=== PATIENT | female | born 1995 | race Caucasian/White ===

== ENCOUNTER 2023-03-28 13:15 | Day surgery (SDC) | payer OTHER, SELFPAY ==
[2023-03-28] VITALS (10 sets, daily range): BP systolic 104–120; BP diastolic 65–76; PULSE 66–132; RESP 16–18; TEMP 36.2–38; O2SAT 97–100; BMI 26.2
--- NOTE | 2023-03-28 13:20 | US_ITS ---
INDICATION: concern for ruptured ectopic EXAMINATION: Ultrasound US OB Transvaginal TECHNIQUE: Transabdominal pelvic ultrasound was performed. Grayscale, spectral waveform, and color flow Doppler evaluation of the adnexa. COMPARISON: None. LMP: [Unknown Beta-hCG: Unknown FINDINGS: UTERUS: 7 x 3.8 x 2.8 cm. The endometrium is normal thickness measuring about 4 mm. RIGHT OVARY: 3.4 x 2.5 x 1.5 cm. Normal. LEFT OVARY: 6 x 4 x 3 cm. There is a complex mass in the left ovary measuring about 3.4 x 2.5 x 1.5 cm. It could represent hemorrhagic cyst. Ectopic cannot be excluded. FREE FLUID: Moderate amount of free fluid in the left adnexal region. INTRAUTERINE GESTATIONAL SAC(s) (size/shape): No evidence of intracranial . US/Transvaginal w/Preg US IMPRESSION: 1. No evidence of intrauterine . 2. Complex mass in the left adnexal region with echogenic fluid which may reflect blood. Ruptured ectopic cannot be excluded. Correlation with quantitative beta-hCG levels is recommended. Electronically Signed: Adilson Fajardo MD at 15:02 EDT ,
--- NOTE | 2023-03-28 13:29 | ED.VIS.FEGU ---
HPI <SRAVANTHI Good - Last Filed: 03/28/23 15:30> HPI - Female History of Present Illness Chief Complaint: Female C/O Narrative Narrative: Patient presenting today after her OB, Dr. Carrera requested that she come in to be evaluated due to concerns for a ruptured ectopic on the left side. Patient has a known ectopic and finished her last round of methotrexate this . She had 2 rounds total with the first round being the Tuesday before. She has never had an ectopic before and is G1, P0. She reports that today her pain began worsening to the point where she could not handle it and she feels nauseous. She denies any fever, chills, chest pain, and shortness of breath. PFSH <SRAVANTHI Good - Last Filed: 03/28/23 15:30> PFSH Medical History no medical history Home Medications oxycodone 5 mg capsule 5 mg PO BID PRN pain 5 days #10 caps 03/28/23 [Rx Last Taken Unknown] oxycodone-acetaminophen 5 mg-325 mg tablet 1 - 2 tab PO Q6H PRN PRN Moderate-Severe Pain (4-10) 2 days #5 tabs 03/28/23 [Rx Last Taken Unknown] Allergy/AdvReac Type Severity Reaction Status Date / Time No Known Allergies Allergy Verified 03/28/23 13:18 Surgical History no surgical history Social History Smoking Status: Never smoker ROS <SRAVANTHI Good - Last Filed: 03/28/23 15:30> ROS ED Constitutional Constitutional ED: Denies chills or fever(s) Cardiovascular Cardiovascular: Denies chest pain Respiratory/Chest Respiratory/Chest: Denies cough or dyspnea Gastrointestinal Gastrointestinal: Reports abdominal pain and nausea; Denies vomiting Musculoskeletal Musculoskeletal: Denies arthralgias or myalgias Neurologic Neurologic: Denies weakness EXAM <SRAVANTHI Good - Last Filed: 03/28/23 15:30> Physical Exam Const Vital Signs: 03/28/23 13:18 03/28/23 15:26 03/28/23 16:23 Temperature 97.6 F L 97.2 F L 100.4 F H Temperature Source Temporal Temporal Temporal Pulse Rate 132 H 132 H 80 Respiratory Rate 18 18 16 Respiratory Pattern Normal Blood Pressure 120/76 120/76 111/68 Blood Pressure Mean 90 90 82 Blood Pressure Source Monitor Blood Pressure Position Semi-Fowlers Blood Pressure Location Right Arm Baseline BP 120/76 Pulse Ox 100 100 100 Oxygen Delivery Method Room Air Room Air Room Air 03/28/23 16:30 03/28/23 16:45 03/28/23 17:00 Temperature Temperature Source Pulse Rate 74 66 68 Respiratory Rate 16 16 16 Respiratory Pattern Blood Pressure 111/66 110/73 104/65 Blood Pressure Mean 81 85 78 Blood Pressure Source Monitor Monitor Monitor Blood Pressure Position Semi-Fowlers Semi-Fowlers Semi-Fowlers Blood Pressure Location Right Arm Right Arm Right Arm Baseline BP 120/76 120/76 120/76 Pulse Ox 100 100 100 Oxygen Delivery Method Room Air Room Air Room Air 03/28/23 17:15 03/28/23 17:30 03/28/23 17:45 Temperature 99.6 F H Temperature Source Temporal Pulse Rate 72 73 78 Respiratory Rate 16 16 16 Respiratory Pattern Blood Pressure 114/71 110/71 104/68 Blood Pressure Mean 85 84 80 Blood Pressure Source Monitor Monitor Monitor Blood Pressure Position Semi-Fowlers Semi-Fowlers Semi-Fowlers Blood Pressure Location Right Arm Right Arm Right Arm Baseline BP 120/76 120/76 120/76 Pulse Ox 100 98 97 Oxygen Delivery Method Room Air Room Air Room Air 03/28/23 17:50 03/28/23 18:01 Temperature Temperature Source Pulse Rate Respiratory Rate Respiratory Pattern Normal Blood Pressure Blood Pressure Mean Blood Pressure Source Blood Pressure Position Blood Pressure Location Baseline BP 120/76 Pulse Ox Oxygen Delivery Method Positive well nourished, well developed and no apparent distress General Appearance ED: well developed HEENT Reports normocephalic and head/scalp atraumatic Mouth ED: Yes moist mucous membranes normal Eyes PERRL and EOMs intact bilaterally Neck full ROM and supple Chest Wall inspection of chest normal Resp normal respiratory effort and clear to auscultation bilaterally Cardio regular rate and regular rhythm GI non-distended and no masses GI Narrative: Left lower quadrant tenderness to palpation. Back/Spine normal ROM and normal to inspection Extremity normal to inspection and full ROM Neuro oriented x3, CN's II-XII intact bilaterally, moves all extremities, no focal motor deficits and no sensory deficits noted Sensorium / Orientation: awake and alert Psych mental status grossly normal and thought process normal Skin no rashes or lesions noted and no wounds <Dr. Med Quijano MD - Last Filed: 03/29/23 08:20> Physical Exam Const Vital Signs: 03/28/23 13:18 03/28/23 15:26 03/28/23 16:23 Temperature 97.6 F L 97.2 F L 100.4 F H Temperature Source Temporal Temporal Temporal Pulse Rate 132 H 132 H 80 Respiratory Rate 18 18 16 Respiratory Pattern Normal Blood Pressure 120/76 120/76 111/68 Blood Pressure Mean 90 90 82 Blood Pressure Source Monitor Blood Pressure Position Semi-Fowlers Blood Pressure Location Right Arm Baseline BP 120/76 Pulse Ox 100 100 100 Oxygen Delivery Method Room Air Room Air Room Air 03/28/23 16:30 03/28/23 16:45 03/28/23 17:00 Temperature Temperature Source Pulse Rate 74 66 68 Respiratory Rate 16 16 16 Respiratory Pattern Blood Pressure 111/66 110/73 104/65 Blood Pressure Mean 81 85 78 Blood Pressure Source Monitor Monitor Monitor Blood Pressure Position Semi-Fowlers Semi-Fowlers Semi-Fowlers Blood Pressure Location Right Arm Right Arm Right Arm Baseline BP 120/76 120/76 120/76 Pulse Ox 100 100 100 Oxygen Delivery Method Room Air Room Air Room Air 03/28/23 17:15 03/28/23 17:30 03/28/23 17:45 Temperature 99.6 F H Temperature Source Temporal Pulse Rate 72 73 78 Respiratory Rate 16 16 16 Respiratory Pattern Blood Pressure 114/71 110/71 104/68 Blood Pressure Mean 85 84 80 Blood Pressure Source Monitor Monitor Monitor Blood Pressure Position Semi-Fowlers Semi-Fowlers Semi-Fowlers Blood Pressure Location Right Arm Right Arm Right Arm Baseline BP 120/76 120/76 120/76 Pulse Ox 100 98 97 Oxygen Delivery Method Room Air Room Air Room Air 03/28/23 17:50 03/28/23 18:01 Temperature Temperature Source Pulse Rate Respiratory Rate Respiratory Pattern Normal Blood Pressure Blood Pressure Mean Blood Pressure Source Blood Pressure Position Blood Pressure Location Baseline BP 120/76 Pulse Ox Oxygen Delivery Method MDM <SRAVANTHI Good - Last Filed: 03/28/23 15:30> MDM MDM Narrative Medical decision making narrative: Patient presenting today after being sent in by her OB, Dr. Carrera with concerns for ruptured ectopic , she has a known ectopic and has had 2 rounds of methotrexate. She began having worsening left lower quadrant pain today. She does appear to be uncomfortable, she is tachycardic here. She will be given IV fluids, morphine, Zofran. Preop labs will be obtained. Transvaginal ultrasound will be obtained. Patient is made NPO. Ultrasound shows evidence of ruptured left ectopic . Dr. Carrera came down to evaluate patient and she will be taken to the OR in stable condition. Patient is comfortable with plan. I have personally performed a face to face assessment of the patient and have reviewed the BINDU Note. I performed a substantive portion of the visit including all aspects of the following. My [place] findings include: History is remarkable patient having sandwich at 1230. She has not eaten since. Patient was treated with methotrexate for left ectopic . She has received 2 doses. She presents because of increased pain. Patient plus minus orthostatic symptoms. She denies pain referred to her left shoulder. She appears uncomfortable. Exam is patient appears uncomfortable. She is tachycardic. Patient has significant tenderness to left lower quadrant with peritoneal findings. Medical Decision Making patient was made n.p.o. appropriate labs were ordered. Ultrasound was ordered as requested by Dr. Carrera. Ultrasound reveals hemoperitoneum due to ruptured left ectopic other additions or changes: Patient was made n.p.o. IV was established. Patient was made ready for OR. Dr. Carrera was made aware of patient's laboratory studies. Plan is OR Lab Data Attestation: I reviewed the patient's lab results. Labs: Laboratory Results - last 24 hr 03/28/23 13:45 WBC 7.3 RBC 4.43 Hgb 13.6 Hct 41.5 MCV 93.7 MCH 30.7 MCHC 32.8 RDW Std Deviation 44.4 H RDW Coeff of Ruben 13.0 Plt Count 345 MPV 9.1 Immature Gran % (Auto) 0.400 Neut % (Auto) 64.4 Lymph % (Auto) 24.1 [place] % (Auto) 8.9 Eos % (Auto) 2.1 Baso % (Auto) 0.1 Absolute Neuts (auto) 4.7 Absolute Lymphs (auto) 1.76 Nucleated RBC % 0 Sodium 138 Potassium 3.4 L Chloride 107 Carbon Dioxide 28.0 Anion Gap 3 L BUN 8 Creatinine 0.78 Estim Creat Clear Calc 102.32 Est GFR (MDRD) Af Amer 114 Est GFR (MDRD) Non-Af 94 BUN/Creatinine Ratio 10.2 Glucose 100 Calcium 9.2 HCG, Quant 341 H Blood Type A POSITIVE Antibody Screen NEGATIVE Radiography Diagnostic Testing: Clinical Impression(s) from Imaging Studies Obstetrics Ultrasound 03/28/23 13:20 IMPRESSION: 1. No evidence of intrauterine . 2. Complex mass in the left adnexal region with echogenic fluid which may reflect blood. Ruptured ectopic cannot be excluded. Correlation with quantitative beta-hCG levels is recommended. Electronically Signed: Adilson Fajardo MD at 15:02 EDT , <Dr. Med Quijano MD - Last Filed: 03/29/23 08:20> [facility] MDM Narrative Medical decision making narrative: Patient presenting today after being sent in by her OB, Dr. Carrera with concerns for ruptured ectopic , she has a known ectopic and has had 2 rounds of methotrexate. She began having worsening left lower quadrant pain today. She does appear to be uncomfortable, she is tachycardic here. She will be given IV fluids, morphine, Zofran. Preop labs will be obtained. Transvaginal ultrasound will be obtained. Patient is made NPO. I have personally performed a face to face assessment of the patient and have reviewed the BINDU Note. I performed a substantive portion of the visit including all aspects of the following. My [place] findings include: History is remarkable patient having sandwich at 1230. She has not eaten since. Patient was treated with methotrexate for left ectopic . She has received 2 doses. She presents because of increased pain. Patient plus minus orthostatic symptoms. She denies pain referred to her left shoulder. She appears uncomfortable. Exam is patient appears uncomfortable. She is tachycardic. Patient has significant tenderness to left lower quadrant with peritoneal findings. Medical Decision Making patient was made n.p.o. appropriate labs were ordered. Ultrasound was ordered as requested by Dr. Carrera. Ultrasound reveals hemoperitoneum due to ruptured left ectopic other additions or changes: Patient was made n.p.o. IV was established. Patient was made ready for OR. Dr. Carrera was made aware of patient's laboratory studies. Plan is OR Lab Data Labs: Laboratory Results - last 24 hr 03/28/23 13:45 WBC 7.3 RBC 4.43 Hgb 13.6 Hct 41.5 MCV 93.7 MCH 30.7 MCHC 32.8 RDW Std Deviation 44.4 H RDW Coeff of Ruben 13.0 Plt Count 345 MPV 9.1 Immature Gran % (Auto) 0.400 Neut % (Auto) 64.4 Lymph % (Auto) 24.1 [place] % (Auto) 8.9 Eos % (Auto) 2.1 Baso % (Auto) 0.1 Absolute Neuts (auto) 4.7 Absolute Lymphs (auto) 1.76 Nucleated RBC % 0 Sodium 138 Potassium 3.4 L Chloride 107 Carbon Dioxide 28.0 Anion Gap 3 L BUN 8 Creatinine 0.78 Estim Creat Clear Calc 102.32 Est GFR (MDRD) Af Amer 114 Est GFR (MDRD) Non-Af 94 BUN/Creatinine Ratio 10.2 Glucose 100 Calcium 9.2 HCG, Quant 341 H Blood Type A POSITIVE Antibody Screen NEGATIVE Radiography Diagnostic Testing: Clinical Impression(s) from Imaging Studies Obstetrics Ultrasound 03/28/23 13:20 IMPRESSION: 1. No evidence of intrauterine . 2. Complex mass in the left adnexal region with echogenic fluid which may reflect blood. Ruptured ectopic cannot be excluded. Correlation with quantitative beta-hCG levels is recommended. Electronically Signed: Adilson Fajardo MD at 15:02 EDT , <Dr. Med Quijano MD - Last Filed: 03/29/23 08:20> Critical Care Time Critical Care Time: Yes Critical care time (excluding procedures): 30-74 minutes (31), Including time spent: (History, physical, documentation, interpretation laboratory results), Discussing w/Patient &/or Family/Agency Appointments Supervisor, Discussing w/Consultants (Dr. Carrera, RETAIL CLIENT MANAGER) and Arranging Admission or Transfer (To OR) Discharge Plan Dx/Rx/DC Orders Clinical Impression: Hemoperitoneum due to rupture of left tubal ectopic , Sinus tachycardia Disposition Disposition: Acute Care [facility] Discharge Date/Time: 03/28/23 15:00
[2023-03-28] MEDS: Morphine 4 MG/ML Syringe IV (13:51)
[2023-03-28] MEDS: Ondansetron 4 MG/2 ML Vial IV (13:51)
[2023-03-28] MEDS: 0.9% Normal Saline 1,000 ML 999 ML IV (13:52)
[2023-03-28 13:57] LABS: Absolute Lymphocyte Count 1.76 X10^3/uL (0.83-4.51); Absolute Neutrophil Count 4.7 X10^3/uL (2.0-7.7); Basophil# 0.01 X10^3/uL; Basophil% 0.1 % (0-1); Eosinophil# 0.15 X10^3/uL; Eosinophils% 2.1 % (0-5); Hematocrit 41.5 % (37-47); Hemoglobin 13.6 g/dL (12.0-15.0); Lymphocyte # 1.76 X10^3/ul (0.83-4.51); Lymphocyte % 24.1 % (19-41); Mean Corp Hgb Conc 32.8 g/dL (32-36); Mean Corpuscular Hgb 30.7 pg (27.0-32.0); Mean Corpuscular Volume 93.7 fL (81-99); Mean Platelet Vol. 9.1 fl (6.2-12.0); Monocyte# 0.65 X10^3/uL; Monocyte% 8.9 % (0-10); NRBC Flagged by Analyzer 0 % (0-5); Neutrophil # 4.71 X10^3/uL (2.7-7.7); Neutrophil % 64.4 % (47-70); Platelet Count 345 K/mm3 (150-450); RBC Distribution Width SD 44.4 fl (35.1-43.9); Red Blood Count 4.43 M/mm3 (4.2-5.4); White Blood Count 7.3 K/mm3 (4.4-11.0)
[2023-03-28 14:20] LABS: Anion Gap 3 (5-15); BUN 8 mg/dL (7-18); BUN/Creat Ratio 10.2 RATIO (10-20); Calcium,Total 9.2 mg/dL (8.5-10.1); Chloride 107 mmol/L (98-107); Creatinine, Serum 0.78 mg/dL (0.55-1.02); EST Glomerular Filtration Rate 94 mL/min (>60); Est Glom Filt Rate - Afr Amer 114 mL/min (>60); Estimated Creatinine Clearance 102.32 ml/min; Glucose 100 mg/dL (74-106); Potassium 3.4 mmol/L (3.5-5.1); Sodium Level 138 mmol/L (136-145)
[2023-03-28 14:24] LABS: hCG Titer Quant., Serum 341 mIU/mL (1-3)
--- NOTE | 2023-03-28 14:37 | HP.PCM.OB_ITS ---
History and Physical Date of Admission: 03/28/23 with known ectopic presents c/o increased pain and vaginal bleeding- reports pain got more severe yesterday and today. pt receive 2 previous doses of MTX with [facility] with appropriate decline in HCG levels. pt reports pain more on left side lower quadrant. has some N/V. no Dizziness no syncopal episodes. pt offers no other concerns today. Psx: neck mass removed as child Medhx: neg All; NKDA exam: GEN: Female in mild distress laying in bed ABD: tender to palpation in LLQ and LUQ. + GUARDING. Ultrasound: Results pending- Large amt of free fluid. a/p: 27yo with ruptured ectopic s/p MTX administration x 2 1) OR team notified 2) consented for diagnostic lap, removal of ectopic, possible salpingectomy, possible oophorectomy- pt counseled on risks of surgery including but not limited to bleeding, infection, injury to pelvic structures including bowel, bladder, vessels, ureters. pt agrees to proceed. 3) Ultrasound read pending- free fluid present 4) CBC stable
--- NOTE | 2023-03-28 16:02 | OP.PCM_ITS ---
Report of Operation Date of Procedure: 03/28/23 Pre-Operative Diagnosis: Ruptured ectopic Post-Operative Diagnosis: same Surgery/Procedure Performed:: Left salpingectomy- removal of ectopic , evacuation of hemoperitoneum Description of Surgical Findings:: 50cc hemoperitoneum, Left Tubal ectopic Surgeon: Amanda Wall outside sales advertising executive: Pawan Orellana Type of Anesthesia: General and Local Specimen's removed: left fallopian tube and ectopic Drains: none Estimated Blood Loss (mL): 10 cc Fluids Replaced: 600 Description of Procedure: After informed consent was obtained patient was taken to the operating room she was placed in supine position she was given anesthesia. She was then placed in the [facility] stirrups and she was prepped and draped in normal sterile fashion. Bladder was drained prior to the start of procedure. At this time attention was turned to the vaginal portion where weighted speculum placed at posterior fornix vagina single-tooth tenaculum was used to gently grasp the internal the cervix. uterus was gently sounded to approximately8 cm. Uterine manipulator was placed without difficulty. Legs then placed in parallel with the abdomen the tenaculum and the weighted speculum were removed. 2 towel clamps were placed at level of umbilicus. Marcaine was injected infraumbilical and a small incision was made. The 5 mm trocar was placed under direct visual ization. CO2 gas was used to insufflate the intra-abdominal cavity. Upon inspection moderate amount of hemoperitoneum appreciated, left tubal ectopic noted- the uterus right tube and both ovaries appeared to be normal. At this time then the LLQ and RLQ ports were placed First Marcaine was injected and small incision was made a knife and the 5 mm trocars were placed. Due to how large ectopic was and active bleeding decision made to remove left tube- Ligasure was used to coagulate and ligate along mesosalpynx on the left until tube/ectopic removed completely. Good hemostasis was appreciated. At this time procedure was deemed complete successful. Hemoperitoneum was evacuated. The specimen was placed in 5mm endocatch bag and umbilical port extended to removed specimen. Kyle lyn used to closed fascia with 0- vicryl suture. The gas was desufflated on from the intra-abdominal cavity. The trochars were removed. Skin was closed using 4-0 Monocryl in a subcutaneous fashion. Dermabond glue was placed. Instrument lap and needle counts were correct ?2. The uterine manipulator was removed. Vaginal sweep was performed it was negative. There were no complications anticipated normal postoperative course for this patient. Grafts/Implants Used: none Procedure Start Time: 15:37 Procedure Stop Time: 16:08 Complications none Admit VTE Documentation VTE Present on Admission: Yes VTE Mechan Device Prophylaxis: SCD's VTE Pharm Prophylaxis ordered?: No Reason prophylaxis not ordered:: Procedure Not Indicated
[2023-03-28] MEDS: Bupivacaine 0.25% 30 ML Vial (16:09)
--- NOTE | 2023-03-28 16:09 | DCINST_ITS ---
Discharge Instructions Diet Discharge Diet: No restrictions Activity May resume sexual activity in: 2 weeks Lifting Restrictions: 20-25 lbs Dressing / Incision Call your doctor if your incision/area has: Continuous Slow Oozing, Sudden Increased Bleeding, Increased Pain/ Swelling, Increased Redness, Foul Smelling Discharge and Swelling at the incision site Call your doctor if you observe: Fever of 101 or Higher, Inability to urinate, Inability to have a bowel movement, Using more than 1 pad per hour and Uncontrolled pain Additional Dressing/Incision Instructions:: You have skin glue over your incision sites, do not pick off. You may shower and let the soap and water run over the incision sites and dab dry. Follow Up Care Please Follow Up With: Amanda Wall MD When: 1-2 weeks post OP if you need an appointment please call [phone] Test Results: Test results from this visit will be discussed in further detail at your follow- up appointment, if applicable. Discharge Plan Admission Attending Provider: Dallas Carrera Primary Care Provider: Care Physician,Chyna Primary Discharge Orders/Prescriptions Prescriptions: New oxycodone-acetaminophen 5-325 mg Tablet 1 - 2 tab PO Q6H PRN PRN (Reason: Moderate-Severe Pain (4-10)) 2 Days Qty: 5 0RF oxycodone 5 mg capsule 5 mg PO BID PRN (Reason: pain) 5 Days Qty: 10 0RF Referrals / Follow Up: Care Physician,No Primary [Primary Care Provider] - Disposition Disposition (needs filled in before D/C Order can be placed): Home, Self Care
[2023-03-28] MEDS: Lactated Ringers 1,000 ML 15 ML IV (16:30)
--- NOTE | 2023-03-29 | FAL_PTH ---
PATIENT: CHARLINE KIRKPATRICK LOC: [facility] – [place] U#:[id number] AGE/SX: 27/F ROOM: RE03/28/[address]: Dallas Carrera : 1995 BED: DIS: 03/28/2023 SPEC #: [id number] RECD: 03/29/23 11:50 STATUS: DARIEN REKale #: [id number] BEE: 03/29/23 00:[address]: Amanda Wall DEPT: SURGICAL PATHOLOGY RECD BY: Bjorn Bell ENTERED: 03/29/23 11:51 SP TYPE: ECTOPIC OTHR DR: Chyna Primary Care Phys Dallas Carrera Tissues: ECTOPIC PREG Procedures: Surgery Specimen Level IV Comments: @ Ordering doctor for JOHAN edited from KRISH to @ by DWAYNE at 03/29/23 1536 @ Submitting doctor edited from KRISH to DR.DMCINT Nava by DAWYNE at 03/29/23 1536 HEADER OPERATION: Left salpingectomy, removal of ectopic , evacuation PRE-OP DIAGNOSIS: Ectopic TISSUE SUBMITTED: Left fallopian tube and ectopic MICROSCOPIC DIAGNOSIS Left fallopian tube, salpingectomy: Intraluminal chorionic villi, decidualized stroma and trophoblastic cells consistent with tubal . AM:rich 03/30/2023 MICROSCOPIC DESCRIPTION Slides are reviewed. GROSS DESCRIPTION Received in fixative is one container labeled with the patient's name and designated left fallopian tube and ectopic . The specimen consists of a fallopian tube including fimbrial end measuring 9.0 cm in length and up to 2.5 cm in diameter. No obvious rupture is noted. Multiple fragments of blood clots are also noted measuring in aggregate 5.0 x 3.0 x 1.5 cm. Sections of fallopian tube reveal it is filled with blood clots. No obvious placental tissue is identified. Stand Up Comedian sections are submitted in four cassettes. Cassette 4 contains the detached blood clots. / SJ:rich 03/29/2023 TC:5 CPT: 83787
== END 2023-03-28 18:12 | disposition home or self-care (01) ==
LOC: ED 14:32 → SDC 14:39
PROVIDERS: Obstetrics & Gynecology; Physician Assistant; Emergency Provider Emergency Medicine
PROC: 10T24ZZ Resection of Products of Conception, Ectopic, Percutaneous Endoscopic Approach (ICD-10-PCS; CPT 59150; principal; 2023-03-28 15:30)
DX: O00.102 Left tubal pregnancy without intrauterine pregnancy (principal)
CPT/HCPCS: 59151; 76817; 80048; 84702; 85025; 86850; 86900; 86901; 88305; 99282; J7120; A4216; J2405

== ENCOUNTER 2025-01-27 11:50 | Outpatient (CLI) | payer OTHER, SELFPAY ==
[2025-01-27 11:58] VITALS: BMI 30.9
--- OUTSIDE RECORDS SUMMARY | 2025-01-27 12:00 | XMS RPT_ITS | CCD ---
Author Organization [facility] Care Team Providers Care Treatment Plant Mechanic Name Role Phone Unavailable Primary Care Provider Unavailabl e ALCON MARTINEZ Attending Unavailable ALCON MARTINEZ Admitting Unavailable DEMI FOWLER Attending Unavailable DEMI FOWLER Admitting Unavailable MAST MARKET DEVELOPER-MANAGER SOUNDOMAR Attending Unavailabl e MAST MARKET DEVELOPER-MANAGER SOUND, OMAR Primary Care Unavailabl e Unavailable Primary Care Provider Unavailabl e NEYHART JENKINS, AMANDA Referring Unavail able NEYHART JENKINS, AMANDA Referring Unavail able SELINATS, KELLY Attending Unavailable PLOTTS, KELLY Referring Unavailable NEYHART JENKINS, AMANDA Referring Unavail able SHELLI ALLISON Attending Unavailable ALCON MARTINEZ Attending Unavailable NEYHART JENKINS, AMANDA Referring Unavail able PLOTTS, KELLY Attending Unavailable PLOTTS, KELLY Attending Unavailable NEYHART JENKINS, AMANDA Attending Unavail able NEYHART JENKINS, AMANDA Referring Unavail able SHELLI ALLISON Attending Unavailable SELINATSKELLY Attending Unavailable OVIDIO JOSEPH Attending Unavailable NEYHART JENKINS, AMANDA Referring Unavail able PLOTTS, KELLY Referring Unavailable PLOTTS, KELLY Attending Unavailable PLOTTS, KELLY Referring Unavailable PLOTTS, KELLY Referring Unavailable NEYHART JENKINS, AMANDA Attending Unavail able SANGEETA EDWARDS Attending Unavailable NEYHART JENKINS, AMANDA Attending Unavail able PLOTTS, KELLY Referring Unavailable NEYHART JENKINS, AMANDA Attending Unavail able NEYHART JENKINS, AMANDA Referring Unavail able Medications Current Medications Medication Drug Class(es) Dates Sig (Normalized) Sig (Original) acetaminophen 325 mg / oxyCODONE hydrochloride 5 mg oral tablet (1 source) Opioid Agonist Start: 03-28-2023 take 1 tablet by mouth every six hours as needed Oxycodone-Acetamino phen Active 1 - 2 TABLET PO EVERY 6 HOURS NEEDED 5 2 March 28, 2023 aspirin 81 mg delayed release oral tablet (20 sources) Platelet Aggregation Inhibitor, Nonsteroidal Anti-inflammatory Drug Start: 06-08-2024 take 1 tablet by mouth once daily aspirin, enteric coated (ECOTRIN LOW STRENGTH) 81 mg EC tablet Indications: with uncertain dates in first trimester (HCC) Take 1 tablet by mouth once daily. 90 tablet 3 06/08/2024 Active metoclopramide 5 mg oral tablet (5 sources) Dopamine-2 Receptor Antagonist Start: 07-16-2024 End: 09-06-2024 take 1 tablet by mouth every eight hours as needed metoclopramide HCl (REGLAN) 5 mg tablet Take 1 tablet by mouth three times a day as needed. 45 tablet 08/07/2024 08/10/2024 Discontinued ondansetron 4 mg oral tablet (20 sources) Serotonin-3 Receptor Antagonist Start: 08-10-2024 End: 01-23-2025 take 1 tablet by mouth every eight hours as needed for nausea ondansetron (ZOFRAN) 4 mg tablet Indications: 16 weeks gestation of ([facility]) , Nausea and vomiting in ([facility]) Take 1 tablet by mouth every 8 hours as needed for nausea/vomiting. 60 tablet 12/24/2024 01/23/2025 Active oxyCODONE hydrochloride 5 mg oral capsule (1 source) Opioid Agonist Start: 03-28-2023 take 5 mg by mouth twice daily Oxycodone Active 5 MG PO TWICE A DAY 10 5 March 28, 2023 pantoprazole 40 mg delayed release oral tablet (3 sources) Proton Pump Inhibitor Start: 01-18-2025 take 1 tablet by mouth once daily pantoprazole DR (PROTONIX) 40 mg tablet Take 1 tablet by mouth once daily. 30 tablet 2 01/18/2025 Active predniSONE 10 mg oral tablet (1 source) Start: 03-21-2022 End: 03-30-2022 predniSONE (DELTASONE) 10 mg tablet Indications: Rhus dermatitis Take 4 tabs daily for 3 days, then 2 tabs daily for 3 days, then 1 tab daily for 3 days with food. 21 tablet 0 03/21/2022 03/30/2022 Active Comment on above: Take 4 tabs daily fo r 3 days, then 2 tabs daily for 3 days, then 1 tab daily for 3 days with food. 25-IRON [id number] ORAL (20 sources) 25-IRON [id number] ORAL Take by mouth. Active triamcinolone acetonide 1 mg/ml topical cream (1 source) Corticosteroid Start: 03-21-2022 End: 03-31-2022 triamcinolone acetonide (KENALOG) 0.1 % cream Indications: Rhus dermatitis Apply 1 application to affected area three times daily for 10 days. Apply sparingly to area for rash/itching. 80 g 0 03/21/2022 03/31/2022 Active Comment on above: Apply 1 application to affected area three times daily for 10 days. Apply sparingly to area for rash/itching. Completed/Discontinued Medications Medication Drug Class(es) Dates Sig (Normalized) Sig (Original) Desogestrel / Ethinyl Estradiol (5 sources) Progestin, Estrogen Start: 09-30-2022 End: 03-11-2023 take 1 tablet by mouth once daily APRI 0.15-0.03 mg per tablet TAKE 1 TABLET BY MOUTH ONCE DAILY 84 tablet 2 09/30/2022 03/11/2023 Discontinued Start: 09-30-2022 take 1 tablet by domenica th once daily APRI 0.15-0.03 mg per tablet TAKE 1 TABLET BY MOUTH ONCE DAILY 84 tablet 2 09/30/2022 Suspended Start: 09-30-2022 take 1 tablet by domenica th once daily APRI 0.15-0.03 mg per tablet TAKE 1 TABLET BY MOUTH ONCE DAILY 84 tablet 2 09/30/2022 Active Start: 05-21-2022 End: 06-18-2022 take 1 tablet by mouth once daily, then take 0.15 tablet by mouth once Desogestrel-Ethinyl Estradiol (APRI) 0.15-0.03 mg per tablet Take 1 tablet by mouth once daily for 28 days. 28 tablet 3 05/21/2022 06/18/2022 Active Comment on above: Take 1 tablet by domenica th once daily for 28 days. TAKE 1 TABLET BY DOMENICA TH ONCE DAILY Ethinyl Estradiol / Levonorgestrel (4 sources) Progestin, Estrogen, Progestin-containing Intrauterine Device Start: 05-03-20 End: 05-21-20 take 1 tablet by mouth once daily SRONYX 0.1-20 mg-mcg per tablet TAKE 1 TABLET BY MOUTH EVERY DAY 84 tablet 0 05/03/2022 05/21/2022 Discontinued Start: 10-26-2021 take 1 tablet by domenica th once daily SRONYX 0.1-20 mg-mcg per tablet TAKE 1 TABLET BY MOUTH EVERY DAY 84 tablet 1 10/26/2021 Active Start: 04-13-2021 End: 10-26-2021 take 1 tablet by mouth once daily SRONYX 0.1-20 mg-mcg per tablet TAKE 1 TABLET BY MOUTH EVERY DAY 28 tablet 7 04/13/2021 10/26/2021 Discontinued Comment on above: TAKE 1 TABLET BY DOMENICA TH EVERY DAY famotidine 20 mg oral tablet (20 sources) Histamine-2 Receptor Antagonist Start: End: take 1 tablet by mouth twice daily famotidine (PEPCID) 20 mg tablet TAKE 1 TABLET BY MOUTH TWICE A DAY 180 tablet 1 08/03/2024 09/10/2024 Discontinued (Discontinued by Patient) End: 01-18-2025 famotidine (PEPCID ORAL) Manny e by mouth. 01/18/2025 Discontinued famotidine (PEPC ID ORAL) Take by mouth. Active Problems Active Problems Problem Classification Problem Date Documented Date Episodic/Chronic Abdominal pain (1 source) Pain in pelvis; Translations: [Pelvic and perineal pain] 03-11-2023 Episodic Allergic reactions (1 source) Contact dermatitis due to Genus Toxicodendron; Translations: [Unspecified contact dermatitis due to plants, except food] Episodic Anxiety disorders (2 sources) Anxiety disorder, unspecified; Translations: [Anxiety disorder, unspecified] Onset: 06-10-2023 Chronic Bacterial infection; unspecified site (8 sources) Bacteria present; Translations: [Streptococcus, group B, as the cause of diseases classified elsewhere] Onset: 01-11-2025 01-11-2025 Episodic Cardiac dysrhythmias (4 sources) Sinus tachycardia; Translations: [Tachycardia, unspecified] 03-28-2023 Episodic Contraceptive and procreative management (1 source) Oral contraception; Translations: [Encounter for surveillance of contraceptive pills] Episodic Ectopic (8 sources) Ectopic ; Translations: [Unspecified ectopic without intrauterine ] Onset: 03-11-2023 03-11-2023 Episodic Hemorrhage during ; abruptio placenta; placenta previa (20 sources) Antepartum hemorrhage; Translations: [Hemorrhage in early , unspecified] Onset: 09-07-2024 Resolved: 12-05-2024 03-08-2023 Episodic Immunizations and screening for infectious disease (1 source) Vaccination needed; Translations: [Encounter for immunization] 10-31-2024 Episodic Malaise and fatigue (2 sources) Other fatigue; Translations: [Other fatigue] Onset: 06-10-2023 Episodic Other aftercare (10 sources) Patient encounter status; Translations: [Encounter for therapeutic drug level monitoring] Onset: 03-17-2023 03-17-2023 Episodic Other complications of (2 sources) Uncertain viability of ; Translations: [ with inconclusive viability, not applicable or unspecified] 03-11-2023 Episodic Other complications of (20 sources) Vomiting of , unspecified; Translations: [Unspecified vomiting of , unspecified as to episode of care or not applicable] Onset: 06-08-2024 06-08-2024 Episodic Other complications of (6 sources) High risk ; Translations: [Supervision of high risk , unspecified, third trimester] 11-29-2024 Episodic Other complications of (14 sources) Excessive growth affecting management of mother; Translations: [Maternal care for excessive growth, unspecified trimester, not applicable or unspecified] Onset: 12-05-2024 12-05-2024 Episodic Other complications of (1 source) Supervision of high risk , unspecified, third trimester; Translations: [Supervision of high risk in third trimester (HCC)] Onset: 12-14-2024 Episodic Other nervous system disorders (1 source) Postoperative pain ; Translations: [Other acute postprocedural pain] 03-28-2023 Episodic Other and delivery including normal (20 sources) Early stage of ; Translations: [Encounter for supervision of normal , unspecified, unspecified trimester] Onset: 05-23-2024 03-11-2023 Episodic Other screening for suspected conditions (not mental disorders or infectious disease) (5 sources) Finding related to ; Translations: [Encounter for suspected placental problem ruled out] Onset: 07-12-2024 12-05-2024 Episodic Other skin disorders (2 sources) Nonscarring hair loss, unspecified; Translations: [Nonscarring hair loss, unspecified] Onset: 06-10-2023 Episodic Residual codes; unclassified (1 source) Postoperative state; Translations: [Other specified postprocedural states] 04-06-2023 Episodic Residual codes; unclassified (1 source) Gestation period, 7 weeks; Translations: [Less than 8 weeks gestation of ] 06-08-2024 Episodic Residual codes; unclassified (2 sources) Gestation period, 12 weeks; Translations: [12 weeks gestation of ] 07-12-2024 Episodic Residual codes; unclassified (6 sources) Gestation period, 16 weeks; Translations: [16 weeks gestation of ] 08-10-2024 Episodic Residual codes; unclassified (2 sources) Gestation period, 20 weeks; Translations: [20 weeks gestation of ] 09-07-2024 Episodic Residual codes; unclassified (1 source) Gestation period, 24 weeks; Translations: [24 weeks gestation of ] 10-05-2024 Episodic Residual codes; unclassified (2 sources) Gestation period, 28 weeks; Translations: [28 weeks gestation of ] 10-31-2024 Episodic Residual codes; unclassified (1 source) Gestation period, 32 weeks; Translations: [32 weeks gestation of ] 11-29-2024 Episodic Residual codes; unclassified (1 source) Gestation period, 33 weeks; Translations: [33 weeks gestation of ] 12-05-2024 Episodic Residual codes; unclassified (1 source) Gestation period, 36 weeks; Translations: [36 weeks gestation of ] 12-24-2024 Episodic Residual codes; unclassified (1 source) Gestation period, 37 weeks; Translations: [37 weeks gestation of ] 01-02-2025 Episodic Residual codes; unclassified (1 source) Gestation period, 38 weeks; Translations: [38 weeks gestation of ] 01-11-2025 Episodic Residual codes; unclassified (1 source) Gestation period, 39 weeks; Translations: [39 weeks gestation of ] 01-18-2025 Episodic Residual codes; unclassified (1 source) Gestation period, 40 weeks; Translations: [40 weeks gestation of ] 01-24-2025 Episodic Residual codes; unclassified (1 source) 40 weeks gestation of ; Translations: [40 weeks gestation of (HCC)] Onset: 01-24-2025 Episodic Residual codes; unclassified (1 source) 39 weeks gestation of ; Translations: [39 weeks gestation of (HCC)] Onset: 01-18-2025 Episodic Residual codes; unclassified (1 source) 38 weeks gestation of ; Translations: [38 weeks gestation of (HCC)] Onset: 01-11-2025 Episodic Residual codes; unclassified (1 source) 37 weeks gestation of ; Translations: [37 weeks gestation of (HCC)] Onset: 01-02-2025 Episodic Residual codes; unclassified (1 source) 36 weeks gestation of ; Translations: [36 weeks gestation of (HCC)] Onset: 12-24-2024 Episodic Residual codes; unclassified (1 source) 16 weeks gestation of ; Translations: [16 weeks gestation of (HCC)] Onset: 12-24-2024 Episodic Residual codes; unclassified (1 source) 34 weeks gestation of ; Translations: [34 weeks gestation of (HCC)] Onset: 12-14-2024 Episodic Residual codes; unclassified (1 source) 33 weeks gestation of ; Translations: [33 weeks gestation of (HCC)] Onset: 12-04-2024 Episodic Residual codes; unclassified (1 source) 32 weeks gestation of ; Translations: [32 weeks gestation of (HCC)] Onset: 11-29-2024 Episodic Residual codes; unclassified (1 source) 30 weeks gestation of ; Translations: [30 weeks gestation of (HCC)] Onset: 11-16-2024 Episodic Unclassified (20 sources) [facility] - [facility]ON Onset: 06-08-2024 06-08-2024 Unclassified (20 sources) Education - [place] Onset: 06-08-2024 06-08-2024 Past or Other Problems Problem Classification Problem Date Documented Da te Episodic/Chronic Other aftercare (20 sources) shelter methotrexate user; Translations: [Encounter for therapeutic drug level monitoring] Onset: 03-17-2023 Resolved: 07-12-2024 03-17-2023 Episodic Other complications of (20 sources) with inconclusive viability, not applicable or unspecified; Translations: [ with inconclusive viability] Onset: 03-11-2023 Resolved: 06-08-2024 03-11-2023 Episodic Other complications of (2 sources) Supervision of with history of ectopic , unspecified trimester; Translations: [ with history of ectopic ] Onset: 05-23-2024 05-14-2024 Episodic Other complications of (20 sources) Heartburn; Translations: [Other specified related conditions, second trimester] Onset: 07-12-2024 07-12-2024 Episodic Other complications of (1 source) Other specified related conditions, second trimester; Translations: [Heartburn during in second trimester (HCC)] Onset: 07-12-2024 Episodic Other gastrointestinal disorders (1 source) Heartburn; Translations: [Heartburn during in second trimester (HCC)] Onset: 07-12-2024 Episodic Residual codes; unclassified (20 sources) H/O: ectopic ; Translations: [Personal history of other complications of , childbirth and the puerperium] Onset: 06-08-2024 Resolved: 07-12-2024 06-08-2024 Episodic Residual codes; unclassified (1 source) 12 weeks gestation of ; Translations: [12 weeks gestation of ] Onset: 07-12-2024 Episodic Results Test Name Value Interpretation Reference Range Facil monserraty Selvin 01-24-2025 JOSE Telephone (GRACEGY) ---- CHARLINE KIRKPATRICK ([id number]) 1995 F T Date Time Provider Department 01/24/25 KELLY GREGG During your visit today, we recorded the following information about you: Sumit Hamlin LPN 01/24/2025 3:18 PM Signed Phone call placed patient identified by name and date of , reviewed non stress test at [facility] 1:00 on Tuesday01/27/2025, induction scheduled on 01/28/2025 at 7:00 PM. Patient offered to move induction to 7:00 PM on Tuesday, patient declined. Sumit Hamlin LPN Allergies As of Date: 01/24/2025 (No Known Allergies) Date Reviewed: 01/24/2025 Reviewed by: Sumit Hamlin LPN - Fully Assessed Reason for Visit: Patient Question [1477] Prescriptions as of 01/24/2025 - pantoprazole DR (PROTONIX) 40 mg tablet Take 1 tablet by mouth once daily. - aspirin, enteric coated (ECOTRIN LOW STRENGTH) 81 mg EC tablet Take 1 tablet by mouth once daily. - 25-IRON [id number] ORAL Take by mouth. 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] 09/07/2024 12/05/2024 Low lying placenta nos or without hemorrhage, t*11/01/2024 12/05/2024 LGA (large for gestational age) fetus affecting* Positive GBS test [B95.1] 01/11/2025 Encounter Status:Closed by SUMIT HAMLIN on 01/24/25 Normal [facility] URINE OB DIP B/Oon 5 Glucose Ql (U) Negative Neg mg/dL [facility] Interpretation and review of laboratory results Normal [facility] Protein.monoclonal (U) [Mass/Vol] Negative Neg mg/dL [facility] URINE OB DIP B/Oon 5 Glucose Ql (U) Negative Neg mg/dL [facility] Interpretation and review of laboratory results Normal [facility] Protein.monoclonal (U) [Mass/Vol] Negative Neg mg/dL [facility] URINE OB DIP B/Oon Glucose Ql (U) Negative Neg mg/dL [facility] Interpretation and review of laboratory results Normal [facility] Protein.monoclonal (U) [Mass/Vol] Negative Neg mg/dL [facility] CNPNon 12-28-2024 CNPN Telephone (OBGYWM) ---- CHARLINE KIRKPATRICK ([id number]) 1995 F T Date Time Provider Department 12/28/24 SANGEETA EDWARDS During your visit today, we recorded the following information about you: Charles Nava MA 12/28/2024 11:33 AM Signed Received [facility] paperwork. Awaiting patients response regarding length of leave. SHANTAL Ogden Morgan, MA 01/03/2025 9:06 AM Signed [facility] paperwork completed and faxed back to number provided on forms. Patient notified. Charles Nava MA Allergies As of Date: 12/28/2024 (No Known Allergies) Date Reviewed: 12/24/2024 Reviewed by: Sangeeta Edwards MD - Fully Assessed Reason for Visit: [facility] Paperwork [4185] Prescriptions as of 01/03/2025 - ondansetron (ZOFRAN) 4 mg tablet Take 1 tablet by mouth every 8 hours as needed for nausea/vomiting. - famotidine (PEPCID ORAL) Take by mouth. - aspirin, enteric coated (ECOTRIN LOW STRENGTH) 81 mg EC tablet Take 1 tablet by mouth once daily. - 25-IRON [id number] ORAL Take by mouth. 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] 09/07/2024 12/05/2024 Low lying placenta nos or without hemorrhage, t*11/01/2024 12/05/2024 LGA (large for gestational age) fetus affecting* Encounter Status:Closed by CHARLES NAVA on 01/03/25 Normal [facility] ROUTINE, GROUP B ST REPTOCOCCUS BY PCRon 12-24-2024 ROUTINE, GROUP B STREPTOCOCCUS BY PCR Detected Abnormal [facility] Comment on above: Performed By: #### L [id number] #### [facility] CLIA [id number] [address] [place] [address] [place] URINE OB DIP B/Oon Glucose Ql (U) Negative Neg mg/dL [facility] Protein.monoclonal (U) [Mass/Vol] Negative Neg mg/dL [facility] Examination level ultrasound on 12-05-2024 [facility] Examination level ultrasound on 12-04-2024 Radiology Study observation (narrative) [facility] CBC W Auto Differential pane l (Bld)on 10-31-2024 Basophils (Bld) [#/Vol] 10*3/uL Normal <0.11 [facility] Comment on above: Order Comment: Speci men Type: BLOOD SPECIMEN Ordering Facility: [facility] Address: [address] [place] [address] Performed By: #### T SPN #### [facility] CLIA [id number] [address] [place] [address] [place] Basophils/100 WBC (Bld) 0.1 % Normal [facility] Comment on above: Order Comment: Speci men Type: BLOOD SPECIMEN Ordering Facility: [facility] Address: [address] [place] [address] Performed By: #### T SPN #### [facility] CLIA [id number] [address] [place] [address] [place] Differential cell count method Nom (Bld) Auto Normal [facility] Comment on above: Order Comment: Speci men Type: BLOOD SPECIMEN Ordering Facility: [facility] Address: [address] [place] [address] Performed By: #### T SPN #### [facility] CLIA [id number] [address] [place] [address] [place] Eosinophils (Bld) [#/Vol] 0.09 10*3/uL Normal <0.46 [facility] Comment on above: Order Comment: Speci men Type: BLOOD SPECIMEN Ordering Facility: [facility] Address: [address] [place] [address] Performed By: #### T SPN #### [facility] CLIA [id number] [address] [place] [address] [place] Eosinophils/100 WBC (Bld) 0.8 % Normal [facility] Comment on above: Order Comment: Speci men Type: BLOOD SPECIMEN Ordering Facility: [facility] Address: [address] [place] [address] Performed By: #### T SPN #### [facility] CLIA [id number] [address] [place] [address] [place] Erythrocyte distribution width (RBC) [Ratio] 12.9 % Normal 11.5-15.0 [facility] Comment on above: Order Comment: Speci men Type: BLOOD SPECIMEN Ordering Facility: [facility] Address: [address] [place] [address] Performed By: #### T SPN #### [facility] CLIA [id number] [address] [place] [address] [place] Hematocrit (Bld) [Volume fraction] 33.3 % Low 36.0-46.0 [facility] Comment on above: Order Comment: Speci men Type: BLOOD SPECIMEN Ordering Facility: [facility] Address: [address] [place] [address] Performed By: #### T SPN #### [facility] CLIA [id number] [address] [place] [address] [place] Hemoglobin (Bld) [Mass/Vol] 11.6 g/dL Normal 11.5-15.5 [facility] Comment on above: Order Comment: Speci men Type: BLOOD SPECIMEN Ordering Facility: [facility] Address: [address] [place] [address] Performed By: #### T SPN #### [facility] CLIA [id number] [address] [place] [address] [place] Immature granulocytes (Bld) [#/Vol] 0.05 10*3/uL Normal <0.10 [facility] Comment on above: Order Comment: Speci men Type: BLOOD SPECIMEN Ordering Facility: [facility] Address: [address] [place] [address] Performed By: #### T SPN #### [facility] CLIA [id number] [address] [place] [address] [place] Immature granulocytes/100 WBC (Bld) 0.4 % Normal [facility] Comment on above: Order Comment: Speci men Type: BLOOD SPECIMEN Ordering Facility: [facility] Address: [address] [place] [address] Performed By: #### T SPN #### [facility] CLIA [id number] [address] [place] [address] [place] Lymphocytes (Bld) [#/Vol] 2.15 10*3/uL Normal 1.00-4.00 [facility] Comment on above: Order Comment: Speci men Type: BLOOD SPECIMEN Ordering Facility: [facility] Address: [address] [place], [place] [id number] Performed By: #### T SPN #### [facility] CLIA [id number] [address] [place] [address] [place] Lymphocytes/100 WBC (Bld) 18.5 % Normal [facility] Comment on above: Order Comment: Speci men Type: BLOOD SPECIMEN [facility] [facility] Address: [address] [place] [address] Performed By: #### T SPN #### [facility] CLIA [id number] [address] [place] [address] [place] MCH (RBC) [Entitic mass] 31.3 pg Normal 26.0-34.0 [facility] Comment on above: Order Comment: Speci men Type: BLOOD SPECIMEN Ordering Facility: [facility] Address: [address] [place] [address] Performed By: #### T SPN #### [facility] CLIA [id number] [address] [place] [address] [place] MCHC (RBC) [Mass/Vol] 34.8 g/dL Normal 30.5-36.0 [facility] Comment on above: Order Comment: Speci men Type: BLOOD SPECIMEN Ordering Facility: [facility] Address: [address] [place] [address] Performed By: #### T SPN #### [facility] CLIA [id number] [address] [place] [address] [place] MCV (RBC) [Entitic vol] 89.8 fL Normal 80.0-100.0 [facility] Comment on above: Order Comment: Speci men Type: BLOOD SPECIMEN Ordering Facility: [facility] Address: [address] [place] [address] Performed By: #### T SPN #### [facility] CLIA [id number] [address] [place] [address] [place] Monocytes (Bld) [#/Vol] 0.92 10*3/uL High <0.87 [facility] Comment on above: Order Comment: Speci men Type: BLOOD SPECIMEN Ordering Facility: [facility] Address: [address] [place] [address] Performed By: #### T SPN #### [facility] CLIA [id number] [address] [place] [address] [place] Monocytes/100 WBC (Bld) 7.9 % Normal [facility] Comment on above: Order Comment: Speci men Type: BLOOD SPECIMEN Ordering Facility: [facility] Address: [address] [place] [address] Performed By: #### T SPN #### [facility] CLIA [id number] [address] [place] [address] [place] Neutrophils (Bld) [#/Vol] 8.38 10*3/uL High 1.45-7.50 [facility] Comment on above: Order Comment: Speci men Type: BLOOD SPECIMEN Ordering Facility: [facility] Address: [address] [place] [address] Performed By: #### T SPN #### [facility] CLIA [id number] [address] [place] [address] [place] Neutrophils/100 WBC (Bld) 72.3 % Normal [facility] Comment on above: Order Comment: Speci men Type: BLOOD SPECIMEN Ordering Facility: [facility] Address: [address] [place] [address] Performed By: #### T SPN #### [facility] CLIA [id number] [address] [place] [address] [place] Nucleated RBC (Bld) [#/Vol] 10*3/uL Normal <0.01 [facility] Comment on above: Order Comment: Speci men Type: BLOOD SPECIMEN Ordering Facility: [facility] Address: [address] [place] [address] Performed By: #### T SPN #### [facility] CLIA [id number] [address] [place] [address] [place] Nucleated RBC/100 WBC (Bld) [Ratio] 0.0 /100 WBC Normal [facility] Comment on above: Order Comment: Speci men Type: BLOOD SPECIMEN Ordering Facility: [facility] Address: [address] [place] [address] Performed By: #### T SPN #### [facility] CLIA [id number] [address] [place] [address] [place] Platelet mean volume (Bld) [Entitic vol] 9.3 fL Normal 9.0-12.7 [facility] Comment on above: Order Comment: Speci men Type: BLOOD SPECIMEN Ordering Facility: [facility] Address: [address] [place] [address] Performed By: #### T SPN #### [facility] CLIA [id number] [address] [place] [address] [place] Platelets (Bld) [#/Vol] 260 10*3/uL Normal 150-400 [facility] Comment on above: Order Comment: Speci men Type: BLOOD SPECIMEN Ordering Facility: [facility] Address: [address] [place] [address] Performed By: #### T SPN #### [facility] CLIA [id number] [address] [place] [address] [place] RBC (Bld) [#/Vol] 3.71 10*6/uL Low 3.90-5.20 [facility] Comment on above: Order Comment: Speci men Type: BLOOD SPECIMEN Ordering Facility: [facility] Address: [address] [place] [address] Performed By: #### T SPN #### [facility] CLIA [id number] [address] [place] [address] [place] WBC (Bld) [#/Vol] 11.60 10*3/uL High 3.70-11.00 [facility] Comment on above: Order Comment: Manfred jefferson Type: BLOOD SPECIMEN Ordering Facility: [facility] Address: [address] [place] [address] Performed By: #### T SPN #### [facility] CLIA [id number] [address] [place] [address] [place] Examination level ultrasound on 10-31-2024 [facility] Radiology Study observation (narrative) [facility] GESTATIONAL GLUCOSE SCREEN, 1-HOUR, 50 GRAM, NON-FASTINGon 10-31-2024 Glucose [Mass/Vol] 93 mg/dL Normal 74-134 [facility] Comment on above: Order Comment: Manfred jefferson Type: BLOOD SPECIMEN Ordering Facility: [facility] Address: [address] [place] [address] Result Comment: [facility] Congress of Obstetricians and Gynecologists (Christel/Amber) guidelines state a gestational diabetes mellitus positive screen is made, in women not previously diagnosed with overt diabetes, when the 1 hr plasma glucose level is equal to or above 140 mg/dL. The [facility] Assistant Professor Of Marine Biology and Women's Health [place] recommends a 135 mg/dL cutoff. Performed By: #### T SPN #### [facility] CLIA [id number] [address] [place] [address] [place] Reagin and Treponema pallidu m IgG and IgM [Interp]on 10-31-2024 T. pallidum IgG+IgM IA Ql (S) Non-Reactive Normal Nonreactive [facility] Comment on above: Order Comment: Manfred jefferson Type: FLUID SPECIMEN Ordering Facility: [facility] Address: [address] [place] [address] Performed By: #### L [id number] #### [facility] CLIA [id number] [address] [place] [address] [place] Reagin+T pallidum IgG+IgM Se rPl-Impon 10-31-2024 Reagin and Treponema pallidum IgG and IgM [Interp] Cannot exclude recent Treponemal infection if specimen collected within 7-10 days after appearance of suspect lesions or 2-3 weeks after an exposure. Clinical correlation is required. Normal [facility] Comment on above: Order Comment: Speci men Type: FLUID SPECIMEN Ordering Facility: [facility] Address: [address] [place] [address] Performed By: #### L [id number] #### [facility] CLIA [id number] [address] [place] [address] [id number] [place] [address] [place] Examination level ultrasound on 09-07-2024 Indication Standard anatomic survey Impression REMOTE READ The patient is referred for a standard anatomic survey. - Single, live, intrauterine . - biometry is consistent with the established gestational age. - No malformations were visualized on a complete standard anatomic survey. - The amniotic fluid volume is normal amount. - The placenta is posterior, previa. - The Transvaginal cervical length measures 32 mm with no evidence of funneling or other dynamic changes. - Not all structural malformations can be detected by ultrasound examination. Recommendations - A follow-up TVS exam at 28 weeks is recommended to rule out persistent placenta previa or vasa previa. Maternal Assessment Height 168 cm Height (ft) 5 ft Height (in) 6 in Physical Exam Initial weight (lb) 167 lb Initial BMI 26.95 kg/m Maternal assessment other: 2 Para 0 Method Transabdominal and transvaginal ultrasound examination. View: Adequate visualization Borges . Number of fetuses: 1 Dating LMP on: 04/15/2024 GA by LMP 20 w + 5 d BENSON by LMP: 01/20/2025 GA by prior assessment 20 w + 5 d BENSON by prior assessment: 01/20/2025 Ultrasound examination on: 09/07/2024 GA by U/S based upon: AC, BPD, Femur, HC GA by U/S 20 w + 6 d BENSON by U/S: 01/19/2025 Assigned: based on stated BENSON, selected on 09/07/2024 Assigned GA 20 w + 5 d Assigned BENSON: 01/20/2025 General Evaluation Cardiac activity present. FHR 139 bpm. movements: present. Presentation: breech Placenta: Placental site: posterior, previa Umbilical cord: Cord vessels: 3 vessel cord Amniotic fluid: Amount of AF: normal amount. MVP 3.3 cm Growth Overview Exam date GA BPD (mm) HC (mm) AC (mm) FL (mm) HL (mm) EFW (g) 09/07/2024 20w 5d 46.8 26% 184.7 53% 164.3 69% 33.8 60% 33.2 67% 395 62% Biometry Standard BPD 46.8 mm 20w 1d 26% Hadlock OFD 68.1 mm 21w 2d 93% Nicolaides HC 184.7 mm 20w 6d 53% Jarvis Cerebellum tr 21.8 mm 20w 4d 60% Hill Nuchal fold 5.8 mm AC 164.3 mm 21w 3d 69% Hadlock Femur 33.8 mm 20w 6d 60% Jarvis Humerus 33.2 mm 21w 2d 67% Jarvis EFW 395 g 21w 0d 62% Hadlock EFW (lb) 0 lb EFW (oz) 14 oz EFW by: Hadlock (HC-AC-FL) Extended Credentialing Coordinator 6.4 mm CM 3.9 mm 13% Nicolaides Extremities / Bony Struc FL / HC 0.18 15% Hadlock Other Structures FHR 139 bpm Anatomy Cranium: normal Lateral ventricles: normal Choroid plexus: normal Midline falx: normal Cavum septi pellucidi: normal Cerebellum: normal Cisterna magna: normal Head / Neck Vermis: Normal but not required for a standard anatomy exam Neck: Normal but not required for a standard anatomy exam Nuchal fold: Normal but not required for a standard anatomy exam Lips: normal Profile: Normal but not required for a standard anatomy exam Nose: Normal but not required for a standard anatomy exam Face Maxilla: Normal but not required for a standard anatomy exam Mandible: Normal but not required for a standard anatomy exam Orbits: Normal but not required for a standard anatomy exam Lens: Normal but not required for a standard anatomy exam 4-chamber view: normal RVOT view: normal LVOT view: normal 3-vessel view: normal [id number] view: normal Heart / Thorax Situs: situs solitus (normal) Aortic arch view: Normal but not required for a standard anatomy exam SVC: Normal but not required for a standard anatomy exam IVC: Normal but not required for a standard anatomy exam Cardiac axis: normal Rt lung: Normal but not required for a standard anatomy exam Lt lung: Normal but not required for a standard anatomy exam Diaphragm: Normal but not required for a standard anatomy exam Cord insertion: normal Stomach: normal Kidneys: normal Bladder: normal Genitals: normal Abdomen Abdom. wall: normal Cervical spine: normal Thoracic spine: normal Lumbar spine: normal Sacral spine: normal Arms: normal Legs: normal Rt upper arm: normal Rt forearm: normal Rt hand: normal Rt fingers: normal Lt upper arm: normal Lt forearm: normal Lt hand: normal Lt fingers: normal Rt upper leg: normal Rt lower leg: normal Rt foot: normal Lt upper leg: normal Lt lower leg: normal Lt foot: normal Gender: Unspecified Wants to know sex: no Maternal Structures Uterus / Cervix Uterus: Visualized Cervix: Visualized Approach: Transvaginal Cervical length 32.0 mm Ovaries / Tubes / Adnexa Rt ovary: Not visualized Lt ovary: Visualized Performed By: Eliza Prakash RDMS, RVT Read By: Shakila Cr M.D. MATERNAL MEDICINE [facility] Radiology Study observation (narrative) [facility] CBC W Auto Differential pane l (Bld)on 07-12-2024 Basophils (Bld) [#/Vol] 10*3/uL Normal <0.11 [facility] Comment on above: Order Comment: Speci men Type: FLUID SPECIMEN Ordering Facility: [facility] Address: [address] [place] [address] Performed By: #### L [id number] #### [facility] CLIA [id number] [address] [place] [address] [place] Basophils/100 WBC (Bld) 0.1 % Normal [facility] Comment on above: Order Comment: Speci men Type: FLUID SPECIMEN Ordering Facility: [facility] Address: [address] [place] [address] Performed By: #### L [id number] #### [facility] CLIA [id number] [address] [place] [address] [place] Differential cell count method Nom (Bld) Auto Normal [facility] Comment on above: Order Comment: Speci men Type: FLUID SPECIMEN Ordering Facility: [facility] Address: [address] [place] [address] Performed By: #### L [id number] #### [facility] CLIA [id number] [address] [place] [address] [place] Eosinophils (Bld) [#/Vol] 0.08 10*3/uL Normal <0.46 [facility] Comment on above: Order Comment: Speci men Type: FLUID SPECIMEN Ordering Facility: [facility] Address: [address] [place] [address] Performed By: #### L [id number] #### [facility] CLIA [id number] [address] [place] [address] [place] Eosinophils/100 WBC (Bld) 0.5 % Normal [facility] Comment on above: Order Comment: Speci men Type: FLUID SPECIMEN Ordering Facility: [facility] Address: [address] [place] [address] Performed By: #### L [id number] #### [facility] CLIA [id number] [address] [place] [address] [place] Erythrocyte distribution width (RBC) [Ratio] 12.5 % Normal 11.5-15.0 [facility] Comment on above: Order Comment: Speci men Type: FLUID SPECIMEN Ordering Facility: [facility] Address: [address] [place] [address] Performed By: #### L [id number] #### [facility] CLIA [id number] [address] [place] [address] [place] Hematocrit (Bld) [Volume fraction] 38.2 % Normal 36.0-46.0 [facility] Comment on above: Order Comment: Speci men Type: FLUID SPECIMEN Ordering Facility: [facility] Address: [address] [place] [address] Performed By: #### L [id number] #### [facility] CLIA [id number] [address] [place] [address] [place] Hemoglobin (Bld) [Mass/Vol] 13.1 g/dL Normal 11.5-15.5 [facility] Comment on above: Order Comment: Speci men Type: FLUID SPECIMEN Ordering Facility: [facility] Address: [address] [place] [address] Performed By: #### L [id number] #### [facility] CLIA [id number] [address] [place] [address] [place] Immature granulocytes (Bld) [#/Vol] 0.08 10*3/uL Normal <0.10 [facility] Comment on above: Order Comment: Speci men Type: FLUID SPECIMEN Ordering Facility: [facility] Address: [address] [place] [address] Performed By: #### L [id number] #### [facility] CLIA [id number] [address] [place] [address] [place] Immature granulocytes/100 WBC (Bld) 0.5 % Normal [facility] Comment on above: Order Comment: Speci men Type: FLUID SPECIMEN Ordering Facility: [facility] Address: [address] [place] [address] Performed By: #### L [id number] #### [facility] CLIA [id number] [address] [place] [address] [place] Lymphocytes (Bld) [#/Vol] 3.13 10*3/uL Normal 1.00-4.00 [facility] Comment on above: Order Comment: Speci men Type: FLUID SPECIMEN Ordering Facility: [facility] Address: [address] [place] [address] Performed By: #### L [id number] #### [facility] CLIA [id number] [address] [place] [address] [place] Lymphocytes/100 WBC (Bld) 21.3 % Normal [facility] Comment on above: Order Comment: Speci men Type: FLUID SPECIMEN Ordering Facility: [facility] Address: [address] [place] [address] Performed By: #### L [id number] #### [facility] CLIA [id number] [address] [place] [address] [place] MCH (RBC) [Entitic mass] 30.7 pg Normal 26.0-34.0 [facility] Comment on above: Order Comment: Speci men Type: FLUID SPECIMEN Ordering Facility: [facility] Address: [address] [place] [address] Performed By: #### L [id number] #### [facility] CLIA [id number] [address] [place] [address] [place] MCHC (RBC) [Mass/Vol] 34.3 g/dL Normal 30.5-36.0 [facility] Comment on above: Order Comment: Speci men Type: FLUID SPECIMEN Ordering Facility: [facility] Address: [address] [place] [address] Performed By: #### L [id number] #### [facility] CLIA [id number] [address] [place] [address] [place] MCV (RBC) [Entitic vol] 89.5 fL Normal 80.0-100.0 [facility] Comment on above: Order Comment: Speci men Type: FLUID SPECIMEN Ordering Facility: [facility] Address: [address] [place] [address] Performed By: #### L [id number] #### [facility] CLIA [id number] [address] [place] [address] [place] Monocytes (Bld) [#/Vol] 0.84 10*3/uL Normal <0.87 [facility] Comment on above: Order Comment: Speci men Type: FLUID SPECIMEN Ordering Facility: [facility] Address: [address] [place] [address] Performed By: #### L [id number] #### [facility] CLIA [id number] [address] [place] [address] [place] Monocytes/100 WBC (Bld) 5.7 % Normal [facility] Comment on above: Order Comment: Speci men Type: FLUID SPECIMEN Ordering Facility: [facility] Address: [address] [place] [address] Performed By: #### L [id number] #### [facility] CLIA [id number] [address] [place] [address] [place] Neutrophils (Bld) [#/Vol] 10.56 10*3/uL High 1.45-7.50 [facility] Comment on above: Order Comment: Speci men Type: FLUID SPECIMEN Ordering Facility: [facility] Address: [address] [place] [address] Performed By: #### L [id number] #### [facility] CLIA [id number] [address] [place] [address] [place] Neutrophils/100 WBC (Bld) 71.9 % Normal [facility] Comment on above: Order Comment: Speci men Type: FLUID SPECIMEN Ordering Facility: [facility] Address: [address] [place] [address] Performed By: #### L [id number] #### [facility] CLIA [id number] [address] [place] [address] [place] Nucleated RBC (Bld) [#/Vol] 10*3/uL Normal <0.01 [facility] Comment on above: Order Comment: Speci men Type: FLUID SPECIMEN Ordering Facility: [facility] Address: [address] [place] [address] Performed By: #### L [id number] #### [facility] CLIA [id number] [address] [place] [address] [place] Nucleated RBC/100 WBC (Bld) [Ratio] 0.0 /100 WBC Normal [facility] Comment on above: Order Comment: Speci men Type: FLUID SPECIMEN Ordering Facility: [facility] Address: [address] [place] [address] Performed By: #### L [id number] #### [facility] CLIA [id number] [address] [place] [address] [place] Platelet mean volume (Bld) [Entitic vol] 9.2 fL Normal 9.0-12.7 [facility] Comment on above: Order Comment: Speci men Type: FLUID SPECIMEN Ordering Facility: [facility] Address: [address] [place] [address] Performed By: #### L [id number] #### [facility] CLIA [id number] [address] [place] [address] [place] Platelets (Bld) [#/Vol] 374 10*3/uL Normal 150-400 [facility] Comment on above: Order Comment: Speci men Type: FLUID SPECIMEN Ordering Facility: [facility] Address: [address] [place] [address] Performed By: #### L [id number] #### [facility] CLIA [id number] [address] [place] [address] [place] RBC (Bld) [#/Vol] 4.27 10*6/uL Normal 3.90-5.20 [facility] Comment on above: Order Comment: Speci men Type: FLUID SPECIMEN Ordering Facility: [facility] Address: [address] [place] [address] Performed By: #### L [id number] #### [facility] CLIA [id number] [address] [place] [address] [place] WBC (Bld) [#/Vol] 14.71 10*3/uL High 3.70-11.00 [facility] Comment on above: Order Comment: Speci men Type: FLUID SPECIMEN Ordering Facility: [facility] Address: [address] [place] [address] Performed By: #### L [id number] #### [facility] CLIA [id number] [address] [place] [address] [place] HBV surface Ag Ser Qlon 06-24 HBV surface Ag Ql (S) Negative Normal Negative [facility] Comment on above: Order Comment: Speci men Type: BLOOD SPECIMEN Ordering Facility: [facility] Address: [address] [place] [address] Performed By: #### T SPN #### [facility] CLIA [id number] [address] [place] [address] [place] HCV Ab Ser Qlon 07-12-2024 HCV Ab Ql (S) Negative Normal Negative [facility] Comment on above: Order Comment: Speci men Type: FLUID SPECIMEN Ordering Facility: [facility] Address: [address] [place] [address] Result Comment: The result suggests no evidence of active infection with Hepatitis C virus. Should recent infection be suspected, repeat testing may be considered 4-6 weeks after this draw. Performed By: #### L [id number] #### [facility] CLIA [id number] [address] [place] [address] [place] HIV 1+2 Ab IA Qlon HIV 1 and 2 Ab IA.rapid Nom (S/P/Bld) Normal [facility] Comment on above: Order Comment: Speci men Type: BLOOD SPECIMEN Ordering Facility: [facility] Address: [address] [place] [address] Result Comment: Test not indicated. Performed By: #### T SPN #### [facility] CLIA [id number] [address] [place] [address] [place] HIV 1+2 Ab+HIV1 p24 Ag IA Ql Non-Reactive Normal Nonreactive [facility] Comment on above: Order Comment: Speci men Type: BLOOD SPECIMEN Ordering Facility: [facility] Address: [address] [place] [address] Performed By: #### T SPN #### [facility] CLIA [id number] [address] [place] [address] [place] HIV immunoassay testing algorithm interpretation (S/P/Bld) [Interp] Normal [facility] Comment on above: Order Comment: Manfred jefferson Type: BLOOD SPECIMEN Ordering Facility: [facility] Address: [address] [place] [id number] Result Comment: No e vidence of HIV-1 or HIV-2 infection. Should recent infection be suspected, repeat testing may be considered 2-3 weeks after this draw. [place] Rev. Code 3701.243(E): This information has been disclosed to you from confidential records protected from disclosure by state law. ???You shall make no further disclosure of this information without the specific, written, and informed release of the individual to whom it pertains or as otherwise permitted by state law. A general authorization for the release of medical or other information is not sufficient for the purpose of the release of HIV test results or diagnoses. Performed By: #### T SPN #### [facility] [id number] [address] [place] [address] OF [facility] HbA1c (Bld)on 07-12-2024 Average glucose Estimated from glycated hemoglobin (Bld) [Mass/Vol] 94 mg/dL Normal [facility] Comment on above: Order Comment: Manfred jefferson Type: BLOOD SPECIMEN Ordering Facility: [facility] Address: [address] [place] [address] Result Comment: eAG: (Estimated average glucose) is a calculated value from HgbA1c and is order entry representative of the average blood glucose level in the last 2-3 month period. Performed By: #### T SPN #### [facility] [place] [id number] [address] [place] [address] [place] HbA1c (Bld) [Mass fraction] 4.9 % Normal 4.3-5.6 [facility] Comment on above: Order Comment: Manfred jefferson Type: BLOOD SPECIMEN Ordering Facility: [facility] Address: [address] [place] [address] Result Comment: Amer ican Diabetes Association guidelines indicate that patients with HgbA1c in the range 5.7-6.4% are at increased risk for development of diabetes, and intervention by lifestyle modification may be beneficial. HgbA1c greater or equal to 6.5% is considered diagnostic of diabetes. Performed By: #### T SPN #### [facility] CLIA [id number] [address] [place] [address] [place] [id number] PLUSon 07-12-2024 Cell-free DNA./Cell-free DNA.total Dosage of chromosome-specific cfDNA (cfDNA) [Molar fraction] 17% Normal [facility] Comment on above: Order Comment: Speci men Type: FLUID SPECIMEN Ordering Facility: [facility] Address: [address] [place] [address] Performed By: #### L [id number] #### [facility] CLIA [id number] [address] [place] [address] [place] Chr 13+18+21+X+Y aneuploidy Dosage of chromosome-specific cfDNA Ql (cfDNA) Negative Normal [facility] Comment on above: Order Comment: Speci men Type: FLUID SPECIMEN Ordering Facility: [facility] Address: [address] [place] [address] Performed By: #### L [id number] #### [facility] CLIA [id number] [address] [place] [address] [place] Chr 21 trisomy Dosage of chromosome-specific cfDNA Ql (cfDNA) Negative Normal [facility] Comment on above: Order Comment: Speci men Type: FLUID SPECIMEN Ordering Facility: [facility] Address: [address] [place] [address] Performed By: #### L [id number] #### [facility] CLIA [id number] [address] [place] [address] [place] Chr X and Y aneuploidy risk Sequencing Ql (cfDNA) [Interp] Not detected Normal [facility] Comment on above: Order Comment: Speci [facility] Type: FLUID SPECIMEN Ordering Facility: [facility] Address: [address] [place] [address] Result Comment: Not Detected Not Detected Performed By: #### L [id number] #### [facility] CLIA [id number] [address] [place] [address] [place] Citation Conrado (Reference lab test) Comment Normal [facility] Comment on above: Order Comment: Speci men Type: FLUID SPECIMEN Ordering Facility: [facility] Address: [address] [place] [address] Result Comment: 1. P chet BOWLES, et al. Gloria Med. 2012;14(3):296-305. 2. Raquel BRIZUELA et al. Prenat Diag. 2013;33(6):591-597. 3. Shahab C, et al. Clin Chem. 2015 Apr;61(4):608-616. 4. Yasmin BOWLES, et al. Gloria Med. 2011;13(11):913-920. 5. ACOG/SMFM Practice Bulletin No. 226, Apr 2020. Performed By: #### L [id number] #### [facility] CLIA [id number] [address] [place] [address] [place] Gestational age Estimated from conception date Borges Normal [facility] Comment on above: Order Comment: Speci men Type: FLUID SPECIMEN Ordering Facility: [facility] Address: [address] [place] [address] Performed By: #### L [id number] #### [facility] CLIA [id number] [address] [place] [address] [place] GESTATIONALAGE AGE > OR = 9W Yes Normal [facility] Comment on above: Order Comment: Speci men Type: FLUID SPECIMEN Ordering Facility: [facility] Address: [address] [place] [address] Performed By: #### L [id number] #### [facility] CLIA [id number] [address] [place] [address] [place] Laboratory comment Conrado (Report) Comment Normal [facility] Comment on above: Order Comment: Speci men Type: FLUID SPECIMEN Ordering Facility: [facility] Address: [address] [place] [address] Result Comment: The MaterniT(R) 21 PLUS laboratory-developed test (LDT) analyzes circulating cell-free DNA from a maternal blood sample. This test is used for screening purposes and not diagnostic. Clinical correlation is recommended. Validation data on twin pregnancies is limited and the ability of this test to detect aneuploidy in higher multiple gestations has not yet been validated. Performed By: #### L [id number] #### [facility] CLIA [id number] [address] [place] [address] director of construction name Nom (Provider) Comment Normal [facility] Comment on above: Order Comment: Speci men Type: FLUID SPECIMEN Ordering Facility: [facility] Address: [address] [place] [address] Result Comment: This specimen showed an expected representation of chromosome 21, 18 and 13 material. Clinical correlation is suggested. Comment Antwan Hester MD, PhD, Director, Sape Performed By: #### L [id number] #### [facility] CLIA [id number] [address] [place] [address] LIMITATIONS OF THE TEST Comment Normal [facility] Comment on above: Order Comment: Speci ronny Type: FLUID SPECIMEN Ordering Facility: [facility] Address: [address] [place] [address] Result Comment: Pamela teague the results of these tests are highly reliable, discordant results, including inaccurate sex prediction, may occur due to placental, maternal, or mosaicism or neoplasm; vanishing twin; prior maternal organ transplant; or other causes. These tests are screening tests and not diagnostic; they do not replace the accuracy and precision of diagnosis with CVS or amniocentesis. A patient with a positive test result should be referred for genetic counseling and offered invasive diagnosis for confirmation of test results.[5] The results of this testing, including the benefits and limitations, should be discussed with a qualified healthcare provider. management decisions, including termination of the , should not be based on the results of these tests alone. The healthcare provider is responsible for the use of this information in the management of their patient. Sex chromosomal aneuploidies are not reportable for known multiple gestations. A negative result does not ensure an unaffected nor does it exclude the possibility of other chromosomal abnormalities or defects which are not a part of these tests. An uninformative result may be reported, the causes of which may include, but are not limited to, insufficient sequencing coverage, noise or artifacts in the region, amplification or sequencing bias, or insufficient fraction. These tests are not intended to identify pregnancies at risk for neural tube defects or ventral wall defects. Testing for whole chromosome abnormalities (including sex chromosomes) and for subchromosomal abnormalities could lead to the potential discovery of both and maternal genomic abnormalities that could have major, minor, or no, clinical significance. Evaluating the significance of a positive or a non-reportable result may involve both invasive testing and additional studies on the mother. Such investigations may lead to a diagnosis of maternal chromosomal or subchromosomal abnormalities, which on occasion may be associated with benign or malignant maternal neoplasms. These tests may not accurately identify triploidy, balanced rearrangements, or the precise location of subchromosomal duplications or deletions; these may be detected by diagnosis with CVS or amniocentesis. The ability to report results may be impacted by maternal BMI, maternal weight, maternal systemic lupus erythematosus (SLE) and/or by certain pharmaceutical agents such as low molecular weight heparin (for example: Lovenox(R), Xaparin(R), Clexane(R) and Fragmin(R)). Performed By: #### L [id number] #### [facility] CLIA [id number] [address] [place] [address] [place] Monosomy X risk Dosage of chromosome-specific cfDNA Ql (Plasma cell-free+WBC DNA) [Interp] Not detected Normal [facility] Comment on above: Order Comment: Speci men Type: FLUID SPECIMEN Ordering Facility: [facility] Address: [address] [place] [address] Performed By: #### L [id number] #### [facility] CLIA [id number] [address] [place] [address] [place] NEGATIVE PREDICTIVE VALUE Note Normal [facility] Comment on above: Order Comment: Speci men Type: FLUID SPECIMEN Ordering Facility: [facility] Address: [address] [place] [address] Result Comment: The Negative Predictive Value (NPV) for trisomy 21, 18, and 13 is greater than 99%. The NPV for SCA and ESS cannot be calculated as SCA and ESS are only reported when an abnormality is detected. Performed By: #### L [id number] #### [facility] CLIA [id number] [address] [place] [address] [place] NOTE Comment Normal [facility] Comment on above: Order Comment: Speccharles jefferson Type: FLUID SPECIMEN Ordering Facility: [facility] Address: [address] [place] [address] Result Comment: See Notes [employer] is a subsidiary of [employer], using the brand [employer]. This test was developed and its performance characteristics determined by [employer]. It has not been cleared or approved by the Food and Drug Administration. This laboratory is certified under the Clinical Laboratory Improvement Amendments (CLIA) as qualified to perform high complexity clinical laboratory testing and accredited by the [employer] (CAP). If there is future clinical need for adding MaterniT GENOME testing, this specimen will be available until term. [facility] samples will not be retained beyond 60 days. [facility] patients will have to send a new sample for re-sequencing ([facility] Test Code: [id number]). Performed By: #### L [id number] #### [facility] CLIA [id number] [address] [place] [address] [place] PERFORMANCE CHARACTERISTICS Note Normal [facility] Comment on above: Order Comment: Speccharles jefferson Type: FLUID SPECIMEN Ordering Facility: [facility] Address: [address] [place] [address] Result Comment: ! Sex ! Accuracy: 99.4% ! ! ! ! Region (associated syndrome) ! Est. Sens# ! Est. Spec ! ! ! ! Trisomy 21 (Down Syndrome) ! 99.1% ! 99.9% ! ! ! ! Trisomy 18 (Chairez Syndrome) ! >99.9% ! 99.6% ! ! ! ! Trisomy 13 (Patau Syndrome) ! 91.7% ! 99.7% ! ! ! ! Sex Chromosome Aneuploidies## ! 96.2% ! 99.7% ! ! ! * As reported in [facility] database nstd37 [https://www.ncbi.nlm.nih.gov/dbvar/studies/nstd37/ ] # Estimated Sensitivity. Sensitivity estimated across the observed size distribution of each syndrome [per ISCA database nstd37] and across the range of fractions observed in routine clinical NIPT. Actual sensitivity can also be influenced by other factors such as the size of the event, total sequence counts, amplification bias, or sequence bias. ## Borges gestation only. Performed By: #### L [id number] #### [facility] CLIA [id number] [address] [place] [address] [place] POSITIVE PREDICTIVE VALUE N/A Normal [facility] Comment on above: Order Comment: Speci men Type: FLUID SPECIMEN Ordering Facility: [facility] Address: [address] [place] [address] Performed By: #### L [id number] #### [facility] CLIA [id number] [address] [place] [address] [place] Reference Lab Test Method Comment Normal [facility] Comment on above: Order Comment: Speci men Type: FLUID SPECIMEN Ordering Facility: [facility] Address: [address] [place] [address] Result Comment: See Notes Circulating cell-free DNA was purified from the plasma component of maternal blood. The extracted DNA was then converted into a genomic DNA library for aneuploidy analysis of chromosomes 21, 18, and 13 via next generation sequencing.[1] Optional findings based on the test order include sex chromosome aneuploidy (SCA)[2], and enhanced sequencing series (ESS)[3], which will only be reported on as an additional finding when an abnormality is detected. SCA testing includes information on X and Y representation, while ESS testing includes deletions in selected regions (22q, 15q, 11q, 8q, 5p, 4p, 1p) and trisomy of chromosomes 16 and 22. Performed By: #### L [id number] #### [facility] CLIA [id number] [address] [place] [address] [place] Sex Dosage of chromosome-specific cfDNA Nom (cfDNA) Comment Normal [facility] Comment on above: Order Comment: Speci men Type: FLUID SPECIMEN Ordering Facility: [facility] Address: [address] [place] [address] Result Comment: Cons istent with Male Performed By: #### L [id number] #### [facility] CLIA [id number] [address] [place] [address] [place] Test performance information Conrado (Unsp spec) Comment Normal [facility] Comment on above: Order Comment: Manfred jefferson Type: FLUID SPECIMEN Ordering Facility: [facility] Address: [address] [place] [address] Result Comment: The performance characteristics of the MaterniT(R) 21 PLUS laboratory-developed test (LDT) have been determined in a clinical validation study with women at increased risk for chromosomal aneuploidy.[1-4] Performed By: #### L [id number] #### [facility] CLIA [id number] [address] [place] [address] [place] Trisomy 13 risk Dosage of chromosome-specific cfDNA Ql (cfDNA) [Interp] Negative Normal [facility] Comment on above: Order Comment: Manfred jefferson Type: FLUID SPECIMEN Ordering Facility: [facility] Address: [address] [place] [address] Performed By: #### L [id number] #### [facility] CLIA [id number] [address] [place] [address] [place] Trisomy 18 risk Dosage of chromosome-specific cfDNA Ql (Plasma cell-free+WBC DNA) [Interp] Negative Normal [facility] Comment on above: Order Comment: Manfred jefferson Type: FLUID SPECIMEN Ordering Facility: [facility] Address: [address] [place] [address] Performed By: #### L [id number] #### [facility] CLIA [id number] [address] [place] [address] [place] RUBELLA IGG ANTIBODYon 07-12 RUBELLA IGG AB, QUAL Positive Normal Positive [facility] Comment on above: Order Comment: Manfred jefferson Type: BLOOD SPECIMEN Ordering Facility: [facility] Address: [address] [place] [address] Result Comment: The result suggests recent or past exposure to Rubella virus or history of Rubella vaccination. Positive result may also be seen due to presence of passively-transferred antibodies. Please correlate with patient's history. Performed By: #### T SPN #### [facility] CLIA [id number] [address] [place] [address] [place] Reagin and Treponema pallidu m IgG and IgM [Interp]on 07-12-2024 T. pallidum IgG+IgM IA Ql (S) Non-Reactive Normal Nonreactive [facility] Comment on above: Order Comment: Speci men Type: BLOOD SPECIMEN Ordering Facility: [facility] Address: [address] [place] [address] Performed By: #### T SPN #### [facility] CLIA [id number] [address] [place] [address] [place] Reagin+T pallidum IgG+IgM Se rPl-Impon 07-12-2024 Reagin and Treponema pallidum IgG and IgM [Interp] Cannot exclude recent Treponemal infection if specimen collected within 7-10 days after appearance of suspect lesions or 2-3 weeks after an exposure. Clinical correlation is required. Normal [facility] Comment on above: Order Comment: Speci men Type: BLOOD SPECIMEN Ordering Facility: [facility] Address: [address] [place] [address] Performed By: #### T SPN #### [facility] CLIA [id number] [address] [place] [address] [place] TYPE + SCREEN PRENATALon ABO A Normal [facility] Comment on above: Order Comment: Speci men Type: BLOOD SPECIMEN Ordering Facility: [facility] Address: [address] [place] [address] Performed By: #### T SPN #### [facility] CLIA [id number] [address] [place] [address] [place] Rh Nom (Bld) Positive Normal [facility] Comment on above: Order Comment: Speci men Type: BLOOD SPECIMEN Ordering Facility: [facility] Address: [address] [place] [address] Performed By: #### T SPN #### [facility] CLIA [id number] [address] [place] [address] [place] TYPE AND SCREEN EXPIRATION 07/15/2024 23:59 Normal [facility] Comment on above: Order Comment: Speci men Type: BLOOD SPECIMEN Ordering Facility: [facility] Address: [address] [place] [address] Performed By: #### T SPN #### [facility] CLIA [id number] [address] [place] [address] [place] Bacteria Ur Culton 4 Bacteria identified Cx Nom (U) ORGANISM ID: 1 <10,000 CFU/ml Normal urogenital jessenia Normal [facility] Comment on above: Performed By: #### L [id number] #### [facility] CLIA [id number] [address] [place] [address] [place] C. trachomatis+N. gonorrhoea e DNA MATTHEW+probe Ql (Unsp spec)on 06-08-2024 C. trachomatis rRNA MATTHEW+probe Ql (Unsp spec) Negative Normal Negative for Chlamydia trachomatis by amplificaton [facility] Comment on above: Order Comment: Speci men Type: SWAB Ordering Facility: [facility] Address: [address] [place] [address] Performed By: #### 3 [id number] #### [facility] CLIA [id number] [address] [place] [address] [place] N. gonorrhoeae rRNA MATTHEW+probe Ql (Unsp spec) Negative Normal Negative for Neisseria gonorrhoeae by amplification [facility] Comment on above: Order Comment: Speci men Type: SWAB Ordering Facility: [facility] Address: [address] [place] [address] Performed By: #### 3 [id number] #### [facility] CLIA [id number] [address] [place], [place] [address] [place] PAP TESTon 06-08-2024 ADEQUACY Satisfactory for interpretation. Normal [facility] Comment on above: Order Comment: Speci men Type: FLUID SPECIMEN Ordering Facility: [facility] Address: [address] [place] [address] Performed By: #### L [id number] #### [facility] CLIA [id number] [address] [place] [address] [place] CASE REPORT Normal [facility] Comment on above: Order Comment: Speci men Type: FLUID SPECIMEN Ordering Facility: [facility] Address: [address] [place] [address] Result Comment: Gyne cologic Cytology Report Case: [id number] Authorizing Provider: Kelly Gregg APRN.CNM Collected: 06/08/2024 10:03 AM Ordering Location: OB/Gynecology Received: 06/08/2024 11:29 AM First Screen: Mariajose Harry, OPAL, ASCP Specimen: Pap Test, ThinPrep, Cervix Performed By: #### L [id number] #### [facility] CLIA [id number] [address] [place] [address] [place] CLINICAL HISTORY, CYTOLOGY, MERCURY PURIFIER Routine Exam Normal [facility] Comment on above: Order Comment: Speci men Type: FLUID SPECIMEN Ordering Facility: [facility] Address: [address] [place] [address] Performed By: #### L [id number] #### [facility] CLIA [id number] [address] [place] [address] [place] FINAL PERFORMING LAB Normal [facility] Comment on above: Order Comment: Speci men Type: FLUID SPECIMEN Ordering Facility: [facility] Address: [address] [place] [address] Result Comment: Tech nical component, lieutenant governor screening performed at [facility], [address] [place], [place] [id number] CLIA# [id number] Diagnostic interpretation performed at [facility], [address] [place] [address] CLIA# [id number] Paint Process Engineer: Willie Garcia M.D. Performed By: #### L [id number] #### [facility] CLIA [id number] [address] [place] [address] [place] INTERPRETATION, CYTOLOGY, MERCURY PURIFIER Normal [facility] Comment on above: Order Comment: Speci men Type: FLUID SPECIMEN Ordering Facility: [facility] Address: [address] [place] [address] Result Comment: Nega tive for intraepithelial lesion or malignancy. Performed By: #### L [id number] #### [facility] CLIA [id number] [address] [place] [address] [place] LMP 04/15/2024 Normal [facility] Comment on above: Order Comment: Speci men Type: FLUID SPECIMEN Ordering Facility: [facility] Address: [address] [place] [address] Performed By: #### L [id number] #### [facility] CLIA [id number] [address] [place] [address] [place] PAP DISCLAIMER COMMENT The Pap Smear is a screening test for cervical cancer. False negative results occur with all screening tests, emphasizing the need for rescreening at recommended intervals, and clinical correlation. Normal [facility] Comment on above: Order Comment: Speci men Type: FLUID SPECIMEN Ordering Facility: [facility] Address: [address] [place] [address] Performed By: #### L [id number] #### [facility] CLIA [id number] [address] [place] [address] [place] PAP HOSPITAL MANAGER COMMENT This specimen has been analyzed by the ThinPrep Imaging System, an automated imaging and review system, which assists the laboratory in evaluating cells on ThinPrep Pap tests. Following automated imaging, selected barajas from every slide are reviewed by a lieutenant governor. Normal [facility] Comment on above: Order Comment: Speci men Type: FLUID SPECIMEN Ordering Facility: [facility] Address: [address] [place] [address] Performed By: #### L [id number] #### [facility] CLIA [id number] [address] [place] [address] [place] B-HCG SerPl-[place]Cn[place] 4 [place] [address].0 m[IU]/mL High <5.0 [facility] Comment on above: Order Comment: Speci men Type: FLUID SPECIMEN Ordering Facility: [facility] Address: [address] [place] [address] Result Comment: HAYDEE TITATIVE HCG NORMAL RANGES Weeks of Gestation (Weeks Since LMP) 3 Weeks (5.8-71.2 mIU/mL) 4 Weeks (9.5-750 mIU/mL) 5 Weeks (217-7138 mIU/mL) 6 Weeks (158-75136 mIU/mL) 7 Weeks (3697-057464 mIU/mL) 8 Weeks (49307-193616 mIU/mL) 9 Weeks (38864-169975 mIU/mL) 10 Weeks (97199-052016 mIU/mL) 12 Weeks (64269-445328 mIU/mL) Referenced to 4th IS of [facility] Performed By: #### L [id number] #### [facility] CLIA [id number] [address] [place] [address] [place] B-HCG SerPl-aCncon 4 HCG.beta subunit Qn 7328.0 m[IU]/mL High <5.0 [facility] Comment on above: Order Comment: Speci men Type: FLUID SPECIMEN Ordering Facility: [facility] Address: [address] [place] [address] Result Comment: HAYDEE TITATIVE HCG NORMAL RANGES Weeks of Gestation (Weeks Since LMP) 3 Weeks (5.8-71.2 mIU/mL) 4 Weeks (9.5-750 mIU/mL) 5 Weeks (217-7138 mIU/mL) 6 Weeks (158-34666 mIU/mL) 7 Weeks (3697-571609 mIU/mL) 8 Weeks (62284-735291 mIU/mL) 9 Weeks (10826-945629 mIU/mL) 10 Weeks (58679-235291 mIU/mL) 12 Weeks (11101-282821 mIU/mL) Referenced to 4th IS of [facility] Performed By: #### L [id number] #### [facility] CLIA [id number] [address] [place] [address] STATES OF [facility] CNPNon 05-14-2024 CNPN Telephone (OBGYWM) ---- CHARLINE KIRKPATRICK ([id number]) 1995 F CHT Date Time Provider Department 05/14/24 AMANDA TAVERA OBGYWYovanny During your visit today, we recorded the following information about you: Janeen Contreras RN 05/14/2024 12:54 PM Signed Patient calling because she had positive UPT at home. LMP 04/15/24 - 4w1d. She had ruptured ectopic and left salpingectomy last year. States DM told her to see her for beginning of to monitor d/t risk of ectopic. Her NOB is already scheduled on 05/25/24 with . She will only be 5w4d though, should that be moved further back? Asking if she needs seen sooner or needs anything else done now instead? She is not having an pain or bleeding at this time. Wants DM's advice. ABDI Lanier Deidre, MD 05/14/2024 1:03 PM Signed She can be seen to assess for pain and establish but she will not be able to have an ultrasound at that visit- she will need to wait for ultrasound until 7 weeks unless she is having pain/bleeding as we may not be able to see anything. So it is up to her if she wants to push her appt back. It is very appropriate to just do HCG quant levels to make sure trending up and if she has no other concerns being seen at 7 weeks is reasonable. If pain/bleeding before that time or if quants not trending up then she can notify office. I would not get quants done until earliest next week (at least 5+ weeks) Sowmya Gonzales RN 05/14/2024 1:48 PM Addendum Pt notified and will get HCG levels drawn middle of next week and 1st OB appt has been rescheduled with CP 06/08/24 at 0845. Sowmya Gonzales RN Allergies As of Date: 05/14/2024 (No Known Allergies) Date Reviewed: 04/06/2023 Reviewed by: Celena Bach MA - Fully Assessed Reason for Visit: Early OB Question [Other] Primary Visit Diagnosis: affected by previous ectopic [O09.10] Other Visit Diagnosis:Positive urine test [Z32.01] Order(s):HCG QUANTITATIVE [SQHCGQT] Order #: [id number] STANDING Problem List As Of Date 05/14/2024 Noted Resolved of unknown anatomic location [O36.80X*03/11/2023 Encounter for monitoring of methotrexate therap*03/17/2023 Encounter Status:Closed by SOWMYA GONZALES on 05/14/24 Normal [facility] .Auto Diffon 06-10-2023 Basophil, Absolute 0.0 10 3/mcL Normal 0.0-0.2 [facility] ([place]) Comment on above: Performed By: #### T SH, VIDH, ADIFF, CBC, ANEU #### [address] [address] Basophils/100 WBC (Bld) 0.4 % Normal 0.0-2.5 [facility] ([place]) Comment on above: Performed By: #### T SH, VIDH, ADIFF, CBC, ANEU #### [id number] [place], [place] [address] Eosinophil, Absolute 0.1 10 3/mcL Normal 0.0-0.4 [facility] ([place]) Comment on above: Performed By: #### T SH, VIDH, ADIFF, CBC, ANEU #### [address] [address] Eosinophils/100 WBC (Bld) 2.0 % Normal 0.0-7.0 [facility] ([place] Comment on above: Performed By: #### T SH, VIDH, ADIFF, CBC, ANEU #### [address] [address] Lymphocyte, Absolute 2.5 10 3/mcL Normal 0.8-3.9 [facility] ([place] Comment on above: Performed By: #### T SH, VIDH, ADIFF, CBC, ANEU #### [address] [address] Lymphocytes/100 WBC (Bld) 41.8 % Normal 10.0-50.0 [facility] ([place] Comment on above: Performed By: #### T SH, VIDH, ADIFF, CBC, ANEU #### [address] [address] Monocyte, Absolute 0.5 10 3/mcL Normal 0.2-1.0 [facility] ([place] Comment on above: Performed By: #### T SH, VIDH, ADIFF, CBC, ANEU #### [address] [address] Monocytes/100 WBC (Bld) 8.6 % Normal 1.7-13.0 [facility] ([place] Comment on above: Performed By: #### T SH, VIDH, ADIFF, CBC, ANEU #### [address] [address] Neutrophils/100 WBC (Bld) 47.2 % Normal 37.0-80.0 [facility] ([place] Comment on above: Performed By: #### T SH, VIDH, ADIFF, CBC, ANEU #### [address] [address] .NEUABSon 06-10-2023 Neutrophil, Absolute 2.9 10 3/mcL Normal 2.9-6.2 [facility] ([place] Comment on above: Performed By: #### T SH, VIDH, ADIFF, CBC, ANEU #### [place] [id number] CBCon 06-10-2023 Erythrocyte distribution width (RBC) [Ratio] 13.4 % Normal 11.5-14.5 [facility] ([place] Comment on above: Performed By: #### T SH, VIDH, ADIFF, CBC, ANEU #### [place] [address] Hematocrit (Bld) [Volume fraction] 40.4 % Normal 37.0-47.0 [facility] ([place] Comment on above: Performed By: #### T SH, VIDH, ADIFF, CBC, ANEU #### [place] [address] Hgb 13.6 G/dL Normal 12.0-16.0 [facility] ([place] Comment on above: Performed By: #### T SH, VIDH, ADIFF, CBC, ANEU #### [place] [address] MCH (RBC) [Entitic mass] 30.3 pg Normal 27.0-31.2 [facility] ([place] Comment on above: Performed By: #### T SH, VIDH, ADIFF, CBC, ANEU #### [place] [address] MCHC 33.5 G/dL Normal 33.0-37.0 [facility] ([place] Comment on above: Performed By: #### T SH, VIDH, ADIFF, CBC, ANEU #### [place] [address] MCV (RBC) [Entitic vol] 90.3 fL Normal 80.0-94.0 [facility] ([place]) Comment on above: Performed By: #### T SH, VIDH, ADIFF, CBC, ANEU #### [address] [address] Platelet 347 10 3/mcL Normal 130-400 [facility] ([place]) Comment on above: Performed By: #### T SARAY, VIDH, ADIFF, CBC, ANEU #### [address] [address] Platelet mean volume (Bld) [Entitic vol] 7.6 fL Normal 7.4-10.4 [facility] ([place]) Comment on above: Performed By: #### T SH, VIDH, ADIFF, CBC, ANEU #### [place] [address] RBC 4.48 10 6/mcL Normal 4.20-5.40 [facility] ([place]) Comment on above: Performed By: #### T SH, VIDH, ADIFF, CBC, ANEU #### [place] [address] WBC 6.1 10 3/mcL Normal 4.6-10.8 [facility] ([place] Comment on above: Performed By: #### T SH, VIDH, ADIFF, CBC, ANEU #### [address] [address] TSHon 06-10-2023 TSH Qn 1.28 m[IU]/L Normal 0.36-3.74 [facility] ([place]) Comment on above: Performed By: #### T SH, VIDH, ADIFF, CBC, ANEU #### [place] [address] VIDHon 06-10-2023 Vit. D 25-Hydroxy 34.6 ng/mL Normal [facility] ([place]) Comment on above: Result Comment: Inte rpretive Values Based on Total 25(OH) Vitamin D: Deficient <20 ng/mL Insufficient 20 - <30 ng/mL Sufficient 30-100 ng/mL Performed By: #### T SH, VIDH, ADIFF, CBC, ANEU #### [address] [address] Absolute lymphocyte countOrd ered By: Amanda Bean on 03-28-2023 Lymphocytes Auto (Unsp spec) [#/Vol] 1.76 10*3/uL 0.83-4.51 [facility] Basophil percentageOrdered B y: Amanda Bean on 03-28-2023 Basophils/100 WBC (Bld) 0.1 % 0-1 [facility] Chloride [Moles/Vol] 107 mmol/L 98-107 [facility] Eosinophils/100 WBC (Bld) 2.1 % 0-5 [facility] Glucose [Mass/Vol] 100 mg/dL 74-106 [facility] Comment on above: Fasting Glucose resu lt from 100 to 125 mg/dL suggests IMPAIRED HOMEOSTASIS per A.D.A. criteria. Neutrophils (Bld) [#/Vol] 4.7 10*3/uL 2.0-7.7 [facility] Neutrophils/100 WBC (Bld) 64.4 % 47-70 [facility] Potassium [Moles/Vol] 3.4 mmol/L 3.5-5.1 [facility] Sodium [Moles/Vol] 138 mmol/L 136-145 [facility] WBC (Bld) [#/Vol] 7.3 10*3/uL 4.4-11.0 [facility] Blood erythrocytes count (nu mber/volume)Ordered By: Amanda Bean on 03-28-2023 RBC (Bld) [#/Vol] 4.43 10*6/uL 4.2-5.4 [facility] Blood hemoglobin measurement (mass/volume)Ordered By: Amanda Bean on 03-28-2023 Hemoglobin (Bld) [Mass/Vol] 13.6 g/dL 12.0-15.0 [facility] Blood lymphocytes/100 leukoc ytesOrdered By: Amanda Bean on 03-28-2023 Lymphocytes/100 WBC (Bld) 24.1 % 19-41 [facility] Blood monocytes/100 leukocyt esOrdered By: Amanda Bean on 03-28-2023 Monocytes/100 WBC (Bld) 8.9 % 0-10 [facility] Blood platelet mean volumeOr dered By: Amanda Bean on 03-28-2023 Platelet mean volume (Bld) [Entitic vol] 9.1 fL 6.2-12.0 [facility] Determination of erythrocyte mean corpuscular volume (MCV)Ordered By: Amanda Bean on 03-28-2023 MCV (RBC) [Entitic vol] 93.7 fL 81-99 [facility] Hematocrit Auto (Bld) [Volum e fraction]Ordered By: Amanda Bean on 03-28-2023 Hematocrit (Bld) [Volume fraction] 41.5 % 37-47 [facility] Laboratory - Chemistry and C hemistry - challengeOrdered By: Amanda Bean on 03-28-2023 CO2 [Moles/Vol] 28.0 mmol/L 21.0-32.0 [facility] Urea nitrogen/Creatinine [Mass ratio] 10.2 mg/mg 10-20 [facility] - Hematology and Cell countsOrdered By: Amanda Bean on 03-28-2023 Erythrocyte distribution width (RBC) [Entitic vol] 44.4 fL 35.1-43.9 [facility] Erythrocyte distribution width (RBC) [Ratio] 13.0 % 11.6-14.6 [facility] Immature granulocytes/100 WBC (Bld) 0.400 % 0.0-0.9 [facility] Comment on above: IG% - Immature Granu locytes (promyelocytes, myelocytes and metamyelocytes) > 1% indicates that a LEFT SHIFT is Present. MCH (RBC) [Entitic mass] 30.7 pg 27.0-32.0 [facility] Nucleated RBC/100 WBC (Bld) [Ratio] 0 % 0-5 [facility] MCHC Auto (RBC) [Mass/Vol]Or dered By: Amanda Bean on 03-28-2023 MCHC (RBC) [Mass/Vol] 32.8 g/dL 32-36 [facility] No Panel InformationOrdered By: Amanda Bean on 03-28-2023 Estimated Creatinine Clearance Calc 102.32 ml/min [facility] Estimated GFR (MDRD) Amer 114 mL/min >60 [facility] Comment on above: GFR Calc Estimated GFR (MDRD) Non-Af Amer 94 mL/min >60 [facility] Comment on above: Non- GFR Calc Platelets bldOrdered By: Oral Bean on 03-28-2023 Platelets (Bld) [#/Vol] 345 10*3/uL 150-450 [facility] Serum or plasma calcium patrick urement (mass/volume)Ordered By: Amanda Bean on 03-28-2023 Calcium [Mass/Vol] 9.2 mg/dL 8.5-10.1 [facility] Serum or plasma choriogonado tropin detectionOrdered By: Amanda Bean on 03-28-2023 HCG ( test) Ql 341 mIU/mL <4 [facility] Comment on above: hCG levels with Gest ational AgeGestational Age hCG mIU/mL (IU/L)0.2 - 1 week 5 - 501-2 weeks 50 - 5002-3 weeks 100 - 48014-2 weeks 500 - 127297-0 weeks 1000 - 906795-3 weeks 55997 - 100,0006-8 weeks 9[address] - 200,0002-3 months 89[address] - 100,000 Serum or plasma creatinine m easurement (mass/volume)Ordered By: Amanda Bean on 03-28-2023 Creatinine [Mass/Vol] 0.78 mg/dL 0.55-1.02 [facility] Comment on above: The validity of the calculated GFR & GFRAA in patients over 70 years has not been determined. Clinical correlation is essential. Serum or plasma urea nitroge n measurement (mass/volume)Ordered By: Amanda Bean on 03-28-2023 Urea nitrogen [Mass/Vol] 8 mg/dL 7-18 [facility] Thin prep Papanicolaou smear with manual screeningOrdered By: Amanda Bean on 03-28-2023 Thin prep Papanicolaou smear with manual screening 3 5-15 [facility] CBC panel Auto (Bld)on 03-17 Erythrocyte distribution width (RBC) [Ratio] 12.4 % Normal 11.5-15.0 [facility] Comment on above: Order Comment: Speci men Type: BLOOD SPECIMEN Ordering Facility: [facility] Address: [address] [place] [phone] Performed By: #### 5 8410-2 #### [facility] CLIA [id number] [address] Hematocrit (Bld) [Volume fraction] 37.8 % Normal 36.0-46.0 [facility] Comment on above: Order Comment: Speci men Type: BLOOD SPECIMEN Ordering Facility: [facility] Address: [address] [place] [address] Performed By: #### 5 8410-2 #### [facility] CLIA [id number] [address] Hemoglobin (Bld) [Mass/Vol] 12.8 g/dL Normal 11.5-15.5 [facility] Comment on above: Order Comment: Speci men Type: BLOOD SPECIMEN Ordering Facility: [facility] Address: [address] [place] [address] Performed By: #### 5 8410-2 #### [facility] CLIA [id number] [address] MCH (RBC) [Entitic mass] 30.5 pg Normal 26.0-34.0 [facility] Comment on above: Order Comment: Speci men Type: BLOOD SPECIMEN Ordering Facility: [facility] Address: [address] [place] [address] Performed By: #### 5 8410-2 #### [facility] CLIA [id number] [address] OF [facility] MCHC (RBC) [Mass/Vol] 33.9 g/dL Normal 30.5-36.0 [facility] Comment on above: Order Comment: Speci men Type: BLOOD SPECIMEN Ordering Facility: [facility] Address: [address] [place] [address] Performed By: #### 5 8410-2 #### [facility] CLIA [id number] [address] MCV (RBC) [Entitic vol] 90.0 fL Normal 80.0-100.0 [facility] Comment on above: Order Comment: Speci men Type: BLOOD SPECIMEN Ordering Facility: [facility] Address: [address] [place] [address] Performed By: #### 5 8410-2 #### [facility] CLIA [id number] [address] OF [place] Nucleated RBC (Bld) [#/Vol] 10*3/uL Normal <0.01 [facility] Comment on above: Order Comment: Speci men Type: BLOOD SPECIMEN Ordering Facility: [facility] Address: [address] [place] [address] Performed By: #### 5 8410-2 #### [facility] CLIA [id number] [address] [place] Platelet mean volume (Bld) [Entitic vol] 8.7 fL Low 9.0-12.7 [facility] Comment on above: Order Comment: Speci men Type: BLOOD SPECIMEN Ordering Facility: [facility] Address: [address] [place] [address] Performed By: #### 5 8410-2 #### [facility] CLIA [id number] [address] OF [place] Platelets (Bld) [#/Vol] 297 10*3/uL Normal 150-400 [facility] Comment on above: Order Comment: Speci men Type: BLOOD SPECIMEN Ordering Facility: [facility] Address: [address] [place] [address] Performed By: #### 5 8410-2 #### [facility] CLIA [id number] [address] OF [place] RBC (Bld) [#/Vol] 4.20 10*6/uL Normal 3.90-5.20 [facility] Comment on above: Order Comment: Speci men Type: BLOOD SPECIMEN Ordering Facility: [facility] Address: [address] [place] [address] Performed By: #### 5 8410-2 #### [facility] CLIA [id number] [address] [place] WBC (Bld) [#/Vol] 6.93 10*3/uL Normal 3.70-11.00 [facility] Comment on above: Order Comment: Speci men Type: BLOOD SPECIMEN Ordering Facility: [facility] Address: [address] [address] Performed By: #### 5 8410-2 #### [facility] CLIA [id number] [address] Comprehensive metabolic 2000 panelon 03-17-2023 Albumin [Mass/Vol] 4.7 g/dL Normal 3.9-4.9 [facility] Comment on above: Order Comment: Speci men Type: BLOOD SPECIMEN Ordering Facility: [facility] Address: [address] [address] Performed By: #### 2 4323-8 #### [facility] CLIA [id number] [address] STATES OF [facility] ALP [Catalytic activity/Vol] 22 U/L Low 34-123 [facility] Comment on above: Order Comment: Speci men Type: BLOOD SPECIMEN Ordering Facility: [facility] Address: [address] [address] Performed By: #### 2 4323-8 #### [facility] CLIA [id number] [address] ALT With P-5'-P [Catalytic activity/Vol] 24 U/L Normal 7-38 [facility] Comment on above: Order Comment: Speci men Type: BLOOD SPECIMEN Ordering Facility: [facility] Address: [address] [address] Performed By: #### 2 4323-8 #### [facility] CLIA [id number] [address] OF [place] Anion gap [Moles/Vol] 13 mmol/L Normal 9-18 [facility] Comment on above: Order Comment: Speci men Type: BLOOD SPECIMEN Ordering Facility: [facility] Address: [address] [address] Performed By: #### 2 4323-8 #### [facility] CLIA [id number] [address] OF [facility] AST With P-5'-P [Catalytic activity/Vol] 21 U/L Normal 13-35 [facility] Comment on above: Order Comment: Speci men Type: BLOOD SPECIMEN Ordering Facility: [facility] Address: [address] [address] Performed By: #### 2 4323-8 #### [facility] CLIA [id number] [address] [place] Bilirubin [Mass/Vol] 0.3 mg/dL Normal 0.2-1.3 [facility] Comment on above: Order Comment: Speci men Type: BLOOD SPECIMEN Ordering Facility: [facility] Address: [address] [place] [address] Performed By: #### 2 4323-8 #### [facility] CLIA [id number] [address] [place] Calcium [Mass/Vol] 9.7 mg/dL Normal 8.5-10.2 [facility] Comment on above: Order Comment: Speci men Type: BLOOD SPECIMEN Ordering Facility: [facility] Address: [address] [place] [address] Performed By: #### 2 4323-8 #### [facility] CLIA [id number] [address] [place] Chloride [Moles/Vol] 102 mmol/L Normal 97-105 [facility] Comment on above: Order Comment: Speci men Type: BLOOD SPECIMEN Ordering Facility: [facility] Address: [address] [place] [address] Performed By: #### 2 4323-8 #### [facility] CLIA [id number] [address] [place] CO2 [Moles/Vol] 25 mmol/L Normal 22-30 [facility] Comment on above: Order Comment: Speci men Type: BLOOD SPECIMEN Ordering Facility: [facility] Address: [address] [place] [address] Performed By: #### 2 4323-8 #### [facility] CLIA [id number] [address] [place] [address] [place] Creatinine [Mass/Vol] 0.74 mg/dL Normal 0.58-0.96 [facility] Comment on above: Order Comment: Manfred jefferson Type: BLOOD SPECIMEN Ordering Facility: [facility] Address: [address] [place] [address] Performed By: #### 2 4323-8 #### [facility] CLIA [id number] [address] [place] [address] OF [facility] Creatinine and Glomerular filtration rate.predicted panel (S/P/Bld) 115 mL/min/1.73m??? Normal >=60 [facility] Comment on above: Order Comment: Manfred jefferson Type: BLOOD SPECIMEN Ordering Facility: [facility] Address: [address] [place] [address] Result Comment: Vidya mated Glomerular Filtration Rate (eGFR) is calculated using the 2020 CKD-EPI creatinine equation. This equation utilizes serum creatinine, sex, and age as parameters. The creatinine assay has traceable calibration to isotope dilution-mass spectrometry. Refer to KDIGO guidelines for clinical interpretation. In patients with unstable renal function, e.g. those with acute kidney injury, the eGFR may not accurately reflect actual GFR. Performed By: #### 2 4323-8 #### [facility] CLIA [id number] [address] [place] [address] [place] Glucose [Mass/Vol] 105 mg/dL High 74-99 [facility] Comment on above: Order Comment: Manfred ronny Type: BLOOD SPECIMEN Ordering Facility: [facility] Address: [address] [place] [address] Result Comment: The [place] [employer] (ADA) provides guidance for cutoff values for fasting glucose and random glucose. The ADA defines fasting as no caloric intake for at least 8 hours. Fasting plasma glucose results between 100 to 125 mg/dL indicate increased risk for diabetes (prediabetes). Fasting plasma glucose results greater than or equal to 126 mg/dL meet the criteria for diagnosis of diabetes. In the absence of unequivocal hyperglycemia, results should be confirmed by repeat testing. In a patient with classic symptoms of hyperglycemia or hyperglycemic crisis, random plasma glucose results greater than or equal to 200 mg/dL meet the criteria for diagnosis of diabetes. Reference: Standards of Medical Care in Diabetes 2016, [place] [employer]. Diabetes Care. 2016.39(Suppl 1). Performed By: #### 2 4323-8 #### [facility] CLIA [id number] [address] STATES OF [facility] Potassium [Moles/Vol] 3.6 mmol/L Low 3.7-5.1 [facility] Comment on above: Order Comment: Speci men Type: BLOOD SPECIMEN Ordering Facility: [facility] Address: [address] [place] [address] Performed By: #### 2 4323-8 #### [facility] CLIA [id number] [address] STATES [facility] Protein [Mass/Vol] 7.5 g/dL Normal 6.3-8.0 [facility] Comment on above: Order Comment: Speci men Type: BLOOD SPECIMEN Ordering Facility: [facility] Address: [address] [address] Performed By: #### 2 4323-8 #### [facility] CLIA [id number] [address] Sodium [Moles/Vol] 140 mmol/L Normal 136-144 [facility] Comment on above: Order Comment: Speci men Type: BLOOD SPECIMEN Ordering Facility: [facility] Address: [address] [address] Performed By: #### 2 4323-8 #### [facility] CLIA [id number] [address] [place] Urea nitrogen [Mass/Vol] 12 mg/dL Normal 7-21 [facility] Comment on above: Order Comment: Speci men Type: BLOOD SPECIMEN Ordering Facility: [facility] Address: [address] [address] Performed By: #### 2 4323-8 #### [facility] CLIA [id number] [address] STATES OF [facility] HCG QUANTITATIVEon 3 HCG.beta subunit Qn 1849.0 m[IU]/mL High <5.0 mIU/mL [facility] B-HCG SerPl-aCncon 3 HCG.beta subunit Qn 2005.0 m[IU]/mL High <5.0 [facility] Comment on above: Order Comment: Speci men Type: BLOOD SPECIMEN Ordering Facility: [facility] Address: [place] [place] [address] Result Comment: HAYDEE TITATIVE HCG NORMAL RANGES Weeks of Gestation (Weeks Since LMP) 3 Weeks (5.8-71.2 mIU/mL) 4 Weeks (9.5-750 mIU/mL) 5 Weeks (217-7138 mIU/mL) 6 Weeks (158-34841 mIU/mL) 7 Weeks (3697-091871 mIU/mL) 8 Weeks (83865-812629 mIU/mL) 9 Weeks (55501-811660 mIU/mL) 10 Weeks (28297-408829 mIU/mL) 12 Weeks (18650-692162 mIU/mL) Referenced to 4th IS of [facility] Performed By: #### 2 1198-7 #### [facility] CLIA [id number] [address] CBC panel Auto (Bld)on 03-11 Erythrocyte distribution width (RBC) [Ratio] 12.4 % 11.5 - 15.0 % [facility] Hematocrit (Bld) [Volume fraction] 40.8 % 36.0 - 46.0 % [facility] Hemoglobin (Bld) [Mass/Vol] 13.8 g/dL 11.5 - 15.5 g/dL [facility] MCH (RBC) [Entitic mass] 30.4 pg 26.0 - 34.0 pg [facility] MCHC (RBC) [Mass/Vol] 33.8 g/dL 30.5 - 36.0 g/ dL [facility] MCV (RBC) [Entitic vol] 89.9 fL 80.0 - 100.0 fL [facility] Nucleated RBC (Bld) [#/Vol] <0.01 k/uL [facility] Platelet mean volume (Bld) [Entitic vol] 8.9 fL Low 9.0 - 12.7 fL [facility] Platelets (Bld) [#/Vol] 326 10*3/uL 150 - 400 k/uL [facility] RBC (Bld) [#/Vol] 4.54 10*6/uL 3.90 - 5.20 m/uL [facility] WBC (Bld) [#/Vol] 9.52 10*3/uL 3.70 - 11. 00 k/uL [facility] Comprehensive metabolic 2000 panelon 03-11-2023 Albumin [Mass/Vol] 4.6 g/dL 3.9 - 4.9 g/dL [facility] ALP [Catalytic activity/Vol] 24 U/L Low 34 - 123 U/L [facility] ALT [Catalytic activity/Vol] 12 U/L 7 - 38 U/L [facility] Anion gap [Moles/Vol] 10 mmol/L 9 - 18 mmol/L [facility] AST [Catalytic activity/Vol] 14 U/L 13 - 35 U/L [facility] Bilirubin [Mass/Vol] 0.5 mg/dL 0.2 - 1.3 mg/dL [facility] Calcium [Mass/Vol] 10.2 mg/dL 8.5 - 10.2 mg/dL [facility] Chloride [Moles/Vol] 102 mmol/L 97 - 105 mmol/L [facility] CO2 [Moles/Vol] 24 mmol/L 22 - 30 mmol/L [facility] Creatinine [Mass/Vol] 0.80 mg/dL 0.58 - 0.96 mg/dL [facility] Estimated Glomerular Filtration Rate 104 mL/min/1.73m >=60 mL/min/1.73m [facility] Glucose [Mass/Vol] 94 mg/dL 74 - 99 mg/dL [facility] Potassium [Moles/Vol] 4.0 mmol/L 3.7 - 5.1 mmol /L [facility] Protein [Mass/Vol] 7.7 g/dL 6.3 - 8.0 g/dL [facility] Sodium [Moles/Vol] 136 mmol/L 136 - 144 mmol/L [facility] Urea nitrogen [Mass/Vol] 9 mg/dL 7 - 21 mg/dL [facility] ED Triage Noteon 03-11-2023 ED Triage Note HNO ID: [id number] Author: Jewell Machuca APRN.MANAGER SOUND Service: Emergency Medicine Author Type: Nurse Practitioner Type: ED Triage Notes Filed: 03/11/2023 4:36 PM Note Text: ED INTAKE NOTE Patient Name: Charline Kirkpatrick Service Date: 03/11/23 BRIEF HPI: This is a 27-year-old female who presents from a transferring facility for evaluation and OB triage. Patient was diagnosed with an ectopic today and opted for methotrexate treatment. BRIEF EXAM: Tearful, no acute distress. Heart regular rate and rhythm, lungs clear to auscultation bilaterally. INTAKE WORKUP: I spoke with Dr. Fowler in OB triage, who accepted this patient for transfer to OB triage. She remained stable throughout her course in the emergency department. She was transferred to OB triage via wheelchair by ED staff in stable condition. SIGNATURE: Jewell Machuca APRN.MANAGER SOUND Normal [facility] HCG QUANTITATIVEon 3 HCG.beta subunit Qn 1768.0 m[IU]/mL High <5.0 mIU/mL [facility] OBSTETRIC ULTRASOUND WHIon 0 03-11-2023 [facility] TYPE + SCREEN PRENATALon ABO A Normal [facility] Comment on above: Order Comment: Speci men Type: BLOOD SPECIMEN Ordering Facility: [facility] Address: [address] [place] [address] Performed By: #### T SPN #### [facility] CLIA [id number] [address] OF [facility] HISTORICAL AB SCR STATUS Negative Normal [facility] Comment on above: Order Comment: Speci men Type: BLOOD SPECIMEN Ordering Facility: [facility] Address: [address] [place] [address] Performed By: #### T SPN #### [facility] CLIA [id number] [address] Rh Nom (Bld) Positive Normal [facility] Comment on above: Order Comment: Speci men Type: BLOOD SPECIMEN Ordering Facility: [facility] Address: [address] [place] [address] Performed By: #### T SPN #### [facility] CLIA [id number] [address] [phone] [facility] TYPE AND SCREEN EXPIRATION 03/14/2023 23:59 Normal [facility] Comment on above: Order Comment: Speci men Type: BLOOD SPECIMEN Ordering Facility: [facility] Address: [address] [place] [id number] Performed By: #### T SPN #### [facility] CLIA [id number] [address] [id number] [facility] HCG QUANTITATIVEon 3 HCG.beta subunit Qn 1623.0 m[IU]/mL High <5.0 mIU/mL [facility] Vital Signs Date Time Vital Sign Value Performing Clinician Brysoni ambikay 01-24-2025 08:02-0400 Body mass index (BMI) [Ratio] 30.38 kg/m2 Kelly Gregg MARKET DEVELOPER.CNM Work Phone: [facility] 01-24-2025 08:02-0400 Body weight 85.37 kg Kelly Plotts MARKET DEVELOPER.CNM Work Phone: [facility] 01-24-2025 08:02-0400 Diastolic blood pressure 64 mm[Hg] Kelly Plotts MARKET DEVELOPER.CNM Work Phone: [facility] 01-24-2025 08:02-0400 Systolic blood pressure 118 mm[Hg] Kelly Plotts MARKET DEVELOPER.CNM Work Phone: [facility] 01-18-2025 08:08-0400 Body mass index (BMI) [Ratio] 30.18 kg/m2 Kelly Plotts MARKET DEVELOPER.CNM Work Phone: [facility] 01-18-2025 08:08-0400 Body weight 84.82 kg Kelly Plotts MARKET DEVELOPER.CNM Work Phone: [facility] 01-18-2025 08:08-0400 Diastolic blood pressure 68 mm[Hg] Kelly Plotts MARKET DEVELOPER.CNM Work Phone: [facility] 01-18-2025 08:08-0400 Systolic blood pressure 110 mm[Hg] Kelly Plotts MARKET DEVELOPER.CNM Work Phone: [facility] 01-11-2025 08:05-0400 Body mass index (BMI) [Ratio] 30.18 kg/m2 Kelly Plotts MARKET DEVELOPER.CNM Work Phone: [facility] 01-11-2025 08:05-0400 Body weight 84.82 kg Kelly Plotts MARKET DEVELOPER.CNM Work Phone: [facility] 01-11-2025 08:05-0400 Diastolic blood pressure 68 mm[Hg] Kelly Plotts MARKET DEVELOPER.CNM Work Phone: [facility] 01-11-2025 08:05-0400 Systolic blood pressure 102 mm[Hg] Kelly Plotts MARKET DEVELOPER.CNM Work Phone: [facility] 01-02-2025 08:01-0400 Body mass index (BMI) [Ratio] 30.15 kg/m2 Ovidio Joseph MD Work Phone: [facility] 01-02-2025 08:01-0400 Body weight 84.73 kg Ovidio Joseph MD Work Phone: [facility] 01-02-2025 08:01-0400 Diastolic blood pressure 66 mm[Hg] Ovidio Joseph MD Work Phone: [facility] 01-02-2025 08:01-0400 Systolic blood pressure 118 mm[Hg] Ovidio Joseph MD Work Phone: [facility] 12-24-2024 14:43-0400 Body mass index (BMI) [Ratio] 29.86 kg/m2 Sangeeta Edwards MD Work Phone: [facility] 12-24-2024 14:43-0400 Body weight 83.92 kg Sangeeta Edwards MD Work Phone: [facility] 12-24-2024 14:43-0400 Diastolic blood pressure 70 mm[Hg] Sangeeta Edwards MD Work Phone: [facility] 12-24-2024 14:43-0400 Systolic blood pressure 120 mm[Hg] Sangeeta Edwards MD Work Phone: [facility] 12-04-2024 16:19-0400 Diastolic blood pressure 64 mm[Hg] i [facility] 12-04-2024 16:19-0400 Systolic blood pressure 114 mm[Hg] i [facility] 11-29-2024 14:43-0400 Body mass index (BMI) [Ratio] 29.05 kg/m2 Alcon Martinez MD Work Phone: [facility] 11-29-2024 14:43-0400 Body weight 81.65 kg Alcon Martinez MD Work Phone: [facility] 11-29-2024 14:43-0400 Diastolic blood pressure 74 mm[Hg] Alcon Martinez MD Work Phone: [facility] 11-29-2024 14:43-0400 Systolic blood pressure 120 mm[Hg] Alcon Martinez MD Work Phone: [facility] 10-31-2024 09:06-0400 Body mass index (BMI) [Ratio] 28.25 kg/m2 Amanda Jenkins MD Work Phone: [facility] 10-31-2024 09:06-0400 Body weight 79.38 kg Amanda Jenkins MD Work Phone: [facility] 10-31-2024 09:06-0400 Diastolic blood pressure 62 mm[Hg] Amanda Jenkins MD Work Phone: [facility] 10-31-2024 09:06-0400 Systolic blood pressure 102 mm[Hg] Amanda Jenkins MD Work Phone: [facility] 10-05-2024 11:33-0400 Body mass index (BMI) [Ratio] 27.76 kg/m2 Amanda Jenkins MD Work Phone: [facility] 10-05-2024 11:33-0400 Body weight 78.02 kg Amanda Jenkins MD Work Phone: [facility] 10-05-2024 11:33-0400 Diastolic blood pressure 64 mm[Hg] Amanda Jenkins MD Work Phone: [facility] 10-05-2024 11:33-0400 Systolic blood pressure 110 mm[Hg] Amanda Jenkins MD Work Phone: [facility] 09-07-2024 09:01-0500 Body mass index (BMI) [Ratio] 27.44 kg/m2 Amanda Jenkins MD Work Phone: [facility] 09-07-2024 09:01-0500 Body weight 77.11 kg Amanda Jenkins MD Work Phone: [facility] 09-07-2024 09:01-0500 Diastolic blood pressure 66 mm[Hg] Amanda Jenkins MD Work Phone: [facility] 09-07-2024 09:01-0500 Systolic blood pressure 116 mm[Hg] Amanda Jenkins MD Work Phone: [facility] 08-10-2024 08:32-0500 Body mass index (BMI) [Ratio] 26.63 kg/m2 Amanda Jenkins MD Work Phone: [facility] 08-10-2024 08:32-0500 Body weight 74.84 kg Amanda Jenkins MD Work Phone: [facility] 08-10-2024 08:32-0500 Diastolic blood pressure 64 mm[Hg] Amanda Jenkins MD Work Phone: [facility] 08-10-2024 08:32-0500 Systolic blood pressure 104 mm[Hg] Amanda Jenkins MD Work Phone: [facility] 07-12-2024 16:16-0500 Body mass index (BMI) [Ratio] 26.63 kg/m2 Kelly Plotts MARKET DEVELOPER.CNM Work Phone: [facility] 07-12-2024 16:16-0500 Body weight 74.84 kg Kelly Plotts MARKET DEVELOPER.CNM Work Phone: [facility] 07-12-2024 16:16-0500 Diastolic blood pressure 68 mm[Hg] Kelly Plotts MARKET DEVELOPER.CNM Work Phone: [facility] 07-12-2024 16:16-0500 Systolic blood pressure 112 mm[Hg] Kelly Plotts MARKET DEVELOPER.CNM Work Phone: [facility] 06-08-2024 08:44-0500 Body mass index (BMI) [Ratio] 26.95 kg/m2 Kelly Plotts MARKET DEVELOPER.CNM Work Phone: [facility] 06-08-2024 08:44-0500 Body weight 75.75 kg Kelly Plotts MARKET DEVELOPER.CNM Work Phone: [facility] 06-08-2024 08:44-0500 Diastolic blood pressure 64 mm[Hg] Kelly Plotts MARKET DEVELOPER.CNM Work Phone: [facility] 06-08-2024 08:44-0500 Systolic blood pressure 106 mm[Hg] Kelly Plotts MARKET DEVELOPER.CNM Work Phone: [facility] 04-06-2023 11:55-0400 Body weight 73.03 kg Amanda Jenkins MD Work Phone: [facility] 04-06-2023 11:55-0400 Diastolic blood pressure 66 mm[Hg] Amanda Jenkins MD Work Phone: [facility] 04-06-2023 11:55-0400 Systolic blood pressure 116 mm[Hg] Amanda Jenkins MD Work Phone: [facility] 03-28-2023 17:45-0400 Body temperature 99.6 [degF] [facility] 03-28-2023 17:45-0400 Diastolic blood pressure 68 mm[Hg] [facility] 03-28-2023 17:45-0400 Heart rate 78 /min [facility] 03-28-2023 17:45-0400 Respiratory rate 16 /min [facility] 03-28-2023 17:45-0400 SaO2% (BldA) [Mass fraction] 97 % [facility] 03-28-2023 17:45-0400 Systolic blood pressure 104 mm[Hg] [facility] 03-28-2023 15:26-0400 Body temperature 97.2 [degF] [facility] 03-28-2023 15:26-0400 Diastolic blood pressure 76 mm[Hg] [facility] 03-28-2023 15:26-0400 Heart rate 132 /min [facility] 03-28-2023 15:26-0400 Respiratory rate 18 /min [facility] 03-28-2023 15:26-0400 SaO2% (BldA) [Mass fraction] 100 % [facility] 03-28-2023 15:26-0400 Systolic blood pressure 120 mm[Hg] [facility] 03-28-2023 14:57-0400 Body height 167.64 cm [facility] 03-28-2023 14:57-0400 Body mass index (BMI) [Ratio] 26.2 kg/m2 [facility] 03-28-2023 14:57-0400 Body weight 73.89 kg [facility] 03-11-2023 13:39-0400 Diastolic blood pressure 60 mm[Hg] Alcon Martinez MD Work Phone: [facility] 03-11-2023 13:39-0400 Systolic blood pressure 100 mm[Hg] Alcon Martinez MD Work Phone: [facility] 05-21-2022 12:57-0400 Body height 170.2 cm Edelmira Ward APRN.CNP Work Phone: [facility] 05-21-2022 12:57-0400 Body weight 71.22 kg Edelmira [place]oke MARKET DEVELOPER.MANAGER SOUND Work Phone: [facility] 05-21-2022 12:57-0400 Diastolic blood pressure 60 mm[Hg] Edelmira Ed MARKET DEVELOPER.MANAGER SOUND Work Phone: [facility] 05-21-2022 12:57-0400 Systolic blood pressure 100 mm[Hg] Edelmira [place] MARKET DEVELOPER.MANAGER SOUND Work Phone: [facility] 03-21-2022 08:48-0400 Body temperature 98.1 [degF] Manny Ren MARKET DEVELOPER.MANAGER SOUND Work Phone: [facility] 03-21-2022 08:48-0400 Body weight 68.95 kg Manny Ren MARKET DEVELOPER.MANAGER SOUND Work Phone: [facility] 03-21-2022 08:48-0400 Diastolic blood pressure 62 mm[Hg] Manny Ren MARKET DEVELOPER.MANAGER SOUND Work Phone: [facility] 03-21-2022 08:48-0400 Heart rate 78 /min Manny Ren MARKET DEVELOPER.MANAGER SOUND Work Phone: [facility] 03-21-2022 08:48-0400 Respiratory rate 16 /min Manny Ren MARKET DEVELOPER.MANAGER SOUND Work Phone: [facility] 03-21-2022 08:48-0400 SaO2% (BldA) [Mass fraction] 99 % Manny Ren MARKET DEVELOPER.MANAGER SOUND Work Phone: [facility] 03-21-2022 08:48-0400 Systolic blood pressure 108 mm[Hg] Manny Ren MARKET DEVELOPER.MANAGER SOUND Work Phone: [facility] Encounters Encounter Date Encounter Type Care Provider Facility Start: 01-24-2025 End: 01-24-2025 Telephone encounter Kelly Gregg APRN.CNM Work Phone: [facility]/Gy[facility]cology Comment on above: Patient Question Start: 01-24-2025 End: 01-24-2025 Patient encounter procedure Kelly Gregg APRN.CNYovanny Work Phone: OB/Gynecology Comment on above: 40 weeks gestation o f (HCC) (Primary Dx); Supervision of high risk in third trimester (HCC); Positive GBS test Start: 01-24-2025 End: 01-24-2025 ambulatory [facility] Facility:[facility] Start: 01-18-2025 End: 01-18-2025 [facility] Facility:[facility] Start: 01-18-2025 End: 01-18-2025 Patient encounter procedure Kelly Gregg MARKET DEVELOPER.CNM Work Phone: OB/Gynecology Comment on above: Supervision of high risk in third trimester (HCC) (Primary Dx); Positive GBS test; 39 weeks gestation of (HCC); Heartburn during in second trimester (HCC) Start: 01-11-2025 End: 01-11-2025 Patient encounter procedure Kelly Gregg MARKET DEVELOPER.CNM Work Phone: OB/Gynecology Comment on above: Positive GBS test (P rimary Dx); Supervision of high risk in third trimester (HCC); 38 weeks gestation of (HCC) Start: 01-11-2025 End: 01-11-2025 [facility] Facility:[facility] Start: 01-07-2025 End: 01-07-2025 [facility] Start: 01-07-2025 End: 01-07-2025 Patient encounter procedure [facility] Comment on above: Population Health Na vigation Outreach ( to PCP/OB/) Start: 01-02-2025 End: 01-02-2025 Patient encounter procedure Ovidio Joseph MD Work Phone: OB/Gynecology Comment on above: 37 weeks gestation o f (HCC) (Primary Dx); Supervision of high risk in third trimester (HCC); Low lying placenta nos or without hemorrhage, third trimester (HCC) Start: 01-02-2025 End: 01-02-2025 ambulatory OVIDIO JOSEPH Facility:[facility] Start: 12-28-2024 End: 01-03-2025 Telephone encounter Sangeeta Edwards MD Work Phone: OB/Gynecology Comment on above: FMLA Paperwork Start: 12-24-2024 End: 12-24-2024 Patient encounter procedure Sangeeta Edwards MD Work Phone: OB/Gynecology Comment on above: Supervision of high risk in third trimester (HCC) (Primary Dx); Low lying placenta nos or without hemorrhage, third trimester (HCC); 36 weeks gestation of (HCC); 16 weeks gestation of (HCC); Nausea and vomiting in (HCC) Start: 12-24-2024 End: 12-24-2024 ambulatory SANGEETA EDWARDS Facility:[facility] Start: 12-18-2024 End: 12-18-2024 Refill Roz Reilly APRN.CNM Work Phone: OB/Gynecology Comment on above: Refill Request Start: 12-15-2024 End: 12-18-2024 Refill Kelly Gregg APRN.CNM Work Phone: OB/Gynecology Comment on above: Refill Request Start: 12-14-2024 End: 12-14-2024 ambulatory SHELLI ALLISON Facility:[facility] Start: 12-04-2024 End: 12-04-2024 ambulatory AMANDA JENKINS Facility:[facility] Start: 12-04-2024 End: 12-04-2024 Patient encounter procedure [employer] [facility] [facility] Comment on above: Suspected placental problem not found (Primary Dx); Encounter for ultrasound to check growth (HCC); 33 weeks gestation of (HCC) Start: 11-29-2024 End: 11-29-2024 Patient encounter procedure Alcon Martinez MD Work Phone: OB/Gynecology Comment on above: 32 weeks gestation o f (HCC) (Primary Dx); Supervision of high risk in third trimester (HCC) Start: 11-29-2024 End: 11-29-2024 ambulatory ALCON MARTINEZ Facility:[facility] Start: 11-16-2024 End: 11-16-2024 ambulatory SHELLI ALLISON Facility:[facility] Start: 11-04-2024 End: 01-04-2025 Follow-up encounter Amanda Jenkins MD Work Phone: OB/Gynecology Start: 11-01-2024 End: 11-01-2024 ambulatory Amanda Jenkins MD Work Phone: OB/Gynecology Comment on above: placenta Start: 11-01-2024 End: 11-01-2024 E-mail encounter from caregiver Amanda Jenkins MD Work Phone: OB/Gynecology Start: 11-01-2024 End: 01-01-2025 Follow-up encounter Sehlli Allison MD Work Phone: OB/Gynecology Start: 10-31-2024 End: 10-31-2024 Patient encounter procedure Amanda Jenkins MD Work Phone: OB/Gynecology Comment on above: Marginal placenta pr evia (HCC) (Primary Dx); Low lying placenta nos or without hemorrhage, third trimester (HCC); 28 weeks gestation of (HCC); Need for vaccination Encounter for ultras ound to check growth (HCC) (Primary Dx); Low lying placenta nos or without hemorrhage, third trimester (HCC); 28 weeks gestation of (HCC) Start: 10-31-2024 End: 10-31-2024 ambulatory AMANDA JENKINS Facility:[facility] Start: 10-05-2024 End: 10-05-2024 ambulatory AMANDA JENKINS Facility:[facility] Start: 10-05-2024 End: 10-05-2024 Patient encounter procedure Amanda Jenkins MD Work Phone: OB/Gynecology Comment on above: Encounter for superv ision of other normal in second trimester (Primary Dx); Screening for diabetes mellitus; Encounter for supervision of other normal in third trimester; 24 weeks gestation of Start: 09-14-2024 End: 09-14-2024 Orders Only Roz Reilly APRN.CNM Work Phone: OB/Gynecology Comment on above: 16 weeks gestation o f ; Nausea and vomiting in Start: 09-10-2024 End: 09-10-2024 Follow-up encounter Kelly Gregg APRN.CNM Work Phone: OB/Gynecology Start: 09-07-2024 End: 09-07-2024 ambulatory KELLY GREGG Facility:[facility] Start: 09-07-2024 End: 09-07-2024 Patient encounter procedure Amanda Jenkins MD Work Phone: OB/Gynecology Comment on above: Encounter for superv ision of other normal in second trimester (Primary Dx); Heartburn during in second trimester; 20 weeks gestation of ; Marginal placenta previa Encounter for anatomic survey (Primary Dx); 20 weeks gestation of ; Encounter for supervision of other normal in second trimester; Encounter for screening for cervical length Start: 08-24-2024 End: 08-24-2024 Refill Amanda Jenkins MD Work Phone: OB/Gynecology Comment on above: Refill Request Start: 08-10-2024 End: 08-10-2024 ambulatory AMANDA JENKINS Facility:[facility] Start: 08-10-2024 End: 08-10-2024 Patient encounter procedure Amanda Jenkins MD Work Phone: OB/Gynecology Comment on above: Encounter for superv ision of other normal in second trimester (Primary Dx); Nausea and vomiting in ; 16 weeks gestation of Start: 08-06-2024 End: 08-07-2024 Refill Roz Reilly APRN.CNM Work Phone: OB/Gynecology Comment on above: Refill Request Start: 08-03-2024 End: 08-03-2024 Refill Kelly Gregg APRN.CNM Work Phone: OB/Gynecology Comment on above: Med Change Request Start: 07-19-2024 End: 07-19-2024 ambulatory Kelly Gregg APRN.CNM Work Phone: OB/Gynecology Comment on above: Maternal 21 Results Start: 07-12-2024 End: 07-12-2024 ambulatory [facility] Start: 07-12-2024 End: 07-12-2024 Patient encounter procedure [employer] [facility] Comment on above: Encounter for antena petr screening for malformation using ultrasound (Primary Dx); 12 weeks gestation of ; Encounter for (NT) nuchal translucency scan 12 weeks gestation o f (Primary Dx); Encounter for supervision of other normal in first trimester; Nausea/vomiting in ; Heartburn during in second trimester Start: 07-12-2024 End: 07-12-2024 ambulatory KELLY MARKS Facility:[facility] Start: 06-08-2024 End: 06-08-2024 ambulatory [facility] Facility:[facility] Start: 06-08-2024 End: 06-08-2024 Patient encounter procedure Kelly Gregg TARIQ.CNM Work Phone: OB/Gynecology Comment on above: with uncer tain dates in first trimester (Primary Dx); 7 weeks gestation of ; Encounter for supervision of low-risk first in first trimester; Nausea/vomiting in ; History of ectopic Start: 05-28-2024 End: 05-28-2024 ambulatory Amanda Jenkins MD Work Phone: OB/Gynecology Comment on above: Nausea Start: 05-25-2024 End: 05-25-2024 ambulatory AMANDA JENKINS Facility:[facility] Start: 05-23-2024 End: 05-23-2024 ambulatory AMANDA JENKINS Facility:[facility] Start: 05-14-2024 End: 05-14-2024 Telephone encounter Amanda Jenkins MD Work Phone: OB/Gynecology Comment on above: Early OB Question Start: 06-10-2023 End: 06-15-2023 ambulatory OMAR MAST MARKET DEVELOPER-MANAGER SOUND Facility:B Start: 04-06-2023 End: 04-06-2023 Patient encounter procedure Amanda Jenkins MD Work Phone: OB/Gynecology Comment on above: Post-operative state (Primary Dx) Start: 03-28-2023 End: 03-28-2023 Admission to same day surgery center [facility] Start: 03-28-2023 End: 03-28-2023 ambulatory [facility] Work Phone: Start: 03-18-2023 Telephone encounter Alcon king MD Work Phone: OB/Gynecology Comment on above: Orders Start: 03-17-2023 End: 03-17-2023 ambulatory ALCON MARTINEZ Facility:[facility] Start: 03-12-2023 Telephone encounter Amanda Jenkins MD Work Phone: OB/Gynecology Start: 03-11-2023 End: 03-11-2023 Emergency department patient visit DEMI FOWLER Facility:[facility] Start: 03-11-2023 Telephone encounter Edelmira don MARKET DEVELOPER.MANAGER SOUND Work Phone: OB/Gynecology Comment on above: Results Start: 03-11-2023 End: 03-11-2023 Patient encounter procedure Alcon Martinez MD Work Phone: OB/Gynecology Comment on above: Ectopic wi thout intrauterine , unspecified location (Primary Dx); Early stage of ; Vaginal bleeding in ; Pelvic cramping with uncer tain viability, single or unspecified fetus Start: 03-08-2023 Telephone encounter Edelmira don MARKET DEVELOPER.MANAGER SOUND Work Phone: OB/Gynecology Comment on above: Patient Question Start: 05-21-2022 End: 05-21-2022 Patient encounter procedure Edelmira Ward MARKET DEVELOPER.MANAGER SOUND Work Phone: OB/Gynecology Comment on above: Encounter for gyneco logical examination (general) (routine) without abnormal findings (Primary Dx); Encounter for surveillance of contraceptive pills Start: 05-21-2022 End: 05-21-2022 Patient encounter status Edelmira Ward MARKET DEVELOPER.MANAGER SOUND Work Phone: OB/Gynecology Start: 03-21-2022 End: 03-21-2022 Patient encounter procedure Manny Ren MARKET DEVELOPER.MANAGER SOUND Work Phone: [facility] Comment on above: Rhus dermatitis (Alycia shawna Dx) Start: 10-24-2021 Refill Edelmira Deancalf MARKET DEVELOPER.MANAGER SOUND Work Phone: OB/Gynecology Comment on above: Refill Request Procedures Date Procedure Procedure Detail Performing Clinician Start: 01-24-2025 Urnls dip stick/tabl et rgnt non-auto w/o micrscp Kelly Gregg MARKET DEVELOPER.CNM Work Phone: Start: 01-11-2025 Urnls dip stick/tabl et rgnt non-auto w/o micrscp Kelly Gregg MARKET DEVELOPER.CNM Work Phone: Start: 01-02-2025 Urnls dip stick/tabl et rgnt non-auto w/o micrscp Ovidio Joseph MD Work Phone: Start: 12-24-2024 Urnls dip stick/tabl et rgnt non-auto w/o micrscp Sangeeta Edwards MD Work Phone: Start: 12-04-2024 Us preg uterus after 1st trimest 1/1st gestation Amanda Jenkins MD Work Phone: Start: 10-31-2024 Us preg uterus after 1st trimest 1/1st gestation Amanda Jenkins MD Work Phone: Start: 09-07-2024 Us preg uterus after 1st trimest 1/1st gestation Kelly Gregg MARKET DEVELOPER.CNM Work Phone: Start: 07-12-2024 Antibody screen AMANDA JENKINS Comment on above: Order Comment: Speci men Type: BLOOD SPECIMEN Ordering Facility: [facility] Address: [address] [place] [address] Performed By: #### T SPN #### [facility] CLIA [id number] [address] [place] [address] [place] Start: 03-28-2023 Removal of ectopic fetus Start: 03-28-2023 Transvaginal obstetr ic ultrasonography Start: 03-11-2023 Antibody screen ALCON MATOS Comment on above: Order Comment: Speci men Type: BLOOD SPECIMEN Ordering Facility: [facility] Address: [address] [place] [address] Performed By: #### T SPN #### [facility] BLOOD [facility] CLIA [id number] [address] [place] [address] [place] Start: 03-11-2023 Us preg uterus after 1st trimest 07/25 gestation Alcon Martinez MD Work Phone: Plan of Treatment Date Care Activity Detail Author Start: 10-31-2034 Urine microalbumin profile DTaP,Tdap,Td Vaccine (8 - Td or Tdap) [facility] Start: 06-08-2027 Screening for malign ant neoplasm of cervix Cervical Cancer Screening [facility] Start: 03-25-2025 Influenza vaccination [facility] Start: 02-11-2025 End: 02-11-2025 Patient encounter procedure 02/11/2025 1:30 PM EDT Office Visit OB/Gynecology [address] [place] [address] Kelly Gregg APRN.CNM [address] [place] [place] [address] 2 week post patrum OB/Gynecology Comment on above: 2 week post patrum Start: 02-01-2025 End: 02-01-2025 Patient encounter procedure 02/01/2025 9:00 AM EDT Routine Office Visit OB/Gynecology [address] [place] [address] Roz Reilly APRN.CNYovanny [address] [place] [address] OB Routine OB/Gynecology Comment on above: OB Routine Start: 01-24-2025 End: 01-24-2025 Patient encounter procedure 01/24/2025 8:00 AM EDT Routine Office Visit OB/Gynecology [address] [place] [address] Kelly Gregg APRN.CNM [address] [place] [address] OB Routine OB/Gynecology Comment on above: OB Routine Start: 01-18-2025 End: 01-18-2025 Patient encounter procedure 01/18/2025 8:00 AM EDT Routine Office Visit OB/Gynecology [address] [place] [address] Kelly Gregg APRN.CNM [address] [place] [address] OB Routine OB/Gynecology Comment on above: OB Routine Start: 01-11-2025 End: 01-11-2025 Patient encounter procedure 01/11/2025 8:00 AM EDT Routine Office Visit OB/Gynecology [address] [place] [address] Kelly Gregg APRN.CN [address] [place] [address] OB Routine OB/Gynecology Comment on above: OB Routine Start: 01-03-2025 End: 01-03-2025 Patient encounter procedure 01/03/2025 8:40 AM EDT Routine Office Visit OB/Gynecology [address] [place] [address] Amanda Tavera MD [address] [place] [address] OB Routine OB/Gynecology Comment on above: OB Routine Start: 01-02-2025 End: 01-02-2025 Patient encounter procedure 01/02/2025 8:00 AM EDT Routine Office Visit OB/Gynecology [address] [place] [address] Ovidio Joseph MD [address] [place] [address] OB OB/Gynecology Comment on above: OB Start: 12-24-2024 End: 12-24-2024 Patient encounter procedure 12/24/2024 2:50 PM EDT Routine Office Visit OB/Gynecology [address] [place] [address] Sangeeta Edwards MD [address] [place] [address] Nausea/OB OB/Gynecology Comment on above: Nausea/OB Start: 12-14-2024 End: 12-14-2024 Patient encounter procedure 12/14/2024 8:30 AM EDT Routine Office Visit OB/Gynecology [address] [place] [address] Shelli Allison MD [address] [place] [address] OB Routine OB/Gynecology Comment on above: OB Routine Start: 12-04-2024 End: 12-04-2024 Patient encounter procedure 12/04/2024 3:30 PM EDT Routine Office Visit [facility] [address] [place] [address] Growth [facility] Comment on above: Growth Start: 11-29-2024 End: 11-29-2024 Patient encounter procedure [facility] Comment on above: growth OB Start: 11-16-2024 End: 11-16-2024 Patient encounter procedure 11/16/2024 8:30 AM EDT Routine Office Visit OB/Gynecology [address] [place] [address] Shelli Allison MD [address] [place] [address] OB OB/Gynecology Comment on above: OB Start: 11-05-2024 End: 02-04-2025 ANEMIA REFLEX PANEL ANEMIA REFLEX PANEL Lab Routine Encounter for supervision of other normal in third trimester Expected: 11/05/2024, Expires: 02/04/2025 [facility] Comment on above: Expected: 11/05/2024 , Expires: 02/04/2025 Start: 11-05-2024 End: 10-05-2025 GESTATIONAL GLUCOSE SCREEN, 1-HOUR, 50 GRAM, NON-FASTING GESTATIONAL GLUCOSE SCREEN, 1-HOUR, 50 GRAM, NON-FASTING Lab Routine Screening for diabetes mellitus Expected: 11/05/2024, Expires: 10/05/2025 [facility] Work Phone: Comment on above: Expected: 11/05/2024 , Expires: 10/05/2025 Start: 11-05-2024 End: 10-05-2025 SYPHILIS TREPONEMAL W/REFLEX SYPHILIS TREPONEMAL W/REFLEX Lab Routine Encounter for supervision of other normal in third trimester Expected: 11/05/2024, Expires: 10/05/2025 [facility] Comment on above: Expected: 11/05/2024 , Expires: 10/05/2025 Start: 10-31-2024 End: 10-31-2025 OBSTETRIC ULTRASOUND WHI OBSTETRIC ULTRASOUND WHI Anc Imaging Routine Low lying placenta nos or without hemorrhage, third trimester (HCC) Expected: 10/31/2024, Expires: 10/31/2025 [facility] Work Phone: Comment on above: Expected: 10/31/2024 , Expires: 10/31/2025 Start: 10-31-2024 End: 10-31-2024 Patient encounter procedure [facility] Comment on above: Growth Growth/OB Start: 10-31-2024 End: 10-31-2024 ambulatory 10/31/2024 7:45 AM EDT Results [facility] [address] [place] [address] Glucose Test and Labs [facility] Comment on above: Glucose Test and Lab s Start: 10-05-2024 End: 10-05-2024 Patient encounter procedure 10/05/2024 11:40 AM EDT Routine Office Visit OB/Gynecology [address] [place] [address] Amanda Tavera MD [address] [place] [address] OB OB/Gynecology Comment on above: OB Start: 09-07-2024 End: 09-07-2025 OBSTETRIC ULTRASOUND WHI OBSTETRIC ULTRASOUND WHI Anc Imaging Routine Marginal placenta previa Expected: 09/07/2024, Expires: 09/07/2025 [facility] Work Phone: Comment on above: Expected: 09/07/2024 , Expires: 09/07/2025 Start: 09-07-2024 End: 09-07-2024 Patient encounter procedure [facility] Comment on above: Anatomy /OB OB Start: 08-10-2024 End: 08-10-2024 Patient encounter procedure 08/10/2024 8:40 AM EST Routine Office Visit OB/Gynecology [address] [place] [address] Amanda Tavera MD [address] [place] [address] OB Routine OB/Gynecology Comment on above: OB Routine Start: 07-12-2024 End: 07-12-2024 Patient encounter procedure [facility]aternal Medicine Comment on above: Nuchal OB Routine Start: 07-12-2024 End: 10-11-2024 Chromosome 21 trisomy [Presence] in Blood or Tissue by Cytogenetics [facility] Comment on above: Expected: 07/12/2024 , Expires: 10/11/2024 Start: 07-12-2024 End: 10-11-2024 Hemoglobin A1c in Blood [facility] Comment on above: Expected: 07/12/2024 , Expires: 10/11/2024 Start: 07-12-2024 End: 07-12-2025 OBSTETRIC ULTRASOUND WHI OBSTETRIC ULTRASOUND WHI Anc Imaging Routine 12 weeks gestation of Encounter for supervision of other normal in first trimester Expected: 07/12/2024, Expires: 07/12/2025 [facility] Work Phone: Comment on above: Expected: 07/12/2024 , Expires: 07/12/2025 Start: 06-08-2024 End: 09-07-2024 ANEMIA REFLEX PANEL ANEMIA REFLEX PANEL Lab Routine with uncertain dates in first trimester Expected: 06/08/2024, Expires: 09/07/2024 [facility] Comment on above: Expected: 06/08/2024 , Expires: 09/07/2024 Start: 06-08-2024 End: 09-07-2024 Hepatitis B virus surface Ag [Presence] in Serum HEPATITIS B SURFACE ANTIGEN Lab Routine with uncertain dates in first trimester Expected: 06/08/2024, Expires: 09/07/2024 [facility] Comment on above: Expected: 06/08/2024 , Expires: 09/07/2024 Start: 06-08-2024 End: 09-07-2024 Hepatitis C virus Ab [Presence] in Serum HEPATITIS C ANTIBODY IA WITH CONFIRMATION Lab Routine with uncertain dates in first trimester Expected: 06/08/2024, Expires: 09/07/2024 [facility] Comment on above: Expected: 06/08/2024 , Expires: 09/07/2024 Start: 06-08-2024 End: 09-07-2024 HIV 1+2 Ab [Presence] in Serum or Plasma by Immunoassay HIV 1/2 COMBO WITH REFLEX TO DIFFERENTIATION Lab Routine with uncertain dates in first trimester Expected: 06/08/2024, Expires: 09/07/2024 [facility] Comment on above: Expected: 06/08/2024 , Expires: 09/07/2024 Start: 06-08-2024 End: 06-08-2025 NUCHAL TRANSLUCENCY WHI NUCHAL TRANSLUCENCY WHI Anc Imaging Routine with uncertain dates in first trimester Expected: 06/08/2024, Expires: 06/08/2025 [facility] Comment on above: Expected: 06/08/2024 , Expires: 06/08/2025 Start: 06-08-2024 End: 09-07-2024 RUBELLA IGG ANTIBODY RUBELLA IGG ANTIBODY Lab Routine with uncertain dates in first trimester Expected: 06/08/2024, Expires: 09/07/2024 [facility] Comment on above: Expected: 06/08/2024 , Expires: 09/07/2024 Start: 06-08-2024 End: 09-07-2024 SYPHILIS TREPONEMAL W/REFLEX SYPHILIS TREPONEMAL W/REFLEX Lab Routine with uncertain dates in first trimester Expected: 06/08/2024, Expires: 09/07/2024 [facility] Comment on above: Expected: 06/08/2024 , Expires: 09/07/2024 Start: 06-08-2024 End: 09-07-2024 TYPE + SCREEN TYPE + SCREEN Blood Bank Routine with uncertain dates in first trimester Expected: 06/08/2024, Expires: 09/07/2024 [facility] Comment on above: Expected: 06/08/2024 , Expires: 09/07/2024 Start: 06-08-2024 End: 06-08-2024 Patient encounter procedure 06/08/2024 8:45 AM EST Initial Office Visit OB/Gynecology [address] [place] [address] Kelly Grgeg APRN.CN [address] [place] [address] NEW OB OB/Gynecology Comment on above: NEW OB Start: 05-25-2024 End: 05-25-2024 ambulatory 05/25/2024 7:00 AM EDT Results Only [place] [facility] [address] [place] [address] [facility] Start: 05-23-2024 End: 05-23-2024 ambulatory 05/23/2024 7:00 AM EDT Results Only [place] [facility] [address] [place] [address] [facility] Start: 03-25-2024 Covid-19 Vaccine ( season) Covid-19 Vaccine ( season) [facility] Start: 03-25-2024 Influenza vaccination Influenza Vacc ine (#1) [facility] Start: 03-28-2023 Ambulation without limitation [facility] Start: 03-28-2023 Medical regimen orde rs management [facility] Start: 03-28-2023 Medication education [facility] Start: 03-28-2023 Patient discharge [facility] Start: 03-28-2023 Procedure discontinued [facility] Start: 03-28-2023 Taking patient vital signs [facility] Start: 03-28-2023 Vital signs measurements [facility] Start: 03-28-2023 [facility] Start: 03-28-2023 Removal of ectopic fetus Laparoscopic, Removal Ectopic (Not Applicable) [facility] Start: 03-25-2023 Influenza vaccination [facility] Start: 03-17-2023 End: 05-17-2023 Choriogonadotropin.beta subunit [Units/volume] in Serum or Plasma HCG QUANTITATIVE Lab Routine Left tubal without intrauterine Expected: 03/17/2023, Expires: 05/17/2023 [facility] Work Phone: Comment on above: Expected: 03/17/2023 , Expires: 05/17/2023 Start: 03-11-2023 End: 03-11-2024 OBSTETRIC ULTRASOUND WHI OBSTETRIC ULTRASOUND I Anc Imaging Routine with uncertain viability, single or unspecified fetus Expected: 03/11/2023, Expires: 03/11/2024 [facility] Work Phone: Comment on above: Expected: 03/11/2023 , Expires: 03/11/2024 Start: 10-02-2022 PAP TESTING PAP TESTING [facility] Start: 10-02-2022 Screening for malign ant neoplasm of cervix Cervical Cancer Screening [facility] Start: 07-25-2022 [facility]PRESSION [facility]MENT [facility] Start: 03-25-2022 Influenza vaccination C [facility] Start: 07-25-2021 DEPRESSION ASSESSMENT DEPRESSION ASS [facility] Start: 01-09-2018 Urine microalbumin profile [facility] Start: 11-20-2015 SHINGRIX VACCINE (1 of 2) SHINGRIX VACCINE (1 of 2) [facility] Start: 2014 Anxiety Screening Anxiety Screening [facility] Start: 2014 Depression Screening Depression Scre ening [facility] Start: 2014 HEPATITIS C SCREENING HEPATITIS C SC REENING [facility] Start: 2014 Hepatitis C screening Hepatitis C [facility] Start: 2014 HIV SCREENING HIV SCREENING [facility] Start: 2014 HIV screening HIV Screening [facility] Start: 2010 PEDS TO ADULT TRANSITION ANNUAL ASSESSMENT PEDS TO ADULT TRANSITION ANNUAL ASSESSMENT [facility] Start: 2008 Adult depression screening assessment DEPRESSION SCREENING [facility] Start: 2008 PEDS TO ADULT TRANSITION INITIAL DISCUSSION PEDS TO ADULT TRANSITION INITIAL DISCUSSION [facility] Start: 2006 MENINGOCOCCAL B: Consider based on risk (1 of 2 - Risk Bexsero 2-dose series) MENINGOCOCCAL B: Consider based on risk (1 of 2 - Risk Bexsero 2-dose series) [facility] Start: 2002 PNEUMOCOCCAL (1 - PCV) PNEUMOCOCCAL (1 - PCV) [facility] Start: 2002 Pneumococcal vaccination Pneumococcal Vaccine (1 - PCV) [facility] Start: 2001 COVID-19 VACCINE (#1) COVID-19 VACCI NE (#1) [facility] Start: 2001 COVID-19 VACCINE (1) COVID-19 VACCIN E (1) [facility] Start: 05-21-1997 COVID-19 VACCINE (#1) COVID-19 VACCI NE (#1) [facility] Bacteria identified in Urine by Culture URINE CULTURE Microbiology Routine with uncertain dates in first trimester 06/08/2024 10:03 AM [facility] Chlamydia trachomatis+Neisseria gonorrhoeae DNA [Presence] in Unspecified specimen by MATTHEW with probe detection GONORRHEA/CHLAMYDIA NAAT Lab Routine with uncertain dates in first trimester 06/08/2024 10:03 AM EST [facility] End: 03-17-2024 Choriogonadotropin.beta subunit [Units/volume] in Serum or Plasma HCG QUANTITATIVE Lab Routine Ectopic without intrauterine , unspecified location 2x per week for 2 Occurrences starting 03/18/2023 until 03/17/2024 [facility] Work Phone: Comment on above: 2x per week for 2 Oc currences starting 03/18/2023 until 03/17/2024 End: 06-14-2024 Choriogonadotropin.beta subunit [Units/volume] in Serum or Plasma HCG QUANTITATIVE Lab Routine affected by previous ectopic Positive urine test 2x per week for 2 Occurrences starting 05/14/2024 until 06/14/2024 [facility] Work Phone: Comment on above: 2x per week for 2 Oc currences starting 05/14/2024 until 06/14/2024 PAP TEST PAP TEST Lab Rou kimberly with uncertain dates in first trimester 06/08/2024 10:03 AM EST [facility] Patient referral [facility] Work Phone: POC COW TESTER ULTRASOUND POC COW TESTER ULTRASO UND Anc Imaging Routine with uncertain dates in first trimester Ordered: 06/08/2024 [facility] Work Phone: Comment on above: Ordered: 06/08/2024 ROUTINE, GR OUP B STREPTOCOCCUS BY PCR ROUTINE, GROUP B STREPTOCOCCUS BY PCR Microbiology Routine Supervision of high risk in third trimester (HCC) Low lying placenta nos or without hemorrhage, third trimester (HCC) 36 weeks gestation of (HCC) 12/24/2024 3:11 PM EDT [facility] Work Phone: URINE OB DIP B/O URINE OB DIP B/ O Lab Routine Supervision of high risk in third trimester (HCC) Positive GBS test 39 weeks gestation of (HCC) Ordered: 01/18/2025 [facility] Work Phone: Comment on above: Ordered: 01/18/2025 [facility] Immunizations Immunization Date Immunization Notes Care Provider Sade bright 10-31-2024 tetanus toxoid, reduced diphtheria toxoid, and acellular pertussis vaccine, adsorbed Amanda Jenkins MD Work Phone: [facility] 05-21-2020 Influenza, injectabl e, Madin Nida Canine Kidney, preservative free, quadrivalent Amanda Jenkins MD Work Phone: [facility] 05-21-2020 influenza virus vaccine, unspecified formulation Ob Ultrasound Work Phone: [facility] 05-27-2016 influenza, injectabl e, quadrivalent, preservative free Amanda Jenkins MD Work Phone: [facility] 04-19-2009 influenza virus vaccine, unspecified formulation Edelmira Ed MARKET DEVELOPER.MANAGER SOUND Work Phone: [facility] 07-17-2008 human papilloma viru s vaccine, quadrivalent Edelmira Ed MARKET DEVELOPER.MANAGER SOUND Work Phone: [facility] Work Phone: 06-07-2008 influenza virus vaccine, unspecified formulation Edelmira Ed MARKET DEVELOPER.MANAGER SOUND Work Phone: [facility] Work Phone: 03-11-2008 human papilloma viru s vaccine, quadrivalent Edelmira Ro[place]oke MARKET DEVELOPER.[facility] Work Phone: [facility] Work Phone: 01-10-2008 human papilloma viru s vaccine, quadrivalent Edelmira [place] MARKET DEVELOPER.[facility] Work Phone: [facility] 01-10-2008 Meningococcal, MCV4, unspecified conjugate formulation(groups A, C, Y and W-135) Edelmira [place]oke MARKET DEVELOPER.[facility] Work Phone: [facility] 01-10-2008 tetanus toxoid, reduced diphtheria toxoid, and acellular pertussis vaccine, adsorbed Edelmira [place]oke MARKET DEVELOPER.MANAGER SOUND Work Phone: [facility] 05-30-2007 influenza virus vaccine, unspecified formulation Edelmira Ed MARKET DEVELOPER.MANAGER SOUND Work Phone: [facility] Work Phone: 05-30-2006 influenza virus vaccine, unspecified formulation Edelmira Ed MARKET DEVELOPER.[facility] Work Phone: [facility] Work Phone: 05-03-2006 diphtheria, tetanus toxoids and acellular pertussis vaccine, unspecified formulation Amanda Jenkins MD Work Phone: [facility] 05-03-2006 pneumococcal conjuga te vaccine, 7 valent Amanda Jenkins MD Work Phone: [facility] 05-03-2006 poliovirus vaccine, inactivated Amanda Jenkins MD Work Phone: [facility] 05-03-2006 rotavirus vaccine, unspecified formulation Amanda Jenkins MD Work Phone: [facility] 02-15-2006 diphtheria, tetanus toxoids and acellular pertussis vaccine, unspecified formulation Amanda Jenkins MD Work Phone: [facility] 02-15-2006 haemophilus influenz ae type b conjugate and Hepatitis B vaccine Amanda Jenkins MD Work Phone: [facility] 02-15-2006 pneumococcal conjuga te vaccine, 7 valent Amanda Jenkins MD Work Phone: [facility] 02-15-2006 poliovirus vaccine, inactivated Amanda Jenkins MD Work Phone: [facility] 02-15-2006 rotavirus vaccine, unspecified formulation Amanda Jenkins MD Work Phone: [facility] 06-03-2005 influenza virus vaccine, unspecified formulation Edelmira Ed MARKET DEVELOPER.MANAGER SOUND Work Phone: [facility] Work Phone: 06-19-2004 influenza virus vaccine, unspecified formulation Edelmira [place] MARKET DEVELOPER.MANAGER SOUND Work Phone: [facility] Work Phone: 06-24-2003 influenza virus vaccine, unspecified formulation Edelmira Ed MARKET DEVELOPER.MANAGER SOUND Work Phone: [facility] Work Phone: 02-27-2001 diphtheria, tetanus toxoids and acellular pertussis vaccine Edelmira [place] MARKET DEVELOPER.MANAGER SOUND Work Phone: [facility] Work Phone: 02-27-2001 measles, mumps and rubella virus vaccine Edelmira Ed MARKET DEVELOPER.MANAGER SOUND Work Phone: [facility] Work Phone: 02-27-2001 poliovirus vaccine, inactivated Edelmira Ed MARKET DEVELOPER.[facility] Work Phone: [facility] Work Phone: 02-27-2001 varicella virus vaccine Edelmira [place] MARKET DEVELOPER.[facility] Work Phone: [facility] Work Phone: 03-17-1998 diphtheria, tetanus toxoids and acellular pertussis vaccine Edelmira Ed MARKET DEVELOPER.[facility] Work Phone: [facility] Work Phone: 03-17-1998 haemophilus influenz ae type b vaccine, HbOC conjugate Edelmira [place] MARKET DEVELOPER.[facility] Work Phone: [facility] Work Phone: 03-17-1998 poliovirus vaccine, inactivated Edelmira Ed MARKET DEVELOPER.[facility] Work Phone: [facility] Work Phone: 11-21-1997 measles, mumps and rubella virus vaccine Edelmira Ed MARKET [facility] Work Phone: [facility] Work Phone: 07-10-1997 diphtheria, tetanus toxoids and acellular pertussis vaccine Edelmira Roanoke MARKET [employer]EL[employer] Work Phone: [facility] Work Phone: 07-10-1997 haemophilus influenz ae type b vaccine, HbOC conjugate Edelmira Roanoke MARKET DEVELOPER[employer] Work Phone: [facility] Work Phone: 07-10-1997 hepatitis B vaccine, pediatric or pediatric/adolescent dosage Edelmira Roanoke MARKET DEVELOPER[employer] Work Phone: [facility] Work Phone: 04-29-1997 diphtheria, tetanus toxoids and acellular pertussis vaccine Edelmira Ed MARKET DEVELOPER[employer] Work Phone: [facility] Work Phone: 04-29-1997 haemophilus influenz ae type b vaccine, HbOC conjugate Edelmira Roanoke MARKET DEVELOPER[employer] Work Phone: [facility] Work Phone: 04-29-1997 poliovirus vaccine, inactivated Edelmira Roanoke MARKET DEVELOPER.[employer] Work Phone: [facility] Work Phone: 01-29-1997 diphtheria, tetanus toxoids and acellular pertussis vaccine Edelmira Roanoke MARKET DEVELOPER.[employer] Work Phone: [facility] Work Phone: 01-29-1997 haemophilus influenz ae type b vaccine, HbOC conjugate Edelmira Roanoke MARKET DEVELOPER[employer] Work Phone: [facility] Work Phone: 01-29-1997 hepatitis B vaccine, pediatric or pediatric/adolescent dosage Edelmira Ed MARKET DEVELOPER[facility] Work Phone: [facility] Work Phone: 01-29-1997 poliovirus vaccine, inactivated Edelmira Ed MARKET DEVELOPER[employer] Work Phone: [facility] Work Phone: 1996 hepatitis B vaccine, pediatric or pediatric/adolescent dosage Edelmira Ed MARKET DEVELOPER[employer] Work Phone: [facility] Work Phone: Payers Date Payer Category Payer Private Health Insurance [id number] 2021 Private Health Insurance [id number] 2020 Unknown [employer] PPO [id number] 2020-Present [phone] [address] [place] [address] PPO [id number] 1996 Unknown [id number] Social History Date Type Detail Facility Start: 08-01-2014 End: 05-21-2022 Tobacco smoking status NHIS Never smoked tobacco [facility] Start: 03-26-2021 End: 04-06-2023 Alcohol intake Current drinker of alcohol (finding) [facility] Start: 10-03-2019 History SDOH Alcohol Frequency 4 [facility] Start: 10-03-2019 History SDOH Alcohol Comment Weekends/social [facility] Start: 10-03-2019 History SDOH Social Connections Phone 5 [facility] Start: 10-03-2019 History SDOH Social Connections Jain 3 [facility] Start: 10-03-2019 History SDOH Social Connections Membership 2 [facility] Start: 10-03-2019 History SDOH Social Connections Meetings 1 [facility] Start: 10-03-2019 History SDOH Social Connections Living 7 [facility] Start: 10-03-2019 History SDOH Physica l Activity DPW 0 [facility] Start: 1995 Sex Assigned At Not on file C [facility] Start: 08-01-2014 End: 05-21-2022 Tobacco use and exposure Smokeless tobacco non-user [facility] Start: 03-11-2022 End: 05-21-2022 Exposure to SARS-CoV-2 (event) Not sure [facility] Start: 10-03-2019 End: 03-12-2023 History of Social function [facility] Start: 10-03-2019 End: 03-12-2023 Social connection and isolation panel [facility] Do you belong to any clubs or organizations such as adventist groups, unions, fraternal or athletic groups, or school groups? No [facility] Are you now , , , , never or living with a partner? Never [facility] How often to you hav e a drink containing alcohol? 2-3 time sa week [facility] Average Number of Drinks Not on file [facility] Do you feel stress - tense, restless, nervous, or anxious, or unable to sleep at night because your mind is troubled all the time - these days [OSQ] To some extent [facility] (I/We) worried wheth er (my/our) food would run out before (I/we) got money to buy more. Never true [facility] Start: 02-10-2023 [facility] Start: 03-28-2023 Tobacco smoking stat us NHIS Unknown if ever smoked [facility] Start: 1995 Sex Assigned At Female W [facility] Start: 06-08-2024 End: 01-18-2025 Alcoholic beverage intake Ex-drinker (finding) [facility] The thought of radu capone myself has occurred to me Never [facility] Start: 06-06-2024 Education 21 [facility] Goals Date Patient Goal Desired Activity /State Personal health goal Functional Status Date Assessment Result Facility 03-17-2023 Are you deaf, or do you have serious difficulty hearing No 03/17/2023 9:09 PM EDT Dory Chen RN [facility] 03-17-2023 Are you blind, or do you have serious difficulty seeing, even when wearing glasses No 03/17/2023 9:09 PM EDT Dory Chen RN No [facility] 03-17-2023 Do you have serious difficulty walking or climbing stairs No 03/17/2023 9:09 PM EDT Dory Chen RN [facility] 03-17-2023 Do you have difficul ty dressing or bathing No 03/17/2023 9:09 PM EDT Dory Chen, ABDI [facility] 03-17-2023 Because of a physica l, mental, or emotional condition, do you have difficulty doing errands alone such as visiting a physician's office or shopping No 03/17/2023 9:09 PM EDT Dory Chen RN No [facility] Mental Status Date Assessment Result Facility 03-28-2023 Cognitive function Voice/Name [facility] Work Phone: 03-17-2023 Because of a physica l, mental, or emotional condition, do you have serious difficulty concentrating, remembering, or making decisions No 03/17/2023 9:09 PM EDT Dory Chen RN No [facility] Clinical Notes 10-26-2021 to 01-24-2025 Telephone Encounter - Sumit Hamlin LPN - 01/24/2025 3:11 PM EDTTelephone Encounter - Sumit Hamlin LPN - 01/24/2025 3:11 PM EDTPatient InstructionsPatient InstructionsPatient Instructions Note Date & Type Note Facility 01-24-2025 Telephone encount er Note Phone call placed patient identified by name and date of , reviewed non stress test at [facility] 1:00 on Tuesday01/27/2025, induction scheduled on 01/28/2025 at 7:00 PM. Patient offered to move induction to 7:00 PM on Tuesday, patient declined. Sumit Hamlin LPN [facility] 01-24-2025 Miscellaneous Notes Formattin g of this note might be different from the original. Phone call placed patient identified by name and date of , reviewed non stress test at [facility] 1:00 on Tuesday01/27/2025, induction scheduled on 01/28/2025 at 7:00 PM. Patient offered to move induction to 7:00 PM on Tuesday, patient declined. Sumit Hamlin LPN documented in this encounter [facility] 01-24-2025 Progress note Formatting of t his note might be different from the original. S: Charline Kirkpatrick is a 29 year old female who presents at 40.4 weeks gestation for a routine visit. Positive movements. Denies any cramps or contractions. Denies headache, visual changes, chest pain, shortness of breath, vaginal bleeding, leakage of fluid, or dysuria. Feeling well, no complaints. Requesting CE today. O: See flow sheet Gen: No apparent distress Abd: Gravid, non tender CE 1.5/60/-2- membranes swept without difficulty ASSESSMENT/PLAN: 1. 40 weeks gestation of 2. Supervision of high risk in third trimester 3. Positive GBS test - Reviewed postdates IOL vs expectant management. Wanting unmedicated and to await spontaneous labor. Discussed recomendation for IOL at 41 weeks.Risks of stillbirth, aging placenta, macrosomia, meconium and distress discussed. Recommend twice weekly testing with BPP and NST if continues past 41 weeks. - NST scheduled in L&D for 01/27/25 - Desires induction after 41 weeks. - R/B/A to induction reviewed and consents signed. - Induction scheduled for 01/28/25 7pm with Cytotec/ [place] - GBS positive- PCN IV during labor and delivery - Support provided - Labor precautions reviewed - RTO 2 weeks PP Kelly Gregg APRN.CNM [facility] 01-24-2025 Miscellaneous Notes Formattin g of this note might be different from the original. S: Charline Kirkpatrick is a 29 year old female who presents at 40.4 weeks gestation for a routine visit. Positive movements. Denies any cramps or contractions. Denies headache, visual changes, chest pain, shortness of breath, vaginal bleeding, leakage of fluid, or dysuria. Feeling well, no complaints. Requesting CE today. O: See flow sheet Gen: No apparent distress Abd: Gravid, non tender CE 1.5/60/-2- membranes swept without difficulty ASSESSMENT/PLAN: 1. 40 weeks gestation of 2. Supervision of high risk in third trimester 3. Positive GBS test - Reviewed postdates IOL vs expectant management. Wanting unmedicated and to await spontaneous labor. Discussed recomendation for IOL at 41 weeks.Risks of stillbirth, aging placenta, macrosomia, meconium and distress discussed. Recommend twice weekly testing with BPP and NST if continues past 41 weeks. - NST scheduled in L&D for 01/27/25 - Desires induction after 41 weeks. - R/B/A to induction reviewed and consents signed. - Induction scheduled for 01/28/25 7pm with Cytotec/ [place] - GBS positive- PCN IV during labor and delivery - Support provided - Labor precautions reviewed - RTO 2 weeks PP Kelly Gregg APRN.CNM documented in this encounter [facility] 01-24-2025 Instructions Sumti Hamlin LPN - 01/24/2025 7:56 AM EDT SEQUENTIAL SCREENINGS The [facility] offers sequential screenings for women who are interested in screenings for chromosomal abnormalities and certain defects during a . The sequential screen combines ultrasound and blood tests to determine the risk of chromosomal abnormalities, including Down's Syndrome (Trisomy 21) and Trisomy 18, as well as open neural tube defects including spina bifida. Ultrasound examination is performed between 11 weeks and 13 weeks gestational age. Blood tests are drawn after the ultrasound and again later in the between 15 and 21 weeks gestational age. Please let your physician know if you are interested in this testing. It will require an appointment with our cook chill technician. This is not an ultrasound performed by a physician in our office during a routine visit. SIGNS AND SYMPTOMS OF LABOR 1. Contractions every 10 minutes or more often 2. Clear, pink, or brownish fluid (water) leaking from vagina 3. Feeling that baby is pushing down, pressure 4. Low, dull backache 5. Cramps that feel like a period 6. Cramps with or without diarrhea If you notice any of the above symptoms, contact our office at [phone] and ask to speak with a nurse. After hours, you can call doctors registry at [phone] OR call [facility] at [phone] and ask to have the doctor county commissioner paged. If you consider this an emergency, dial 9-1-2 or go to your nearest emergency department. NEED HELP? Are you dealing with a violent or abusive relationship? Are you a victim of rape or sexual assult? Call [facility] ([place]) 24 hour Crisis Hotline: 154.390.3764 or 612-979-0952. MANUAL Your Guide to a Healthy manual is now on-line. Visit [email or web address] [email or web address] to download your free copy documented in this encounter [facility] 01-18-2025 Progress note Formatting of t his note might be different from the original. S: Charline Kirkpatrick is a 29 year old female who presents at 39.5 weeks gestation for a routine visit. Positive movements. Denies any cramps or contractions. Denies headache, visual changes, chest pain, shortness of breath, vaginal bleeding, leakage of fluid, or dysuria. Feeling well, no complaints. Requesting CE today. O: See flow sheet Gen: No apparent distress Abd: Gravid, non tender CE- closed ASSESSMENT/PLAN: 1. Supervision of high risk in third trimester 2. Positive GBS test 3. 39 weeks gestation of 4. Heartburn in - D/C Pepcid - Rx for Protonix 40 mg XR PO daily - Reviewed postdates IOL vs expectant management. Wanting unmedicated and to await spontaneous labor. Discussed recomendation for IOL at 41 weeks.Risks of stillbirth, aging placenta, macrosomia, meconium and distress discussed. Recommend twice weekly testing with BPP and NST if continues past 41 weeks. - Patient would like to wait until next week's visit to schedule induction - Discussed R/B/A to Induction with patient and and questions answered - Labor precautions and kick counts reviewed - RTO 1 week or sooner if needed Kelly Gregg APRN.CNM [facility] 01-18-2025 Miscellaneous Notes Formattin g of this note might be different from the original. S: Charline Kirkpatrick is a 29 year old female who presents at 39.5 weeks gestation for a routine visit. Positive movements. Denies any cramps or contractions. Denies headache, visual changes, chest pain, shortness of breath, vaginal bleeding, leakage of fluid, or dysuria. Feeling well, no complaints. Requesting CE today. O: See flow sheet Gen: No apparent distress Abd: Gravid, non tender CE- closed ASSESSMENT/PLAN: 1. Supervision of high risk in third trimester 2. Positive GBS test 3. 39 weeks gestation of 4. Heartburn in - D/C Pepcid - Rx for Protonix 40 mg XR PO daily - Reviewed postdates IOL vs expectant management. Wanting unmedicated and to await spontaneous labor. Discussed recomendation for IOL at 41 weeks.Risks of stillbirth, aging placenta, macrosomia, meconium and distress discussed. Recommend twice weekly testing with BPP and NST if continues past 41 weeks. - Patient would like to wait until next week's visit to schedule induction - Discussed R/B/A to Induction with patient and and questions answered - Labor precautions and kick counts reviewed - RTO 1 week or sooner if needed Kelly Gregg APRN.CNM documented in this encounter [facility] 01-18-2025 Instructions Charles Nava MA - 01/18/2025 8:05 AM EDT SEQUENTIAL SCREENINGS The [facility] offers sequential screenings for women who are interested in screenings for chromosomal abnormalities and certain defects during a . The sequential screen combines ultrasound and blood tests to determine the risk of chromosomal abnormalities, including Down's Syndrome (Trisomy 21) and Trisomy 18, as well as open neural tube defects including spina bifida. Ultrasound examination is performed between 11 weeks and 13 weeks gestational age. Blood tests are drawn after the ultrasound and again later in the between 15 and 21 weeks gestational age. Please let your physician know if you are interested in this testing. It will require an appointment with our cook chill technician. This is not an ultrasound performed by a physician in our office during a routine visit. SIGNS AND SYMPTOMS OF LABOR 1. Contractions every 10 minutes or more often 2. Clear, pink, or brownish fluid (water) leaking from vagina 3. Feeling that baby is pushing down, pressure 4. Low, dull backache 5. Cramps that feel like a period 6. Cramps with or without diarrhea If you notice any of the above symptoms, contact our office at [phone] and ask to speak with a nurse. After hours, you can call doctors registry at [phone] OR call [facility] at [phone] and ask to have the doctor county commissioner paged. If you consider this an emergency, dial 03-25- or go to your nearest emergency department. NEED HELP? Are you dealing with a violent or abusive relationship? Are you a victim of rape or sexual assult? Call [facility] ([place]) 24 hour Crisis Hotline: 767.940.3785 or 709-387-8443. MANUAL Your Guide to a Healthy manual is now on-line. Visit [email or web address]/HealthyPre gnancyGuide to download your free copy documented in this encounter [facility] 01-11-2025 Instructions Kelly Gregg APRN.CLAUDIA - 01/11/2025 8:00 AM EDT Images from the original note were not included. Preparing for labor: Eat dates to promote spontaneous labor! Has an oxytocin-like effect on the body, leading to increased sensitivity of the uterus. Stimulates uterine contractions. Reduces hemorrhage the way oxytocin does. Date fruit contains saturated and unsaturated fatty acids such as oleic, linoleic, and linolenic acids, which are involved in saving and supplying energy and construction of prostaglandins. In addition, serotonin, tannin, and calcium in date fruit contribute to the contraction of smooth muscles of the uterus. Date fruit also has a laxative effect, which stimulates uterine contractions. Six dates per day is the magic number--provided that you re eating smaller deglet noor dates. Deglet noor dates are about 1 inch long. Medjool dates can be up to 2 inches long. If you re eating medjool dates, you only need about 3 dates to reach the 75 grams recommended in the studies. Not sure which type of date you have in your refrigerator? It s probably a deglet noor. How to Eat Dates During Dates are a healthy and delicious snack, so how can you add them to your diet? Add dates during in this awesome oatmeal recipe. Add dates to replace sugar in your favorite recipe or to deshaun your homemade almond milk. Use dates and nuts to make an easy pie crust in the manager fast food. Add soaked dates to homemade nut butter for a sweet treat. Add dates to deshaun homemade salad dressing. Add dates during easily with these yummy (paleo friendly) bars made from dates. What Is Red Raspberry [place] Tea? Red raspberry leaf tea comes from the leaves of the red raspberry plant. This herbal tea has been used for centuries to support respiratory, digestive and uterine health, particularly during and childbearing years. While usually known as a female herb, red raspberry leaf tea can also help support the prostate and various stomach ailments in children. How It Can Help and Red raspberry leaf tea can help to make labor faster and reduce complications and interventions during . One study found that women who consumed RRL tea regularly are less likely to go overdue or give prematurely. These women may also be less likely to receive an artificial rupture of their membranes or require a section, forceps, or vacuum than the women in the control group. Red raspberry leaf has many other benefits to , , and too. How Much Red Raspberry [place] Tea to Drink? With your doctor or rig hand s approval, start with 1 cup of red raspberry leaf tea per day starting in the second trimester. Watch for any uterine cramping or other reactions. If you don t experience any, you can talk to your healthcare provider about increasing to 2 cups per day. Again, watch for any uterine cramping. If you notice any, cut back on your dosage for two weeks and try again. Keep in mind, some moms have irritable uteruses and can only drink red raspberry leaf tea once they reach their due date because of uterine cramping. Is Red Raspberry [place] Tea the Same as Raspberry [place] Tea? How About Plain Old Raspberry Tea? Sometimes. You really need to look at the ingredients to be sure. Note that there is no difference between red raspberry leaf and raspberry leaf. The [employer] or MaulSoup Raspberry [place] Tea are two good brands. The red raspberry leaf teas that we recommend are 100% red raspberry leaf. Other teas labeled as raspberry are often a blend of rosehips, hibiscus, raspberry leaves, and raspberry flavor. So they may not be as effective. The teas to avoid are raspberry-flavored herbal teas, which may have ingredients like hibiscus, marce hips, apples, elderberries, natural and artificial raspberry flavors. Teas like this don t contain raspberry leaf at all and thus won t offer any of the potential benefits of RRLT outlined in this article. The [employer] www.[employer].Ascletis I named this 'circuit' after my friend Charline Joel, who shared and discussed it with me when I was working with a client whose labor seemed to be stalled out and no longer progressing... This circuit is useful to help get the baby lined up, ideally, in the Left Occiput Anterior (OSMAN) Position, both before labor begins and when some corrections need to be done during labor. Prenatally, this position set can help to rotate a baby. As a natural method of induction, this can help get things going if baby just needed a gentle nudge of position to set things off. To the best of my knowledge, this group of positions will not hurt a baby that is already lined up correctly. - Hortensia Sams Before you Begin..... This circuit takes at least 90 minutes to complete so clear your schedule and make mental preparations so you can relax in your environment. The second step requires a lot of pillows so gather them up before beginning Before starting, you should empty your bladder! Have a nice drink nearby, and make sure it has a straw! If you are having contractions, this circuit should bedone through contractions, try not to change positions between steps Step One: Open-knee Chest Stay in this position for 30 minutes, start in cat/cow, then drop your chest as low as you can to the bed or the floor and your bottom as high as you can. Knees should be fairly wide apart, and the angle between the torso/thighs should be wider than 90 degrees. Wiggle around, prop with lots of pillows and use this time to get totally relaxed. This position allows the baby to scoot out of the pelvis a bit and gives them room to rotate, shift their head position, etc. If the person finds it helpful,careful positioning with a rebozo under the belly, with gentle tension from a support person behindcan help maintain this position for the full 30minutes. Step Two: Exaggerated Left Side Lying Roll to your left side, bringing your top leg as high as possible and keeping your bottom leg straight. Roll forward as much as possible,again using a lot of pillows. Sink into the bed and relax some more. If you fall asleep, that's totally okay and you can stay there! If not, stay here for at least another half an hour. Try and get your top right leg up towards your head and get as rolled over onto your belly as much as possible. If you repeat the circuit during labor, try alternating left and right sides. We know the photo the left is actually right side... just flip the image in your head. Step Three: Moving and Lunges Lunge, walk stairs facing sideways, 2 at a time, (have a shredding machine tender downstairs of you!), take a walk outside with one foot on the curb and the other on the street, sit on a ball and hula- anything that's upright and putting your pelvis in open, asymmetrical positions. Spend at least 30 minutes doing this one as well to give your baby a chance to move down. If you are lunging or stair or curb walking, you should lunge/walk/go up stairs in the direction that feels better to you. The azevedo with the lunge is that the toes of the higher leg and mom's belly button should be at right angles. Do not lunge over your knee, that closes the pelvis. Charline Ramirez Wisam: Circuit Creator - www.StackMobtidalhealth nanticokeFeed.fmcollective. [place] Hortensia Sams CD, BDT (ALINE), LCCE, FACCE: Supporting Content - www.hortensiaGigaSpacesagus.[email or web address] Kelli Hawkins: Photography - www.kelliDepartment of Health and Human Services.Ascletis Joycelyn Andrea CD/CDT (ROSA): Print and Reinforcing Bar Setter - www.MyLife.Intelligent Data [employer]ensor [employer] Circuit Master[employer]s [employer] www.[employer].Ascletis SEQUENTIAL SCREENINGS The [facility] offers sequential screenings for women who are interested in screenings for chromosomal abnormalities and certain defects during a . The sequential screen combines ultrasound and blood tests to determine the risk of chromosomal abnormalities, including Down's Syndrome (Trisomy 21) and Trisomy 18, as well as open neural tube defects including spina bifida. Ultrasound examination is performed between 11 weeks and 13 weeks gestational age. Blood tests are drawn after the ultrasound and again later in the between 15 and 21 weeks gestational age. Please let your physician know if you are interested in this testing. It will require an appointment with our cook chill technician. This is not an ultrasound performed by a physician in our office during a routine visit. SIGNS AND SYMPTOMS OF LABOR 1. Contractions every 10 minutes or more often 2. Clear, pink, or brownish fluid (water) leaking from vagina 3. Feeling that baby is pushing down, pressure 4. Low, dull backache 5. Cramps that feel like a period 6. Cramps with or without diarrhea If you notice any of the above symptoms, contact our office at [phone] and ask to speak with a nurse. After hours, you can call doctors registry at [phone] OR call [facility] at [phone] and ask to have the doctor county commissioner paged. If you consider this an emergency, dial or go to your nearest emergency department. NEED HELP? Are you dealing with a violent or abusive relationship? Are you a victim of rape or sexual assult? Call [facility] ([place]) 24 hour Crisis Hotline: 151.291.7054 or 361-997-1283. MANUAL Your Guide to a Healthy manual is now on-line. Visit [email or web address] to download your free copy documented in this encounter [facility] 01-11-2025 Progress note Formatting of t his note might be different from the original. S: Charline Kirkpatrick is a 29 year old female who presents at 38 weeks gestation for a routine visit. Positive movements. Occasional cramps. Requesting CE today. Denies headache, visual changes, chest pain, shortness of breath, vaginal bleeding, leakage of fluid, or dysuria. Feeling well, no complaints. O: See flow sheet Gen: No apparent distress Abd: Gravid, nontender CE - closed ASSESSMENT/PLAN: 1. Positive GBS test 2. Supervision of high risk in third trimester 3. 38 weeks gestation of - Educated on cervical exams, timing of contractions, labor precautions - Discussed elective inductions vs. Medically indicated - Desires physiological onset of labor - PCN IV throughout labor and delivery - RTO 1 week Kelly Gregg APRN.CNM [facility] 01-11-2025 Miscellaneous Notes Formattin g of this note might be different from the original. S: Charline Kirkpatrick is a 29 year old female who presents at 38 weeks gestation for a routine visit. Positive movements. Occasional cramps. Requesting CE today. Denies headache, visual changes, chest pain, shortness of breath, vaginal bleeding, leakage of fluid, or dysuria. Feeling well, no complaints. O: See flow sheet Gen: No apparent distress Abd: Gravid, nontender CE - closed ASSESSMENT/PLAN: 1. Positive GBS test 2. Supervision of high risk in third trimester 3. 38 weeks gestation of - Educated on cervical exams, timing of contractions, labor precautions - Discussed elective inductions vs. Medically indicated - Desires physiological onset of labor - PCN IV throughout labor and delivery - RTO 1 week Kelly Gregg APRN.CNM documented in this encounter [facility] 01-07-2025 Note HNO ID: [id number] Author: CHRIS HENDERSON, ? Service: ? Author Type: Patient Machine Icer Type: Progress Notes Filed: 01/07/2025 08:45 Note Text: POPULATION HEALTH NAVIGATION OUTREACH Action/FYI Spoke to patient added juvenile officer to OB provider field Reason for Outreach Medicaid OB/Peds Care Gaps due: N/A Patient Contacted: Spoke to patient/parent/or legal guardian Patient identified by name and : Yes Medicaid OB/Peds actions taken: /Continuous Vulcanizing Machine Operator added Navigation Signature: Chris Henderson Population Health Navigator January 07, 2025 8:44 AM [facility] 01-07-2025 History of Presen t illness Narrative POPULATION HEALTH NAVIGATION OUTREACH Action/FYI Spoke to patient added juvenile officer to OB provider field Reason for Outreach Medicaid OB/Peds Care Gaps due: N/A Patient Contacted: Spoke to patient/parent/or legal guardian Patient identified by name and : Yes Medicaid OB/Peds actions taken: /Continuous Vulcanizing Machine Operator added Navigation Signature: Chris Henderson Population Health Navigator January 07, 2025 8:44 AM documented in this encounter [facility] 01-07-2025 Note Patient Outreach (JOHN TNAV) CHARLINE KIRKPATRICK ([id number]) 1995 F CHT Date Time Provider Department 01/07/25 CHRIS HENDERSON During your visit today, we recorded the following information about you: Chris Henderson 01/07/2025 8:45 AM Signed POPULATION HEALTH NAVIGATION OUTREACH Action/FYI Spoke to patient added juvenile officer to OB provider field Reason for Outreach Medicaid OB/Peds Care Gaps due: N/A Patient Contacted: Spoke to patient/parent/or legal guardian Patient identified by name and : Yes Medicaid OB/Peds actions taken: [place]/Continuous Vulcanizing Machine Operator added Navigation Signature: Chris Henderson Population Health Navigator January 07, 2025 8:44 AM Allergies As of Date: 01/07/2025 (No Known Allergies) Date Reviewed: 01/02/2025 Reviewed by: Sumit Hamlin LPN - Fully Assessed Reason for Visit: Population Health Navigation Outreach [3910] Cmt: to PCP/OB Prescriptions as of 01/07/2025 - ondansetron (ZOFRAN) 4 mg tablet Take 1 tablet by mouth every 8 hours as needed for nausea/vomiting. - famotidine (PEPCID ORAL) Take by mouth. - aspirin, enteric coated (ECOTRIN LOW STRENGTH) 81 mg EC tablet Take 1 tablet by mouth once daily. - 25-IRON [id number] ORAL Take by mouth. Problem List As Of Date 01/07/2025 Noted Resolved of unknown anatomic location [O36.80X*03/11/2023 06/08/2024 Encounter for monitoring of methotrexate therap*03/17/2023 07/12/2024 Encounter for supervision of low-risk first pre*06/08/2024 Nausea/vomiting in [O21.9] 06/08/2024 History of ectopic [Z87.59] 06/08/2024 07/12/2024 Heartburn during in second trimester *07/12/2024 Marginal placenta previa (HCC) [O44.20] 09/07/2024 12/05/2024 Low lying placenta nos or without hemorrhage, t*11/01/2024 12/05/2024 LGA (large for gestational age) fetus affecting*12/05/2024 Encounter Status:Closed by CHRIS HENDERSON on 01/07/25 [facility] 01-03-2025 Telephone encount er Note [facility] paperwork completed and faxed back to number provided on forms. Patient notified. Charles Nava MA [facility] 01-03-2025 Miscellaneous Notes Formattin g of this note might be different from the original. [facility] paperwork completed and faxed back to number provided on forms. Patient notified. Charles Nava MA Received [facility] paperwork. Awaiting patients response regarding length of leave. Charles Nava MA documented in this encounter [facility] 01-02-2025 Progress note Formatting of t his note might be different from the original. Patient at 37w3d w/o complaint Denies TABOR, vision changes, swelling Consistent movement Discussed L&D, epidural +GBS discussed doing well, rto 1 week Ovidio Joseph MD [facility] Work Phone: 01-02-2025 Miscellaneous Notes Formattin g of this note might be different from the original. Patient at 37w3d w/o complaint Denies TABOR, vision changes, swelling Consistent movement Discussed L&D, epidural +GBS discussed doing well, rto 1 week Ovidio Joseph MD documented in this encounter [facility] 01-02-2025 Instructions Sumit Hamlin LPN - 01/02/2025 7:56 AM EDT SEQUENTIAL SCREENINGS The [facility] offers sequential screenings for women who are interested in screenings for chromosomal abnormalities and certain defects during a . The sequential screen combines ultrasound and blood tests to determine the risk of chromosomal abnormalities, including Down's Syndrome (Trisomy 21) and Trisomy 18, as well as open neural tube defects including spina bifida. Ultrasound examination is performed between 11 weeks and 13 weeks gestational age. Blood tests are drawn after the ultrasound and again later in the between 15 and 21 weeks gestational age. Please let your physician know if you are interested in this testing. It will require an appointment with our cook chill technician. This is not an ultrasound performed by a physician in our office during a routine visit. SIGNS AND SYMPTOMS OF LABOR 1. Contractions every 10 minutes or more often 2. Clear, pink, or brownish fluid (water) leaking from vagina 3. Feeling that baby is pushing down, pressure 4. Low, dull backache 5. Cramps that feel like a period 6. Cramps with or without diarrhea If you notice any of the above symptoms, contact our office at [phone] and ask to speak with a nurse. After hours, you can call doctors registry at [phone] OR call [facility] at [phone] and ask to have the doctor county commissioner paged. If you consider this an emergency, dial [phone] or go to your nearest emergency department. NEED HELP? Are you dealing with a violent or abusive relationship? Are you a victim of rape or sexual assult? Call [facility] ([place]) 24 hour Crisis Hotline: 804.818.1077 or 717-017-0357. MANUAL Your Guide to a Healthy manual is now on-line. Visit [email or web address] to download your free copy documented in this encounter [facility] 12-28-2024 Telephone encount er Note Received [place] paperwork. Awaiting patients response regarding length of leave. Charles Nava MA [facility] 12-24-2024 Progress note Formatting of t his note might be different from the original. S: Charline Kirkpatrick is a 29 year old female who presents at 01/20/2025, by Last Menstrual Period for a routine visit. Denies headache, visual changes, chest pain, shortness of breath, vaginal bleeding, leakage of fluid, or dysuria. Feeling well, no complaints. Good movement, No contractions O: See flow sheet Gen: No apparent distress Abd: Gravid, nontender GBS collected VTX on US New RX for zofran. Plans to take at bed time also ASSESSMENT/PLAN: 1. Supervision of high risk in third trimester ([facility]) - ICD9: V23.9, ICD10: O09.93 (primary diagnosis) - URINE OB DIP B/O - ROUTINE, GROUP B STREPTOCOCCUS BY PCR 2. Low lying placenta nos or without hemorrhage, third trimester ([facility]) - ICD9: 641.03, ICD10: O44.43 resolved - URINE OB DIP B/O - ROUTINE, GROUP B STREPTOCOCCUS BY PCR 3. 36 weeks gestation of ([facility]) - ICD9: V22.2, ICD10: Z3A.36 - URINE OB DIP B/O - ROUTINE, GROUP B STREPTOCOCCUS BY PCR 4. 16 weeks gestation of ([facility]) - ICD9: V22.2, ICD10: Z3A.16 - ONDANSETRON HCL 4 MG TABLET 5. Nausea and vomiting in ([facility]) - ICD9: 643.90, ICD10: O21.9 - ONDANSETRON HCL 4 MG TABLET Sangeeta Edwards MD [facility] 12-24-2024 Miscellaneous Notes Formattin g of this note might be different from the original. S: Charline Kirkpatrick is a 29 year old female who presents at 01/20/2025, by Last Menstrual Period for a routine visit. Denies headache, visual changes, chest pain, shortness of breath, vaginal bleeding, leakage of fluid, or dysuria. Feeling well, no complaints. Good movement, No contractions O: See flow sheet Gen: No apparent distress Abd: Gravid, nontender GBS collected VTX on US New RX for zofran. Plans to take at bed time also ASSESSMENT/PLAN: 1. Supervision of high risk in third trimester ([facility]) - ICD9: V23.9, ICD10: O09.93 (primary diagnosis) - URINE OB DIP B/O - ROUTINE, GROUP B STREPTOCOCCUS BY PCR 2. Low lying placenta nos or without hemorrhage, third trimester ([facility]) - ICD9: 641.03, ICD10: O44.43 resolved - URINE OB DIP B/O - ROUTINE, GROUP B STREPTOCOCCUS BY PCR 3. 36 weeks gestation of ([facility]) - ICD9: V22.2, ICD10: Z3A.36 - URINE OB DIP B/O - ROUTINE, GROUP B STREPTOCOCCUS BY PCR 4. 16 weeks gestation of ([facility]) - ICD9: V22.2, ICD10: Z3A.16 - ONDANSETRON HCL 4 MG TABLET 5. Nausea and vomiting in ([facility]) - ICD9: 643.90, ICD10: O21.9 - ONDANSETRON HCL 4 MG TABLET Sangeeta Edwards MD documented in this encounter [facility] 12-24-2024 Instructions Celena Bach MA - 12/24/2024 2:40 PM EDT SEQUENTIAL SCREENINGS The [facility] offers sequential screenings for women who are interested in screenings for chromosomal abnormalities and certain defects during a . The sequential screen combines ultrasound and blood tests to determine the risk of chromosomal abnormalities, including Down's Syndrome (Trisomy 21) and Trisomy 18, as well as open neural tube defects including spina bifida. Ultrasound examination is performed between 11 weeks and 13 weeks gestational age. Blood tests are drawn after the ultrasound and again later in the between 15 and 21 weeks gestational age. Please let your physician know if you are interested in this testing. It will require an appointment with our cook chill technician. This is not an ultrasound performed by a physician in our office during a routine visit. SIGNS AND SYMPTOMS OF LABOR 1. Contractions every 10 minutes or more often 2. Clear, pink, or brownish fluid (water) leaking from vagina 3. Feeling that baby is pushing down, pressure 4. Low, dull backache 5. Cramps that feel like a period 6. Cramps with or without diarrhea If you notice any of the above symptoms, contact our office at [phone] and ask to speak with a nurse. After hours, you can call doctors registry at [phone] OR call [facility] at [phone] and ask to have the doctor county commissioner paged. If you consider this an emergency, dial 9--1 or go to your nearest emergency department. NEED HELP? Are you dealing with a violent or abusive relationship? Are you a victim of rape or sexual assult? Call [facility] ([place]) 24 hour Crisis Hotline: 214.321.4437 or 951-981-7765. MANUAL Your Guide to a Healthy manual is now on-line. Visit [email or web address] to download your free copy documented in this encounter [facility] 12-18-2024 Telephone encount er Note 35w2d Last couple of weeks nausea has been getting worse-cannot seem to pinpoint what is making it worse. Worse in the AM. Pt came home from work today d/t N/V. Pt does feel she is getting some relief with the 4mg, but at times the nausea can feel similar to first trimester nausea. Pt states she only takes 4mg once daily in the morning. Appt scheduled with JClaude on 12/24/24. Pt states she currently has no Zofran and asking if Rx can be filled/rushed to get her through until she sees JG on 12/24/24. Advised Pt that Rx for Zofran states she can take Take 1, 4mg tablet by mouth every 8 hours as needed for nausea/vomiting and she should be receiving #30 tablets with 2 refills. Pt states she is also taking Pepcid twice a day. Called [facility] filled #30 Zofran on 09/14/24, 10/16/24, & 11/17/24. Sowmya Gonzales RN [facility] 12-18-2024 Miscellaneous Notes Formattin g of this note might be different from the original. 35w2d Last couple of weeks nausea has been getting worse-cannot seem to pinpoint what is making it worse. Worse in the AM. Pt came home from work today d/t N/V. Pt does feel she is getting some relief with the 4mg, but at times the nausea can feel similar to first trimester nausea. Pt states she only takes 4mg once daily in the morning. Appt scheduled with JG on 12/24/24. Pt states she currently has no Zofran and asking if Rx can be filled/rushed to get her through until she sees JG on 12/24/24. Advised Pt that Rx for Zofran states she can take Take 1, 4mg tablet by mouth every 8 hours as needed for nausea/vomiting and she should be receiving #30 tablets with 2 refills. Pt states she is also taking Pepcid twice a day. Called [facility]Pt filled #30 Zofran on 09/14/24, 10/16/24, & 11/17/24. Sowmya Gonzales RN Can you please schedule patient appointment to discuss. Wanting to make sure nothing else is going on. Roz Reilly APRN.CNM 35w2d Patient Comment: My puking has picked up recently, is there a larger dose of zofran that i can take? documented in this encounter [facility] 12-18-2024 Telephone encount er Note Can you please schedule patient appointment to discuss. Wanting to make sure nothing else is going on. Roz Reilly APRN.CNM [facility] 12-18-2024 Telephone encount er Note 35w2d Patient Comment: My puking has picked up recently, is there a larger dose of zofran that i can take? [facility] 12-05-2024 Note Indication Follow-up evaluation for placental location Impression - Single, live, intrauterine . - presentation is cephalic. - The biometry is accelerated for the assigned gestational dating. - The EFW is 2628 g, at the 91%. AC is at the 97%. - The amniotic fluid volume is normal amount with an MVP of 3.4 cm and an GRETTA of 10 cm. - The placenta is posterior, fundal. TV ultrasound shows resolution of low lying placenta. - No malformations visualized on a limited survey as detailed below. Recommendations Additional follow-up as clinically indicated. Maternal Assessment Height 168 cm Height (ft) 5 ft Height (in) 6 in Physical Exam Initial weight (lb) 167 lb Initial BMI 26.95 kg/m Maternal assessment other: 1 Para 0 Method Transabdominal and transvaginal ultrasound examination Borges . Number of fetuses: 1 Dating LMP on: 04/15/2024 GA by LMP 33 w + 2 d BENSON by LMP: 01/20/2025 GA by prior assessment 33 w + 2 d BENSON by prior assessment: 01/20/2025 Ultrasound examination on: 12/04/2024 GA by U/S based upon: AC, BPD, Femur, HC GA by U/S 35 w + 0 d BENSON by U/S: 01/08/2025 Assigned: based on stated BENSON, selected on 12/04/2024 Assigned GA 33 w + 2 d Assigned BENSON: 01/20/2025 General Evaluation Cardiac activity present. FHR 153 bpm. movements: present. Presentation: cephalic Placenta: Placental site: posterior, fundal Umbilical cord: Cord vessels: 3 vessel cord Amniotic fluid: Amount of AF: normal amount. MVP 3.4 cm. GRETTA 10.0 cm. Q1 3.2 cm, Q2 3.4 cm, Q3 0.0 cm, Q4 3.4 cm Growth Overview Exam date GA BPD (mm) HC (mm) AC (mm) FL (mm) HL (mm) EFW (g) 09/07/2024 20w 5d 46.8 26% 184.7 53% 164.3 69% 33.8 60% 33.2 67% 395 62% 10/31/2024 28w 3d 71.7 49% 275.4 74% 249.2 65% 53.2 55% 1320 59% 12/04/2024 33w 2d 86.4 86% 321.2 83% 317.3 97% 66 84% 2628 91% Biometry Standard BPD 86.4 mm 34w 6d 86% Hadlock OFD 114.4 mm 35w 5d 83% Nicolaides HC 321.2 mm 35w 3d 83% Jarvis AC 317.3 mm 35w 5d 97% Hadlock Femur 66.0 mm 33w 5d 84% Jarvis EFW 2,628 g 35w 1d 91% Hadlock EFW (lb) 5 lb EFW (oz) 13 oz EFW by: Hadlock (HC-AC-FL) Extended Credentialing Coordinator 4.4 mm Extremities / Bony Struc FL / HC 0.21 Other Structures FHR 153 bpm Anatomy Lateral ventricles: normal Cavum septi pellucidi: normal Cerebellum: normal Cisterna magna: normal 4-chamber view: normal RVOT view: normal LVOT view: normal 3-vessel view: normal Heart / Thorax Situs: situs solitus (normal) Diaphragm: normal Stomach: normal Kidneys: normal Bladder: normal Gender: Unspecified Wants to know sex: no Performed By: Eliza Prakash, ANDRES, RVT Read By: Era Gutierrez M.D. [facility] 11-29-2024 Progress note Formatting of t his note might be different from the original. SW- Pt doing well. No pain, vb, lof. Good FM PE: Gen- NAD, well appearing Abd- Soft, gravid, NT See flowsheet A/p 32 wk gestation - Low lying placenta: Repeat ultrasound scheduled - Discussed upcoming expectations - RTO 2 wks Alcon Martinez DO [facility] Work Phone: 11-29-2024 Miscellaneous Notes Formattin g of this note might be different from the original. SW- Pt doing well. No pain, vb, lof. Good FM PE: Gen- NAD, well appearing Abd- Soft, gravid, NT See flowsheet A/p 32 wk gestation - Low lying placenta: Repeat ultrasound scheduled - Discussed upcoming expectations - RTO 2 wks Alcon Martinez DO documented in this encounter [facility] 11-29-2024 Instructions Vesna Kim MA - 11/29/2024 2:43 PM EDT SEQUENTIAL SCREENINGS The [facility] offers sequential screenings for women who are interested in screenings for chromosomal abnormalities and certain defects during a . The sequential screen combines ultrasound and blood tests to determine the risk of chromosomal abnormalities, including Down's Syndrome (Trisomy 21) and Trisomy 18, as well as open neural tube defects including spina bifida. Ultrasound examination is performed between 11 weeks and 13 weeks gestational age. Blood tests are drawn after the ultrasound and again later in the between 15 and 21 weeks gestational age. Please let your physician know if you are interested in this testing. It will require an appointment with our cook chill technician. This is not an ultrasound performed by a physician in our office during a routine visit. SIGNS AND SYMPTOMS OF LABOR 1. Contractions every 10 minutes or more often 2. Clear, pink, or brownish fluid (water) leaking from vagina 3. Feeling that baby is pushing down, pressure 4. Low, dull backache 5. Cramps that feel like a period 6. Cramps with or without diarrhea If you notice any of the above symptoms, contact our office at [phone] and ask to speak with a nurse. After hours, you can call doctors registry at [phone] OR call [facility] at [phone] and ask to have the doctor county commissioner paged. If you consider this an emergency, dial 9--2 or go to your nearest emergency department. NEED HELP? Are you dealing with a violent or abusive relationship? Are you a victim of rape or sexual assult? Call [facility] ([place]) 24 hour Crisis Hotline: 375.254.4012 or 242-155-4771. MANUAL Your Guide to a Healthy manual is now on-line. Visit [email or web address] to download your free copy documented in this encounter [facility] 11-01-2024 Progress note Formatting of t his note might be different from the original. Anatomy ultrasound reviewed. No abnormalities identified. Follow up as clinically indicated. Please place copy in ob chart. Shelli Allison MD [facility] Work Phone: 11-01-2024 Miscellaneous Notes Formattin g of this note might be different from the original. Anatomy ultrasound reviewed. No abnormalities identified. Follow up as clinically indicated. Please place copy in ob chart. Shelli Allison MD documented in this encounter [facility] 10-31-2024 Note Indication Follow-up evaluation for placental location Impression REMOTE READ - Single, live, intrauterine . - The biometry is consistent with the assigned gestational dating. - The EFW is 1320 g, at the 59%. AC is at the 65%. - The amniotic fluid volume is normal amount with an MVP of 4.5 cm and an GRETTA of 13.9 cm. - The placenta is posterior, low lying. - No malformations visualized on a limited survey as detailed below. Recommendations Growth and placental location in four weeks Maternal Assessment Height 168 cm Height (ft) 5 ft Height (in) 6 in Physical Exam Initial weight (lb) 167 lb Initial BMI 26.95 kg/m Maternal assessment other: 2 Para 0 Method Transabdominal and transvaginal ultrasound examination Borges . Number of fetuses: 1 Dating LMP on: 04/15/2024 GA by LMP 28 w + 3 d BENSON by LMP: 01/20/2025 GA by prior assessment 28 w + 3 d BENSON by prior assessment: 01/20/2025 Ultrasound examination on: 10/31/2024 GA by U/S based upon: AC, BPD, Femur, HC GA by U/S 28 w + 6 d BENSON by U/S: 01/17/2025 Assigned: based on stated BENSON, selected on 10/31/2024 Assigned GA 28 w + 3 d Assigned BENSON: 01/20/2025 General Evaluation Cardiac activity present. FHR 133 bpm. movements: present. Presentation: cephalic Placenta: Placental site: posterior, low lying. Placental nesa-ds-rzantyat os distance 11 mm Umbilical cord: Cord vessels: 3 vessel cord Amniotic fluid: Amount of AF: normal amount. MVP 4.5 cm. GRETTA 13.9 cm. Q1 3.3 cm, Q2 4.5 cm, Q3 3.4 cm, Q4 2.7 cm Growth Overview Exam date GA BPD (mm) HC (mm) AC (mm) FL (mm) HL (mm) EFW (g) 09/07/2024 20w 5d 46.8 26% 184.7 53% 164.3 69% 33.8 60% 33.2 67% 395 62% 10/31/2024 28w 3d 71.7 49% 275.4 74% 249.2 65% 53.2 55% 1320 59% Biometry Standard BPD 71.7 mm 28w 5d 49% Hadlock OFD 99.2 mm 29w 2d 83% Nicolaides HC 275.4 mm 29w 3d 74% Jarvis AC 249.2 mm 29w 1d 65% Hadlock Femur 53.2 mm 28w 2d 55% Jarvis EFW 1,320 g 28w 5d 59% Hadlock EFW (lb) 2 lb EFW (oz) 15 oz EFW by: Hadlock (HC-AC-FL) Extended Credentialing Coordinator 6.1 mm Extremities / Bony Struc FL / HC 0.19 Other Structures FHR 133 bpm Anatomy Lateral ventricles: normal Cavum septi pellucidi: normal Cerebellum: normal Cisterna magna: normal 4-chamber view: normal RVOT view: normal LVOT view: normal 3-vessel view: normal Heart / Thorax Situs: situs solitus (normal) Diaphragm: normal Stomach: normal Kidneys: normal Bladder: normal Gender: Unspecified Wants to know sex: no Performed By: Eliza Prakash RDMS, RVT Read By: Era Gutierrez M.D. [facility] 10-31-2024 Note HNO ID: [id number] Author: CELENA BACH MA Service: ? Author Type: Imaging Analyst Type: Progress Notes Filed: 10/31/2024 10:21 Note Text: Patient identified by name and date of . Charline Kirkpatrick presents today for a vaccination of Tdap. Patient denies an allergy to latex: yes Patient denies a severe (life-threatening) allergy to a previous dose of Tdap, DTP, DTaP, DT or Td vaccine. Yes Patient denies history of epilepsy or neurological problems: Yes Patient is afebrile and denies being moderately or severely ill: Yes Patient denies history of Guillain-Lehr Syndrome (a severe paralytic illness): Yes Tdap Adacel injection was given without incident. See immunizations for details of immunizations administered today. VIS sheet provided: Yes Provider Deandre was present in office at time of injection. Celena Bach MA [facility] 10-31-2024 History of Presen t illness Narrative Patient identified by name and date of . Charline Kirkpatrick presents today for a vaccination of Tdap. Patient denies an allergy to latex: yes Patient denies a severe (life-threatening) allergy to a previous dose of Tdap, DTP, DTaP, DT or Td vaccine. Yes Patient denies history of epilepsy or neurological problems: Yes Patient is afebrile and denies being moderately or severely ill: Yes Patient denies history of Guillain-Lehr Syndrome (a severe paralytic illness): Yes Tdap Adacel injection was given without incident. See immunizations for details of immunizations administered today. VIS sheet provided: Yes Provider Deandre was present in office at time of injection. Celena Bach MA DM-Pt doing well. Denies vaginal Bleeding, Leaking fluid, or regular Contractions. Pt reports good movement Physical Exam: Gen: female in no apparent distress Abd: soft, Gravid. Non tender to palpation. See flow sheet @ 28.3 weeks Assessment & Plan Marginal placenta previa (HCC) Resolved- now low lying Low lying placenta nos or without hemorrhage, third trimester (HCC) Repeat ultrasound at 32 weeks Orders: OBSTETRIC ULTRASOUND WHI; Future 28 weeks gestation of (HCC) RTO 2 wks Orders: TDAP VACCINE, AGE 7+ YR (ADACEL, BOOSTRIX) Need for vaccination Orders: TDAP VACCINE, AGE 7+ YR (ADACEL, BOOSTRIX) Amanda Wall MD documented in this encounter [facility] 10-31-2024 Note HNO ID: [id number] Author: AMANDA TAVERA MD Service: ? Author Type: Physician Type: Progress Notes Filed: 10/31/2024 10:21 Note Text: DM-Pt doing well. Denies vaginal Bleeding, Leaking fluid, or regular Contractions. Pt reports good movement Physical Exam: Gen: female in no apparent distress Abd: soft, Gravid. Non tender to palpation. See flow sheet @ 28.3 weeks Assessment AND Plan Marginal placenta previa (HCC) Resolved- now low lying Low lying placenta nos or without hemorrhage, third trimester (HCC) Repeat ultrasound at 32 weeks Orders: OBSTETRIC ULTRASOUND WHI; Future 28 weeks gestation of (HCC) RTO 2 wks Orders: TDAP VACCINE, AGE 7+ YR (ADACEL, BOOSTRIX) Need for vaccination Orders: TDAP VACCINE, AGE 7+ YR (ADACEL, BOOSTRIX) Amanda Wall MD [facility] 10-05-2024 Progress note Formatting of t his note might be different from the original. DM-Pt doing well. Denies vaginal Bleeding, Leaking fluid, or regular Contractions. Pt reports good movement Physical Exam: Gen: female in no apparent distress Abd: soft, Gravid. Non tender to palpation. See flow sheet @ 24.5 weeks Assessment & Plan Encounter for supervision of other normal in second trimester Screening for diabetes mellitus Orders: GESTATIONAL GLUCOSE SCREEN, 1-HOUR, 50 GRAM, NON-FASTING; Future Encounter for supervision of other normal in third trimester Orders: SYPHILIS TREPONEMAL W/REFLEX; Future ANEMIA REFLEX PANEL; Future 24 weeks gestation of RTO 4weeks Amanda Wall MD [facility] 10-05-2024 Miscellaneous Notes Formattin g of this note might be different from the original. DM-Pt doing well. Denies vaginal Bleeding, Leaking fluid, or regular Contractions. Pt reports good movement Physical Exam: Gen: female in no apparent distress Abd: soft, Gravid. Non tender to palpation. See flow sheet @ 24.5 weeks Assessment & Plan Encounter for supervision of other normal in second trimester Screening for diabetes mellitus Orders: GESTATIONAL GLUCOSE SCREEN, 1-HOUR, 50 GRAM, NON-FASTING; Future Encounter for supervision of other normal in third trimester Orders: SYPHILIS TREPONEMAL W/REFLEX; Future ANEMIA REFLEX PANEL; Future 24 weeks gestation of RTO 4weeks Amanda Wall MD documented in this encounter [facility] 10-05-2024 Instructions Celena Bach MA - 10/05/2024 11:30 AM EDT SEQUENTIAL SCREENINGS The [facility] offers sequential screenings for women who are interested in screenings for chromosomal abnormalities and certain defects during a . The sequential screen combines ultrasound and blood tests to determine the risk of chromosomal abnormalities, including Down's Syndrome (Trisomy 21) and Trisomy 18, as well as open neural tube defects including spina bifida. Ultrasound examination is performed between 11 weeks and 13 weeks gestational age. Blood tests are drawn after the ultrasound and again later in the between 15 and 21 weeks gestational age. Please let your physician know if you are interested in this testing. It will require an appointment with our cook chill technician. This is not an ultrasound performed by a physician in our office during a routine visit. SIGNS AND SYMPTOMS OF LABOR 1. Contractions every 10 minutes or more often 2. Clear, pink, or brownish fluid (water) leaking from vagina 3. Feeling that baby is pushing down, pressure 4. Low, dull backache 5. Cramps that feel like a period 6. Cramps with or without diarrhea If you notice any of the above symptoms, contact our office at [phone] and ask to speak with a nurse. After hours, you can call doctors registry at [phone] OR call [facility] at [phone] and ask to have the doctor county commissioner paged. If you consider this an emergency, dial 9--1 or go to your nearest emergency department. NEED HELP? Are you dealing with a violent or abusive relationship? Are you a victim of rape or sexual assult? Call [facility] ([place]) 24 hour Crisis Hotline: 603.320.8400 or 104-655-2938. MANUAL Your Guide to a Healthy manual is now on-line. Visit [email or web address] to download your free copy documented in this encounter [facility] 09-14-2024 Note HNO ID: [id number] Author: ROZ REILLY APRN.CNM Service: ? Author Type: Crematorium Operator Type: Progress Notes Filed: 09/14/2024 17:21 Note Text: Prescription sent for zofran refill. Roz Reilly APRN.CNM [facility] 09-14-2024 History of Presen t illness Narrative Prescription sent for zofran refill. Roz Reilly APRN.CNM documented in this encounter [facility] 09-10-2024 Telephone encount er Note US scheduled as advised at 28 weeks-on 10/31/24. Sowmya Gonzales, RN [facility] 09-10-2024 Miscellaneous Notes Formattin g of this note might be different from the original. US scheduled as advised at 28 weeks-on 10/31/24. Sowmya Gonzales, RN documented in this encounter [facility] 09-07-2024 Progress note Formatting of t his note might be different from the original. DM-Pt doing well. Denies vaginal Bleeding, Leaking fluid, or regular Contractions. Pt reports good movement Physical Exam: Gen: female in no apparent distress Abd: soft, Gravid. Non tender to palpation. See flow sheet @ 11/12 Assessment & Plan Encounter for supervision of other normal in second trimester Anatomy us-marginal previa Heartburn during in second trimester 20 weeks gestation of Marginal placenta previa Repeat at 28 weeks - pelvic rest reviewed Orders: OBSTETRIC ULTRASOUND WHI; Future Amanda Wall MD [facility] 09-07-2024 Miscellaneous Notes Formattin g of this note might be different from the original. DM-Pt doing well. Denies vaginal Bleeding, Leaking fluid, or regular Contractions. Pt reports good movement Physical Exam: Gen: female in no apparent distress Abd: soft, Gravid. Non tender to palpation. See flow sheet @ 11/12 Assessment & Plan Encounter for supervision of other normal in second trimester Anatomy us-marginal previa Heartburn during in second trimester 20 weeks gestation of Marginal placenta previa Repeat at 28 weeks - pelvic rest reviewed Orders: OBSTETRIC ULTRASOUND WHI; Future Amanda Wall MD documented in this encounter [facility] 09-07-2024 Instructions Celena Bach MA - 09/07/2024 8:41 AM EST SEQUENTIAL SCREENINGS The [facility] offers sequential screenings for women who are interested in screenings for chromosomal abnormalities and certain defects during a . The sequential screen combines ultrasound and blood tests to determine the risk of chromosomal abnormalities, including Down's Syndrome (Trisomy 21) and Trisomy 18, as well as open neural tube defects including spina bifida. Ultrasound examination is performed between 11 weeks and 13 weeks gestational age. Blood tests are drawn after the ultrasound and again later in the between 15 and 21 weeks gestational age. Please let your physician know if you are interested in this testing. It will require an appointment with our cook chill technician. This is not an ultrasound performed by a physician in our office during a routine visit. SIGNS AND SYMPTOMS OF LABOR 1. Contractions every 10 minutes or more often 2. Clear, pink, or brownish fluid (water) leaking from vagina 3. Feeling that baby is pushing down, pressure 4. Low, dull backache 5. Cramps that feel like a period 6. Cramps with or without diarrhea If you notice any of the above symptoms, contact our office at [phone] and ask to speak with a nurse. After hours, you can call doctors registry at [phone] OR call [facility] at [phone] and ask to have the doctor county commissioner paged. If you consider this an emergency, dial 9-1-1 or go to your nearest emergency department. NEED HELP? Are you dealing with a violent or abusive relationship? Are you a victim of rape or sexual assult? Call [facility] ([place]) 24 hour Crisis Hotline: 268.587.4198 or 373-310-5828. MANUAL Your Guide to a Healthy manual is now on-line. Visit [email or web address] to download your free copy documented in this encounter [facility] 08-10-2024 Progress note Formatting of t his note might be different from the original. DM-Pt doing well. Denies vaginal Bleeding, Leaking fluid, or cramping. Still with N/V and migraines. Finds magnesium works best for TABOR. Stopped pepcid, not sure reglan working. Unsiom makes her too tired. Did not start ASA yet but plans to do so. Physical Exam: Gen: female in no apparent distress Abd: soft, Gravid. Non tender to palpation. See flow sheet @ 16.5 weeks Assessment & Plan Encounter for supervision of other normal in second trimester Nausea and vomiting in Orders: ondansetron (ZOFRAN) 4 mg tablet; Take 1 tablet by mouth every 8 hours as needed for nausea/vomiting. 16 weeks gestation of Orders: ondansetron (ZOFRAN) 4 mg tablet; Take 1 tablet by mouth every 8 hours as needed for nausea/vomiting. -schedule anatomy - zofran ordered, will start asa, B6 and unisom reviewed. Restart pepcid. Amanda Wall MD [facility] 08-10-2024 Miscellaneous Notes Formattin g of this note might be different from the original. DM-Pt doing well. Denies vaginal Bleeding, Leaking fluid, or cramping. Still with N/V and migraines. Finds magnesium works best for TABOR. Stopped pepcid, not sure reglan working. Unsiom makes her too tired. Did not start ASA yet but plans to do so. Physical Exam: Gen: female in no apparent distress Abd: soft, Gravid. Non tender to palpation. See flow sheet @ 16.5 weeks Assessment & Plan Encounter for supervision of other normal in second trimester Nausea and vomiting in Orders: ondansetron (ZOFRAN) 4 mg tablet; Take 1 tablet by mouth every 8 hours as needed for nausea/vomiting. 16 weeks gestation of Orders: ondansetron (ZOFRAN) 4 mg tablet; Take 1 tablet by mouth every 8 hours as needed for nausea/vomiting. -schedule anatomy - zofran ordered, will start asa, B6 and unisom reviewed. Restart pepcid. Amanda Wall MD documented in this encounter [facility] 08-10-2024 Instructions Celena Bach MA - 08/10/2024 8:30 AM EST SEQUENTIAL SCREENINGS The [facility] offers sequential screenings for women who are interested in screenings for chromosomal abnormalities and certain defects during a . The sequential screen combines ultrasound and blood tests to determine the risk of chromosomal abnormalities, including Down's Syndrome (Trisomy 21) and Trisomy 18, as well as open neural tube defects including spina bifida. Ultrasound examination is performed between 11 weeks and 13 weeks gestational age. Blood tests are drawn after the ultrasound and again later in the between 15 and 21 weeks gestational age. Please let your physician know if you are interested in this testing. It will require an appointment with our cook chill technician. This is not an ultrasound performed by a physician in our office during a routine visit. SIGNS AND SYMPTOMS OF LABOR 1. Contractions every 10 minutes or more often 2. Clear, pink, or brownish fluid (water) leaking from vagina 3. Feeling that baby is pushing down, pressure 4. Low, dull backache 5. Cramps that feel like a period 6. Cramps with or without diarrhea If you notice any of the above symptoms, contact our office at [phone] and ask to speak with a nurse. After hours, you can call doctors registry at [phone] OR call [facility] at [phone] and ask to have the doctor county commissioner paged. If you consider this an emergency, dial 9-1-7 or go to your nearest emergency department. NEED HELP? Are you dealing with a violent or abusive relationship? Are you a victim of rape or sexual assult? Call [facility] ([place]) 24 hour Crisis Hotline: 654.779.3240 or 614-869-6974. MANUAL Your Guide to a Healthy manual is now on-line. Visit [email or web address] to download your free copy documented in this encounter [facility] 08-06-2024 Telephone encount er Note Refill request received via MyChart. Patient 16w1d, last seen 07/12. Next appointment on 08/10. Eliza Billy RN [facility] 08-06-2024 Miscellaneous Notes Formattin g of this note might be different from the original. Refill request received via MyChart. Patient 16w1d, last seen 07/12. Next appointment on 08/10. Eliza Billy RN documented in this encounter [facility] 08-03-2024 Telephone encount er Note Last OV 06/08/2025. Pharmacy comment: REQUEST FOR 90 DAYS PRESCRIPTION. Requested Prescriptions Pending Prescriptions Disp Refills famotidine (PEPCID) 20 mg tablet [Pharmacy Med Name: FAMOTIDINE 20 MG TABLET] 180 tablet 1 Sig: TAKE 1 TABLET BY MOUTH TWICE A DAY Sowmya Gonzales RN [facility] 08-03-2024 Miscellaneous Notes Formattin g of this note is different from the original. Last OV 06/08/2025. Pharmacy comment: REQUEST FOR 90 DAYS PRESCRIPTION. Requested Prescriptions Pending Prescriptions Disp Refills famotidine (PEPCID) 20 mg tablet [Pharmacy Med Name: FAMOTIDINE 20 MG TABLET] 180 tablet 1 Sig: TAKE 1 TABLET BY MOUTH TWICE A DAY Sowmya Gonzales RN documented in this encounter [facility] 07-12-2024 Progress note Formatting of t his note might be different from the original. S: Charline Kirkpatrick is a 28 year old female who presents at 12 weeks gestation for a routine visit. Just completed NT US. Desires MaterniT 21 screening. Continues to have N/V during the week but with further review it is more than likely from acid reflux. Will try Pepcid PO daily. Denies headache, visual changes, chest pain, shortness of breath, vaginal bleeding, leakage of fluid, or dysuria. O: See flow sheet Gen: No apparent distress Abd: Gravid, nontender ASSESSMENT/PLAN: 1. 12 weeks gestation of - ICD9: V22.2, ICD10: Z3A.12 (primary diagnosis) 2. Encounter for supervision of other normal in first trimester - ICD9: V22.1, ICD10: Z34.81 3. Nausea/vomiting in - ICD9: 643.90, ICD10: O21.9 4. Heartburn during in second trimester - ICD9: 646.83, 787.1, ICD10: O26.892, R12 - labs and aneuploidy screening - Start ASA - Start Pepcid 20 mg PO BID - RTO 4 weeks or sooner if needed Kelly Gregg APRN.CNM [facility] 07-12-2024 Miscellaneous Notes Formattin g of this note might be different from the original. S: Charline Kirkpatrick is a 28 year old female who presents at 12 weeks gestation for a routine visit. Just completed NT US. Desires MaterniT 21 screening. Continues to have N/V during the week but with further review it is more than likely from acid reflux. Will try Pepcid PO daily. Denies headache, visual changes, chest pain, shortness of breath, vaginal bleeding, leakage of fluid, or dysuria. O: See flow sheet Gen: No apparent distress Abd: Gravid, nontender ASSESSMENT/PLAN: 1. 12 weeks gestation of - ICD9: V22.2, ICD10: Z3A.12 (primary diagnosis) 2. Encounter for supervision of other normal in first trimester - ICD9: V22.1, ICD10: Z34.81 3. Nausea/vomiting in - ICD9: 643.90, ICD10: O21.9 4. Heartburn during in second trimester - ICD9: 646.83, 787.1, ICD10: O26.892, R12 - labs and aneuploidy screening - Start ASA - Start Pepcid 20 mg PO BID - RTO 4 weeks or sooner if needed Kelly Gregg APRN.CNM documented in this encounter [facility] 07-12-2024 Instructions Sumit Hamlin LPN - 07/12/2024 3:36 PM EST SEQUENTIAL SCREENINGS The [facility] offers sequential screenings for women who are interested in screenings for chromosomal abnormalities and certain defects during a . The sequential screen combines ultrasound and blood tests to determine the risk of chromosomal abnormalities, including Down's Syndrome (Trisomy 21) and Trisomy 18, as well as open neural tube defects including spina bifida. Ultrasound examination is performed between 11 weeks and 13 weeks gestational age. Blood tests are drawn after the ultrasound and again later in the between 15 and 21 weeks gestational age. Please let your physician know if you are interested in this testing. It will require an appointment with our cook chill technician. This is not an ultrasound performed by a physician in our office during a routine visit. SIGNS AND SYMPTOMS OF LABOR 1. Contractions every 10 minutes or more often 2. Clear, pink, or brownish fluid (water) leaking from vagina 3. Feeling that baby is pushing down, pressure 4. Low, dull backache 5. Cramps that feel like a period 6. Cramps with or without diarrhea If you notice any of the above symptoms, contact our office at [phone] and ask to speak with a nurse. After hours, you can call doctors registry at [phone] OR call [facility] at [phone] and ask to have the doctor county commissioner paged. If you consider this an emergency, dial 9-1-0 or go to your nearest emergency department. NEED HELP? Are you dealing with a violent or abusive relationship? Are you a victim of rape or sexual assult? Call [facility] ([place]) 24 hour Crisis Hotline: 114.433.5188 or 565-091-3423. MANUAL Your Guide to a Healthy manual is now on-line. Visit [email or web address] to download your free copy documented in this encounter [facility] 06-08-2024 Progress note Formatting of t his note might be different from the original. Patient seen for NOB. See progress note Kelly Gregg APRN.CNM [facility] 06-08-2024 Miscellaneous Notes Formattin g of this note might be different from the original. Patient seen for NOB. See progress note Kelly Gregg APRN.CNM documented in this encounter [facility] 06-08-2024 Instructions Sumit Hamlin LPN - 06/08/2024 8:34 AM EST Please select the following link to access the [facility] Your Guide to a Healthy . [email or web address] documented in this encounter [facility] 06-06-2024 Note HNO ID: [id number] Author: KELLY GREGG APRN.CNM Service: ? 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 *History of ectopic -quants have been done *Patient is complaining of nausea and occasional vomiting in . Dietary considerations discussed . Vitamin B6 recommended. Advised patient to call/come in if she is unable to keep any food or fluids down in a 24-hour period. *Patient considering genetic carrier screening testing and aneuploidy screening. Contact information for [employer] [facility] [employer] [facility] given to patient for her to check on billing/coverage issues. INITIAL OB ASSESSMENT HPI: Charline is a 28 year old White here to establish Obstetrical Care. Patient's last menstrual period was 04/15/2024 (exact date). from OB Dating Form. was planned Complaints: Nausea, intermittent vomiting (nausea-little vomiting-B6 helpping) OB History T0 L0 SAB0 IAB0 Ectopic1 Multiple0 Live Births0 # 1 - Date: 03/11/23, Sex: None, Weight: None, GA: 6w1d, Type: ECTOPIC , Apgar1: None, Apgar5: None, Living: None, Comments: methotrexate x2,salpingectomy # 2 - Date: None, Sex: None, Weight: None, GA: None, Type: None, Apgar1: None, Apgar5: None, Living: None, Comments: None Previous history: Prior : No History of 4th degree laceration: Perineal Laceration, 3rd or 4th degree no History of shoulder dystocia: no History of Hypertensive disorders including pre-eclampsia or gestational hypertension: History of gestational diabetes: No Diabetes in no Patient's Risk Screening for delivery: Have you had a prior borges between 20w and 36w6d? No How many pregnancies have you had before? 1 Did you have a previous baby with a GBS Infection? No Please select all that apply for any prior : N/A MEDICAL/PSYCHOSOCIAL HISTORY: Severe bleeding with delivery Unanswered History question Answer Diagnosis Date Comment Thyroid Disease No Thyroid disease 06/06/2024 Diabetes, Hypertension in none No results found for: ABORHD BMI 26.95 kg/(m2) Last Pap: 10/08/2019 History of abnormal pap: Abnormal Pap No Prior treatment for cervical dysplasia: none. Last HPV: History of STDs: no Partner History of STDs: None Did you have a partner with Herpes? No Tobacco use: No E-Cigarette/Vaping Use: No Caffeine use: no Drug use: No Alcohol use: No Multivitamin with Folic acid: Yes Would refuse blood transfusion if medically necessary: No Social Needs: How often does this describe you? I don't have enough money to pay my bills: Never Within the past 12 months, have you worried that your food would run out before you had money to buy more? Never In the past 12 months, has lack of reliable transportation kept you from going to medical appointments or work, or from getting things needed for daily living? Never In the past 12 months, have you had any concerns about having a place to live, or about the condition or quality of your housing? Never Would you like more information on any of the following (please check all that apply)? Not interested Social History: Do you have any history of depression, anxiety, PTSD, or other mood problems? No Do you have a history of abuse or trauma that may impact your experience? No Are you currently employed? Yes Depression/Anxiety Screening: denies symptoms of depression. OB Depression and Anxiety Screening- This Encounter (since 06/07/2024) None Genetic Screening: Partner present: No Patient verbalized knowledge of partner family health history: Yes Do you or your partner have any personal or family history of defects not previously discussed: No Do you have history of a complicated by anomaly, genetic condition, or demise: No Preeclampsia Risk Screening: Screening for prevention of preeclampsia: High risk factors: None Moderate risk ractors: Nulliparity OB Risk Screening: Completed, no positive findings documented. 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 No current facility-administered medications for this visit. Allergies As of Date: 06/08/2024 (No Known Allergies) Fully Assessed 06/08/2024 Does patient have penicillin allergy: No REVIEW OF SYSTEMS: (more content not included)... 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 *History of ectopic -quants have been done *Patient is complaining of nausea and occasional vomiting in . Dietary considerations discussed . Vitamin B6 recommended. Advised patient to call/come in if she is unable to keep any food or fluids down in a 24-hour period. *Patient considering genetic carrier screening testing and aneuploidy screening. Contact information for [employer] given to patient for her to check on billing/coverage issues. INITIAL OB ASSESSMENT HPI: Charline is a 28 year old White here to establish Obstetrical Care. Patient's last menstrual period was 04/15/2024 (exact date). from OB Dating Form. was planned Complaints: Nausea, intermittent vomiting (nausea-little vomiting-B6 helpping) OB History T0 L0 SAB0 IAB0 Ectopic1 Multiple0 Live Births0 # 1 - Date: 03/11/23, Sex: None, Weight: None, GA: 6w1d, Type: ECTOPIC , Apgar1: None, Apgar5: None, Living: None, Comments: methotrexate x2,salpingectomy # 2 - Date: None, Sex: None, Weight: None, GA: None, Type: None, Apgar1: None, Apgar5: None, Living: None, Comments: None Previous history: Prior : No History of 4th degree laceration: Perineal Laceration, 3rd or 4th degree no History of shoulder dystocia: no History of Hypertensive disorders including pre-eclampsia or gestational hypertension: History of gestational diabetes: No Diabetes in no Patient's Risk Screening for delivery: Have you had a prior borges between 20w and 36w6d? No How many pregnancies have you had before? 1 Did you have a previous baby with a GBS Infection? No Please select all that apply for any prior : N/A MEDICAL/PSYCHOSOCIAL HISTORY: Severe bleeding with delivery Unanswered History question Answer Diagnosis Date Comment Thyroid Disease No Thyroid disease 06/06/2024 Diabetes, Hypertension in none No results found for: ABORHD BMI 26.95 kg/(m^2) Last Pap: 10/08/2019 History of abnormal pap: Abnormal Pap No Prior treatment for cervical dysplasia: none. Last HPV: History of STDs: no Partner History of STDs: None Did you have a partner with Herpes? No Tobacco use: No E-Cigarette/Vaping Use: No Caffeine use: no Drug use: No Alcohol use: No Multivitamin with Folic acid: Yes Would refuse blood transfusion if medically necessary: No Social Needs: How often does this describe you? I don't have enough money to pay my bills: Never Within the past 12 months, have you worried that your food would run out before you had money to buy more? Never In the past 12 months, has lack of reliable transportation kept you from going to medical appointments or work, or from getting things needed for daily living? Never In the past 12 months, have you had any concerns about having a place to live, or about the condition or quality of your housing? Never Would you like more information on any of the following (please check all that apply)? Not interested Social History: Do you have any history of depression, anxiety, PTSD, or other mood problems? No Do you have a history of abuse or trauma that may impact your experience? No Are you currently employed? Yes Depression/Anxiety Screening: denies symptoms of depression. OB Depression and Anxiety Screening- This Encounter (since 06/07/2024) None Genetic Screening: Partner present: No Patient verbalized knowledge of partner family health history: Yes Do you or your partner have any personal or family history of defects not previously discussed: No Do you have history of a complicated by anomaly, genetic condition, or demise: No Preeclampsia Risk Screening: Screening for prevention of preeclampsia: High risk factors: None Moderate risk ractors: Nulliparity OB Risk Screening: Completed, no positive findings documented. 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 No current facility-administered medications for this visit. Allergies As of Date: 06/08/2024 (No Known Allergies) Fully Assessed 06/08/2024 Does patient have penicillin allergy: No REVIEW OF SYSTEMS: GENERAL: Negative for: Fever or Chills and Positive for: Fatigue HEENT: Negative for: Headache, Impaired Vision, Ringing in Ears, Nosebleeds NECK: Negative for: Swelling, Pain, Stiffness RESPIRATORY: Negative for: Cough, Shortness of breath, Wheezing GASTROINTESTINAL: Negative for: Heartburn, Constipation, Diarrhea, Blood in stool, Vomiting, Positive for: Constipation, and Positive for: Nausea and Vomiting MUSCULOSKELETAL: Negative for: Muscle or joint pain, stiffness, Joint swelling NEUROLOGIC/PSYCHIATRIC: Negative for: Weakness, Paralysis, Numbness, Tingling, Tremor, Anxiety, Depression,- Zoloft- last year for 2-3 months after loss SKIN: Negative for: Rash, Itching GENITOURINARY: Negative for: vaginal itching, vaginal discharge, hematuria or dysuria SENSITIVE EXAM: The sensitive examination was discussed with the Patient or Patient's Authorized Mental Health Technician. As applicable, any other physician, advance practice provider, medical student, or other health professional student that will be observing or involved in the sensitive examination for educational or training purposes was discussed with the Patient or Authorized Mental Health Technician. The Patient or Authorized Mental Health Technician has agreed to proceed with the sensitive examination. (Sensitive examination includes inspection and/or palpation of the breasts, pelvis, prostate and anorectal regions). PHYSICAL EXAM: BP 106/64 Wt 167 lb (75.8kg) LMP 04/15/2024 GENERAL: pleasant in no apparent distress DERMATOLOGY: Normal, without lesions, non-icteric, and non-hirsute NECK: Supple, full range of motion, no adenopathy, and thyroid normal CHEST: Normal inspiratory effort BREAST: deferred ABDOMEN: soft, non-tender, and no masses NEURO: alert and oriented x3,exam grossly non-focal PELVIS: External genitalia normal without lesions. Perineal body intact. No vaginal or cervical lesions. Cervix closed. Clinical Pelvimetry: Pelvimetry clinically assessed as adequate Limited OB ultrasound exam: single intrauterine , positive cardiac activity, and crown-rump length 7.3 weeks gestation CYST visualized on right ovary= Aakash to room for verification ASSESSMENT: 28 year old at 7w5d wks gestational age PLAN: 1) Patient oriented to practice. Patient given new OB orientation folder. Discussed nutrition, folic acid supplementation, dietary guidelines, exercise, smoking, alcohol, caffeine, and drug use. Discussed routine OB labs including STD/HIV. Discussed how to access Your guide to a health and the Manager Credit Risk. Reviewed midwifery and bus driver services that are available. 2) Screening: Hemoglobin A1C: declined Baby Aspirin: The patient has been counseled about the potential benefits of low dose aspirin in and our recommendation that this be offered to all patients, regardless of whether they meet the high risk criteria specified above. She Accepts Aneuploidy Screening: Discussed aneuploidy screening, nuchal translucency/first trimester early anatomy ultrasound and NIPT. The risks/benefits and limitations of NIPT/aneuploidy screening were reviewed including the potential for false negative and false positive results. The availability of genetic counseling was reviewed. Information on aneuploidy screening was provided. The patient is uncertain. She will call back if she wants to proceed with screening. Pt aware of timing. Myriad Carrier Screening: Discussed myriad carrier screening. We discussed the availability of professional-society guided carrier screening and reviewed the conditions screened and limitations of screening. The availability of genetic counseling was reviewed. Information on carrier screening was provided. The patient Declines 3) Patient offered option of Virtual Visits. Patient prefers in person visits. Follow up in 4 weeks for NT and OSEAS Gregg APRN.CNM documented in this encounter [facility] 05-14-2024 Telephone encount er Note Pt notified and will get HCG levels drawn middle of next week and 1st OB appt has been rescheduled with CP 06/08/24 at 0845. Sowmya Gonzales RN [facility] 05-14-2024 Miscellaneous Notes Formattin g of this note might be different from the original. Pt notified and will get HCG levels drawn middle of next week and 1st OB appt has been rescheduled with CP 06/08/24 at 0845. Sowmya Gonzales, ABDI She can be seen to assess for pain and establish but she will not be able to have an ultrasound at that visit- she will need to wait for ultrasound until 7 weeks unless she is having pain/bleeding as we may not be able to see anything. So it is up to her if she wants to push her appt back. It is very appropriate to just do HCG quant levels to make sure trending up and if she has no other concerns being seen at 7 weeks is reasonable. If pain/bleeding before that time or if quants not trending up then she can notify office. I would not get quants done until earliest next week (at least 5+ weeks) Patient calling because she had positive UPT at home. LMP 04/15/24 - 4w1d. She had ruptured ectopic and left salpingectomy last year. States DM told her to see her for beginning of to monitor d/t risk of ectopic. Her NOB is already scheduled on 05/25/24 with RM. She will only be 5w4d though, should that be moved further back? Asking if she needs seen sooner or needs anything else done now instead? She is not having an pain or bleeding at this time. Wants DM's advice. Janeen Contreras RN documented in this encounter [facility] 05-14-2024 Telephone encount er Note She can be seen to assess for pain and establish but she will not be able to have an ultrasound at that visit- she will need to wait for ultrasound until 7 weeks unless she is having pain/bleeding as we may not be able to see anything. So it is up to her if she wants to push her appt back. It is very appropriate to just do HCG quant levels to make sure trending up and if she has no other concerns being seen at 7 weeks is reasonable. If pain/bleeding before that time or if quants not trending up then she can notify office. I would not get quants done until earliest next week (at least 5+ weeks) [facility] Work Phone: 05-14-2024 Telephone encount er Note Patient calling because she had positive UPT at home. LMP 04/15/24 - 4w1d. She had ruptured ectopic and left salpingectomy last year. States DM told her to see her for beginning of to monitor d/t risk of ectopic. Her NOB is already scheduled on 05/25/24 with RM. She will only be 5w4d though, should that be moved further back? Asking if she needs seen sooner or needs anything else done now instead? She is not having an pain or bleeding at this time. Wants DM's advice. Janeen Contreras RN [facility] 05-07-2023 Note HNO ID: [id number] Author: Note, Interface Service: ? Author Type: ? Type: Progress Notes Filed: 05/07/2023 5:13 AM Note Text: Epic Scheduled Downtime: 05/07/2023 1:00:00 AM to 05/07/2023 1:28:00 AM [facility] 04-06-2023 History of Presen t illness Narrative SUBJECTIVE: 27 year old female presents for 1 week post-op exam s/p left salpingectomy for ruptured ectopic . OBJECTIVE: Incision: Dry and intact, without redness Abdomen: Soft, Non-tender, and No palpable masses PLAN: RTO for annual exams and PRN Discussed surgical findings Declines OCPs at this time- not considering at this time. I have reviewed and updated past medical and surgical history, medications and allergies. Amanda Wall MD documented in this encounter [facility] 03-28-2023 Discharge summary Note Date/Time March 28, 2023 4:09pm [facility] Medical Records Department [address] [place] [id number] Instructions for Home/Discharge Instructions 03/28/23 1609 MR#: [id number] Acct: [id number] Name: CHARLINE KIRKPATRICK Rep #:[id number] : 1995 27 From: Amanda Jenkins MD PCP: Care Physician,No [place] [facility] Instructions Diet Discharge Diet: No restrictions Activity May resume sexual activity in: 2 weeks Lifting Restrictions: 20-25 lbs Dressing / Incision Call your doctor if your incision/area has: Continuous Slow Oozing, Sudden Increased Bleeding, Increased Pain/ Swelling, Increased Redness, Foul Smelling Discharge and Swelling at the incision site Call your doctor if you observe: Fever of 101 or Higher, Inability to urinate, Inability to have a bowel movement, Using more than 1 pad per hour and Uncontrolled pain Additional Dressing/Incision Instructions:: You have skin glue over your incision sites, do not pick off. You may shower and let the soap and water run over the incision sites and dab dry. Follow Up Care Please Follow Up With: Amanda Wall MD When: 1-2 weeks post OP if you need an appointment please call [phone] Test Results: Test results from this visit will be discussed in further detail at your follow-up appointment, if applicable. Discharge Plan Admission Attending Provider: Dallas Jenkins Primary Care Provider: Care Physician,Chyna Primary Discharge Orders/Prescriptions Prescriptions: New oxycodone-acetaminophen 5-325 mg Tablet 1 - 2 tab PO Q6H PRN PRN (Reason: Moderate-Severe Pain (4-10)) 2 Days Qty: 5 0RF oxycodone 5 mg capsule 5 mg PO BID PRN (Reason: pain) 5 Days Qty: 10 0RF Referrals / Follow Up: Care Physician,No Primary [Primary Care Provider] - Disposition Disposition (needs filled in before D/C Order can be placed): Home, Self Care 03/28/23 1623<Electronically signed by Amanda Wall MD>Amanda Wall MD CC: No Primary Care Physician ~ Signed [facility] Work Phone: 1(985) 530-224109-04-2023 History and physical note Author oYvanny kingsley [facility] March 28, 2023 2:44pm Note Date/Time March 28, 2023 2:44pm [facility] Medical Records Department [address] [place] [address] H&P 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 pt receive 2 previous doses ofMTX with [facility] with appropriate decline in HCG levels. pt reports pain more on left side lower quadrant. has some N/V. no Dizziness no syncopal episodes. pt offers no other concerns today. Psx: neck mass removed as child Medhx: neg All; NKDA exam: GEN: Female in mild distress laying in bed ABD: tender to palpation in LLQ and LUQ. + GUARDING. Ultrasound: Results pending- Large amt of free fluid. a/p: 27yo with ruptured ectopic s/p MTX administration x 2 1) OR team notified 2) consented for diagnostic lap, removal of ectopic, possible salpingectomy, possible oophorectomy- pt counseled on risks of surgery including but not limited to bleeding, infection, injury to pelvic structures including bowel, bladder, vessels, ureters. pt agrees to proceed. 3) Ultrasound read pending- free fluid present 4) CBC stable 03/28/23 1444 <Electronically signed by Amanda Wall MD> Cosigner Signature (if applicable): CC: M Dr. Amanda Wall; No Primary Care Physician~ Signed [facility] Work Phone: 1(112) 888-492509-04-[address] [facility] 03-18-2023 Miscellaneous Notes* Telephone Encounter - Esther Rivero LPN - 03/18/2023 10:38 AM EDT Linked order to visit. Esther Rivero LPN * Telephone Encounter - Janeen Contreras RN - 03/18/2023 9:23 AM EDT Patient received 2nd methotrexate injection last night at [facility]. All previous hcg quant orders were cancelled. Please file again. 1st lab appointment scheduled for 03/21 - will need to link order once filed. Janeen Contreras [facility] NoteHNO ID: [id number] Author: Shelli Peralta DO Service: Obstetrics Author Type: Resident Type: Procedures Filed: 03/17/2023 9:04 PM Note Text: Attestation signed by Ani Warren MD at 03/17/2023 11:28 PM Attending Note I evaluated the patient and personally participated in the azevedo components. I agree with the resident's findings and plan as documented and have discussed the case and management of the patient's care with the resident. Agree with the administration of a 2nd dose of methotrexate. Risks and benefits reviewed with the patient and her partner. All questions were answered. Signature: Ani Warren MD Date: 03/17/2023 Time: 11:27 PM OBSTETRICS METHOTREXATE INJECTION NOTE PROCEDURE DATE: March 17, 2023 PROCEDURE START TIME: 8:53 PM INDICATION: The patient has the diagnosis of an of unknown location, suspicious for ectopic based on inappropriately rising bHCGand transvaginal ultrasound negative for intrauterine . She received first dose of methotrexate on 03/11/23 with inappropriate decline in bHCG on day 4 and 7. Was counseled for repeat dose of methotrexate. CBC/CMP were drawn and all were normal. The risks/benefits/alternatives of medical management vs surgical management were discussed in detail with the patient and she desires medical management with Methotrexate. The patient?s case (including labs and imaging) was reviewed with Dr. Warren who agrees with the diagnosis, management plan and dosing of Methotrexate. Both providers confirm that there are no contraindications to the procedure. PRIMARY PROCEDURALIST: Shelli Peralta DO ORTHOTICS ASSISTANT(S): Padmini Shay DO Informed Consent: Informed Consent obtained and on the chart Happy Protocol/Safety Checklist: Sign in Communication: Completed Time Out: Team Confirms the Correct Patient, Correct Procedure, Correct Site and Site Marking, Correct Position (if applicable). Time: 2044 Affirmation of Time Out: YES Sign Out Discussion: Completed Procedure: Methotrexate Injection Pre-operative/Pre-procedure Diagnosis: Ectopic Post-operative/Post-procedure Diagnosis: Same Procedure Details: Charline Kirkpatrick presents for Methotrexate injection for ectopic . Methotrexate ordered by: Dr. Shelli Peralta Certified Pharmacist Dose calculation confirmed by: [facility] AND Dr. Shelli Peralta DO RH: Positive Lot #: [id number] Expiration Date: 07/17 Methotrexate dose: 50mg/m2 Administration Location: Right and left Buttock Patient tolerated well. Pt counseled regarding the need for follow up HCG in 4 days and 7 days. Post procedure precautions and follow up plan discussed with patient. Patient will be out of town and will plan for quantitative bHCG approximately day 4 and 7 (03/21 and 03/24.) Also placed on resident followup HCG list to call patient. Will reach out to her primary OB provider. SIGNATURE: Shelli Peralta DO PATIENT NAME: Charline Kirkpatrick DATE: March 17, 2023 TIME: 8:53 PM PAGER/CONTACT #:[facility]08-24-2023 NoteHNO ID: [id number] Author: Shelli Peralta DO Service: Obstetrics Author Type: Resident Type: Progress Notes Filed: 03/17/2023 9:40 PM Note Text: Attestation signed by Ani Warren MD at 03/17/2023 11:32 PM Attending Note I evaluated the patient and personally participated in the azevedo components. I agree with the resident's findings and plan as documented and have discussed the case and management of the patient's care with the resident. Discussed with patient and her partner quant hcg marce by 100. Given this, would recommend additional dose of methotrexate today. Risks and benefits reviewed. Pt reports traveling to [place] tomorrow morning and not returning until Tuesday afternoon so she will not be in town to have day 4 quant hcg drawn. Warning signs of ectopic reviewed along with side effects from methotrexate to watch for. She will return Tuesday for repeat quant hcg. Signature: Ani Warren MD Date: 03/17/2023 Time: 11:29 PM OBSTETRICS OB ED PROGRESS NOTE SERVICE DATE: March 17, 2023 SERVICE TIME: 8:45 PM Subjective Patient's stated reason for arrival: methotrexate shot CHIEF COMPLAINT: second methotrexate HISTORY OF THE PRESENT ILLNESS: The patient is a 27 year old female, , who is at 7w0d with an BENSON of 11/03/2023, by Last Menstrual Period dating method. Patient is here for a followup for diagnosis of diagnosis of an of unknown location, suspicious for ectopic based on inappropriately rising bHCGand transvaginal ultrasound negative for intrauterine . She received her first dose of methotrexate on 03/11/23 (quant 2004) with inappropriate decline in bHCG on day 4 (1848) and 7 (1981). Was counseled for repeat dose of methotrexate per her OB. She sees Dr. Martinez, her FUEL CELL SYSTEMS ENGINEER and follows at the lab at [facility]. She had an initial episode of vaginal bleeding after her first methotrexate, which decreased after the first 3 days. Denies any abdominal pain, nausea/vomiting, fever, chills, chest pain, SOB PAST MEDICAL HISTORY Diagnosis Date PMH - PAST MEDICAL HISTORY OF 09/13/01 normal color vision PAST SURGICAL HISTORY Procedure Laterality Date PAST SURGICAL HISTORY OF 6 years skin cyst removed from neck FAMILY HISTORY Problem Relation Age of Onset Diabetes Father Type II Diabetes Brother OB History T0 L0 SAB0 IAB0 Ectopic0 Multiple0 Live Births0 REVIEW OF SYSTEMS: The remainder of the review of systems is negative. Objective LAST VITALS: Pulse: 73 BP: 113/70 Temp: 36.5 ?C (97.7 ?F) SpO2: 99 % Height: 167.6 cm (5' 6) Weight: 71.7 kg (158 lb) BMI: 25.5 PHYSICAL EXAM: General: WD, WN, comfortable Heart: RR, S1, S2 Lungs: clear to auscultation Abdomen: soft, nontender, no rebound or guarding Extremities: no edema CERVICAL EXAM: Not applicable MONITORING/ASSESSMENT: Not applicable Ultrasound: 03/11/23 TVUS Impression No intrauterine seen. Endometrial thickness 10.6mm. There is a complex vascular left adnexal structure noted- ectopic can't be ruled out- this area measures 4cm in greatest dimension. There is no free fluid in the cul[place]ac. LABS Diagnostic tests reviewed for today's visit: Most recent labs and imaging results. CBC, Coags, BMP, Mg, Phos Recent Labs 03/17/231951 WBC 6.93 HB 12.8 HCT 37.8 PLT 297 NA 140 K 3.6* CHLOR 102 CO2 25 BUN 12 CREAT 0.74 GLUC 105* CA 9.7 Assessment/Plan 27 year old EGA:7w0d by LMP diagnosed with of unknown location suspicious for ectopic S/p methotrexate #1 on 03/11/23 with inappropriate decline in quantHCG on days 4 and 7 presents for second methotrexate injection. Active Hospital Problems Diagnosis Date Noted of unknown anatomic location 03/11/2023 - PUL suspicious for ectopic - 03/11/23 TVUS no IUP, endometrial thickness 10.6 mm, complex vascular left adnexal structure - quant HCG trend: 03/08 (1623) > 03/10 (1768) > 03/11 (2004) received MTX #1 > 03/14 (184) > 03/17 (1981) - <15% decline between day 4 and 7 after methotrexate #1, recommend repeat methotrexate dose or surgical management - patient prefers second methotrexate today - counseled r/b/a - repeat CBC, CMP, T+S - consent signed - see methotrexate procedure note - educated on side effects and precautions of methotrexate, ruptured ectopic and discharge instructions - follow up quanthCG on day 4 and 7 Plan of care discussed with: Provider, RN, Patient, Dr. Warren, Dr. Martinez SIGNATURE: Shelli Peralta DO PATIENT NAME: Charline Kirkpatrick DATE: March 17, 2023 TIME: 9:10 PM PAGER/CONTACT #:[facility]08-21-2023 Miscellaneous Notes* Telephone Encounter - Alcon Martinez MD - 03/14/2023 12:22 PM EDT Can be normal. 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 I also think reasonable to have additional days off if she feels she needs this, or can provide letter with lifting restrictions for this week to not lift anything greater than 15 lbs. Ok to write her off for 1-3 more daysif she wants that * Telephone Encounter - Sangeeta Levi RN - 03/14/2023 11:47 AM EDT Patient called to report that she thinks she passed some tissue this morning. About the size of twoquarters. Feeling better since passing. 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 Had her first HCG level drawn today. In process. Asking if this is what she should expect since [facility] did not review this with her she said. Off work today. Ok to return tomorrow? 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 Sangeeta Levi RN * Telephone Encounter - Amanda Tavera MD - 03/12/2023 8:42 AM EDT HCG levels were ordered for 03/14 and 03/17 . Please make sure they get followed. She may need seconddose of MTX . She got first dose of MTX at [facility] on 03/11/23 documented in this [facility]Mer[facility]23 NoteHNO ID: [id number] Author: Alcon Bowie MD Service: Gynecology Author Type: Resident Type: Progress Notes Filed: 03/11/2023 10:10 PM Note Text: Patient observed for 20 minutes after MTX injection without signs of acute reaction. Comfortable with discharge home at this time. Again reviewed side effects of MTX and to avoid alcohol, NSAIDs, heavy exercise, high folate foods, penicillin antibiotics. Discharge instructions provided. She was counseled on the importance of follow up on Day 4 (03/14/23) and Day 7 (03/17/23). Communicated with Dr. Jenkins, who is county commissioner for [facility]. Plan of care made for patient to follow up for repeat bHCG quants in [facility] and chart sent to herself and Dr. Martinez, her FUEL CELL SYSTEMS ENGINEER provider. Alcon Bowie, [facility] NoteHNO ID: [id number] Author: Alcon Bowie MD Service: Obstetrics Author Type: Resident Type: Procedures Filed: 03/11/2023 10:36 PM Note Text: Attestation signed by Marii Lebron DO at 03/18/2023 1:30 PM Attending Note Delayed entry - I personally saw/examined the patient on 03/11/2023. I evaluated the patient and personally participated in the azevedo components. I agree with the resident's findings and plan with the following revisions and/or additions: Reviewed r/b/a with patient, she voiced understanding and understood follow up Signature: Marii Lebron DO Date: 03/18/2023 Time: 1:29 PM OBSTETRICS METHOTREXATE INJECTION NOTE PROCEDURE DATE: March 11, 2023 PROCEDURE START TIME: 7:19 PM INDICATION: The patient has the diagnosis of an of Unknown Location (not a viable intrauterine ) based on abnormally rising bHCG quant levels and TVUS with evidence of left adnexal mass. The diagnosis was discussed with the patient. The patient is a candidate for medical management. The risks/benefits/alternatives of medical management vs surgical management were discussed in detail with the patient and she desires medical management with Methotrexate. The patient?s case (including labs and imaging) was reviewed with Dr. Fowler and Dr. Lebron who agrees with the diagnosis, management plan and dosing of Methotrexate. Both providers confirm that there are no contraindications to the procedure. PRIMARY PROCEDURALIST: Alcon Bowie MD ORTHOTICS ASSISTANT(S): Dr. Marii Lebron, attending. Informed Consent: Informed Consent obtained and on the chart Happy Protocol/Safety Checklist: Sign in Communication: Completed Time Out: Team Confirms the Correct Patient, Correct Procedure, Correct Site and Site Marking, Correct Position (if applicable). Time: 7:15 PM Affirmation of Time Out: YES Sign Out Discussion: Completed Procedure: Methotrexate Injection Pre-operative/Pre-procedure Diagnosis: of Unknown Location. Post-operative/Post-procedure Diagnosis: Same Procedure Details: Charline Kirkpatrick presents for Methotrexate injection for of Unknown Location. Methotrexate ordered by: Rosalba Mejia MD Certified Pharmacist Dose calculation confirmed by: Salome Hernández [facility] and Alcon Bowie MD RH: Positive Lot #: [id number] Expiration Date: 06/2024 Methotrexate dose: 50mg/m2 Administration Location: Right and Left Buttock Notably, there was difficulty fully deploying the syringe on left buttock. The syringe apparatus was evaluated, specifically by removal and re-connection of the pieces of the injection device. There was slight fluid collection of the drug in the device apparatus and also drops of fluid that touched patient skin on buttock. The area was wiped with an alcohol wipe thoroughly. The remainder of the dose was administered without difficulty. It was communicated with the patient that the full dose was not administered in the left buttock. Right buttock injection administered without difficulty, full dose given. Patient tolerated well. Pt counseled regarding the need for follow up HCG in 4 days and 7 days. Post procedure precautions and follow up plan discussed with patient. SIGNATURE: Alcon Bowie MD PATIENT NAME: Charline Kirkpatrick DATE: March 11, 2023 TIME: 5:55 PM PAGER/CONTACT #:[facility]08-18-2023 NoteHNO ID: [id number] Author: Alcon Bowie MD Service: Obstetrics Author Type: Resident Type: Progress Notes Filed: 03/11/2023 5:55 PM Note Text: Attestation signed by Demi Fowler MD at 03/13/2023 11:23 AM OB ED Attending Note Attending Note Delayed entry - I personally saw/examined the patient on 03/11/23 . I evaluated the patient and personally participated in the azevedo components. I agree with the resident's findings and plan with the following revisions and/or additions: Reviewed all labs and images from [facility] and discussed plan. Patient in agreement to proceed. Will likely follow upshe has already has her set up for HCG draws. Signature: Demi Fowler MD Date: 03/13/2023 Time: 11:18 AM OBSTETRICS OB ED PROGRESS NOTE SERVICE DATE: March 11, 2023 SERVICE TIME: 5:22 PM Subjective Patient's stated reason for arrival: CHIEF COMPLAINT: Methotrexate for PUL Management; sent from [facility] HISTORY OF THE PRESENT ILLNESS: The patient is a 27 year old female, , who is at Unknown early GA. Patient is sent here from [facility] for administration of Methotrexate. She learned she was on Tuesday. She has had vaginal bleeding and abdominal pain that started on February 24, and has been intermittent and mildly bothersome, which prompted initial evaluation. She states she has used a pad for her vaginal bleeding, no clots. She also has abdominal pain in her lower abdomen, worst is at 6/10. bHCG 1623 (03/08) > 1768 (03/10). She had a TVUS today that demonstrated no intrauterine , endometrial stripe 10.6mm, complex left adnexal structure, 4cm. No evidence of pole. She denies worsening abdominal pain, heavy vaginal bleeding/clots, fevers/chills, abnormal vaginal discharge, lightheadedness/dizziness. She is emotional regarding this process, has been a rollercoaster of a week. PAST MEDICAL HISTORY Diagnosis Date PMH - PAST MEDICAL HISTORY OF 09/13/01 normal color vision PAST SURGICAL HISTORY Procedure Laterality Date PAST SURGICAL HISTORY OF 5 years skin cyst removed from neck FAMILY HISTORY Problem Relation Age of Onset Diabetes Father Type II Diabetes Brother OB History T0 L0 SAB0 IAB0 Ectopic0 Multiple0 Live Births0 REVIEW OF SYSTEMS: The remainder of the review of systems is negative. Objective LAST VITALS: Pulse: 81 BP: 111/73 Resp: 17 Temp: 37.3 ?C (99.1 ?F) SpO2: 98 % Height: 167.6 cm (5' 6) Weight: 72.6 kg (160 lb) (per patient weight estimate) BMI: 25.82 PHYSICAL EXAM: General: WD, WN, comfortable Heart: RR, warm and well perfused Lungs: normal pulmonary exam Abdomen: soft, nontender, no masses Extremities: no edema LABS Diagnostic tests reviewed for today's visit: Most recent labs and imaging results. Assessment/Plan 27 year old EGA:Unknown. Here for MTX administration in the setting of of Unknown Location Active Hospital Problems Diagnosis Date Noted of unknown anatomic location 03/11/2023 Overview Note: - evaluated by FUEL CELL SYSTEMS ENGINEER at [facility] - bHCG 1623 (03/08) > 1768 (03/10) - She had a TVUS today that demonstrated no intrauterine , endometrial stripe 10.6mm, complex left adnexal structure, 4cm. No evidence of pole. - abdominal exam benign - pelvic exam performed by her FUEL CELL SYSTEMS ENGINEER today, normal per report. - CBC, CMP collected at [facility], within normal limits - bHCG quant, TANDS ordered in OB ED, stat - obtain actual weight on patient - counseled on recommendation for Methotrexate for management of of Unknown Location. - Patient verbalized ability to follow up on day 4 AND day 7 - Counseled on r/b/a, and informed consent obtained for MTX administration Plan of care discussed with: Provider, RN, Patient. Dr. Fowler SIGNATURE: Alcon Bowie MD PATIENT NAME: Charline Kirkpatrick DATE: March 11, 2023 TIME: 5:22 PM [id number] History of Present illness Narrative* Alcon Martinez MD - 03/11/2023 1:13 PM EDT Charline Kirkpatrick is a 27 year old female who presents for early . HPI: The patient was seen by MANAGER SOUND in the office for early . LMP 01/27/23. Regular, monhtly menstrual cycles. Has had daily bleeding since 02/24/23 and cramping across her pelvis. No symptoms of anemia. No heavy bleeding. No severe pain. HCG quants as noted below: Component Latest Ref Rng & Units 03/08/2023 03/10/2023 hCG Quantitative, Blood <5.0 mIU/mL 1,623.0 (H) 1,768.0 (H) OB History T0 L0 SAB0 IAB0 Ectopic0 Multiple0 Live Births0 Lasting Room Supervisor History LMP: 02/24/2023, Having periods Age at Menarche: Age at First : Age at Menopause: Lasting Room Supervisor History Comments: Sexual Activity: Yes; Male Contraception: Pill PAST MEDICAL HISTORY Diagnosis Date PMH - PAST MEDICAL HISTORY OF 09/13/01 normal color vision PAST SURGICAL HISTORY Procedure Laterality Date PAST SURGICAL HISTORY OF 5 years skin cyst removed from neck FAMILY HISTORY Problem Relation Age of Onset Diabetes Father Type II Diabetes Brother Social History Tobacco Use Smoking status: Never Smokeless tobacco: Never Vaping Use Vaping Use: Never used Substance Use Topics Alcohol use: Yes Comment: Weekends/social Drug use: No Current Outpatient Medications Medication Sig APRI 0.15-0.03 mg per tablet TAKE 1 TABLET BY MOUTH ONCE DAILY (Patient not taking: Reported on 03/11/2023) No current facility-administered medications for this visit. Allergies As of Date: 03/11/2023 (No Known Allergies) Fully Assessed 03/11/2023 REVIEW OF SYSTEMS Expanded ROS: N/A- having cramping and bleeding Allergies and current medication updated:Yes EXAM: BP 100/60 LMP 02/24/2023 GENERAL: pleasant, female in no apparent distress, comfortable appearing, tearful today HEENT: Normocephalic and atraumatic NECK: full range of motion DERMATOLOGY: Normal and without lesions CHEST: Normal inspiratory effort ABD: Non distended NEURO: exam grossly non-focal EXTREMITIES: normal ASSESSMENT AND PLAN: Encounter Diagnosis ICD-10-CM 1. Ectopic without intrauterine , unspecified location O00.90 CBC COMP METABOLIC PANEL TYPE + SCREEN 2. Early stage of Z34.90 CBC COMP METABOLIC PANEL TYPE + SCREEN 3. Vaginal bleeding in O46.90 4. Pelvic cramping R10.2 Discussed with patient concern for ectopic given slowly rising HCG levels. Dr. Jenkins read pelvic US images and reports a left sided complex adnexal mass, no intrauterine , no free fluid in the pelvis. Cannot rule out ectopic based on pelvic US. Discussed r/b/a to methotrexate therapy. Discussed option for repeat HCG level tomorrow, surgical intervention, methotrexate injection. The patient, labs, and images were reviewed by Dr. Jenkins provider county commissioner who agrees with likely ectopic based on findings. The patient elects for Methotrexate injection. Discussed she will have to go to [facility] for this given inability for her to have it with hematol ogy based on timing, and inability to receive it in our local ER. Called and spoke with [facility] resident regarding case given attending operating at the time. Alcon Martinez DO Medical Decision Making: Problems: Low: Acute, uncomplicated illness or injury Data: Unique test(s) ordered: 3+ Medical Decision Making Level: 3 - Low documented in this encounterMer[facility]08-18-2023 Miscellaneous Notes* Addendum Note - Alcon Matrinez MD - 03/11/2023 10:38 AM EDTAddended by: ALCON MARTINEZ on: 03/11/2023 10:38 AM Modules accepted: Orders * Telephone Encounter - Alcon Martinez MD - 03/11/2023 10:38 AM EDT filed * Addendum Note - Sangeeta Levi RN - 03/11/2023 9:23 AM EDTAddended by: SANGEETA LEVI RN on: 03/11/2023 09:23 AM Modules accepted: Orders * Telephone Encounter - Sangeeta Levi RN - 03/11/2023 9:22 AM EDT Patient is scheduled today at 1:15 for viability US. Please file pending US order. Thank you. Sangeeta Levi RN * Telephone Encounter - Sera Garcia LPN - 03/11/2023 9:07 AM EDT Patient scheduled * Telephone Encounter - Edelmira Ward APRN.CNP - 03/11/2023 7:17 AM EDT Please let the patient know that her quants are not rising appropriately this is possibly an early miscarriage she does need to be seen by one of the doctors or rig hand JEFF. Edelmira Ward APRN.CNP documented in this encounterMercy [facility]08-18-2023 Miscellaneous Notes* Telephone Encounter - Edelmira Ward APRN.CNP - 03/11/2023 8:36 AM EDT I sent other phone notes this morning. Edelmira Ward APRN.SREEKANTH * Telephone Encounter - Esther Rivero LPN - 03/11/2023 8:23 AM EDT hCG Quantitative, Blood (mIU/mL) Date Value 03/10/2023 1,768.0 03/08/2023 1,623.0 Please review and advise. Esther Rivero LPN * Telephone Encounter - Sangeeta Levi RN - 03/09/2023 8:31 AM EDT hCG Quantitative, Blood (mIU/mL) Date Value 03/08/2023 1,623.0 Please leave note open for 03/10 HCG result. * Telephone Encounter - Sangeeta Levi RN - 03/08/2023 12:39 PM EDT Patient notified. Reviewed bleeding precautions. Please leave phone note open for 03/08 and 03/10 HCGQuants. Sangeeta Levi RN * Telephone Encounter - Edelmira Ward APRN.CNP - 03/08/2023 12:33 PM EDT Quant filed. Review bleeding precautions. Edelmira Ward APRN.SREEKANTH * Telephone Encounter - Janeen Contreras RN - 03/08/2023 12:26 PM EDT Patient calling back with POSITIVE UPT result. She has been having pelvic menstrual cramping since last week. Last week was more severe at times and today is a little better. Rating 5/10 on pain scale today. Pain is not worse on one side, more generalized mid pelvic area. Discussed hcg quants. Her LMP prior to starting to bleeding this month was 01/26/23. Asking what the next step is. Janeen Contreras RN * Telephone Encounter - Esther Rivero LPN - 03/08/2023 12:08 PM EDT Pt calling and stated that she stopped her OCP in November. She reports that her menses have been normaluntil this month. LMP 02/24/23 and is continuing to bleed to date. Pt is not using any control but is not trying for . She is tracking her cycles only. She took a test 2 weeks prior to her menses beginning d/t being very tired. test was negative. Pt reporting that her flow is more like a normal flow. Pt will check another test. Please advise how to proceed from here? Esther Rivero LPN documented in this encounterMercy [facility]10-28-2022 History of Present illness Narrative* Edelmira Ward APRN.SREEKANTH - 05/21/2022 12:56 PM EDT Charline is a 26 year old who presents for an annual gynecologic exam without complaints. Patient states that she is still noticing some mood irritability and a little short tempered even with the change in the OCP to a lower dose. She is wondering if we can maybe adjust the dose again and see if that helps. Menses: every 21-24 lasting 2 days Contraception: oral contraceptives HPV vaccine: Yes Last Pap: 10/08/2019 normal HPV: N/A History of abnormal pap: Yes LSIL 2019 Last mammogram: Left breast US 2019 - simple cyst Sexually active: Yes Pain with intercourse: No Postcoital bleeding: No OB History T0 L0 SAB0 IAB0 Ectopic0 Multiple0 Live Births0 Lasting Room Supervisor History LMP: 05/11/2022, Having periods Age at Menarche: Age at First : Age at Menopause: Lasting Room Supervisor History Comments: Sexual Activity: Yes; Male Contraception: Pill PAST MEDICAL HISTORY Diagnosis Date PMH - PAST MEDICAL HISTORY OF 09/13/01 normal color vision PAST SURGICAL HISTORY Procedure Laterality Date PAST SURGICAL HISTORY OF 5 years skin cyst removed from neck FAMILY HISTORY Problem Relation Age of Onset Diabetes Father Type II Diabetes Brother SOCIAL HISTORY Social History Tobacco Use Smoking status: Never Smokeless tobacco: Never Vaping Use Vaping Use: Never used Substance Use Topics Alcohol use: Yes Comment: Weekends/social Drug use: No REVIEW OF SYSTEMS Abdomen: No abdominal pain, nausea, vomiting, diarrhea, or constipation. No bloating, early satiety, indigestion, or increased flatulence. Bladder: No dysuria, gross hematuria, urinary frequency, urinary urgency, or incontinence. Breast: No breast lumps, nipple d/c, overlying skin changes, redness or skin retraction. Allergies and current medication updated:Yes EXAM: BP 100/60 Ht 5' 7 (1.70m) Wt 157 lb (71.2kg) LMP 05/11/2022 BMI 24.58 kg/(m^2). GENERAL: pleasant, female in no apparent distress HEENT: Normocephalic, atraumatic, mucus membranes moist, and no lesions NECK: Supple, full range of motion, no adenopathy, and thyroid normal DERMATOLOGY: Normal, without lesions, non-icteric, and non-hirsute BREAST: soft, non-tender, symmetric, no dominant mass, normal nipple-areolar complex, no lymphadenopathy, and no nipple discharge CHEST: Normal inspiratory effort ABDOMEN: soft, non-tender, and no masses PELVIC: external genitalia normal, normal Bartholin's glands, urethra, Joanna's glands, no vulvar lesions, no cervical lesions, good vaginal support, physiologic discharge present, normal appearing perineal body and perianal region BIMANUAL: uterus normal size, shape and consistency, no adnexal masses, and non-tender RECTOVAGINAL: deferred. NEURO: alert and oriented x3,exam grossly non-focal EXTREMITIES: normal ASSESSMENT/PLAN: 1) Health maintenance: Pap/HPV up to date. Mammogram starting age 40. Nutrition, exercise and routine health maintenance exams reviewed. Calcium/Vitamin D supplementation information provided. 2) Contraception: combined hormonal contraceptives. Contraceptive options reviewed and information provided. 3) STD screening: Declined STD check. 4) Follow up one year or sooner as needed 5) change control from Sronyx to Apri patient is to follow-up in 2 months on new OCP. If she is still experiencing mood irritability and short tempered we will look at starting low-dose Zoloft. Edelmira Ward APRN.CNP documented in this encounterMercy [facility]08-28-2022 History of Present illness Narrative* Manny Ren APRN.CNP - 03/21/2022 12:00 PM EDT Subjective HPI HPI Charline Kirkpatrick is a 26 year old female who presents today for CC of itchy rash. This started2 days ago. Has tried otc medication without relief. Symptoms are worsened by nothing. Risk factorshusband currently with PI. .Patient presents with: Rash: x 2 days, all over, itching PAST MEDICAL HISTORY Diagnosis Date PMH - PAST MEDICAL HISTORY OF 09/13/01 normal color vision PAST SURGICAL HISTORY Procedure Laterality Date PAST SURGICAL HISTORY OF 5 years skin cyst removed from neck ALLERGIES Patient has no known allergies. MEDICATIONS SRONYX 0.1-20 mg-mcg per tablet TAKE 1 TABLET BY MOUTH EVERY DAY predniSONE (DELTASONE) 10 mg tablet Take 4 tabs daily for 3 days, then 2 tabs daily for 3 days, then 1 tab daily for 3 days with food. triamcinolone acetonide (KENALOG) 0.1 % cream Apply 1 application to affected area three times daily for 10 days. Apply sparingly to area for rash/itching. FAMILY HISTORY Problem Relation Age of Onset Diabetes Father Type II Diabetes Brother Social History Tobacco Use Smoking status: Never Smokeless tobacco: Never Vaping Use Vaping Use: Never used Substance Use Topics Alcohol use: Yes Comment: Weekends/social Drug use: No Review of Systems Constitutional: Negative for chills and fever. Skin: Positive for itching and rash (Positive for clear, watery drainage. Denies warmth and purulent drainage. ). Objective Blood pressure 108/62, pulse 78, temperature 36.7 C (98.1 F), resp. rate 16, weight 68.9 kg (152 lb), last menstrual period 12/29/2020, SpO2 99 %. Physical Exam Constitutional: General: She is not in acute distress. Appearance: She is not toxic-appearing or diaphoretic. HENT: Head: Normocephalic and atraumatic. Skin: General: Skin is warm and dry. Findings: Rash present. Rash is vesicular (distribution linear ). Neurological: Mental Status: She is alert and oriented to person, place, and time. ASSESSMENT/PLAN: 1. Rhus dermatitis - ICD9: 692.6, ICD10: L25.5 - Oral Steriod tx -Prednisone taper - Topical steriod tx with Rx for steriod cream/ointment- see orders - discussed skin care of rash - follow up if symptoms persist or worsen. - PREDNISONE 10 MG TABLET - TRIAMCINOLONE ACETONIDE 0.1 % TOPICAL CREAM Agrees to plan Manny Ren APRN.MANAGER SOUND documented in this encounterMercy [facility]04-04-2022 Miscellaneous Notes* Telephone Encounter - Janeen Contreras RN - 10/26/2021 10:35 AM EDT Requesting 90 day supply. Last annual with 01/13/21. Pending Prescriptions Disp Refills SRONYX 0.1 MG-20 MCG TABLET 84 tablet 1 Sig: TAKE 1 TABLET BY MOUTH EVERY DAY RAHEEL: Yes RX INSTRUCTIONS: Pharmacy initiated this request. No need to notify patient. Janeen Contreras RN documented in this encounterWVUMed[facility]* Diagnosis Rhus dermatitis- Primary Contact dermatitis and other eczema due to plants (except food) documented in this encounter [facility]* Diagnosis Encounter for gynecological examination (general) (routine) without abnormal findings- Primary Encounter for surveillance of contraceptive pills Surveillance of previously prescribed contraceptive pill [facility] Diagnosis with uncertain viability, single or unspecified fetus- Primary documented in this encounter [facility] note* Diagnosis Bleeding in early - Primary Unspecified hemorrhage in early , unspecified as to episode of care documented in this encounter [facility] note* Diagnosis Ectopic without intrauterine , unspecified location- Primary Early stage of state, incidental Vaginal bleeding in Unspecified antepartum hemorrhage, unspecified as to episode of care Pelvic cramping Unspecified symptom associated with female genital organs documented in this encounter [facility] note* Diagnosis Left tubal without intrauterine - Primary documented in this encounter [facility] note* Diagnosis Ectopic without intrauterine , unspecified location- Primary documented in this encounter [facility] note* Diagnosis Onset Date Resolution Status Hemoperitoneum due to ruptur e of left tubal ectopic acute Sinus tachycardia [facility] Work Phone: Evaluation note* Diagnosis with uncertain viability, single or unspecified fetus documented in this encounter [facility] note* Diagnosis Post-operative state- Primary Other postprocedural status documented in this encounter [facility] note* Diagnosis affected by previous ectopic - Primary Positive urine test examination or test, positive result documented in this encounter [facility] note* Diagnosis with uncertain dates in first trimester- Primary 7 weeks gestation of state, incidental Encounter for supervision of low-risk first in first trimester Nausea/vomiting in Unspecified vomiting of , unspecified as to episode of care History of ectopic Personal history of other genital system and obstetric disorders documented in this encounter [facility] note* Diagnosis Encounter for screening for malformation using ultrasound- Primary 12 weeks gestation of state, incidental Encounter for (NT) nuchal translucency scan Other specified screening [facility]* Diagnosis 12 weeks gestation of - Primary state, incidental Encounter for supervision of other normal in first trimester Nausea/vomiting in Unspecified vomiting of , unspecified as to episode of care Heartburn during in second trimester [facility]* Diagnosis Encounter for supervision of other normal in second trimester- Primary Nausea and vomiting in Unspecified vomiting of , unspecified as to episode of care 16 weeks gestation of state, incidental documented in this encounter [facility] note* Diagnosis 16 weeks gestation of state, incidental Nausea and vomiting in Unspecified vomiting of , unspecified as to episode of care documented in this encounter [facility] note* Diagnosis Encounter for supervision of other normal in second trimester- Primary Heartburn during in second trimester 20 weeks gestation of state, incidental Marginal placenta previa Hemorrhage from placenta previa, unspecified as to episode of care * Assessment & Plan Note - Amanda Tavera MD - 09/07/2024 12:24 PM ESTAssociated Problem(s): Heartburn during in second trimester * Assessment & Plan Note - Amanda Tavera MD - 09/07/2024 12:24 PM ESTAssociated Problem(s): Marginal placenta previa Repeat at 28 weeks - pelvic rest reviewed Orders: OBSTETRIC ULTRASOUND WHI; Future documented in this encounter [facility] note* Diagnosis Encounter for anatomic survey- Primary 20 weeks gestation of state, incidental Encounter for supervision of other normal in second trimester Encounter for screening for cervical length Encounter for supervision of other normal in second trimester- Primary Heartburn during in second trimester 20 weeks gestation of state, incidental Marginal placenta previa Hemorrhage from placenta previa, unspecified as to episode of care documented in this encounter [facility] note* Diagnosis Encounter for supervision of other normal in second trimester- Primary Heartburn during in second trimester 20 weeks gestation of state, incidental Marginal placenta previa Hemorrhage from placenta previa, unspecified as to episode of care 16 weeks gestation of state, incidental Nausea and vomiting in Unspecified vomiting of , unspecified as to episode of care documented in this encounter [facility] note* Diagnosis Encounter for supervision of other normal in second trimester- Primary Heartburn during in second trimester 20 weeks gestation of state, incidental Marginal placenta previa Hemorrhage from placenta previa, unspecified as to episode of care Encounter for supervision of other normal in second trimester- Primary Screening for diabetes mellitus Encounter for supervision of other normal in third trimester 24 weeks gestation of state, incidental documented in this encounter [facility] note* Diagnosis Encounter for supervision of other normal in second trimester ([facility])- Primary Heartburn during in second trimester ([facility]) 20 weeks gestation of ([facility]) state, incidental Marginal placenta previa (HCC) Hemorrhage from placenta previa, unspecified as to episode of care Marginal placenta previa (HCC)- Primary Hemorrhage from placenta previa, unspecified as to episode of care Low lying placenta nos or without hemorrhage, third trimester ([facility]) 28 weeks gestation of ([facility]) state, incidental Need for vaccination Need for prophylactic vaccination and inoculation against unspecified single disease * Assessment & Plan Note - Amanda Tavera MD - 10/31/2024 9:30 AM EDT Associated Problem(s): Marginal placenta previa (HCC) Resolved- now low lying documented in this encounter [facility] note* Diagnosis Encounter for supervision of other normal in second trimester ([facility])- Primary Heartburn during in second trimester ([facility]) 20 weeks gestation of ([facility]) state, incidental Marginal placenta previa (HCC) Hemorrhage from placenta previa, unspecified as to episode of care Encounter for ultrasound to check growth ([facility])- Primary Encounter for routine screening for malformation using ultrasonics Low lying placenta nos or without hemorrhage, third trimester ([facility]) 28 weeks gestation of ([facility]) state, incidental Marginal placenta previa (HCC)- Primary Hemorrhage from placenta previa, unspecified as to episode of care Low lying placenta nos or without hemorrhage, third trimester ([facility]) 28 weeks gestation of ([facility]) state, incidental Need for vaccination Need for prophylactic vaccination and inoculation against unspecified single disease [facility]* Diagnosis Encounter for supervision of other normal in second trimester ([facility])- Primary Heartburn during in second trimester ([facility]) 20 weeks gestation of ([facility]) state, incidental Marginal placenta previa ([facility]) Hemorrhage from placenta previa, unspecified as to episode of care Marginal placenta previa ([facility])- Primary Hemorrhage from placenta previa, unspecified as to episode of care Low lying placenta nos or without hemorrhage, third trimester ([facility]) 28 weeks gestation of ([facility]) state, incidental Need for vaccination Need for prophylactic vaccination and inoculation against unspecified single disease Supervision of high risk in third trimester ([facility])- Primary Unspecified high-risk Low lying placenta nos or without hemorrhage, third trimester ([facility]) 30 weeks gestation of ([facility]) state, incidental 32 weeks gestation of ([facility])- Primary state, incidental Supervision of high risk in third trimester ([facility]) Unspecified high-risk documented in this encounter [facility] note* Diagnosis Encounter for supervision of other normal in second trimester ([facility])- Primary Heartburn during in second trimester ([facility]) 20 weeks gestation of ([facility]) state, incidental Marginal placenta previa ([facility]) Hemorrhage from placenta previa, unspecified as to episode of care Suspected placental problem not found- Primary Encounter for ultrasound to check growth ([facility]) Encounter for routine screening for malformation using ultrasonics 33 weeks gestation of ([facility]) state, incidental [facility] Diagnosis Encounter for supervision of other normal in second trimester ([facility])- Primary Heartburn during in second trimester ([facility]) 20 weeks gestation of ([facility]) state, incidental Marginal placenta previa ([facility]) Hemorrhage from placenta previa, unspecified as to episode of care 16 weeks gestation of ([facility]) state, incidental Nausea and vomiting in ([facility]) Unspecified vomiting of , unspecified as to episode of care documented in this encounter [facility] note* Diagnosis Encounter for supervision of other normal in second trimester ([facility])- Primary Heartburn during in second trimester ([facility]) 20 weeks gestation of ([facility]) state, incidental Marginal placenta previa ([facility]) Hemorrhage from placenta previa, unspecified as to episode of care 16 weeks gestation of ([facility]) state, incidental Nausea and vomiting in ([facility]) Unspecified vomiting of , unspecified as to episode of care [facility]* Diagnosis Encounter for supervision of other normal in second trimester ([facility])- Primary Heartburn during in second trimester ([facility]) 20 weeks gestation of ([facility]) state, incidental Marginal placenta previa ([facility]) Hemorrhage from placenta previa, unspecified as to episode of care Supervision of high risk in third trimester ([facility])- Primary Unspecified high-risk Low lying placenta nos or without hemorrhage, third trimester ([facility]) 36 weeks gestation of ([facility]) state, incidental 16 weeks gestation of ([facility]) state, incidental Nausea and vomiting in ([facility]) Unspecified vomiting of , unspecified as to episode of care [facility]* Diagnosis Encounter for supervision of other normal in second trimester ([facility])- Primary Heartburn during in second trimester ([facility]) 20 weeks gestation of ([facility]) state, incidental Marginal placenta previa ([facility]) Hemorrhage from placenta previa, unspecified as to episode of care 37 weeks gestation of ([facility])- Primary state, incidental Supervision of high risk in third trimester ([facility]) Unspecified high-risk Low lying placenta nos or without hemorrhage, third trimester ([facility]) [facility]* Diagnosis Encounter for supervision of other normal in second trimester ([facility])- Primary Heartburn during in second trimester ([facility]) 20 weeks gestation of ([facility]) state, incidental Marginal placenta previa ([facility]) Hemorrhage from placenta previa, unspecified as to episode of care Positive GBS test- Primary Supervision of high risk in third trimester ([facility]) Unspecified high-risk 38 weeks gestation of ([facility]) state, incidental [facility]* Diagnosis Encounter for supervision of other normal in second trimester ([facility])- Primary Heartburn during in second trimester ([facility]) 20 weeks gestation of ([facility]) state, incidental Marginal placenta previa ([facility]) Hemorrhage from placenta previa, unspecified as to episode of care Supervision of high risk in third trimester ([facility])- Primary Unspecified high-risk Positive GBS test 39 weeks gestation of ([facility]) state, incidental Heartburn during in second trimester (HCC) [facility] Diagnosis Encounter for supervision of other normal in second trimester (HCC)- Primary Heartburn during in second trimester ([facility]) 20 weeks gestation of ([facility]) state, incidental Marginal placenta previa ([facility]) Hemorrhage from placenta previa, unspecified as to episode of care 40 weeks gestation of ([facility])- Primary state, incidental Supervision of high risk in third trimester ([facility]) Unspecified high-risk Positive GBS test documented [facility] Author Amanda Armijo [facility] March 28, 2023 2:44pm Note Date/Time March 28, 2023 2:44pm [facility] Medical Records Department [address] [place] [address] H&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 pt receive 2 previous doses ofMTX with [facility] with appropriate decline in HCG levels. pt reports pain more on left side lower quadrant. has some N/V. no Dizziness no syncopal episodes. pt offers no other concerns today. Psx: neck mass removed as child Medhx: neg All; NKDA exam: GEN: Female in mild distress laying in bed ABD: tender to palpation in LLQ and LUQ. + GUARDING. Ultrasound: Results pending- Large amt of free fluid. a/p: 27yo with ruptured ectopic s/p MTX administration x 2 1) OR team notified 2) consented for diagnostic lap, removal of ectopic, possible salpingectomy, possible oophorectomy- pt counseled on risks of surgery including but not limited to bleeding, infection, injury to pelvic structures including bowel, bladder, vessels, ureters. pt agrees to proceed. 3) Ultrasound read pending- free fluid present 4) CBC stable 03/28/23 1444 <Electronically signed by Amanda Wall MD> Cosigner Signature (if applicable): CC: Yovanny Wall; No Primary Care Physician~ Signed [facility] Work Phone: Hospital Discharge instructions Additional Instructions Implant Used?: [facility] Work Phone: Reason for referral (narrative)* Diagnostic Procedure Only (Routine) - Pending Review Specialty Diagnoses / Procedures Referred By Contac t Referred To Contact [facility] Diagnoses with uncertain viability, single or unspecified fetus Procedures OBSTETRIC ULTRASOUND WHI US PREG UTERUS AFTER 1ST TRIMEST GESTATION Alcon Martinez MD [address] [place] [address] [facility] [address] [place] [address] Referral ID Status Reason Start Date Expiration Date Visits Requested Visits Authorized [id number] Pending Review Auto-Generat ed Referral 03/11/2023 03/10/2024 1 1 [facility] for referral (narrative)* Diagnostic Procedure Only (Routine) - Authorized Specialty Diagnoses / Procedures Referred By Contac t Referred To Contact [facility] Diagnoses with uncertain dates in first trimester Procedures NUCHAL TRANSLUCENCY WHI US NUCHAL TRANSLUCENCY 1ST GESTATION Kelly Gregg APRN.CNM [address] [place] [address] [facility] [address] [place] [address] Referral ID Status Reason Start Date Expiration Date Visits Requested Visits Authorized [id number] Authorized Auto-Generat ed Referral 06/08/2025 1 1 [facility] for referral (narrative)* Diagnostic Procedure Only (Routine) - New Request Specialty Diagnoses / Procedures Referred By Contac t Referred To Contact [facility] Diagnoses 12 weeks gestation of Encounter for supervision of other normal in first trimester Procedures OBSTETRIC ULTRASOUND WHI US PREG UTERUS AFTER 1ST TRIMEST GESTATION Kelly Gregg APRN.CNM [address] [place] [address] [address] Referral ID Status Reason Start Date Expiration Date Visits Requested Visits Authorized [id number] New Request Auto-Generat ed Referral 07/12/2025 1 1 [facility] for visit Narrative* Diagnostic Procedure Only (Routine) - Authorized Specialty Diagnoses / Procedures Referred By Contac t Referred To Contact [facility] Diagnoses with uncertain viability, single or unspecified fetus Procedures OBSTETRIC ULTRASOUND WHI US PREG UTERUS AFTER 1ST TRIMEST GESTATION Alcon Martinez MD [address] [place] [address] [facility] [address] [place] [id number] Referral ID Status Reason Start Date Expiration Date Visits Requested Visits Authorized [id number] Authorized Auto-Generat ed Referral 03/11/2023 07/24/2023 20 20 [facility] for visit Narrative* Diagnostic Procedure Only (Routine) - Closed Specialty Diagnoses / Procedures Referred By Contac t Referred To Contact [facility] Diagnoses Low lying placenta nos or without hemorrhage, third trimester (HCC) Procedures OBSTETRIC ULTRASOUND WHI US PREG UTERUS AFTER 1ST TRIMEST GESTATION Amanda Tavera MD [address] [place] [address] Phone: tel: fax: [facility] [address] [place] [address] Referral ID Status Reason Start Date Expiration Date V isits Requested Visits Authorized [id number] Closed Auto-Generate d Referral 10/31/2024 10/31/2025 1 1 [facility] Chief Complaint and Reason for Visit Chief Complaint ECTOPIC Reason for Visit Hemoperitoneum due t o rupture of left tubal ectopic Sinus tachycardia Advance Directives No Advanced Directives Records Found Advance Directive Response Recorded Date/ Time Living Will No March 28 023 2:14pm Power of Sport Shoe Spike Assembler No March 28, 2023 2:14pm Summary Purpose Family History No Family History Records FoundNo Family History Records FoundNo Family History Records Found Additional Source Comments Source Comments (unrecognize d section and content) In the event this informatio n is protected by the Federal Confidentiality of Alcohol and Drug Abuse Patient Records regulations: The Federal rules restrict any use of the information to criminally investigate or prosecute any alcohol or drug abuse patient.[facility] the event this information is protected by the Federal Confidentiality of Alcohol and Drug Abuse Patient Records regulations: The Federal rules restrict any use of the information to criminally investigate or prosecute any alcohol or drug abuse patient.[facility] the event this information is protected by the Federal Confidentiality of Alcohol and Drug Abuse Patient Records regulations: The Federal rules restrict any use of the information to criminally investigate or prosecute any alcohol or drug abuse patient.[facility] the event this information is protected by the Federal Confidentiality of Alcohol and Drug Abuse Patient Records regulations: The Federal rules restrict any use of the information to criminally investigate or prosecute any alcohol or drug abuse patient.[facility] Hospital[facility] the event this information is protected by the Federal Confidentiality of Alcohol and Drug Abuse Patient Records regulations: The Federal rules restrict any use of the information to criminally investigate or prosecute any alcohol or drug abuse patient.[facility] the event this information is protected by the Federal Confidentiality of Alcohol and Drug Abuse Patient Records regulations: The Federal rules restrict any use of the information to criminally investigate or prosecute any alcohol or drug abuse patient.[facility] Hospital[facility] the event this information is protected by the Federal Confidentiality of Alcohol and Drug Abuse Patient Records regulations: The Federal rules restrict any use of the information to criminally investigate or prosecute any alcohol or drug abuse patient.[facility] Hospital[facility] the event this information is protected by the Federal Confidentiality of Alcohol and Drug Abuse Patient Records regulations: The Federal rules restrict any use of the information to criminally investigate or prosecute any alcohol or drug abuse patient.[facility] Hospital[facility] the event this information is protected by the Federal Confidentiality of Alcohol and Drug Abuse Patient Records regulations: The Federal rules restrict any use of the information to criminally investigate or prosecute any alcohol or drug abuse patient.[facility] Hospital[facility] the event this information is protected by the Federal Confidentiality of Alcohol and Drug Abuse Patient Records regulations: The Federal rules restrict any use of the information to criminally investigate or prosecute any alcohol or drug abuse patient.[facility] Hospital[facility] the event this information is protected by the Federal Confidentiality of Alcohol and Drug Abuse Patient Records regulations: The Federal rules restrict any use of the information to criminally investigate or prosecute any alcohol or drug abuse patient.[facility] Hospital[facility] the event this information is protected by the Federal Confidentiality of Alcohol and Drug Abuse Patient Records regulations: The Federal rules restrict any use of the information to criminally investigate or prosecute any alcohol or drug abuse patient.[facility] Hospital[facility] the event this information is protected by the Federal Confidentiality of Alcohol and Drug Abuse Patient Records regulations: The Federal rules restrict any use of the information to criminally investigate or prosecute any alcohol or drug abuse patient.[facility] Hospital[facility] the event this information is protected by the Federal Confidentiality of Alcohol and Drug Abuse Patient Records regulations: The Federal rules restrict any use of the information to criminally investigate or prosecute any alcohol or drug abuse patient.[facility] Hospital[facility] the event this information is protected by the Federal Confidentiality of Alcohol and Drug Abuse Patient Records regulations: The Federal rules restrict any use of the information to criminally investigate or prosecute any alcohol or drug abuse patient.[facility] Hospital[facility] the event this information is protected by the Federal Confidentiality of Alcohol and Drug Abuse Patient Records regulations: The Federal rules restrict any use of the information to criminally investigate or prosecute any alcohol or drug abuse patient.[facility] HospitalIn the event this information is protected by the Federal Confidentiality of Alcohol and Drug Abuse Patient Records regulations: The Federal rules restrict any use of the information to criminally investigate or prosecute any alcohol or drug abuse patient.[facility] HospitalIn the event this information is protected by the Federal Confidentiality of Alcohol and Drug Abuse Patient Records regulations: The Federal rules restrict any use of the information to criminally investigate or prosecute any alcohol or drug abuse patient.[facility] HospitalIn the event this information is protected by the Federal Confidentiality of Alcohol and Drug Abuse Patient Records regulations: The Federal rules restrict any use of the information to criminally investigate or prosecute any alcohol or drug abuse patient.[facility] HospitalIn the event this information is protected by the Federal Confidentiality of Alcohol and Drug Abuse Patient Records regulations: The Federal rules restrict any use of the information to criminally investigate or prosecute any alcohol or drug abuse patient.[facility] HospitalIn the event this information is protected by the Federal Confidentiality of Alcohol and Drug Abuse Patient Records regulations: The Federal rules restrict any use of the information to criminally investigate or prosecute any alcohol or drug abuse patient.[facility] HospitalIn the event this information is protected by the Federal Confidentiality of Alcohol and Drug Abuse Patient Records regulations: The Federal rules restrict any use of the information to criminally investigate or prosecute any alcohol or drug abuse patient.[facility] HospitalIn the event this information is protected by the Federal Confidentiality of Alcohol and Drug Abuse Patient Records regulations: The Federal rules restrict any use of the information to criminally investigate or prosecute any alcohol or drug abuse patient.[facility] HospitalIn the event this information is protected by the Federal Confidentiality of Alcohol and Drug Abuse Patient Records regulations: The Federal rules restrict any use of the information to criminally investigate or prosecute any alcohol or drug abuse patient.[facility] HospitalIn the event this information is protected by the Federal Confidentiality of Alcohol and Drug Abuse Patient Records regulations: The Federal rules restrict any use of the information to criminally investigate or prosecute any alcohol or drug abuse patient.[facility] HospitalIn the event this information is protected by the Federal Confidentiality of Alcohol and Drug Abuse Patient Records regulations: The Federal rules restrict any use of the information to criminally investigate or prosecute any alcohol or drug abuse patient.[facility] HospitalIn the event this information is protected by the Federal Confidentiality of Alcohol and Drug Abuse Patient Records regulations: The Federal rules restrict any use of the information to criminally investigate or prosecute any alcohol or drug abuse patient.[facility] HospitalIn the event this information is protected by the Federal Confidentiality of Alcohol and Drug Abuse Patient Records regulations: The Federal rules restrict any use of the information to criminally investigate or prosecute any alcohol or drug abuse patient.[facility] HospitalIn the event this information is protected by the Federal Confidentiality of Alcohol and Drug Abuse Patient Records regulations: The Federal rules restrict any use of the information to criminally investigate or prosecute any alcohol or drug abuse patient.[facility] HospitalIn the event this information is protected by the Federal Confidentiality of Alcohol and Drug Abuse Patient Records regulations: The Federal rules restrict any use of the information to criminally investigate or prosecute any alcohol or drug abuse patient.[facility] HospitalIn the event this information is protected by the Federal Confidentiality of Alcohol and Drug Abuse Patient Records regulations: The Federal rules restrict any use of the information to criminally investigate or prosecute any alcohol or drug abuse patient.[facility] HospitalIn the event this information is protected by the Federal Confidentiality of Alcohol and Drug Abuse Patient Records regulations: The Federal rules restrict any use of the information to criminally investigate or prosecute any alcohol or drug abuse patient.[facility] HospitalIn the event this information is protected by the Federal Confidentiality of Alcohol and Drug Abuse Patient Records regulations: The Federal rules restrict any use of the information to criminally investigate or prosecute any alcohol or drug abuse patient.[facility] HospitalIn the event this information is protected by the Federal Confidentiality of Alcohol and Drug Abuse Patient Records regulations: The Federal rules restrict any use of the information to criminally investigate or prosecute any alcohol or drug abuse patient.[facility] HospitalIn the event this information is protected by the Federal Confidentiality of Alcohol and Drug Abuse Patient Records regulations: The Federal rules restrict any use of the information to criminally investigate or prosecute any alcohol or drug abuse patient.[facility] HospitalIn the event this information is protected by the Federal Confidentiality of Alcohol and Drug Abuse Patient Records regulations: The Federal rules restrict any use of the information to criminally investigate or prosecute any alcohol or drug abuse patient.[facility] HospitalIn the event this information is protected by the Federal Confidentiality of Alcohol and Drug Abuse Patient Records regulations: The Federal rules restrict any use of the information to criminally investigate or prosecute any alcohol or drug abuse patient.[facility] HospitalIn the event this information is protected by the Federal Confidentiality of Alcohol and Drug Abuse Patient Records regulations: The Federal rules restrict any use of the information to criminally investigate or prosecute any alcohol or drug abuse patient.[facility] HospitalIn the event this information is protected by the Federal Confidentiality of Alcohol and Drug Abuse Patient Records regulations: The Federal rules restrict any use of the information to criminally investigate or prosecute any alcohol or drug abuse patient.[facility] HospitalIn the event this information is protected by the Federal Confidentiality of Alcohol and Drug Abuse Patient Records regulations: The Federal rules restrict any use of the information to criminally investigate or prosecute any alcohol or drug abuse patient.[facility] HospitalIn the event this information is protected by the Federal Confidentiality of Alcohol and Drug Abuse Patient Records regulations: The Federal rules restrict any use of the information to criminally investigate or prosecute any alcohol or drug abuse patient.[facility] HospitalIn the event this information is protected by the Federal Confidentiality of Alcohol and Drug Abuse Patient Records regulations: The Federal rules restrict any use of the information to criminally investigate or prosecute any alcohol or drug abuse patient.[facility] HospitalIn the event this information is protected by the Federal Confidentiality of Alcohol and Drug Abuse Patient Records regulations: The Federal rules restrict any use of the information to criminally investigate or prosecute any alcohol or drug abuse patient.[facility] Reason for Visit (unrecogniz ed section and content) Reason Comments Refill Request Reason Comments Rash x 2 days, all over, itching Reason Comments Yearly Exam Reason Comments Results Reason Comments Patient Question Reason Comments Follow Up Reason Comments Orders Reason Onset Date Comments Post Op Post-Op Visit 04/06/2023 Reason Comments Early OB Question Reason Comments First OB Reason Comments US Specialty Diagnoses / Procedures Referred By Sanchez broderick Referred To Contact [facility] Diagnoses with uncertain dates in first trimester Procedures NUCHAL TRANSLUCENCY WHI US NUCHAL TRANSLUCENCY 1ST GESTATION Kelly Gregg APRN.[facility] [address] [place] [address] [facility] [address] [place] [address] Referral ID Status Reason Start Date Expiration Date V isits Requested Visits Authorized [id number] Closed Auto-Generate d Referral 06/08/2024 06/08/2025 1 1 Reason Onset Date Comments Care 07/12/2024 Reason Comments Med Change Request Reason Onset Date Comments Refill Request 08/06/2024 Reason Onset Date Comments Care 08/10/2024 Reason Onset Date Comments Refill Request 08/24/2024 Reason Onset Date Comments Care 09/07/2024 Specialty Diagnoses / Procedures Referred By Contac t Referred To Contact [facility] Diagnoses 12 weeks gestation of Encounter for supervision of other normal in first trimester Procedures OBSTETRIC ULTRASOUND WHI US PREG UTERUS AFTER 1ST TRIMEST GESTATION Kelly Gregg APRN.[facility] [address] [place] [address] Phone: tel: fax:[phone] [address] Referral ID Status Reason Start Date Expiration Date V isits Requested Visits Authorized [id number] Closed Auto-Generate d Referral 07/12/2024 07/12/2025 1 1 Reason Onset Date Comments Care 10/05/2024 Specialty Diagnoses / Procedures Referred By Contac t Referred To Contact [facility] Diagnoses Marginal placenta previa (HCC) Procedures OBSTETRIC ULTRASOUND WHI US PREG UTERUS AFTER 1ST TRIMEST GESTATION Amanda Tavera MD [address] [place] [address] Phone: tel: fax:[phone] [address] Referral ID Status Reason Start Date Expiration Date V isits Requested Visits Authorized [id number] Closed Auto-Generate d Referral 09/07/2024 09/07/2025 1 1 Reason Onset Date Comments Care 11/29/2024 Reason Onset Date Comments Refill Request 12/18/2024 Reason Onset Date Comments Care 12/24/2024 Reason Onset Date Comments Care 01/02/2025 Reason Comments FMLA Paperwork Reason Onset Date Comments Population Health Navigation Outreach 01/07/2025 to PCP/OB Reason Onset Date Comments Care 01/11/2025 Reason Onset Date Comments Care 01/18/2025 Reason Onset Date Comments Care 01/24/2025 Care Teams (unrecognized sec tion and content) Team Status: Active Member Role Status Dates No Primary Care Physician Primary Care Provider Active Team Status: Inactive Member Role Status Dates Dr. Med Quijano MD Emergency Provider Active No Primary Care Physician Primary Care Provider Active Dallas Jenkins Attending Provider Active Team Status: Active Member Role Status Dates Dr. Med Quijano MD Emergency Provider Active No Primary Care Physician Primary Care Provider Active Dallas Jenkins Attending Provider Active Goals (unrecognized section and content) Goals may be documented in a n alternate sectionGoals may be documented in an alternate section INFORMATION SOURCE (unrecogn ized section and content) DATE CREATED AUTHOR 05/08/2023 [facility] DATE CREATED AUTHOR AUTHOR'S ORGANIZ ATION 06/18/2023 [facility] ([place]) DATE CREATED AUTHOR AUTHOR'S ORGANIZ ATION 01/26/2025 [facility] FOR RECORDS PERTAINING TO PATIENTS WHO ARE OR HAVE BEEN ENROLLED IN A CHEMICAL DEPENDENCY/SUBSTANCEABUSE PROGRAM, SOME INFORMATION MAY BE OMITTED. This clinical summary was aggregated from multiple sources. Caution should be exercised in using it in the provision of clinical care. This summary normalizes information from multiple sources, and as a consequence, information in this document may materially change the coding, format and clinical context of patient data. In addition, data may be omitted in some cases. CLINICAL DECISIONS SHOULD BE BASED ON THE PRIMARY CLINICAL RECORDS. [facility] [employer] provides no warranty or guarantee of the accuracy or completeness of information in this document.
--- OUTSIDE RECORDS SUMMARY | 2025-01-27 12:00 | XMS RPT_ITS | CCD ---
Author Organization [facility] Care Team Providers Care Communications Manager Name Role Phone Unavailable Primary Care Provider Unavailabl e ALCON MARTINEZ Attending Unavailable ACLON MARTINEZ Admitting Unavailable DEMI FOWLER Attending Unavailable DEMI FOWLER Admitting Unavailable MAST MIMEOGRAPHER-ADMINISTRATIVE ASSISTANT DATA ENTRYOMAR Attending Unavailabl e MAST MIMEOGRAPHER-ADMINISTRATIVE ASSISTANT DATA ENTRY, OMAR Primary Care Unavailabl e Unavailable Primary [...] mg tablet Indications: 16 weeks gestation of ([facility]) , Nausea and vomiting in ([facility]) Take 1 tablet by mouth every 8 [...] daily for 3 days with food. 25-IRON EED-KUINK-RNO ORAL (20 sources) 25-IRON [id number] ORAL Take by mouth. 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 - 25-IRON DET-SDKSL-OGM ORAL Take by mouth. Problem List As [...] Status:Closed by SUMIT HAMLIN on 01/24/25 Normal [facility] URINE OB DIP B/Oon 5 Glucose Ql (U) Negative Neg mg/dL [facility] Interpretation and review of laboratory results Normal [facility] Protein.monoclonal (U) [Mass/Vol] Negative Neg mg/dL [facility] URINE OB DIP B/Oon 5 Glucose Ql (U) Negative Neg mg/dL [facility] Interpretation and review of laboratory results Normal [facility] Protein.monoclonal (U) [Mass/Vol] Negative Neg mg/dL [facility] URINE OB DIP B/Oon Glucose Ql (U) Negative Neg mg/dL [facility] Interpretation and review of laboratory results Normal [facility] Protein.monoclonal (U) [Mass/Vol] Negative Neg mg/dL [facility] CNPNon 12-28-2024 CNPN Telephone (OBGYWM) ---- CHARLINE KIRKPATRICK ([id number]) 1995 F T Date Time Provider Department 12/28/24 SANGEETA EDWARDS During your visit today, we recorded the following information about you: Charles Nava MA 12/28/2024 11:33 AM Signed Received [facility] paperwork. Awaiting patients response regarding length of leave. SHANTAL Ogden Morgan, MA 01/03/2025 9:06 AM Signed [facility] paperwork completed and faxed back to number provided on forms. Patient notified. Charles Nava MA Allergies As of Date: 12/28/2024 (No Known Allergies) Date Reviewed: 12/24/2024 Reviewed by: Sangeeta Edwards MD - Fully Assessed Reason for Visit: [facility] Paperwork [[id number]] Prescriptions as of 01/03/2025 - ondansetron (ZOFRAN) 4 mg tablet Take 1 tablet by mouth every 8 hours as needed for nausea/vomiting. - famotidine (PEPCID ORAL) Take by mouth. - aspirin, enteric coated (ECOTRIN LOW STRENGTH) 81 mg EC tablet Take 1 tablet by mouth once daily. - 25-IRON KPB-JMZUV-IUV ORAL Take by mouth. Problem List As [...] Status:Closed by CHARLES NAVA on 01/03/25 Normal [facility] ROUTINE, GROUP B ST REPTOCOCCUS BY PCRon 12-24-2024 ROUTINE, GROUP B STREPTOCOCCUS BY PCR Detected Abnormal [facility] Comment on above: Performed By: #### L [id number] #### [facility] CLIA [id number] [address] [place] [address] [place] URINE OB DIP B/Oon Glucose Ql (U) Negative Neg mg/dL [facility] Protein.monoclonal (U) [Mass/Vol] Negative Neg mg/dL [facility] Examination level ultrasound on 12-05-2024 [facility] Examination level ultrasound on 12-04-2024 Radiology Study observation (narrative) [facility] CBC W Auto Differential pane l (Bld)on 10-31-2024 Basophils (Bld) [#/Vol] 10*3/uL Normal <0.11 [facility] Comment on above: Order Comment: Speci men Type: BLOOD SPECIMEN Ordering Facility: [facility] Address: [address] [place] [address] Performed By: #### T SPN #### [facility] CLIA [id number] [address] [place] [address] [place] Basophils/100 WBC (Bld) 0.1 % Normal [facility] Comment on above: Order Comment: Speci men Type: BLOOD SPECIMEN Ordering Facility: [facility] Address: [address] [place] [address] Performed By: #### T SPN #### [facility] CLIA [id number] [address] [place] [address] [place] Differential cell count method Nom (Bld) Auto Normal [facility] Comment on above: Order Comment: Speci men Type: BLOOD SPECIMEN Ordering Facility: [facility] Address: [address] [place] [address] Performed By: #### T SPN #### [facility] CLIA [id number] [address] [place] [address] [place] Eosinophils (Bld) [#/Vol] 0.09 10*3/uL Normal <0.46 [facility] Comment on above: Order Comment: Speci men Type: BLOOD SPECIMEN Ordering Facility: [facility] Address: [address] [place] [address] Performed By: #### T SPN #### [facility] CLIA [id number] [address] [place] [address] [place] Eosinophils/100 WBC (Bld) 0.8 % Normal [facility] Comment on above: Order Comment: Speci men Type: BLOOD SPECIMEN Ordering Facility: [facility] Address: [address] [place] [address] Performed By: #### T SPN #### [facility] CLIA [id number] [address] [place] [address] [place] Erythrocyte distribution width (RBC) [Ratio] 12.9 % Normal 11.5-15.0 [facility] Comment on above: Order Comment: Speci men Type: BLOOD SPECIMEN Ordering Facility: [facility] Address: [address] [place] [address] Performed By: #### T SPN #### [facility] CLIA [id number] [address] [place] [address] [place] Hematocrit (Bld) [Volume fraction] 33.3 % Low 36.0-46.0 [facility] Comment on above: Order Comment: Speci men Type: BLOOD SPECIMEN Ordering Facility: [facility] Address: [address] [place] [address] Performed By: #### T SPN #### [facility] CLIA [id number] [address] [place] [address] [place] Hemoglobin (Bld) [Mass/Vol] 11.6 g/dL Normal 11.5-15.5 [facility] Comment on above: Order Comment: Speci men Type: BLOOD SPECIMEN Ordering Facility: [facility] Address: [address] [place] [address] Performed By: #### T SPN #### [facility] CLIA [id number] [address] [place] [address] [place] Immature granulocytes (Bld) [#/Vol] 0.05 10*3/uL Normal <0.10 [facility] Comment on above: Order Comment: Speci men Type: BLOOD SPECIMEN Ordering Facility: [facility] Address: [address] [place] [address] Performed By: #### T SPN #### [facility] CLIA [id number] [address] [place] [address] [place] Immature granulocytes/100 WBC (Bld) 0.4 % Normal [facility] Comment on above: Order Comment: Speci men Type: BLOOD SPECIMEN Ordering Facility: [facility] Address: [address] [place] [address] Performed By: #### T SPN #### [facility] CLIA [id number] [address] [place] [address] [place] Lymphocytes (Bld) [#/Vol] 2.15 10*3/uL Normal 1.00-4.00 [facility] Comment on above: Order Comment: Speci men Type: BLOOD SPECIMEN Ordering Facility: [facility] Address: [address] [place], [place] [address] Performed By: #### T SPN #### [facility] CLIA [id number] [address] [place] [address] [place] Lymphocytes/100 WBC (Bld) 18.5 % Normal [facility] Comment on above: Order Comment: Speci men Type: BLOOD SPECIMEN Ordering Facility: [facility] Address: [address] [place] [address] Performed By: #### T SPN #### [facility] CLIA [id number] [address] [place] [address] [place] MCH (RBC) [Entitic mass] 31.3 pg Normal 26.0-34.0 [facility] Comment on above: Order Comment: Speci men Type: BLOOD SPECIMEN Ordering Facility: [facility] Address: [address] [place] [address] Performed By: #### T SPN #### [facility] CLIA [id number] [address] [place] [address] [place] MCHC (RBC) [Mass/Vol] 34.8 g/dL Normal 30.5-36.0 [facility] Comment on above: Order Comment: Speci men Type: BLOOD SPECIMEN Ordering Facility: [facility] Address: [address] [place] [address] Performed By: #### T SPN #### [facility] CLIA [id number] [address] [place] [address] [place] MCV (RBC) [Entitic vol] 89.8 fL Normal 80.0-100.0 [facility] Comment on above: Order Comment: Speci men Type: BLOOD SPECIMEN Ordering Facility: [facility] Address: [address] [place] [address] Performed By: #### T SPN #### [facility] CLIA [id number] [address] [place] [address] [place] Monocytes (Bld) [#/Vol] 0.92 10*3/uL High <0.87 [facility] Comment on above: Order Comment: Speci men Type: BLOOD SPECIMEN Ordering Facility: [facility] Address: [address] [place] [address] Performed By: #### T SPN #### [facility] CLIA [id number] [address] [place] [address] [place] Monocytes/100 WBC (Bld) 7.9 % Normal [facility] Comment on above: Order Comment: Speci men Type: BLOOD SPECIMEN Ordering Facility: [facility] Address: [address] [place] [address] Performed By: #### T SPN #### [facility] CLIA [id number] [address] [place] [address] [place] Neutrophils (Bld) [#/Vol] 8.38 10*3/uL High 1.45-7.50 [facility] Comment on above: Order Comment: Speci men Type: BLOOD SPECIMEN Ordering Facility: [facility] Address: [address] [place] [address] Performed By: #### T SPN #### [facility] CLIA [id number] [address] [place] [address] [place] Neutrophils/100 WBC (Bld) 72.3 % Normal [facility] Comment on above: Order Comment: Speci men Type: BLOOD SPECIMEN Ordering Facility: [facility] Address: [address] [place] [address] Performed By: #### T SPN #### [facility] CLIA [id number] [address] [place] [address] [place] Nucleated RBC (Bld) [#/Vol] 10*3/uL Normal <0.01 [facility] Comment on above: Order Comment: Speci men Type: BLOOD SPECIMEN Ordering Facility: [facility] Address: [address] [place] [address] Performed By: #### T SPN #### [facility] CLIA [id number] [address] [place] [address] [place] Nucleated RBC/100 WBC (Bld) [Ratio] 0.0 /100 WBC Normal [facility] Comment on above: Order Comment: Speci men Type: BLOOD SPECIMEN Ordering Facility: [facility] Address: [address] [place] [address] Performed By: #### T SPN #### [facility] CLIA [id number] [address] [place] [address] [place] Platelet mean volume (Bld) [Entitic vol] 9.3 fL Normal 9.0-12.7 [facility] Comment on above: Order Comment: Speci men Type: BLOOD SPECIMEN Ordering Facility: [facility] Address: [address] [place] [address] Performed By: #### T SPN #### [facility] CLIA [id number] [address] [place] [address] [place] Platelets (Bld) [#/Vol] 260 10*3/uL Normal 150-400 [facility] Comment on above: Order Comment: Speci men Type: BLOOD SPECIMEN Ordering Facility: [facility] Address: [address] [place] [address] Performed By: #### T SPN #### [facility] CLIA [id number] [address] [place] [address] [place] RBC (Bld) [#/Vol] 3.71 10*6/uL Low 3.90-5.20 [facility] Comment on above: Order Comment: Speci men Type: BLOOD SPECIMEN Ordering Facility: [facility] Address: [address] [place] [address] Performed By: #### T SPN #### [facility] CLIA [id number] [address] [place] [address] [place] WBC (Bld) [#/Vol] 11.60 10*3/uL High 3.70-11.00 [facility] Comment on above: Order Comment: Manfred jefferson Type: BLOOD SPECIMEN Ordering Facility: [facility] Address: [address] [place] [address] Performed By: #### T SPN #### [facility] CLIA [id number] [address] [place] [address] [place] Examination level ultrasound on 10-31-2024 [facility] Radiology Study observation (narrative) [facility] GESTATIONAL GLUCOSE SCREEN, 1-HOUR, 50 GRAM, NON-FASTINGon 10-31-2024 Glucose [Mass/Vol] 93 mg/dL Normal 74-134 [facility] Comment on above: Order Comment: Manfred jefferson Type: BLOOD SPECIMEN Ordering Facility: [facility] Address: [address] [place] [address] Result Comment: [facility] Congress of Obstetricians and Gynecologists (Christel/Amber) guidelines state a gestational diabetes mellitus positive screen is made, in women not previously diagnosed with overt diabetes, when the 1 hr plasma glucose level is equal to or above 140 mg/dL. [facility] Cooler Conveyor Loader and [facility] recommends a 135 mg/dL cutoff. Performed By: #### T SPN #### [facility] CLIA [id number] [address] [place] [address] [place] Reagin and Treponema pallidu m IgG and IgM [Interp]on 10-31-2024 T. pallidum IgG+IgM IA Ql (S) Non-Reactive Normal Nonreactive [facility] Comment on above: Order Comment: Manfred jefferson Type: FLUID SPECIMEN Ordering Facility: [facility] Address: [address] [place] [address] Performed By: #### L [id number] #### [facility] CLIA [id number] [address] [place] [address] [place] Reagin+T pallidum IgG+IgM Se rPl-Impon 10-31-2024 Reagin and Treponema pallidum IgG and IgM [Interp] Cannot exclude recent Treponemal infection if specimen collected within 7-10 days after appearance of suspect lesions or 2-3 weeks after an exposure. Clinical correlation is required. Normal [facility] Comment on above: Order Comment: Speci men Type: FLUID SPECIMEN Ordering Facility: [facility] Address: [address] [place] [address] Performed By: #### L [id number] #### [facility] CLIA [id number] [place] [address] [id number] [place] [address] [place] Examination level ultrasound [...] 14 oz EFW by: [employer]lock (HC-AC-FL) Extended Liner Roll Changer 6.4 mm CM 3.9 mm 13% Nicolaides [...] normal LVOT view: normal 3-vessel view: normal 5-yltufl-uaszktq view: normal Heart / Thorax Situs: situs [...] Read By: Shakila Cr M.D. MATERNAL MEDICINE [facility] Radiology Study observation (narrative) [facility] CBC W Auto Differential pane l (Bld)on 07-12-2024 Basophils (Bld) [#/Vol] 10*3/uL Normal <0.11 [facility] Comment on above: Order Comment: Speci men Type: FLUID SPECIMEN Ordering Facility: [facility] Address: [address] [place] [address] Performed By: #### L [id number] #### [facility] CLIA [id number] [address] [place] [address] [place] Basophils/100 WBC (Bld) 0.1 % Normal [facility] Comment on above: Order Comment: Speci men Type: FLUID SPECIMEN Ordering Facility: [facility] Address: [address] [place] [address] Performed By: #### L [id number] #### [facility] CLIA [id number] [address] [place] [address] [place] Differential cell count method Nom (Bld) Auto Normal [facility] Comment on above: Order Comment: Speci men Type: FLUID SPECIMEN Ordering Facility: [facility] Address: [address] [place] [address] Performed By: #### L [id number] #### [facility] CLIA [id number] [address] [place] [address] [place] Eosinophils (Bld) [#/Vol] 0.08 10*3/uL Normal <0.46 [facility] Comment on above: Order Comment: Speci men Type: FLUID SPECIMEN Ordering Facility: [facility] Address: [address] [place] [address] Performed By: #### L [id number] #### [facility] CLIA [id number] [address] [place] [address] [place] Eosinophils/100 WBC (Bld) 0.5 % Normal [facility] Comment on above: Order Comment: Speci men Type: FLUID SPECIMEN Ordering Facility: [facility] Address: [address] [place] [address] Performed By: #### L [id number] #### [facility] CLIA [id number] [address] [place] [address] [place] Erythrocyte distribution width (RBC) [Ratio] 12.5 % Normal 11.5-15.0 [facility] Comment on above: Order Comment: Speci men Type: FLUID SPECIMEN Ordering Facility: [facility] Address: [address] [place] [address] Performed By: #### L [id number] #### [facility] CLIA [id number] [address] [place] [address] [place] Hematocrit (Bld) [Volume fraction] 38.2 % Normal 36.0-46.0 [facility] Comment on above: Order Comment: Speci men Type: FLUID SPECIMEN Ordering Facility: [facility] Address: [address] [place] [address] Performed By: #### L [id number] #### [facility] CLIA [id number] [address] [place] [address] [place] Hemoglobin (Bld) [Mass/Vol] 13.1 g/dL Normal 11.5-15.5 [facility] Comment on above: Order Comment: Speci men Type: FLUID SPECIMEN Ordering Facility: [facility] Address: [address] [place] [address] Performed By: #### L [id number] #### [facility] CLIA [id number] [address] [place] [address] [place] Immature granulocytes (Bld) [#/Vol] 0.08 10*3/uL Normal <0.10 [facility] Comment on above: Order Comment: Speci men Type: FLUID SPECIMEN Ordering Facility: [facility] Address: [address] [place] [address] Performed By: #### L [id number] #### [facility] CLIA [id number] [address] [place] [address] [place] Immature granulocytes/100 WBC (Bld) 0.5 % Normal [facility] Comment on above: Order Comment: Speci men Type: FLUID SPECIMEN Ordering Facility: [facility] Address: [address] [place] [address] Performed By: #### L [id number] #### [facility] CLIA [id number] [address] [place] [address] [place] Lymphocytes (Bld) [#/Vol] 3.13 10*3/uL Normal 1.00-4.00 [facility] Comment on above: Order Comment: Speci men Type: FLUID SPECIMEN Ordering Facility: [facility] Address: [address] [place] [address] Performed By: #### L [id number] #### [facility] CLIA [id number] [address] [place] [address] [place] Lymphocytes/100 WBC (Bld) 21.3 % Normal [facility] Comment on above: Order Comment: Speci men Type: FLUID SPECIMEN Ordering Facility: [facility] Address: [address] [place] [address] Performed By: #### L [id number] #### [facility] CLIA [id number] [address] [place] [address] [place] MCH (RBC) [Entitic mass] 30.7 pg Normal 26.0-34.0 [facility] Comment on above: Order Comment: Speci men Type: FLUID SPECIMEN Ordering Facility: [facility] Address: [address] [place] [address] Performed By: #### L [id number] #### [facility] CLIA [id number] [address] [place] [address] [place] MCHC (RBC) [Mass/Vol] 34.3 g/dL Normal 30.5-36.0 [facility] Comment on above: Order Comment: Speci men Type: FLUID SPECIMEN Ordering Facility: [facility] Address: [address] [place] [address] Performed By: #### L [id number] #### [facility] CLIA [id number] [address] [place] [address] [place] MCV (RBC) [Entitic vol] 89.5 fL Normal 80.0-100.0 [facility] Comment on above: Order Comment: Speci men Type: FLUID SPECIMEN Ordering Facility: [facility] Address: [address] [place] [address] Performed By: #### L [id number] #### [facility] CLIA [id number] [address] [place] [address] [place] Monocytes (Bld) [#/Vol] 0.84 10*3/uL Normal <0.87 [facility] Comment on above: Order Comment: Speci men Type: FLUID SPECIMEN Ordering Facility: [facility] Address: [address] [place] [address] Performed By: #### L [id number] #### [facility] CLIA [id number] [address] [place] [address] [place] Monocytes/100 WBC (Bld) 5.7 % Normal [facility] Comment on above: Order Comment: Speci men Type: FLUID SPECIMEN Ordering Facility: [facility] Address: [address] [place] [address] Performed By: #### L [id number] #### [facility] CLIA [id number] [address] [place] [address] [place] Neutrophils (Bld) [#/Vol] 10.56 10*3/uL High 1.45-7.50 [facility] Comment on above: Order Comment: Speci men Type: FLUID SPECIMEN Ordering Facility: [facility] Address: [address] [place] [address] Performed By: #### L [id number] #### [facility] CLIA [id number] [address] [place] [address] [place] Neutrophils/100 WBC (Bld) 71.9 % Normal [facility] Comment on above: Order Comment: Speci men Type: FLUID SPECIMEN Ordering Facility: [facility] Address: [address] [place] [address] Performed By: #### L [id number] #### [facility] CLIA [id number] [address] [place] [address] [place] Nucleated RBC (Bld) [#/Vol] 10*3/uL Normal <0.01 [facility] Comment on above: Order Comment: Speci men Type: FLUID SPECIMEN Ordering Facility: [facility] Address: [address] [place] [address] Performed By: #### L [id number] #### [facility] CLIA [id number] [address] [place] [address] [place] Nucleated RBC/100 WBC (Bld) [Ratio] 0.0 /100 WBC Normal [facility] Comment on above: Order Comment: Speci men Type: FLUID SPECIMEN Ordering Facility: [facility] Address: [address] [place] [address] Performed By: #### L [id number] #### [facility] CLIA [id number] [address] [place] [address] [place] Platelet mean volume (Bld) [Entitic vol] 9.2 fL Normal 9.0-12.7 [facility] Comment on above: Order Comment: Speci men Type: FLUID SPECIMEN Ordering Facility: [facility] Address: [address] [place] [address] Performed By: #### L [id number] #### [facility] CLIA [id number] [address] [place] [address] [place] Platelets (Bld) [#/Vol] 374 10*3/uL Normal 150-400 [facility] Comment on above: Order Comment: Speci men Type: FLUID SPECIMEN Ordering Facility: [facility] Address: [address] [place] [address] Performed By: #### L [id number] #### [facility] CLIA [id number] [address] [place] [address] [place] RBC (Bld) [#/Vol] 4.27 10*6/uL Normal 3.90-5.20 [facility] Comment on above: Order Comment: Speci men Type: FLUID SPECIMEN Ordering Facility: [facility] Address: [address] [place] [address] Performed By: #### L [id number] #### [facility] CLIA [id number] [address] [place] [address] [place] WBC (Bld) [#/Vol] 14.71 10*3/uL High 3.70-11.00 [facility] Comment on above: Order Comment: Speci men Type: FLUID SPECIMEN Ordering Facility: [facility] Address: [address] [place] [address] Performed By: #### L [id number] #### [facility] CLIA [id number] [address] [place] [address] [place] HBV surface Ag Ser Qlon 06-24 HBV surface Ag Ql (S) Negative Normal Negative [facility] Comment on above: Order Comment: Speci men Type: BLOOD SPECIMEN Ordering Facility: [facility] Address: [address] [place] [address] Performed By: #### T SPN #### [facility] CLIA [id number] [address] [place] [address] [place] HCV Ab Ser Qlon 07-12-2024 HCV Ab Ql (S) Negative Normal Negative [facility] Comment on above: Order Comment: Speci men Type: FLUID SPECIMEN Ordering Facility: [facility] Address: [address] [place] [address] Result Comment: The result suggests no evidence of active infection with Hepatitis C virus. Should recent infection be suspected, repeat testing may be considered 4-6 weeks after this draw. Performed By: #### L [id number] #### [facility] CLIA [id number] [address] [place] [address] [place] HIV 1+2 Ab IA Qlon HIV 1 and 2 Ab IA.rapid Nom (S/P/Bld) Normal [facility] Comment on above: Order Comment: Speci men Type: BLOOD SPECIMEN Ordering Facility: [facility] Address: [address] [place] [address] Result Comment: Test not indicated. Performed By: #### T SPN #### [facility] CLIA [id number] [address] [place] [address] [place] HIV 1+2 Ab+HIV1 p24 Ag IA Ql Non-Reactive Normal Nonreactive [facility] Comment on above: Order Comment: Speci men Type: BLOOD SPECIMEN Ordering Facility: [facility] Address: [address] [place] [address] Performed By: #### T SPN #### [facility] CLIA [id number] [address] [place] [address] [place] HIV immunoassay testing algorithm interpretation (S/P/Bld) [Interp] Normal [facility] Comment on above: Order Comment: Manfred jefferson Type: BLOOD SPECIMEN Ordering Facility: [facility] Address: [address] [place] [address] Result Comment: No e vidence of HIV-1 or HIV-2 infection. Should recent infection be suspected, repeat testing may be considered 2-3 weeks after this draw. [place] Rev. Code 3701.243(E): This information has been [...] T SPN #### [facility] [id number] [address] [place] [address] OF [facility] HbA1c (Bld)on 07-12-2024 Average glucose Estimated from glycated hemoglobin (Bld) [Mass/Vol] 94 mg/dL Normal [facility] Comment on above: Order Comment: Manfred jefferson Type: BLOOD SPECIMEN Ordering Facility: [facility] Address: [address] [place] [address] Result Comment: eAG: (Estimated average glucose) is a calculated value from HgbA1c and is consumer sales representative of the average blood glucose level in the last 2-3 month period. Performed By: #### T SPN #### [facility] [place] [id number] [address] [place] [address] [place] HbA1c (Bld) [Mass fraction] 4.9 % Normal 4.3-5.6 [facility] Comment on above: Order Comment: Manfred jefferson Type: BLOOD SPECIMEN Ordering Facility: [facility] Address: [address] [place] [address] Result Comment: Amer ican Diabetes Association guidelines indicate that patients with HgbA1c in the range 5.7-6.4% are at increased risk for development of diabetes, and intervention by lifestyle modification may be beneficial. HgbA1c greater or equal to 6.5% is considered diagnostic of diabetes. Performed By: #### T SPN #### [facility] CLIA [id number] [address] [place] [address] [place] [id number] PLUSon 07-12-2024 Cell-free DNA./Cell-free DNA.total Dosage of chromosome-specific cfDNA (cfDNA) [Molar fraction] 17% Normal [facility] Comment on above: Order Comment: Speci men Type: FLUID SPECIMEN Ordering Facility: [facility] Address: [address] [place] [address] Performed By: #### L [id number] #### [facility] CLIA [id number] [address] [place] [address] [place] Chr 13+18+21+X+Y aneuploidy Dosage of chromosome-specific cfDNA Ql (cfDNA) Negative Normal [facility] Comment on above: Order Comment: Speci men Type: FLUID SPECIMEN Ordering Facility: [facility] Address: [address] [place] [address] Performed By: #### L [id number] #### [facility] CLIA [id number] [address] [place] [address] [place] Chr 21 trisomy Dosage of chromosome-specific cfDNA Ql (cfDNA) Negative Normal [facility] Comment on above: Order Comment: Speci men Type: FLUID SPECIMEN Ordering Facility: [facility] Address: [address] [place] [address] Performed By: #### L [id number] #### [facility] CLIA [id number] [address] [place] [address] [place] Chr X and Y aneuploidy risk Sequencing Ql (cfDNA) [Interp] Not detected Normal [facility] Comment on above: Order Comment: Speci [facility] Type: FLUID SPECIMEN Ordering Facility: [facility] Address: [address] [place] [address] Result Comment: Not Detected Not Detected Performed By: #### L [id number] #### [facility] CLIA [id number] [address] [place] [address] [place] Citation Conrado (Reference lab test) Comment Normal [facility] Comment on above: Order Comment: Speci men Type: FLUID SPECIMEN Ordering Facility: [facility] Address: [address] [place] [address] Result Comment: 1. P chet BOWLES, et al. Gloria Med. 2012;14(3):296-305. 2. Raquel BRIZUELA et al. Prenat Diag. 2013;33(6):591-597. 3. Shahab C, et al. Clin Chem. 2015 Apr;61(4):608-616. 4. Yasmin BOWLES, et al. Gloria Med. 2011;13(11):913-920. 5. ACOG/SMFM Practice Bulletin No. 226, Apr 2020. Performed By: #### L [id number] #### [facility] CLIA [id number] [address] [place] [address] [place] Gestational age Estimated from conception date Borges Normal [facility] Comment on above: Order Comment: Speci men Type: FLUID SPECIMEN Ordering Facility: [facility] Address: [address] [place] [address] Performed By: #### L [id number] #### [facility] CLIA [id number] [address] [place] [address] [place] GESTATIONALAGE AGE > OR = 9W Yes Normal [facility] Comment on above: Order Comment: Speci men Type: FLUID SPECIMEN Ordering Facility: [facility] Address: [address] [place] [address] Performed By: #### L [id number] #### [facility] CLIA [id number] [address] [place] [address] [place] Laboratory comment Conrado (Report) Comment Normal [facility] Comment on above: Order Comment: Speci men Type: FLUID SPECIMEN Ordering Facility: [facility] Address: [address] [place] [address] Result Comment: The MaterniT(R) 21 PLUS laboratory-developed test (LDT) analyzes circulating cell-free DNA from a maternal blood sample. This test is used for screening purposes and not diagnostic. Clinical correlation is recommended. Validation data on twin pregnancies is limited and the ability of this test to detect aneuploidy in higher multiple gestations has not yet been validated. Performed By: #### L [id number] #### [facility] CLIA [id number] [address] [place] [address] director of emergency nursing name Nom (Provider) Comment Normal [facility] Comment on above: Order Comment: Speci men Type: FLUID SPECIMEN Ordering Facility: [facility] Address: [address] [place] [address] Result Comment: This specimen showed an expected representation of chromosome 21, 18 and 13 material. Clinical correlation is suggested. Comment Antwan Hester MD, PhD, Director, [employer] Performed By: #### L [id number] #### [facility] CLIA [id number] [address] [place] [address] LIMITATIONS OF THE TEST Comment Normal [facility] Comment on above: Order Comment: Speci ronny Type: FLUID SPECIMEN Ordering Facility: [facility] Address: [address] [place] [address] Result Comment: Pamela teague the results of [...] Clexane(R) and Fragmin(R)). Performed By: #### L [id number] #### [facility] CLIA [id number] [address] [place] [address] [place] Monosomy X risk Dosage of chromosome-specific cfDNA Ql (Plasma cell-free+WBC DNA) [Interp] Not detected Normal [facility] Comment on above: Order Comment: Speci men Type: FLUID SPECIMEN Ordering Facility: [facility] Address: [address] [place] [address] Performed By: #### L [id number] #### [facility] CLIA [id number] [address] [place] [address] [place] NEGATIVE PREDICTIVE VALUE Note Normal [facility] Comment on above: Order Comment: Speci men Type: FLUID SPECIMEN Ordering Facility: [facility] Address: [address] [place] [address] Result Comment: The Negative Predictive Value (NPV) for trisomy 21, 18, and 13 is greater than 99%. The NPV for SCA and ESS cannot be calculated as SCA and ESS are only reported when an abnormality is detected. Performed By: #### L [id number] #### [facility] CLIA [id number] [address] [place] [address] [place] NOTE Comment Normal [facility] Comment on above: Order Comment: Speccharles jefferson Type: FLUID SPECIMEN Ordering Facility: [facility] Address: [address] [place] [address] Result Comment: See Notes [employer] is a subsidiary of [employer], using the brand [employer]. This test was developed and its performance characteristics determined by [employer]. It has not been cleared or approved by the Food and Drug Administration. This laboratory is certified under the Clinical Laboratory Improvement Amendments (CLIA) as qualified to perform high complexity clinical laboratory testing and accredited by the [employer] (CAP). If there is future clinical need for adding MaterniT GENOME testing, this specimen will be available until term. [facility] samples will not be retained beyond 60 days. [facility] patients will have to send a new sample for re-sequencing ([facility] Test Code: [id number]). Performed By: #### L [id number] #### [facility] CLIA [id number] [address] [place] [address] [place] PERFORMANCE CHARACTERISTICS Note Normal [facility] Comment on above: Order Comment: Speccharles jefferson Type: FLUID SPECIMEN Ordering Facility: [facility] Address: [address] [place] [address] Result Comment: ! Sex ! Accuracy: 99.4% [...] ! ! ! * As reported in [facility] database nstd37 [https://www.ncbi.nlm.nih.gov/dbvar/studies/nstd37/ ] # Estimated Sensitivity. [...] Borges gestation only. Performed By: #### L [id number] #### [facility] CLIA [id number] [address] [place] [address] [place] POSITIVE PREDICTIVE VALUE N/A Normal [facility] Comment on above: Order Comment: Speci men Type: FLUID SPECIMEN Ordering Facility: [facility] Address: [address] [place] [address] Performed By: #### L [id number] #### [facility] CLIA [id number] [address] [place] [address] [place] Reference Lab Test Method Comment Normal [facility] Comment on above: Order Comment: Speci men Type: FLUID SPECIMEN Ordering Facility: [facility] Address: [address] [place] [address] Result Comment: See Notes Circulating cell-free DNA [...] 16 and 22. Performed By: #### L [id number] #### [facility] CLIA [id number] [address] [place] [address] [place] Sex Dosage of chromosome-specific cfDNA Nom (cfDNA) Comment Normal [facility] Comment on above: Order Comment: Speci men Type: FLUID SPECIMEN Ordering Facility: [facility] Address: [address] [place] [address] Result Comment: Cons istent with Male Performed By: #### L [id number] #### [facility] CLIA [id number] [address] [place] [address] [place] Test performance information Conrado (Unsp spec) Comment Normal [facility] Comment on above: Order Comment: Manfred jefferson Type: FLUID SPECIMEN Ordering Facility: [facility] Address: [address] [place] [address] Result Comment: The performance characteristics of the MaterniT(R) 21 PLUS laboratory-developed test (LDT) have been determined in a clinical validation study with women at increased risk for chromosomal aneuploidy.[1-4] Performed By: #### L [id number] #### [facility] CLIA [id number] [address] [place] [address] [place] Trisomy 13 risk Dosage of chromosome-specific cfDNA Ql (cfDNA) [Interp] Negative Normal [facility] Comment on above: Order Comment: Manfred jefferson Type: FLUID SPECIMEN Ordering Facility: [facility] Address: [address] [place] [address] Performed By: #### L [id number] #### [facility] CLIA [id number] [address] [place] [address] [place] Trisomy 18 risk Dosage of chromosome-specific cfDNA Ql (Plasma cell-free+WBC DNA) [Interp] Negative Normal [facility] Comment on above: Order Comment: Manfred jefferson Type: FLUID SPECIMEN Ordering Facility: [facility] Address: [address] [place] [address] Performed By: #### L [id number] #### [facility] CLIA [id number] [address] [place] [address] [place] RUBELLA IGG ANTIBODYon 07-12 RUBELLA IGG AB, QUAL Positive Normal Positive [facility] Comment on above: Order Comment: Manfred jefferson Type: BLOOD SPECIMEN Ordering Facility: [facility] Address: [address] [place] [address] Result Comment: The result suggests recent or past exposure to Rubella virus or history of Rubella vaccination. Positive result may also be seen due to presence of passively-transferred antibodies. Please correlate with patient's history. Performed By: #### T SPN #### [facility] CLIA [id number] [address] [place] [address] [place] Reagin and Treponema pallidu m IgG and IgM [Interp]on 07-12-2024 T. pallidum IgG+IgM IA Ql (S) Non-Reactive Normal Nonreactive [facility] Comment on above: Order Comment: Speci men Type: BLOOD SPECIMEN Ordering Facility: [facility] Address: [address] [place] [address] Performed By: #### T SPN #### [facility] CLIA [id number] [address] [place] [address] [place] Reagin+T pallidum IgG+IgM Se rPl-Impon 07-12-2024 Reagin and Treponema pallidum IgG and IgM [Interp] Cannot exclude recent Treponemal infection if specimen collected within 7-10 days after appearance of suspect lesions or 2-3 weeks after an exposure. Clinical correlation is required. Normal [facility] Comment on above: Order Comment: Speci men Type: BLOOD SPECIMEN Ordering Facility: [facility] Address: [address] [place] [address] Performed By: #### T SPN #### [facility] CLIA [id number] [address] [place] [address] [place] TYPE + SCREEN PRENATALon ABO A Normal [facility] Comment on above: Order Comment: Speci men Type: BLOOD SPECIMEN Ordering Facility: [facility] Address: [address] [place] [address] Performed By: #### T SPN #### [facility] CLIA [id number] [address] [place] [address] [place] Rh Nom (Bld) Positive Normal [facility] Comment on above: Order Comment: Speci men Type: BLOOD SPECIMEN Ordering Facility: [facility] Address: [address] [place] [address] Performed By: #### T SPN #### [facility] CLIA [id number] [address] [place] [address] [place] TYPE AND SCREEN EXPIRATION 07/15/2024 23:59 Normal [facility] Comment on above: Order Comment: Speci men Type: BLOOD SPECIMEN Ordering Facility: [facility] Address: [address] [place] [address] Performed By: #### T SPN #### [facility] CLIA [id number] [address] [place] [address] [place] Bacteria Ur Culton 4 Bacteria identified Cx Nom (U) ORGANISM ID: 1 <10,000 CFU/ml Normal urogenital jessenia Normal [facility] Comment on above: Performed By: #### L [id number] #### [facility] CLIA [id number] [address] [place] [address] [place] C. trachomatis+N. gonorrhoea e DNA MATTHEW+probe Ql (Unsp spec)on 06-08-2024 C. trachomatis rRNA MATTHEW+probe Ql (Unsp spec) Negative Normal Negative for Chlamydia trachomatis by amplificaton [facility] Comment on above: Order Comment: Speci men Type: SWAB Ordering Facility: [facility] Address: [address] [place] [address] Performed By: #### 3 6902-5 #### [facility] CLIA [id number] [address] [place] [address] [place] N. gonorrhoeae rRNA MATTHEW+probe Ql (Unsp spec) Negative Normal Negative for Neisseria gonorrhoeae by amplification [facility] Comment on above: Order Comment: Speci men Type: SWAB Ordering Facility: [facility] Address: [address] [place] [address] Performed By: #### 3 6902-5 #### [facility] CLIA [id number] [address] [place], [place] [address] [place] PAP TESTon 06-08-2024 ADEQUACY Satisfactory for interpretation. Normal [facility] Comment on above: Order Comment: Speci men Type: FLUID SPECIMEN Ordering Facility: [facility] Address: [address] [place] [address] Performed By: #### L [id number] #### [facility] CLIA [id number] [address] [place] [address] [place] CASE REPORT Normal [facility] Comment on above: Order Comment: Speci men Type: FLUID SPECIMEN Ordering Facility: [facility] Address: [address] [place] [address] Result Comment: Gyne cologic Cytology Report Case: [id number] Authorizing Provider: Kelly Gregg APRN.CNM Collected: 06/08/2024 10:03 AM Ordering Location: OB/Gynecology Received: 06/08/2024 11:29 AM First Screen: Mariajose Harry, OPAL, ASCP Specimen: Pap Test, ThinPrep, Cervix Performed By: #### L [id number] #### [facility] CLIA [id number] [address] [place] [address] [place] CLINICAL HISTORY, CYTOLOGY, SALES AND MARKETING REPRESENTATIVE Routine Exam Normal [facility] Comment on above: Order Comment: Speci men Type: FLUID SPECIMEN Ordering Facility: [facility] Address: [address] [place] [address] Performed By: #### L [id number] #### [facility] CLIA [id number] [address] [place] [address] [place] FINAL PERFORMING LAB Normal [facility] Comment on above: Order Comment: Speci men Type: FLUID SPECIMEN Ordering Facility: [facility] Address: [address] [place] [address] Result Comment: Tech nical component, inker machine screening performed at [facility], [address] [place], [place] [id number] CLIA# [id number] Diagnostic interpretation performed at [facility], [address] [place] [address] CLIA# [id number] Supplies Packer: Willie Garcia M.D. Performed By: #### L [id number] #### [facility] CLIA [id number] [address] [place] [address] [place] INTERPRETATION, CYTOLOGY, SALES AND MARKETING REPRESENTATIVE Normal [facility] Comment on above: Order Comment: Speci men Type: FLUID SPECIMEN Ordering Facility: [facility] Address: [address] [place] [address] Result Comment: Nega tive for intraepithelial lesion or malignancy. Performed By: #### L [id number] #### [facility] CLIA [id number] [address] [place] [address] [place] LMP 04/15/2024 Normal [facility] Comment on above: Order Comment: Speci men Type: FLUID SPECIMEN Ordering Facility: [facility] Address: [address] [place] [address] Performed By: #### L [id number] #### [facility] CLIA [id number] [address] [place] [address] [place] PAP DISCLAIMER COMMENT The Pap Smear is a screening test for cervical cancer. False negative results occur with all screening tests, emphasizing the need for rescreening at recommended intervals, and clinical correlation. Normal [facility] Comment on above: Order Comment: Speci men Type: FLUID SPECIMEN Ordering Facility: [facility] Address: [address] [place] [address] Performed By: #### L [id number] #### [facility] CLIA [id number] [address] [place] [address] [place] PAP DIAL PRINTER COMMENT This specimen has been analyzed by the ThinPrep Imaging System, an automated imaging and review system, which assists the laboratory in evaluating cells on ThinPrep Pap tests. Following automated imaging, selected barajas from every slide are reviewed by a inker machine. Normal [facility] Comment on above: Order Comment: Speci men Type: FLUID SPECIMEN Ordering Facility: [facility] Address: [address] [place] [address] Performed By: #### L [id number] #### [facility] CLIA [id number] [address] [place] [address] [place] B-HCG SerPl-[place]Cncon 4 [place] [address].0 m[IU]/mL High <5.0 [facility] Comment on above: Order Comment: Speci men Type: FLUID SPECIMEN Ordering Facility: [facility] Address: [address] [place] [address] Result Comment: HAYDEE TITATIVE HCG NORMAL RANGES Weeks of Gestation (Weeks Since LMP) 3 Weeks (5.8-71.2 mIU/mL) 4 Weeks (9.5-750 mIU/mL) 5 Weeks (217-7138 mIU/mL) 6 Weeks (158-42874 mIU/mL) 7 Weeks (3697-838635 mIU/mL) 8 Weeks (07178-483793 mIU/mL) 9 Weeks (85611-312538 mIU/mL) 10 Weeks (74959-595748 mIU/mL) 12 Weeks (38640-698248 mIU/mL) Referenced to [address]th IS of [facility] Performed By: #### L [id number] #### [facility] CLIA [id number] [address] [place] [address] [place] B-HCG SerPl-aCncon 4 HCG.beta subunit Qn 7328.0 m[IU]/mL High <5.0 [facility] Comment on above: Order Comment: Speci men Type: FLUID SPECIMEN Ordering Facility: [facility] Address: [address] [place] [address] Result Comment: HAYDEE TITATIVE HCG NORMAL RANGES Weeks of Gestation (Weeks Since LMP) 3 Weeks (5.8-71.2 mIU/mL) 4 Weeks (9.5-750 mIU/mL) 5 Weeks (217-7138 mIU/mL) 6 Weeks (158-32782 mIU/mL) 7 Weeks (3697-770662 mIU/mL) 8 Weeks (09116-143596 mIU/mL) 9 Weeks (71573-658920 mIU/mL) 10 Weeks (61586-087943 mIU/mL) 12 Weeks (79907-980305 mIU/mL) Referenced to 4th IS [address] [facility] Performed By: #### L [id number] #### [facility] CLIA [id number] [address] [place] [address] STATES OF [facility] CNPNon 05-14-2024 CNPN Telephone (OBGYWM) ---- CHARLINE KIRKPATRICK ([id number]) 1995 F CHT Date Time Provider Department [...] test [Z32.01] Order(s):HCG QUANTITATIVE [SQHCGQT] Order #: [id number] STANDING Problem List As Of Date 05/14/2024 Noted Resolved of unknown anatomic location [O36.80X*03/11/2023 Encounter for monitoring of methotrexate therap*03/17/2023 Encounter Status:Closed by SOWMYA GONZALES on 05/14/24 Normal [facility] .Auto Diffon 06-10-2023 Basophil, Absolute 0.0 10 3/mcL Normal 0.0-0.2 [facility] ([place]) Comment on above: Performed By: #### T SH, VIDH, ADIFF, CBC, ANEU #### [address] [address] Basophils/100 WBC (Bld) 0.4 % Normal 0.0-2.5 [facility] ([place] Comment on above: Performed By: #### T SH, VIDH, ADIFF, CBC, ANEU #### [place] [address] [place], [place] [address] Eosinophil, Absolute 0.1 10 3/mcL [facility]0-0.4 [facility] [place] Comment on above: Performed By: #### T SH, VIDH, ADIFF, CBC, ANEU #### [address] [address] Eosinophils/100 WBC (Bld) 2.0 % Normal 0.0-7.0 [facility] ([place]) Comment on above: Performed By: #### T SH, VIDH, ADIFF, CBC, ANEU #### [address] [address] Lymphocyte, Absolute 2.5 10 3/mcL Normal 0.8-3.9 [facility] [place] Comment on above: Performed By: #### T SH, VIDH, ADIFF, CBC, ANEU #### [address] [address] Lymphocytes/100 WBC (Bld) 41.8 % Normal 10.0-50.0 [facility] ([place] Comment on above: Performed By: #### T SH, VIDH, ADIFF, CBC, ANEU #### [address] [address] Monocyte, Absolute 0.5 10 3/mcL Normal 0.2-1.0 [facility] [facility] [place] Comment on above: Performed By: #### T SH, VIDH, ADIFF, CBC, ANEU #### [address] [address] Monocytes/100 WBC (Bld) 8.6 % Normal 1.7-13.0 [facility] ([place]) Comment on above: Performed By: #### T SH, VIDH, ADIFF, CBC, ANEU #### [address] [address] Neutrophils/100 WBC (Bld) 47.2 % Normal 37.0-80.0 [facility] [place] Comment on above: Performed By: #### T SH, VIDH, ADIFF, CBC, ANEU #### [address] [address] .NEUABSon 06-10-2023 Neutrophil, Absolute 2.9 10 3/mcL Normal 2.9-6.2 [facility] [place] Comment [place]: Performed By: #### T SH, VIDH, ADIFF, CBC, ANEU #### [place] [id number] CBCon 06-10-2023 Erythrocyte distribution width (RBC) [Ratio] 13.4 % Normal 11.5-14.5 [facility] [place] Comment on above: Performed By: #### T SH, VIDH, ADIFF, CBC, ANEU #### [place] [address] Hematocrit (Bld) [Volume fraction] 40.4 % Normal 37.0-47.0 [facility] [place] Comment on above: Performed By: #### T SH, VIDH, ADIFF, CBC, ANEU #### [place] [address] Hgb 13.6 G/dL Normal 12.0-16.0 [facility] [place] Comment on above: Performed By: #### T SH, VIDH, ADIFF, CBC, ANEU #### [place] [address] MCH (RBC) [Entitic mass] 30.3 pg Normal 27.0-31.2 [facility] [place] Comment on above: Performed By: #### T SH, VIDH, ADIFF, CBC, ANEU #### [place] [address] MCHC 33.5 G/dL Normal 33.0-37.0 [facility] [place] Comment on above: Performed By: #### T SH, VIDH, ADIFF, CBC, ANEU #### [place] [address] MCV (RBC) [Entitic vol] 90.3 fL Normal 80.0-94.0 [facility] [place] Comment on above: Performed By: #### T SH, VIDH, ADIFF, CBC, ANEU #### [address] [address] Platelet 347 10 3/mcL Normal 130-400 [facility] [place] Comment on above: Performed By: #### T SARAY, VIDH, ADIFF, CBC, ANEU #### [address] [address] Platelet mean volume (Bld) [Entitic vol] 7.6 fL Normal 7.4-10.4 [facility] [place] Comment on above: Performed By: #### T SH, VIDH, ADIFF, CBC, ANEU #### [place] [address] RBC 4.48 10 6/mcL Normal 4.20-5.40 [facility] [place] Comment on above: Performed By: #### T SH, VIDH, ADIFF, CBC, ANEU #### [place] [address] WBC 6.1 10 3/mcL Normal 4.6-10.8 [facility] [place] Comment on above: Performed By: #### T SH, VIDH, ADIFF, CBC, ANEU #### [address] [address] TSHon 06-10-2023 TSH Qn 1.28 m[IU]/L Normal 0.36-3.74 [facility] [place] Comment on above: Performed By: #### T SH, VIDH, ADIFF, CBC, ANEU #### [place] [address] VIDHon 06-10-2023 Vit. D 25-Hydroxy 34.6 ng/mL Normal [facility] [place] Comment on above: Result Comment: Inte rpretive Values Based on Total 25(OH) Vitamin D: Deficient <20 ng/mL Insufficient 20 - <30 ng/mL Sufficient 30-100 ng/mL Performed By: #### T SH, VIDH, ADIFF, CBC, ANEU #### [address] [address] Absolute lymphocyte countOrd ered By: Amanda Bean on 03-28-2023 Lymphocytes Auto (Unsp spec) [#/Vol] 1.76 10*3/uL 0.83-4.51 [facility] Basophil percentageOrdered B y: Amanda Bean on 03-28-2023 Basophils/100 WBC (Bld) 0.1 % 0-1 [facility] Chloride [Moles/Vol] 107 mmol/L 98-107 [facility] Eosinophils/100 WBC (Bld) 2.1 % 0-5 [facility] Glucose [Mass/Vol] 100 mg/dL 74-106 [facility] Comment on above: Fasting Glucose resu lt from 100 to 125 mg/dL suggests IMPAIRED HOMEOSTASIS per A.D.A. criteria. Neutrophils (Bld) [#/Vol] 4.7 10*3/uL 2.0-7.7 [facility] Neutrophils/100 WBC (Bld) 64.4 % 47-70 [facility] Potassium [Moles/Vol] 3.4 mmol/L 3.5-5.1 [facility] Sodium [Moles/Vol] 138 mmol/L 136-145 [facility] WBC (Bld) [#/Vol] 7.3 10*3/uL 4.4-11.0 [facility] Blood erythrocytes count (nu mber/volume)Ordered By: Amanda Bean on 03-28-2023 RBC (Bld) [#/Vol] 4.43 10*6/uL 4.2-5.4 [facility] Blood hemoglobin measurement (mass/volume)Ordered By: Amanda Bean on 03-28-2023 Hemoglobin (Bld) [Mass/Vol] 13.6 g/dL 12.0-15.0 [facility] Blood lymphocytes/100 leukoc ytesOrdered By: Amanda Bean on 03-28-2023 Lymphocytes/100 WBC (Bld) 24.1 % 19-41 [facility] Blood monocytes/100 leukocyt esOrdered By: Amanda Bean on 03-28-2023 Monocytes/100 WBC (Bld) 8.9 % 0-10 [facility] Blood platelet mean volumeOr dered By: Amanda Bean on 03-28-2023 Platelet mean volume (Bld) [Entitic vol] 9.1 fL 6.2-12.0 [facility] Determination of erythrocyte mean corpuscular volume (MCV)Ordered By: Amanda Bean on 03-28-2023 MCV (RBC) [Entitic vol] 93.7 fL 81-99 [facility] Hematocrit Auto (Bld) [Volum e fraction]Ordered By: Amanda Bean on 03-28-2023 Hematocrit (Bld) [Volume fraction] 41.5 % 37-47 [facility] - Chemistry and C hemistry - challengeOrdered By: Amanda Bean on 03-28-2023 CO2 [Moles/Vol] 28.0 mmol/L 21.0-32.0 [facility] Urea nitrogen/Creatinine [Mass ratio] 10.2 mg/mg 10-20 [facility] - Hematology and Cell countsOrdered By: Amanda Bean on 03-28-2023 Erythrocyte distribution width (RBC) [Entitic vol] 44.4 fL 35.1-43.9 [facility] Erythrocyte distribution width (RBC) [Ratio] 13.0 % 11.6-14.6 [facility] Immature granulocytes/100 WBC (Bld) 0.400 % 0.0-0.9 [facility] Comment on above: IG% - Immature Granu locytes (promyelocytes, myelocytes and metamyelocytes) > 1% indicates that a LEFT SHIFT is Present. MCH (RBC) [Entitic mass] 30.7 pg 27.0-32.0 [facility] Nucleated RBC/100 WBC (Bld) [Ratio] 0 % 0-5 [facility] MCHC Auto (RBC) [Mass/Vol]Or dered By: Amanda Bean on 03-28-2023 MCHC (RBC) [Mass/Vol] 32.8 g/dL 32-36 [facility] No Panel InformationOrdered By: Amanda Bean on 03-28-2023 Estimated Creatinine Clearance Calc 102.32 ml/min [facility] Estimated GFR (MDRD) Amer 114 mL/min >60 [facility] Comment on above: GFR Calc Estimated GFR (MDRD) Non-Af Amer 94 mL/min >60 [facility] Comment on above: Non- GFR Calc Platelets bldOrdered By: Oral Bean on 03-28-2023 Platelets (Bld) [#/Vol] 345 10*3/uL 150-450 [facility] Serum or plasma calcium patrick urement (mass/volume)Ordered By: Amanda Bean on 03-28-2023 Calcium [Mass/Vol] 9.2 mg/dL 8.5-10.1 [facility] Serum or plasma choriogonado tropin detectionOrdered By: Amanda Bean on 03-28-2023 HCG ( test) Ql 341 mIU/mL <4 [facility] Comment on above: hCG levels with Gest ational AgeGestational Age hCG mIU/mL (IU/L)0.2 - 1 week 5 - 501-2 weeks 50 - 5002-3 weeks 100 - 25853-8 weeks 500 - 612526-2 weeks 1000 - 037599-4 weeks 79015 - 100,0006-8 weeks 05887 - 200,0002-3 months 270[address] - 100,000 Serum or plasma creatinine m easurement (mass/volume)Ordered By: Amanda Bean on 03-28-2023 Creatinine [Mass/Vol] 0.78 mg/dL 0.55-1.02 [facility] Comment on above: The validity of the calculated GFR & GFRAA in patients over 70 years has not been determined. Clinical correlation is essential. Serum or plasma urea nitroge n measurement (mass/volume)Ordered By: Amanda Bean on 03-28-2023 Urea nitrogen [Mass/Vol] 8 mg/dL 7-18 [facility] Thin prep Papanicolaou smear with manual screeningOrdered By: Amanda Bean on 03-28-2023 Thin prep Papanicolaou smear with manual screening 3 5-15 [facility] CBC panel Auto (Bld)on 03-17 Erythrocyte distribution width (RBC) [Ratio] 12.4 % Normal 11.5-15.0 [facility] Comment on above: Order Comment: Speci men Type: BLOOD SPECIMEN Ordering Facility: [facility] Address: [address] [place] [phone] Performed By: #### 5 8410-2 #### [facility] CLIA [id number] [address] Hematocrit (Bld) [Volume fraction] 37.8 % Normal 36.0-46.0 [facility] Comment on above: Order Comment: Speci men Type: BLOOD SPECIMEN Ordering Facility: [facility] Address: [address] [place] [address] Performed By: #### 5 8410-2 #### [facility] CLIA [id number] [address] Hemoglobin (Bld) [Mass/Vol] 12.8 g/dL Normal 11.5-15.5 [facility] Comment on above: Order Comment: Speci men Type: BLOOD SPECIMEN Ordering Facility: [facility] Address: [address] [place] [address] Performed By: #### 5 8410-2 #### [facility] CLIA [id number] [address] MCH (RBC) [Entitic mass] 30.5 pg Normal 26.0-34.0 [facility] Comment on above: Order Comment: Speci men Type: BLOOD SPECIMEN Ordering Facility: [facility] Address: [address] [place] [address] Performed By: #### 5 8410-2 #### [facility] CLIA [id number] [address] OF [facility] MCHC (RBC) [Mass/Vol] 33.9 g/dL Normal 30.5-36.0 [facility] Comment on above: Order Comment: Speci men Type: BLOOD SPECIMEN Ordering Facility: [facility] Address: [address] [place] [address] Performed By: #### 5 8410-2 #### [facility] CLIA [id number] [address] MCV (RBC) [Entitic vol] 90.0 fL Normal 80.0-100.0 [facility] Comment on above: Order Comment: Speci men Type: BLOOD SPECIMEN Ordering Facility: [facility] Address: [address] [place] [address] Performed By: #### 5 8410-2 #### [facility] CLIA [id number] [address] [place] Nucleated RBC (Bld) [#/Vol] 10*3/uL Normal <0.01 [facility] Comment on above: Order Comment: Speci men Type: BLOOD SPECIMEN Ordering Facility: [facility] Address: [address] [place] [address] Performed By: #### 5 8410-2 #### [facility] CLIA [id number] [address] [place] Platelet mean volume (Bld) [Entitic vol] 8.7 fL Low 9.0-12.7 [facility] Comment on above: Order Comment: Speci men Type: BLOOD SPECIMEN Ordering Facility: [facility] Address: [address] [place] [address] Performed By: #### 5 8410-2 #### [facility] CLIA [id number] [address] [place] Platelets (Bld) [#/Vol] 297 10*3/uL Normal 150-400 [facility] Comment on above: Order Comment: Speci men Type: BLOOD SPECIMEN Ordering Facility: [facility] Address: [address] [place] [address] Performed By: #### 5 8410-2 #### [facility] CLIA [id number] [address] [place] RBC (Bld) [#/Vol] 4.20 10*6/uL Normal 3.90-5.20 [facility] Comment on above: Order Comment: Speci men Type: BLOOD SPECIMEN Ordering Facility: [facility] Address: [address] [place] [address] Performed By: #### 5 8410-2 #### [facility] CLIA [id number] [address] [place] WBC (Bld) [#/Vol] 6.93 10*3/uL Normal 3.70-11.00 [facility] Comment on above: Order Comment: Speci men Type: BLOOD SPECIMEN Ordering Facility: [facility] Address: [address] [place] [address] Performed By: #### 5 8410-2 #### [facility] CLIA [id number] [address] Comprehensive metabolic 2000 panelon 03-17-2023 Albumin [Mass/Vol] 4.7 g/dL Normal 3.9-4.9 [facility] Comment on above: Order Comment: Speci men Type: BLOOD SPECIMEN Ordering Facility: [facility] Address: [address] [place] [address] Performed By: #### 2 4323-8 #### [facility] CLIA [id number] [address] STATES OF [facility] ALP [Catalytic activity/Vol] 22 U/L Low 34-123 [facility] Comment on above: Order Comment: Speci men Type: BLOOD SPECIMEN Ordering Facility: [facility] Address: [address] [place] [address] Performed By: #### 2 4323-8 #### [facility] CLIA [id number] [address] ALT With P-5'-P [Catalytic activity/Vol] 24 U/L Normal 7-38 [facility] Comment on above: Order Comment: Speci men Type: BLOOD SPECIMEN Ordering Facility: [facility] Address: [address] [place] [address] Performed By: #### 2 4323-8 #### [facility] CLIA [id number] [address] [place] Anion gap [Moles/Vol] 13 mmol/L Normal 9-18 [facility] Comment on above: Order Comment: Speci men Type: BLOOD SPECIMEN Ordering Facility: [facility] Address: [address] [address] Performed By: #### 2 4323-8 #### [facility] CLIA [id number] [address] OF [facility] AST With P-5'-P [Catalytic activity/Vol] 21 U/L Normal 13-35 [facility] Comment on above: Order Comment: Speci men Type: BLOOD SPECIMEN Ordering Facility: [facility] Address: [address] [place] [address] Performed By: #### 2 4323-8 #### [facility] CLIA [id number] [address] [place] Bilirubin [Mass/Vol] 0.3 mg/dL Normal 0.2-1.3 [facility] Comment on above: Order Comment: Speci men Type: BLOOD SPECIMEN Ordering Facility: [facility] Address: [address] [place] [address] Performed By: #### 2 4323-8 #### [facility] CLIA [id number] [address] [place] Calcium [Mass/Vol] 9.7 mg/dL Normal 8.5-10.2 [facility] Comment on above: Order Comment: Speci men Type: BLOOD SPECIMEN Ordering Facility: [facility] Address: [address] [place] [address] Performed By: #### 2 4323-8 #### [facility] CLIA [id number] [address] [place] Chloride [Moles/Vol] 102 mmol/L Normal 97-105 [facility] Comment on above: Order Comment: Speci men Type: BLOOD SPECIMEN Ordering Facility: [facility] Address: [address] [place] [address] Performed By: #### 2 4323-8 #### [facility] CLIA [id number] [address] [place] CO2 [Moles/Vol] 25 mmol/L Normal 22-30 [facility] Comment on above: Order Comment: Speci men Type: BLOOD SPECIMEN Ordering Facility: [facility] Address: [address] [place] [address] Performed By: #### 2 4323-8 #### [facility] CLIA [id number] 1 [place] [address] [place] Creatinine [Mass/Vol] 0.74 mg/dL Normal 0.58-0.96 [facility] Comment on above: Order Comment: Manfred jefferson Type: BLOOD SPECIMEN Ordering Facility: [facility] Address: [address] [place] [address] Performed By: #### 2 4323-8 #### [facility] CLIA [id number] [address] [place] [address] OF [facility] Creatinine and Glomerular filtration rate.predicted panel (S/P/Bld) 115 mL/min/1.73m??? Normal >=60 [facility] Comment on above: Order Comment: Manfred jefferson Type: BLOOD SPECIMEN Ordering Facility: [facility] Address: [address] [place] [address] Result Comment: Vidya mated Glomerular Filtration Rate [...] GFR. Performed By: #### 2 4323-8 #### [facility] CLIA [id number] [address] [place] [address] [place] Glucose [Mass/Vol] 105 mg/dL High 74-99 [facility] Comment on above: Order Comment: Manfred ronny Type: BLOOD SPECIMEN Ordering Facility: [facility] Address: [address] [place] [address] Result Comment: The [place] [employer] (ADA) provides guidance for cutoff [...] Standards of Medical Care in Diabetes 2016, [place] [employer]. Diabetes Care. 2016.39(Suppl 1). Performed By: #### 2 4323-8 #### [facility] CLIA [id number] [address] [place] [facility] Potassium [Moles/Vol] 3.6 mmol/L Low 3.7-5.1 [facility] Comment on above: Order Comment: Speci men Type: BLOOD SPECIMEN Ordering Facility: [facility] Address: [address] [place] [address] Performed By: #### 2 4323-8 #### [facility] CLIA [id number] [address] STATES [facility] Protein [Mass/Vol] 7.5 g/dL Normal 6.3-8.0 [facility] Comment on above: Order Comment: Speci men Type: BLOOD SPECIMEN Ordering Facility: [facility] Address: [address] [address] Performed By: #### 2 4323-8 #### [facility] CLIA [id number] [address] Sodium [Moles/Vol] 140 mmol/L Normal 136-144 [facility] Comment on above: Order Comment: Speci men Type: BLOOD SPECIMEN Ordering Facility: [facility] Address: [address] [address] Performed By: #### 2 4323-8 #### [facility] CLIA [id number] [address] [place] Urea nitrogen [Mass/Vol] 12 mg/dL Normal 7-21 [facility] Comment on above: Order Comment: Speci men Type: BLOOD SPECIMEN Ordering Facility: [facility] Address: [address] [address] Performed By: #### 2 4323-8 #### [facility] CLIA [id number] [address] STATES OF [facility] HCG QUANTITATIVEon 3 HCG.beta subunit Qn 1849.0 m[IU]/mL High <5.0 mIU/mL [facility] B-HCG SerPl-aCncon 3 HCG.beta subunit Qn 2005.0 m[IU]/mL High <5.0 [facility] Comment on above: Order Comment: Speci men Type: BLOOD SPECIMEN Ordering Facility: [facility] Address: [place] [place] [address] Result Comment: HAYDEE TITATIVE HCG NORMAL RANGES Weeks of Gestation (Weeks Since LMP) 3 Weeks (5.8-71.2 mIU/mL) 4 Weeks (9.5-750 mIU/mL) 5 Weeks (217-7138 mIU/mL) 6 Weeks (158-15477 mIU/mL) 7 Weeks (3697-170244 mIU/mL) 8 Weeks (94747-194907 mIU/mL) 9 Weeks (39489-499656 mIU/mL) 10 Weeks (92178-848009 mIU/mL) 12 Weeks (74647-439430 mIU/mL) Referenced to [address]th IS of [facility] Performed By: #### 2 1198-7 #### [facility] CLIA [id number] [address] CBC panel Auto (Bld)on 03-11 Erythrocyte distribution width (RBC) [Ratio] 12.4 % 11.5 - 15.0 % [facility] Hematocrit (Bld) [Volume fraction] 40.8 % 36.0 - 46.0 % [facility] Hemoglobin (Bld) [Mass/Vol] 13.8 g/dL 11.5 - 15.5 g/dL [facility] MCH (RBC) [Entitic mass] 30.4 pg 26.0 - 34.0 pg [facility] MCHC (RBC) [Mass/Vol] 33.8 g/dL 30.5 - 36.0 g/ dL [facility] MCV (RBC) [Entitic vol] 89.9 fL 80.0 - 100.0 fL [facility] Nucleated RBC (Bld) [#/Vol] <0.01 k/uL [facility] Platelet mean volume (Bld) [Entitic vol] 8.9 fL Low 9.0 - 12.7 fL [facility] Platelets (Bld) [#/Vol] 326 10*3/uL 150 - 400 k/uL [facility] RBC (Bld) [#/Vol] 4.54 10*6/uL 3.90 - 5.20 m/uL [facility] WBC (Bld) [#/Vol] 9.52 10*3/uL 3.70 - 11. 00 k/uL [facility] Comprehensive metabolic 2000 panelon 03-11-2023 Albumin [Mass/Vol] 4.6 g/dL 3.9 - 4.9 g/dL [facility] ALP [Catalytic activity/Vol] 24 U/L Low 34 - 123 U/L [facility] ALT [Catalytic activity/Vol] 12 U/L 7 - 38 U/L [facility] Anion gap [Moles/Vol] 10 mmol/L 9 - 18 mmol/L [facility] AST [Catalytic activity/Vol] 14 U/L 13 - 35 U/L [facility] Bilirubin [Mass/Vol] 0.5 mg/dL 0.2 - 1.3 mg/dL [facility] Calcium [Mass/Vol] 10.2 mg/dL 8.5 - 10.2 mg/dL [facility] Chloride [Moles/Vol] 102 mmol/L 97 - 105 mmol/L [facility] CO2 [Moles/Vol] 24 mmol/L 22 - 30 mmol/L [facility] Creatinine [Mass/Vol] 0.80 mg/dL 0.58 - 0.96 mg/dL [facility] Estimated Glomerular Filtration Rate 104 mL/min/1.73m >=60 mL/min/1.73m [facility] Glucose [Mass/Vol] 94 mg/dL 74 - 99 mg/dL [facility] Potassium [Moles/Vol] 4.0 mmol/L 3.7 - 5.1 mmol /L [facility] Protein [Mass/Vol] 7.7 g/dL 6.3 - 8.0 g/dL [facility] Sodium [Moles/Vol] 136 mmol/L 136 - 144 mmol/L [facility] Urea nitrogen [Mass/Vol] 9 mg/dL 7 - 21 mg/dL [facility] ED Triage Noteon 03-11-2023 ED Triage Note HNO ID: [id number] Author: Jewell Machuca APRN.ADMINISTRATIVE ASSISTANT DATA ENTRY Service: Emergency Medicine Author Type: Nurse Practitioner [...] staff in stable condition. SIGNATURE: Jewell Machuca APRN.ADMINISTRATIVE ASSISTANT DATA ENTRY Normal [facility] HCG QUANTITATIVEon 3 HCG.beta subunit Qn 1768.0 m[IU]/mL High <5.0 mIU/mL [facility] OBSTETRIC ULTRASOUND WHIon 0 03-11-2023 [facility] TYPE + SCREEN PRENATALon ABO A Normal [facility] Comment on above: Order Comment: Speci men Type: BLOOD SPECIMEN Ordering Facility: [facility] Address: [address] [place] [address] Performed By: #### T SPN #### [facility] CLIA [id number] [address] OF [facility] HISTORICAL AB SCR STATUS Negative Normal [facility] Comment on above: Order Comment: Speci men Type: BLOOD SPECIMEN Ordering Facility: [facility] Address: [address] [place] [address] Performed By: #### T SPN #### [facility] CLIA [id number] [address] Rh Nom (Bld) Positive Normal [facility] Comment on above: Order Comment: Speci men Type: BLOOD SPECIMEN Ordering Facility: [facility] Address: [address] [place] [address] Performed By: #### T SPN #### [facility] CLIA [id number] [address] [id number] [facility] TYPE AND SCREEN EXPIRATION 03/14/2023 23:59 Normal [facility] Comment on above: Order Comment: Speci men Type: BLOOD SPECIMEN Ordering Facility: [facility] Address: [address] [place] [phone] Performed By: #### T SPN #### [facility] CLIA [id number] [address] [id number] [facility] HCG QUANTITATIVEon 3 HCG.beta subunit Qn 1623.0 m[IU]/mL High <5.0 mIU/mL [facility] Vital Signs Date Time Vital Sign Value Performing Clinician Brysoni ambikay 01-24-2025 08:02-0400 Body mass index (BMI) [Ratio] 30.38 kg/m2 Kelly Gregg MIMEOGRAPHER.CNM Work Phone: [facility] 01-24-2025 08:02-0400 Body weight 85.37 kg Kelly Plotts MIMEOGRAPHER.CNM Work Phone: [facility] 01-24-2025 08:02-0400 Diastolic blood pressure 64 mm[Hg] Kelly Plotts MIMEOGRAPHER.CNM Work Phone: [facility] 01-24-2025 08:02-0400 Systolic blood pressure 118 mm[Hg] Kelly Plotts MIMEOGRAPHER.CNM Work Phone: [facility] 01-18-2025 08:08-0400 Body mass index (BMI) [Ratio] 30.18 kg/m2 Kelly Plotts MIMEOGRAPHER.CNM Work Phone: [facility] 01-18-2025 08:08-0400 Body weight 84.82 kg Kelly Plotts MIMEOGRAPHER.CNM Work Phone: [facility] 01-18-2025 08:08-0400 Diastolic blood pressure 68 mm[Hg] Kelly Plotts MIMEOGRAPHER.CNM Work Phone: [facility] 01-18-2025 08:08-0400 Systolic blood pressure 110 mm[Hg] Kelly Plotts MIMEOGRAPHER.CNM Work Phone: [facility] 01-11-2025 08:05-0400 Body mass index (BMI) [Ratio] 30.18 kg/m2 Kelly Plotts MIMEOGRAPHER.CNM Work Phone: [facility] 01-11-2025 08:05-0400 Body weight 84.82 kg Kelly Plotts MIMEOGRAPHER.CNM Work Phone: [facility] 01-11-2025 08:05-0400 Diastolic blood pressure 68 mm[Hg] Kelly Plotts MIMEOGRAPHER.CNM Work Phone: [facility] 01-11-2025 08:05-0400 Systolic blood pressure 102 mm[Hg] Kelly Plotts MIMEOGRAPHER.CNM Work Phone: [facility] 01-02-2025 08:01-0400 Body mass index (BMI) [Ratio] 30.15 kg/m2 Ovidio Joseph MD Work Phone: [facility] 01-02-2025 08:01-0400 Body weight 84.73 kg Ovidio Joseph MD Work Phone: [facility] 01-02-2025 08:01-0400 Diastolic blood pressure 66 mm[Hg] Ovidio Joseph MD Work Phone: [facility] 01-02-2025 08:01-0400 Systolic blood pressure 118 mm[Hg] Ovidio Joseph MD Work Phone: [facility] 12-24-2024 14:43-0400 Body mass index (BMI) [Ratio] 29.86 kg/m2 Sangeeta Edwards MD Work Phone: [facility] 12-24-2024 14:43-0400 Body weight 83.92 kg Sangeeta Edwards MD Work Phone: [facility] 12-24-2024 14:43-0400 Diastolic blood pressure 70 mm[Hg] Sangeeta Edwards MD Work Phone: [facility] 12-24-2024 14:43-0400 Systolic blood pressure 120 mm[Hg] Sangeeta Edwards MD Work Phone: [facility] 12-04-2024 16:19-0400 Diastolic blood pressure 64 mm[Hg] i [facility] 12-04-2024 16:19-0400 Systolic blood pressure 114 mm[Hg] i [facility] 11-29-2024 14:43-0400 Body mass index (BMI) [Ratio] 29.05 kg/m2 Alcon Martinez MD Work Phone: [facility] 11-29-2024 14:43-0400 Body weight 81.65 kg Alcon Martinez MD Work Phone: [facility] 11-29-2024 14:43-0400 Diastolic blood pressure 74 mm[Hg] Alcon Martinez MD Work Phone: [facility] 11-29-2024 14:43-0400 Systolic blood pressure 120 mm[Hg] Alcon Martinez MD Work Phone: [facility] 10-31-2024 09:06-0400 Body mass index (BMI) [Ratio] 28.25 kg/m2 Amanda Jenkins MD Work Phone: [facility] 10-31-2024 09:06-0400 Body weight 79.38 kg Amanda Jenkins MD Work Phone: [facility] 10-31-2024 09:06-0400 Diastolic blood pressure 62 mm[Hg] Amanda Jenkins MD Work Phone: [facility] 10-31-2024 09:06-0400 Systolic blood pressure 102 mm[Hg] Amanda Jenkins MD Work Phone: [facility] 10-05-2024 11:33-0400 Body mass index (BMI) [Ratio] 27.76 kg/m2 Amanda Jenkins MD Work Phone: [facility] 10-05-2024 11:33-0400 Body weight 78.02 kg Amanda Jenkins MD Work Phone: [facility] 10-05-2024 11:33-0400 Diastolic blood pressure 64 mm[Hg] Amanda Jenkins MD Work Phone: [facility] 10-05-2024 11:33-0400 Systolic blood pressure 110 mm[Hg] Amanda Jenkins MD Work Phone: [facility] 09-07-2024 09:01-0500 Body mass index (BMI) [Ratio] 27.44 kg/m2 Amanda Jenkins MD Work Phone: [facility] 09-07-2024 09:01-0500 Body weight 77.11 kg Amanda Jenkins MD Work Phone: [facility] 09-07-2024 09:01-0500 Diastolic blood pressure 66 mm[Hg] Amanda Jenkins MD Work Phone: [facility] 09-07-2024 09:01-0500 Systolic blood pressure 116 mm[Hg] Amanda Jenkins MD Work Phone: [facility] 08-10-2024 08:32-0500 Body mass index (BMI) [Ratio] 26.63 kg/m2 Amanda Jenkins MD Work Phone: [facility] 08-10-2024 08:32-0500 Body weight 74.84 kg Amanda Jenkins MD Work Phone: [facility] 08-10-2024 08:32-0500 Diastolic blood pressure 64 mm[Hg] Amanda Jenkins MD Work Phone: [facility] 08-10-2024 08:32-0500 Systolic blood pressure 104 mm[Hg] Amanda Jenkins MD Work Phone: [facility] 07-12-2024 16:16-0500 Body mass index (BMI) [Ratio] 26.63 kg/m2 Kelly Plotts MIMEOGRAPHER.CNM Work Phone: [facility] 07-12-2024 16:16-0500 Body weight 74.84 kg Kelly Plotts MIMEOGRAPHER.CNM Work Phone: [facility] 07-12-2024 16:16-0500 Diastolic blood pressure 68 mm[Hg] Kelly Plotts MIMEOGRAPHER.CNM Work Phone: [facility] 07-12-2024 16:16-0500 Systolic blood pressure 112 mm[Hg] Kelly Plotts MIMEOGRAPHER.CNM Work Phone: [facility] 06-08-2024 08:44-0500 Body mass index (BMI) [Ratio] 26.95 kg/m2 Kelly Plotts MIMEOGRAPHER.CNM Work Phone: [facility] 06-08-2024 08:44-0500 Body weight 75.75 kg Kelly Plotts MIMEOGRAPHER.CNM Work Phone: [facility] 06-08-2024 08:44-0500 Diastolic blood pressure 64 mm[Hg] Kelly Plotts MIMEOGRAPHER.CNM Work Phone: [facility] 06-08-2024 08:44-0500 Systolic blood pressure 106 mm[Hg] Kelly Plotts MIMEOGRAPHER.CNM Work Phone: [facility] 04-06-2023 11:55-0400 Body weight 73.03 kg Amanda Jenkins MD Work Phone: [facility] 04-06-2023 11:55-0400 Diastolic blood pressure 66 mm[Hg] Amanda Jenkins MD Work Phone: [facility] 04-06-2023 11:55-0400 Systolic blood pressure 116 mm[Hg] Amanda Jenkins MD Work Phone: [facility] 03-28-2023 17:45-0400 Body temperature 99.6 [degF] [facility] 03-28-2023 17:45-0400 Diastolic blood pressure 68 mm[Hg] [facility] 03-28-2023 17:45-0400 Heart rate 78 /min [facility] 03-28-2023 17:45-0400 Respiratory rate 16 /min [facility] 03-28-2023 17:45-0400 SaO2% (BldA) [Mass fraction] 97 % [facility] 03-28-2023 17:45-0400 Systolic blood pressure 104 mm[Hg] [facility] 03-28-2023 15:26-0400 Body temperature 97.2 [degF] [facility] 03-28-2023 15:26-0400 Diastolic blood pressure 76 mm[Hg] [facility] 03-28-2023 15:26-0400 Heart rate 132 /min [facility] 03-28-2023 15:26-0400 Respiratory rate 18 /min [facility] 03-28-2023 15:26-0400 SaO2% (BldA) [Mass fraction] 100 % [facility] 03-28-2023 15:26-0400 Systolic blood pressure 120 mm[Hg] [facility] 03-28-2023 14:57-0400 Body height 167.64 cm [facility] 03-28-2023 14:57-0400 Body mass index (BMI) [Ratio] 26.2 kg/m2 [facility] 03-28-2023 14:57-0400 Body weight 73.89 kg [facility] 03-11-2023 13:39-0400 Diastolic blood pressure 60 mm[Hg] Aclon Martinez MD Work Phone: [facility] 03-11-2023 13:39-0400 Systolic blood pressure 100 mm[Hg] Alcon Martinez MD Work Phone: [facility] 05-21-2022 12:57-0400 Body height 170.2 cm Edelmira Ward APRN.CNP Work Phone: [facility] 05-21-2022 12:57-0400 Body weight 71.22 kg Edelmira Marshall MIMEOGRAPHER.ADMINISTRATIVE ASSISTANT DATA ENTRY Work Phone: [facility] 05-21-2022 12:57-0400 Diastolic blood pressure 60 mm[Hg] Edelmira Ed MIMEOGRAPHER.ADMINISTRATIVE ASSISTANT DATA ENTRY Work Phone: [facility] 05-21-2022 12:57-0400 Systolic blood pressure 100 mm[Hg] Edelmira Marshall MIMEOGRAPHER.ADMINISTRATIVE ASSISTANT DATA ENTRY Work Phone: [facility] 03-21-2022 08:48-0400 Body temperature 98.1 [degF] Manny Ren MIMEOGRAPHER.ADMINISTRATIVE ASSISTANT DATA ENTRY Work Phone: [facility] 03-21-2022 08:48-0400 Body weight 68.95 kg Manny Ren MIMEOGRAPHER.ADMINISTRATIVE ASSISTANT DATA ENTRY Work Phone: [facility] 03-21-2022 08:48-0400 Diastolic blood pressure 62 mm[Hg] Manny Ren MIMEOGRAPHER.ADMINISTRATIVE ASSISTANT DATA ENTRY Work Phone: [facility] 03-21-2022 08:48-0400 Heart rate 78 /min Manny Ren MIMEOGRAPHER.ADMINISTRATIVE ASSISTANT DATA ENTRY Work Phone: [facility] 03-21-2022 08:48-0400 Respiratory rate 16 /min Manny Ren MIMEOGRAPHER.ADMINISTRATIVE ASSISTANT DATA ENTRY Work Phone: [facility] 03-21-2022 08:48-0400 SaO2% (BldA) [Mass fraction] 99 % Manny Ren MIMEOGRAPHER.ADMINISTRATIVE ASSISTANT DATA ENTRY Work Phone: [facility] 03-21-2022 08:48-0400 Systolic blood pressure 108 mm[Hg] Manny Ren MIMEOGRAPHER.ADMINISTRATIVE ASSISTANT DATA ENTRY Work Phone: [facility] Encounters Encounter Date Encounter Type Care [...] GBS test Start: 01-24-2025 End: 01-24-2025 ambulatory [facility] Facility:[facility] Start: 01-18-2025 End: 01-18-2025 [facility] Facility:[facility] Start: 01-18-2025 End: 01-18-2025 Patient encounter procedure Kelly Gregg MIMEOGRAPHER.CNM Work Phone: OB/Gynecology Comment on above: Supervision of high risk in third trimester (HCC) (Primary Dx); Positive GBS test; 39 weeks gestation of (HCC); Heartburn during in second trimester (HCC) Start: 01-11-2025 End: 01-11-2025 Patient encounter procedure Kelly Gregg MIMEOGRAPHER.CNM Work Phone: OB/Gynecology Comment on above: Positive GBS test (P rimary Dx); Supervision of high risk in third trimester (HCC); 38 weeks gestation of (HCC) Start: 01-11-2025 End: 01-11-2025 [facility] Facility:[facility] Start: 01-07-2025 End: 01-07-2025 [facility] Start: 01-07-2025 End: 01-07-2025 Patient encounter procedure [facility] Comment on above: Population Health Na vigation Outreach ( to PCP/OB/) Start: 01-02-2025 End: 01-02-2025 Patient encounter procedure Ovidio Joseph MD Work Phone: OB/Gynecology Comment on above: 37 weeks gestation o f (HCC) (Primary Dx); Supervision of high risk in third trimester (HCC); Low lying placenta nos or without hemorrhage, third trimester (HCC) Start: 01-02-2025 End: 01-02-2025 ambulatory OVIDIO JOSEPH Facility:[facility] Start: 12-28-2024 End: 01-03-2025 Telephone encounter [...] Start: 12-24-2024 End: 12-24-2024 ambulatory SANGEETA EDWARDS Facility:[facility] Start: 12-18-2024 End: 12-18-2024 Refill Roz Reilly APRN.CNM Work Phone: OB/Gynecology Comment on above: Refill Request Start: 12-15-2024 End: 12-18-2024 Refill Kelly Gregg APRN.CNM Work Phone: OB/Gynecology Comment on above: Refill Request Start: 12-14-2024 End: 12-14-2024 ambulatory SHELLI ALLISON Facility:[facility] Start: 12-04-2024 End: 12-04-2024 ambulatory AMANDA JENKINS Facility:[facility] Start: 12-04-2024 End: 12-04-2024 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 [facility] [facility] Comment on [...] Start: 11-29-2024 End: 11-29-2024 ambulatory ALCON MARTINEZ Facility:[facility] Start: 11-16-2024 End: 11-16-2024 ambulatory SHELLI ALLISON Facility:[facility] Start: 11-04-2024 End: 01-04-2025 Follow-up encounter Amanda Jenkins MD Work Phone: OB/Gynecology Start: 11-01-2024 End: 11-01-2024 ambulatory Amanda Jenkins MD Work Phone: OB/Gynecology Comment on above: placenta Start: 11-01-2024 End: 11-01-2024 E-mail encounter from caregiver Amanda Jenkins MD Work Phone: OB/Gynecology Start: 11-01-2024 End: 01-01-2025 Follow-up encounter Shelli Allison MD Work Phone: OB/Gynecology Start: 10-31-2024 [...] Start: 10-31-2024 End: 10-31-2024 ambulatory AMANDA JENKINS Facility:[facility] Start: 10-05-2024 End: 10-05-2024 ambulatory AMANDA JENKINS Facility:[facility] Start: 10-05-2024 End: 10-05-2024 Patient encounter [...] Start: 09-07-2024 End: 09-07-2024 ambulatory KELLY GREGG Facility:[facility] Start: 09-07-2024 End: 09-07-2024 Patient encounter [...] Start: 08-10-2024 End: 08-10-2024 ambulatory AMANDA JENKINS Facility:[facility] Start: 08-10-2024 End: 08-10-2024 Patient encounter [...] Results Start: 07-12-2024 End: 07-12-2024 ambulatory KELLY [facility] Facility:[facility] Start: 07-12-2024 End: 07-12-2024 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 [facility] Comment on above: Encounter for antena petr screening for malformation using ultrasound (Primary Dx); 12 weeks gestation of ; Encounter for (NT) nuchal translucency scan 12 weeks gestation o f (Primary Dx); Encounter for supervision of other normal in first trimester; Nausea/vomiting in ; Heartburn during in second trimester Start: 07-12-2024 End: 07-12-2024 ambulatory KELLY MARKS Facility:[facility] Start: 06-08-2024 End: 06-08-2024 ambulatory [facility] Facility:[facility] Start: 06-08-2024 End: 06-08-2024 Patient encounter [...] Start: 05-25-2024 End: 05-25-2024 ambulatory AMANDA JENKINS Facility:[facility] Start: 05-23-2024 End: 05-23-2024 ambulatory AMANDA JENKINS Facility:[facility] Start: 05-14-2024 End: 05-14-2024 Telephone encounter Amanda Jenkins MD Work Phone: OB/Gynecology Comment on above: Early OB Question Start: 06-10-2023 End: 06-15-2023 ambulatory OMAR MAST MIMEOGRAPHER-ADMINISTRATIVE ASSISTANT DATA ENTRY Facility:[facility] Start: 04-06-2023 End: 04-06-2023 Patient encounter procedure Amanda Jenkins MD Work Phone: OB/Gynecology Comment on above: Post-operative state (Primary Dx) Start: 03-28-2023 End: 03-28-2023 Admission to same day surgery center [facility] Start: 03-28-2023 End: 03-28-2023 ambulatory [facility] Work Phone: Start: 03-18-2023 Telephone encounter Alcon king MD Work Phone: OB/Gynecology Comment on above: Orders Start: 03-17-2023 End: 03-17-2023 ambulatory ALCON MARTINEZ Facility:[facility] Start: 03-12-2023 Telephone encounter Amanda Jenkins MD Work Phone: OB/Gynecology Start: 03-11-2023 End: 03-11-2023 Emergency department patient visit DEMI FOWLER Facility:[facility] Start: 03-11-2023 Telephone encounter Edelmira don MIMEOGRAPHER.ADMINISTRATIVE ASSISTANT DATA ENTRY Work Phone: OB/Gynecology Comment on above: Results Start: 03-11-2023 End: 03-11-2023 Patient encounter procedure Alcon Martinez MD Work Phone: OB/Gynecology Comment on above: Ectopic wi thout intrauterine , unspecified location (Primary Dx); Early stage of ; Vaginal bleeding in ; Pelvic cramping with uncer tain viability, single or unspecified fetus Start: 03-08-2023 Telephone encounter Edelmira don MIMEOGRAPHER.ADMINISTRATIVE ASSISTANT DATA ENTRY Work Phone: OB/Gynecology Comment on above: Patient Question Start: 05-21-2022 End: 05-21-2022 Patient encounter procedure Edelmira Ward MIMEOGRAPHER.ADMINISTRATIVE ASSISTANT DATA ENTRY Work Phone: OB/Gynecology Comment on above: Encounter for gyneco logical examination (general) (routine) without abnormal findings (Primary Dx); Encounter for surveillance of contraceptive pills Start: 05-21-2022 End: 05-21-2022 Patient encounter status Edelmira Ward MIMEOGRAPHER.ADMINISTRATIVE ASSISTANT DATA ENTRY Work Phone: OB/Gynecology Start: 03-21-2022 End: 03-21-2022 Patient encounter procedure Manny Ren MIMEOGRAPHER.ADMINISTRATIVE ASSISTANT DATA ENTRY Work Phone: [facility] Comment on above: Rhus dermatitis (Alycia shawna Dx) Start: 10-24-2021 Refill Edelmira Deancalf MIMEOGRAPHER.ADMINISTRATIVE ASSISTANT DATA ENTRY Work Phone: OB/Gynecology Comment on above: Refill Request Procedures Date Procedure Procedure Detail Performing Clinician Start: 01-24-2025 Urnls dip stick/tabl et rgnt non-auto w/o micrscp Kelly Gregg MIMEOGRAPHER.CNM Work Phone: Start: 01-11-2025 Urnls dip stick/tabl et rgnt non-auto w/o micrscp Kelly Gregg MIMEOGRAPHER.CNM Work Phone: Start: 01-02-2025 Urnls dip stick/tabl [...] after 1st trimest 1/1st gestation Kelly Gregg MIMEOGRAPHER.CNM Work Phone: Start: 07-12-2024 Antibody screen AMANDA JENKINS Comment on above: Order Comment: Speci men Type: BLOOD SPECIMEN Ordering Facility: [facility] Address: [address] [place] [address] Performed By: #### T SPN #### [facility] CLIA [id number] [address] [place] [address] [place] Start: 03-28-2023 Removal of ectopic fetus Start: 03-28-2023 Transvaginal obstetr ic ultrasonography Start: 03-11-2023 Antibody screen ALCON MATOS Comment on above: Order Comment: Speci men Type: BLOOD SPECIMEN Ordering Facility: [facility] Address: [address] [place] [address] Performed By: #### T SPN #### [facility] CLIA [id number] [address] [place] [address] [place] Start: 03-11-2023 Us preg uterus after 1st trimest 07/25 gestation Alcon Martinez MD Work Phone: Plan of Treatment Date Care Activity Detail Author Start: 10-31-2034 Urine microalbumin profile DTaP,Tdap,Td Vaccine (8 - Td or Tdap) [facility] Start: 06-08-2027 Screening for malign ant neoplasm of cervix Cervical Cancer Screening [facility] Start: 03-25-2025 Influenza vaccination [facility] Start: 02-11-2025 End: 02-11-2025 Patient encounter procedure 02/11/2025 1:30 PM EDT Office Visit OB/Gynecology [address] [place] [address] Kelly Gregg APRN.CNM [address] [place] [place] [address] 2 week post patrum OB/Gynecology Comment on above: 2 week post patrum Start: 02-01-2025 End: 02-01-2025 Patient encounter procedure 02/01/2025 9:00 AM EDT Routine Office Visit OB/Gynecology [address] [place] [address] Roz Reilly APRN.CNYovanny [address] [place] [address] OB Routine OB/Gynecology Comment on above: OB Routine Start: 01-24-2025 End: 01-24-2025 Patient encounter procedure 01/24/2025 8:00 AM EDT Routine Office Visit OB/Gynecology [address] [place] [address] Kelly Gregg APRN.CNM [address] [place] [address] OB Routine OB/Gynecology Comment on above: OB Routine Start: 01-18-2025 End: 01-18-2025 Patient encounter procedure 01/18/2025 8:00 AM EDT Routine Office Visit OB/Gynecology [address] [place] [address] Kelly Gregg APRN.CNM [address] [place] [address] OB Routine OB/Gynecology Comment on above: OB Routine Start: 01-11-2025 End: 01-11-2025 Patient encounter procedure 01/11/2025 8:00 AM EDT Routine Office Visit OB/Gynecology [address] [place] [address] Kelly Gregg APRN.CN [address] [place] [address] OB Routine OB/Gynecology Comment on above: OB Routine Start: 01-03-2025 End: 01-03-2025 Patient encounter procedure 01/03/2025 8:40 AM EDT Routine Office Visit OB/Gynecology [address] [place] [address] Amanda Tavera MD [address] [place] [address] OB Routine OB/Gynecology Comment on above: OB Routine Start: 01-02-2025 End: 01-02-2025 Patient encounter procedure 01/02/2025 8:00 AM EDT Routine Office Visit OB/Gynecology [address] [place] [address] Ovidio Joseph MD [address] [place] [address] OB OB/Gynecology Comment on above: OB Start: 12-24-2024 End: 12-24-2024 Patient encounter procedure 12/24/2024 2:50 PM EDT Routine Office Visit OB/Gynecology [address] [place] [address] Sangeeta Edwards MD [address] [place] [address] Nausea/OB OB/Gynecology Comment on above: Nausea/OB Start: 12-14-2024 End: 12-14-2024 Patient encounter procedure 12/14/2024 8:30 AM EDT Routine Office Visit OB/Gynecology [address] [place] [address] Shelli Allison MD [address] [place] [address] OB Routine OB/Gynecology Comment on above: OB Routine Start: 12-04-2024 End: 12-04-2024 Patient encounter procedure 12/04/2024 3:30 PM EDT Routine Office Visit [facility] [address] [place] [address] Growth [facility] Comment on above: Growth Start: 11-29-2024 End: 11-29-2024 Patient encounter procedure [facility] Comment on above: growth OB Start: 11-16-2024 End: 11-16-2024 Patient encounter procedure 11/16/2024 8:30 AM EDT Routine Office Visit OB/Gynecology [address] [place] [address] Shelli Allison MD [address] [place] [address] OB OB/Gynecology Comment on above: OB Start: 11-05-2024 End: 02-04-2025 ANEMIA REFLEX PANEL ANEMIA REFLEX PANEL Lab Routine Encounter for supervision of other normal in third trimester Expected: 11/05/2024, Expires: 02/04/2025 [facility] Comment on above: Expected: 11/05/2024 , Expires: 02/04/2025 Start: 11-05-2024 End: 10-05-2025 GESTATIONAL GLUCOSE SCREEN, 1-HOUR, 50 GRAM, NON-FASTING GESTATIONAL GLUCOSE SCREEN, 1-HOUR, 50 GRAM, NON-FASTING Lab Routine Screening for diabetes mellitus Expected: 11/05/2024, Expires: 10/05/2025 [facility] Work Phone: Comment on above: Expected: 11/05/2024 , Expires: 10/05/2025 Start: 11-05-2024 End: 10-05-2025 SYPHILIS TREPONEMAL W/REFLEX SYPHILIS TREPONEMAL W/REFLEX Lab Routine Encounter for supervision of other normal in third trimester Expected: 11/05/2024, Expires: 10/05/2025 [facility] Comment on above: Expected: 11/05/2024 , Expires: 10/05/2025 Start: 10-31-2024 End: 10-31-2025 OBSTETRIC ULTRASOUND WHI OBSTETRIC ULTRASOUND [facility]I Anc Imaging Routine Low lying placenta nos or without hemorrhage, third trimester (HCC) Expected: 10/31/2024, Expires: 10/31/2025 [facility] Work Phone: Comment on above: Expected: 10/31/2024 , Expires: 10/31/2025 Start: 10-31-2024 End: 10-31-2024 Patient encounter procedure [facility] Comment on above: Growth Growth/OB Start: 10-31-2024 End: 10-31-2024 ambulatory 10/31/2024 7:45 AM EDT Results Only [facility] [address] [place] [address] Glucose Test and Labs [facility] Comment on above: Glucose Test and Lab s Start: 10-05-2024 End: 10-05-2024 Patient encounter procedure 10/05/2024 11:40 AM EDT Routine Office Visit OB/Gynecology [address] [place] [address] Amanda Tavera MD [address] [place] [address] OB OB/Gynecology Comment on above: OB Start: 09-07-2024 End: 09-07-2025 OBSTETRIC ULTRASOUND WHI OBSTETRIC ULTRASOUND [facility]I Anc Imaging Routine Marginal placenta previa Expected: 09/07/2024, Expires: 09/07/2025 [facility] Work Phone: Comment on above: Expected: 09/07/2024 , Expires: 09/07/2025 Start: 09-07-2024 End: 09-07-2024 Patient encounter procedure [facility] Comment on above: Anatomy /OB OB Start: 08-10-2024 End: 08-10-2024 Patient encounter procedure 08/10/2024 8:40 AM EST Routine Office Visit OB/Gynecology [address] [place] [address] Amanda Tavera MD [address] [place] [address] OB Routine OB/Gynecology Comment on above: OB Routine Start: 07-12-2024 End: 07-12-2024 Patient encounter procedure [facility] Comment on above: Nuchal OB Routine Start: 07-12-2024 End: 10-11-2024 Chromosome 21 trisomy [Presence] in Blood or Tissue by Cytogenetics [facility] Comment on above: Expected: 07/12/2024 , Expires: 10/11/2024 Start: 07-12-2024 End: 10-11-2024 Hemoglobin A1c in Blood [facility] Comment on above: Expected: 07/12/2024 , Expires: 10/11/2024 Start: 07-12-2024 End: 07-12-2025 OBSTETRIC ULTRASOUND WHI OBSTETRIC ULTRASOUND [facility]I Anc Imaging Routine 12 weeks gestation of Encounter for supervision of other normal in first trimester Expected: 07/12/2024, Expires: 07/12/2025 [facility] Work Phone: Comment on above: Expected: 07/12/2024 , Expires: 07/12/2025 Start: 06-08-2024 End: 09-07-2024 ANEMIA REFLEX PANEL ANEMIA REFLEX PANEL Lab Routine with uncertain dates in first trimester Expected: 06/08/2024, Expires: 09/07/2024 [facility] Comment on above: Expected: 06/08/2024 , Expires: 09/07/2024 Start: 06-08-2024 End: 09-07-2024 Hepatitis B virus surface Ag [Presence] in Serum HEPATITIS B SURFACE ANTIGEN Lab Routine with uncertain dates in first trimester Expected: 06/08/2024, Expires: 09/07/2024 [facility] Comment on above: Expected: 06/08/2024 , Expires: 09/07/2024 Start: 06-08-2024 End: 09-07-2024 Hepatitis C virus Ab [Presence] in Serum HEPATITIS C ANTIBODY IA WITH CONFIRMATION Lab Routine with uncertain dates in first trimester Expected: 06/08/2024, Expires: 09/07/2024 [facility] Comment on above: Expected: 06/08/2024 , Expires: 09/07/2024 Start: 06-08-2024 End: 09-07-2024 HIV 1+2 Ab [Presence] in Serum or Plasma by Immunoassay HIV 1/2 COMBO WITH REFLEX TO DIFFERENTIATION Lab Routine with uncertain dates in first trimester Expected: 06/08/2024, Expires: 09/07/2024 [facility] Comment on above: Expected: 06/08/2024 , Expires: 09/07/2024 Start: 06-08-2024 End: 06-08-2025 NUCHAL TRANSLUCENCY WHI NUCHAL TRANSLUCENCY WHI Anc Imaging Routine with uncertain dates in first trimester Expected: 06/08/2024, Expires: 06/08/2025 [facility] Comment on above: Expected: 06/08/2024 , Expires: 06/08/2025 Start: 06-08-2024 End: 09-07-2024 RUBELLA IGG ANTIBODY RUBELLA IGG ANTIBODY Lab Routine with uncertain dates in first trimester Expected: 06/08/2024, Expires: 09/07/2024 [facility] Comment on above: Expected: 06/08/2024 , Expires: 09/07/2024 Start: 06-08-2024 End: 09-07-2024 SYPHILIS TREPONEMAL W/REFLEX SYPHILIS TREPONEMAL W/REFLEX Lab Routine with uncertain dates in first trimester Expected: 06/08/2024, Expires: 09/07/2024 [facility] Comment on above: Expected: 06/08/2024 , Expires: 09/07/2024 Start: 06-08-2024 End: 09-07-2024 TYPE + SCREEN TYPE + SCREEN Blood Bank Routine with uncertain dates in first trimester Expected: 06/08/2024, Expires: 09/07/2024 [facility] Comment on above: Expected: 06/08/2024 , Expires: 09/07/2024 Start: 06-08-2024 End: 06-08-2024 Patient encounter procedure 06/08/2024 8:45 AM EST Initial Office Visit OB/Gynecology [address] [place] [address] Kelly Gregg APRN.CN [address] [place] [address] NEW OB OB/Gynecology Comment on above: NEW OB Start: 05-25-2024 End: 05-25-2024 ambulatory 05/25/2024 7:00 AM EDT Results Only [facility] [address] [place] [address] [facility] Start: 05-23-2024 End: 05-23-2024 ambulatory 05/23/2024 7:00 AM EDT Results Only [facility] [address] [place] [address] [facility] Start: 03-25-2024 Covid-19 Vaccine ( season) Covid-19 Vaccine ( season) [facility] Start: 03-25-2024 Influenza vaccination Influenza Vacc ine (#1) [facility] Start: 03-28-2023 Ambulation without limitation [facility] Start: 03-28-2023 Medical regimen orde rs management [facility] Start: 03-28-[address] [facility] Start: 03-28-2023 Patient discharge [facility] Start: 03-28-2023 Procedure discontinued [facility] Start: 03-28-2023 Taking patient vital signs [facility] Start: 03-28-2023 Vital signs measurements [facility] Start: 03-28-2023 [facility] Start: 03-28-2023 Removal of ectopic fetus Laparoscopic, Removal Ectopic (Not Applicable) [facility] Start: 03-25-2023 Influenza vaccination [facility] Start: 03-17-2023 End: 05-17-2023 Choriogonadotropin.beta subunit [Units/volume] in Serum or Plasma HCG QUANTITATIVE Lab Routine Left tubal without intrauterine Expected: 03/17/2023, Expires: 05/17/2023 [facility] Work Phone: Comment on above: Expected: 03/17/2023 , Expires: 05/17/2023 Start: 03-11-2023 End: 03-11-2024 OBSTETRIC ULTRASOUND WHI OBSTETRIC ULTRASOUND I Anc Imaging Routine with uncertain viability, single or unspecified fetus Expected: 03/11/2023, Expires: 03/11/2024 [facility] Work Phone: Comment on above: Expected: 03/11/2023 , Expires: 03/11/2024 Start: 10-02-2022 PAP TESTING PAP TESTING [facility] Start: 10-02-2022 Screening for malign ant neoplasm of cervix Cervical Cancer Screening [facility] Start: 07-25-2022 [facility] Start: 03-25-2022 Influenza vaccination C [facility] Start: 07-25-2021 [facility] Start: 01-09-2018 Urine microalbumin profile [facility] Start: 11-20-2015 SHINGRIX VACCINE (1 of 2) SHINGRIX VACCINE (1 of 2) [facility] Start: 2014 Anxiety Screening Anxiety Screening [facility] Start: 2014 Depression Screening Depression Scre ening [facility] Start: 2014 HEPATITIS C SCREENING HEPATITIS C SC [facility] Start: 2014 Hepatitis C screening Hepatitis C [facility] Start: 2014 HIV SCREENING HIV SCREENING [facility] Start: 2014 HIV screening HIV Screening [facility] Start: 2010 PEDS TO ADULT TRANSITION ANNUAL ASSESSMENT PEDS TO ADULT TRANSITION ANNUAL ASSESSMENT [facility] Start: 2008 Adult depression screening assessment DEPRESSION SCREENING [facility] Start: 2008 PEDS TO ADULT TRANSITION INITIAL DISCUSSION PEDS TO ADULT TRANSITION INITIAL DISCUSSION [facility] Start: 2006 MENINGOCOCCAL B: Consider based on risk (1 of 2 - Risk Bexsero 2-dose series) MENINGOCOCCAL B: Consider based on risk (1 of 2 - Risk Bexsero 2-dose series) [facility] Start: 2002 PNEUMOCOCCAL (1 - PCV) PNEUMOCOCCAL (1 - PCV) [facility] Start: 2002 Pneumococcal vaccination Pneumococcal Vaccine (1 - PCV) [facility] Start: 2001 COVID-19 VACCINE (#1) COVID-19 VACCI NE (#1) [facility] Start: 2001 COVID-19 VACCINE (1) COVID-19 VACCIN E (1) [facility] Start: 05-21-1997 COVID-19 VACCINE (#1) COVID-19 VACCI NE (#1) [facility] Bacteria identified in Urine by Culture URINE CULTURE Microbiology Routine with uncertain dates in first trimester 06/08/2024 10:03 AM [facility] Chlamydia trachomatis+Neisseria gonorrhoeae DNA [Presence] in Unspecified specimen by MATTHEW with probe detection GONORRHEA/CHLAMYDIA NAAT Lab Routine with uncertain dates in first trimester 06/08/2024 10:03 AM EST [facility] End: 03-17-2024 Choriogonadotropin.beta subunit [Units/volume] in Serum or Plasma HCG QUANTITATIVE Lab Routine Ectopic without intrauterine , unspecified location 2x per week for 2 Occurrences starting 03/18/2023 until 03/17/2024 [facility] Work Phone: Comment on above: 2x per week for 2 Oc currences starting 03/18/2023 until 03/17/2024 End: 06-14-2024 Choriogonadotropin.beta subunit [Units/volume] in Serum or Plasma HCG QUANTITATIVE Lab Routine affected by previous ectopic Positive urine test 2x per week for 2 Occurrences starting 05/14/2024 until 06/14/2024 [facility] Work Phone: Comment on above: 2x per week for 2 Oc currences starting 05/14/2024 until 06/14/2024 PAP TEST PAP TEST Lab Rou kimberly with uncertain dates in first trimester 06/08/2024 10:03 AM EST [facility] Patient referral [facility] Work Phone: POC UTILITIES SERVICE INVESTIGATOR ULTRASOUND POC UTILITIES SERVICE INVESTIGATOR ULTRASO UND Anc Imaging Routine with uncertain dates in first trimester Ordered: 06/08/2024 [facility] Work Phone: Comment on above: Ordered: 06/08/2024 ROUTINE, GR OUP B STREPTOCOCCUS BY PCR ROUTINE, GROUP B STREPTOCOCCUS BY PCR Microbiology Routine Supervision of high risk in third trimester (HCC) Low lying placenta nos or without hemorrhage, third trimester (HCC) 36 weeks gestation of (HCC) 12/24/2024 3:11 PM EDT [facility] Work Phone: URINE OB DIP B/O URINE OB DIP B/ O Lab Routine Supervision of high risk in third trimester (HCC) Positive GBS test 39 weeks gestation of (HCC) Ordered: 01/18/2025 [facility] Work Phone: Comment on above: Ordered: 01/18/2025 [facility] Immun[facility] Immunization Date Immunization Notes Care Provider Sade bright 10-31-2024 tetanus toxoid, reduced diphtheria toxoid, and acellular pertussis vaccine, adsorbed Amanda Jenkins MD Work Phone: [facility] 05-21-2020 Influenza, injectabl e, Madin Nida Canine Kidney, preservative free, quadrivalent Amanda Jenkins MD Work Phone: [facility] 05-21-2020 influenza virus vaccine, unspecified formulation Ob Ultrasound Work Phone: [facility] 05-27-2016 influenza, injectabl e, quadrivalent, preservative free Amanda Jenkins MD Work Phone: [facility] 04-19-2009 influenza virus vaccine, unspecified formulation Edelmira Ed MIMEOGRAPHER.ADMINISTRATIVE ASSISTANT DATA ENTRY Work Phone: [facility] 07-17-2008 human papilloma viru s vaccine, quadrivalent Edelmira Ed MIMEOGRAPHER.ADMINISTRATIVE ASSISTANT DATA ENTRY Work Phone: [facility] Work Phone: 06-07-2008 influenza virus vaccine, unspecified formulation Edelmira Ed MIMEOGRAPHER.ADMINISTRATIVE ASSISTANT DATA ENTRY Work Phone: [facility] Work Phone: 03-11-2008 human papilloma viru s vaccine, quadrivalent Edelmira Marshall MIMEOGRAPHER.[facility] Work Phone: [facility] Work Phone: 01-10-2008 human papilloma viru s vaccine, quadrivalent Edelmira Marshall MIMEOGRAPHER.[facility] Work Phone: [facility] 01-10-2008 Meningococcal, MCV4, unspecified conjugate formulation(groups A, C, Y and W-135) Edelmira Marshall MIMEOGRAPHER.[facility] Work Phone: [facility] 01-10-2008 tetanus toxoid, reduced diphtheria toxoid, and acellular pertussis vaccine, adsorbed Edelmira Marshall MIMEOGRAPHER.ADMINISTRATIVE ASSISTANT DATA ENTRY Work Phone: [facility] 05-30-2007 influenza virus vaccine, unspecified formulation Edelmira Ed MIMEOGRAPHER.ADMINISTRATIVE ASSISTANT DATA ENTRY Work Phone: [facility] Work Phone: 05-30-2006 influenza virus vaccine, unspecified formulation Edelmira Ed MIMEOGRAPHER.[facility] Work Phone: [facility] Work Phone: 05-03-2006 diphtheria, tetanus toxoids and acellular pertussis vaccine, unspecified formulation Amanda Jenkins MD Work Phone: [facility] 05-03-2006 pneumococcal conjuga te vaccine, 7 valent Amanda Jenkins MD Work Phone: [facility] 05-03-2006 poliovirus vaccine, inactivated Amanda Jenkins MD Work Phone: [facility] 05-03-2006 rotavirus vaccine, unspecified formulation Amanda Jenkins MD Work Phone: [facility] 02-15-2006 diphtheria, tetanus toxoids and acellular pertussis vaccine, unspecified formulation Amanda Jenkins MD Work Phone: [facility] 02-15-2006 haemophilus influenz ae type b conjugate and Hepatitis B vaccine Amanda Jenkins MD Work Phone: [facility] 02-15-2006 pneumococcal conjuga te vaccine, 7 valent Amanda Jenkins MD Work Phone: [facility] 02-15-2006 poliovirus vaccine, inactivated Amanda Jenkins MD Work Phone: [facility] 02-15-2006 rotavirus vaccine, unspecified formulation Amanda Jenkins MD Work Phone: [facility] 06-03-2005 influenza virus vaccine, unspecified formulation Edelmira Ed MIMEOGRAPHER.ADMINISTRATIVE ASSISTANT DATA ENTRY Work Phone: [facility] Work Phone: 06-19-2004 influenza virus vaccine, unspecified formulation Edelmira Marshall MIMEOGRAPHER.ADMINISTRATIVE ASSISTANT DATA ENTRY Work Phone: [facility] Work Phone: 06-24-2003 influenza virus vaccine, unspecified formulation Edelmira Ed MIMEOGRAPHER.ADMINISTRATIVE ASSISTANT DATA ENTRY Work Phone: [facility] Work Phone: 02-27-2001 diphtheria, tetanus toxoids and acellular pertussis vaccine Edelmira Marshall MIMEOGRAPHER.ADMINISTRATIVE ASSISTANT DATA ENTRY Work Phone: [facility] Work Phone: 02-27-2001 measles, mumps and rubella virus vaccine Edelmira Ed MIMEOGRAPHER.ADMINISTRATIVE ASSISTANT DATA ENTRY Work Phone: [facility] Work Phone: 02-27-2001 poliovirus vaccine, inactivated Edelmira Ed MIMEOGRAPHER.[facility] Work Phone: [facility] Work Phone: 02-27-2001 varicella virus vaccine Edelmira Marshall MIMEOGRAPHER.[facility] Work Phone: [facility] Work Phone: 03-17-1998 diphtheria, tetanus toxoids and acellular pertussis vaccine Edelmira Ed MIMEOGRAPHER.[facility] Work Phone: [facility] Work Phone: 03-17-1998 haemophilus influenz ae type b vaccine, HbOC conjugate Edelmira Marshall MIMEOGRAPHER.[facility] Work Phone: [facility] Work Phone: 03-17-1998 poliovirus vaccine, inactivated Edelmira Ed MIMEOGRAPHER.[facility] Work Phone: [facility] Work Phone: 11-21-1997 measles, mumps and rubella virus vaccine Edelmira Ed MIMEOGRAPHER.[facility] Work Phone: [facility] Work Phone: 07-10-1997 diphtheria, tetanus toxoids and acellular pertussis vaccine Edelmira Marshall MIMEOGRAPHER.[facility] Work Phone: [facility] Work Phone: 07-10-1997 haemophilus influenz ae type b vaccine, HbOC conjugate Edelmira Marshall MIMEOGRAPHER.[facility] Work Phone: [facility] Work Phone: 07-10-1997 hepatitis B vaccine, pediatric or pediatric/adolescent dosage Edelmira Marshall MIMEOGRAPHER.[facility] Work Phone: [facility] Work Phone: 04-29-1997 diphtheria, tetanus toxoids and acellular pertussis vaccine Edelmira Ed MIMEOGRAPHER.[facility] Work Phone: [facility] Work Phone: 04-29-1997 haemophilus influenz ae type b vaccine, HbOC conjugate Edelmira Marshall MIMEOGRAPHER.[facility] Work Phone: [facility] Work Phone: 04-29-1997 poliovirus vaccine, inactivated Edelmira Marshall MIMEOGRAPHER.ADMINISTRATIVE ASSISTANT DATA ENTRY Work Phone: [facility] Work Phone: 01-29-1997 diphtheria, tetanus toxoids and acellular pertussis vaccine Edelmira Marshall MIMEOGRAPHER.ADMINISTRATIVE ASSISTANT DATA ENTRY Work Phone: [facility] Work Phone: 01-29-1997 haemophilus influenz ae type b vaccine, HbOC conjugate Edelmira Marshall MIMEOGRAPHER.[facility] Work Phone: [facility] Work Phone: 01-29-1997 hepatitis B vaccine, pediatric or pediatric/adolescent dosage Edelmira Ed MIMEOGRAPHER.[facility] Work Phone: [facility] Work Phone: 01-29-1997 poliovirus vaccine, inactivated Edelmira Ed MIMEOGRAPHER.[facility] Work Phone: [facility] Work Phone: 1996 hepatitis B vaccine, pediatric or pediatric/adolescent dosage Edelmira Ed MIMEOGRAPHER.[facility] Work Phone: [facility] Work Phone: Payers Date Payer Category Payer Private Health Insurance [id number] 2021 Private Health Insurance [id number] 2020 Unknown [employer] PPO [id number] 2020-Present [phone] [address] [place] [address] PPO [id number] 1996 Unknown [id number] Social History Date Type Detail Facility Start: 08-01-2014 End: 05-21-2022 Tobacco smoking status NHIS Never smoked tobacco [facility] Start: 03-26-2021 End: 04-06-2023 Alcohol intake Current drinker of alcohol (finding) [facility] Start: 10-03-2019 History SDOH Alcohol Frequency 4 [facility] Start: 10-03-2019 History SDOH Alcohol Comment Weekends/social [facility] Start: 10-03-2019 History SDOH Social Connections Phone 5 [facility] Start: 10-03-2019 History SDOH Social Connections Pentecostalism 3 [facility] Start: 10-03-2019 History SDOH Social Connections Membership 2 [facility] Start: 10-03-2019 History SDOH Social Connections Meetings 1 [facility] Start: 10-03-2019 History SDOH Social Connections Living 7 [facility] Start: 10-03-2019 History SDOH Physica l Activity DPW 0 [facility] Start: 1995 Sex Assigned At Not on file C [facility] Start: 08-01-2014 End: 05-21-2022 Tobacco use and exposure Smokeless tobacco non-user [facility] Start: 03-11-2022 End: 05-21-2022 Exposure to SARS-CoV-2 (event) Not sure [facility] Start: 10-03-2019 End: 03-12-2023 History of Social function [facility] Start: 10-03-2019 End: 03-12-2023 Social connection and isolation panel [facility] Do you belong to any clubs or organizations such as anabaptism groups, unions, fraternal or athletic groups, or school groups? No [facility] Are you now , , , , never or living with a partner? Never [facility] How often to you hav e a drink containing alcohol? 2-3 time sa week [facility] Average Number of Drinks Not on file [facility] Do you feel stress - tense, restless, nervous, or anxious, or unable to sleep at night because your mind is troubled all the time - these days [OSQ] To some extent [facility] (I/We) worried wheth er (my/our) food would run out before (I/we) got money to buy more. Never true [facility] Start: 02-10-2023 [facility] Start: 03-28-2023 Tobacco smoking stat us NHIS Unknown if ever smoked [facility] Start: 1995 Sex Assigned At Female W [facility] Start: 06-08-2024 End: 01-18-2025 Alcoholic beverage intake Ex-drinker (finding) [facility] The thought of radu capone myself has occurred to me Never [facility] Start: 06-06-2024 Education 21 [facility] Goals Date Patient Goal Desired Activity /State Personal health goal Functional Status Date Assessment Result Facility 03-17-2023 Are you deaf, or do you have serious difficulty hearing No 03/17/2023 9:09 PM EDT Dory Chen RN [facility] 03-17-2023 Are you blind, or do you have serious difficulty seeing, even when wearing glasses No 03/17/2023 9:09 PM EDT Dory Chen RN No [facility] 03-17-2023 Do you have serious difficulty walking or climbing stairs No 03/17/2023 9:09 PM EDT Dory Chen RN [facility] 03-17-2023 Do you have difficul ty dressing or bathing No 03/17/2023 9:09 PM EDT Dory Chen, ABDI [facility] 03-17-2023 Because of a physica l, mental, or emotional condition, do you have difficulty doing errands alone such as visiting a physician's office or shopping No 03/17/2023 9:09 PM EDT Dory Chen RN No [facility] Mental Status Date Assessment Result Facility 03-28-2023 Cognitive function Voice/Name [facility] Work Phone: 03-17-2023 Because of a physica l, mental, or emotional condition, do you have serious difficulty concentrating, remembering, or making decisions No 03/17/2023 9:09 PM EDT Dory Chen RN No [facility] Clinical Notes 10-26-2021 to 01-24-2025 Telephone Encounter - Sumit Hamlin LPN - 01/24/2025 3:11 PM EDTTelephone Encounter - Sumit Hamlin LPN - 01/24/2025 3:11 PM EDTPatient InstructionsPatient InstructionsPatient Instructions Note Date & Type Note Facility 01-24-2025 Telephone encount er Note Phone call placed patient identified by name and date of , reviewed non stress test at [facility] 1:00 on Tuesday01/27/2025, induction scheduled on 01/28/2025 at 7:00 PM. Patient offered to move induction to 7:00 PM on Tuesday, patient declined. Sumit Hamlin LPN [facility] 01-24-2025 Miscellaneous Notes Formattin g of this note might be different from the original. Phone call placed patient identified by name and date of , reviewed non stress test at [facility] 1:00 on Tuesday01/27/2025, induction scheduled on 01/28/2025 at 7:00 PM. Patient offered to move induction to 7:00 PM on Tuesday, patient declined. Sumit Hamlin LPN documented in this encounter [facility] 01-24-2025 Progress note Formatting of t [...] RTO 2 weeks PP Kelly Gregg APRN.CNM [facility] 01-24-2025 Miscellaneous Notes Formattin g of [...] Kelly Gregg APRN.CNM documented in this encounter [facility] 01-24-2025 Instructions Sumit Hamlin LPN - 01/24/2025 7:56 AM EDT SEQUENTIAL SCREENINGS [facility] offers sequential screenings for women who [...] It will require an appointment with our waste handling technician. This is not an ultrasound performed [...] the above symptoms, contact our office at [phone] and ask to speak with a nurse. After hours, you can call [facility] at [phone] OR call [facility] at [phone] and ask to have the doctor clinical operations manager paged. If you consider this an emergency, dial 9-1-8 or go to your nearest emergency department. NEED HELP? Are you dealing with a violent or abusive relationship? Are you a victim of rape or sexual assult? Call [facility] ([place]) 24 hour Crisis Hotline: 838.573.6751 or 549-628-3225. MANUAL Your Guide to a Healthy manual is now on-line. Visit [email or web address] gnancyGuide to download your free copy documented in this encounter [facility] 01-18-2025 Progress note Formatting of t [...] sooner if needed Kelly Gregg APRN.CNM [facility] 01-18-2025 Miscellaneous Notes Formattin g of [...] Kelly Gregg APRN.CNM documented in this encounter [facility] 01-18-2025 Instructions Charles Nava MA - 01/18/2025 8:05 AM EDT SEQUENTIAL SCREENINGS [facility] offers sequential screenings for women who [...] It will require an appointment with our waste handling technician. This is not an ultrasound performed [...] the above symptoms, contact our office at [phone] and ask to speak with a nurse. After hours, you can call [facility] at [phone] OR call [facility] at [phone] and ask to have the doctor clinical operations manager paged. If you consider this an emergency, dial 03-25- or go to your nearest emergency department. NEED HELP? Are you dealing with a violent or abusive relationship? Are you a victim of rape or sexual assult? Call [facility] ([place]) 24 hour Crisis Hotline: 638.523.9767 or 157-938-6484. MANUAL Your Guide to a Healthy manual is now on-line. Visit [email or web address] gnancyGuide to download your free copy documented in this encounter [facility] 01-11-2025 Instructions Kelly Gregg APRN.CLAUDIA - [...] an easy pie crust in the manager food beverage. Add soaked dates to homemade nut butter for a sweet treat. Add dates to deshaun homemade salad dressing. Add dates during easily with these yummy (paleo friendly) bars made from dates. What Is Red Raspberry Mcpherson Tea? Red raspberry leaf tea comes from [...] , and too. How Much Red Raspberry Mcpherson Tea to Drink? With your doctor or invasive manager s approval, start with 1 cup of [...] because of uterine cramping. Is Red Raspberry Mcpherson Tea the Same as Raspberry Mcpherson Tea? How About Plain Old Raspberry Tea? Sometimes. You really need to look at the ingredients to be sure. Note that there is no difference between red raspberry leaf and raspberry leaf. DataSphere or Ask Ziggy Raspberry Mcpherson Tea are two good brands. The red [...] outlined in this article. [employer] www.[employer]od[employer] Limited.CareToSave I named this 'circuit' after my friend [...] sideways, 2 at a time, (have a lokie driver downstairs of you!), take a walk outside [...] pelvis. Charline Ramirez Wisam: Circuit Creator - www.iCopyrighttidalhealth nanticokeKaboo Cloud Cameracollective. CareToSave Hortensia Sams CD, BDT (ALINE), LCCE, FACCE: Supporting Content - www.hortensiaSeven Seas Wateragus.CareToSave Kelli Hawkins: Photography - www.kelliInteractive Mobile Advertising.CareToSave Joycelyn Andrea CD/CDT (ROSA): Print and Component Overhaul Operator - www.[employer]. Circuit Masterminds The ezCater www.Yod[employer] Limited.CareToSave SEQUENTIAL SCREENINGS [facility] offers sequential screenings for women who [...] It will require an appointment with our waste handling technician. This is not an ultrasound performed [...] the above symptoms, contact our office at [phone] and ask to speak with a nurse. After hours, you can call doctors [facility] at [phone] OR call [facility] at [phone] and ask to have the doctor clinical operations manager paged. If you consider this an emergency, dial or go to your nearest emergency department. NEED HELP? Are you dealing with a violent or abusive relationship? Are you a victim of rape or sexual assult? Call [facility] ([place]) 24 hour Crisis Hotline: 834.788.1847 or 193-806-1998. MANUAL Your Guide to a Healthy manual is now on-line. Visit [email or web address]/HealthyPre gnancyGuide to download your free copy documented in this encounter [facility] 01-11-2025 Progress note Formatting of t [...] - RTO 1 week Kelly Gregg APRN.CNM [facility] 01-11-2025 Miscellaneous Notes Formattin g of [...] Kelly Gregg APRN.CNM documented in this encounter [facility] 01-07-2025 Note HNO ID: [id number] Author: CHRIS HENDERSON, ? Service: ? Author Type: Patient Disciplinary Hearing Officer Type: Progress Notes Filed: 01/07/2025 08:45 Note Text: POPULATION HEALTH NAVIGATION OUTREACH Action/FYI Spoke to patient added shipping lead person to OB provider field Reason for Outreach Medicaid OB/Peds Care Gaps due: N/A Patient Contacted: Spoke to patient/parent/or legal guardian Patient identified by name and : Yes Medicaid OB/Peds actions taken: /Intellectual Property Lawyer added Navigation Signature: Chris Henderson Population Health Navigator January 07, 2025 8:44 AM [facility] 01-07-2025 History of Presen t illness Narrative POPULATION HEALTH NAVIGATION OUTREACH Action/FYI Spoke to patient added shipping lead person to OB provider field Reason for Outreach Medicaid OB/Peds Care Gaps due: N/A Patient Contacted: Spoke to patient/parent/or legal guardian Patient identified by name and : Yes Medicaid OB/Peds actions taken: /Intellectual Property Lawyer added Navigation Signature: Chris Henderson Population Health Navigator January 07, 2025 8:44 AM documented in this encounter [facility] 01-07-2025 Note Patient Outreach (JOHN TNAV) CHARLINE KIRKPATRICK ([id number]) 1995 F CHT Date Time Provider Department 01/07/25 CHRIS HENDERSON During your visit today, we recorded the following information about you: Chris Henderson 01/07/2025 8:45 AM Signed POPULATION HEALTH NAVIGATION OUTREACH Action/FYI Spoke to patient added shipping lead person to OB provider field Reason for Outreach Medicaid OB/Peds Care Gaps due: N/A Patient Contacted: Spoke to patient/parent/or legal guardian Patient identified by name and : Yes Medicaid OB/Peds actions taken: [place]/Intellectual Property Lawyer added Navigation Signature: Chris Henderson Population Health [...] tablet by mouth once daily. - 25-IRON HYD-MVJAP-BIS ORAL Take by mouth. Problem List As [...] Encounter Status:Closed by CHRIS HENDERSON on 01/07/25 [facility] 01-03-2025 Telephone encount er Note [facility] paperwork completed and faxed back to number provided on forms. Patient notified. Charles Nava MA [facility] 01-03-2025 Miscellaneous Notes Formattin g of this note might be different from the original. [facility] paperwork completed and faxed back to number provided on forms. Patient notified. Charles Nava MA Received [facility] paperwork. Awaiting patients response regarding length of leave. Charles Nava MA documented in this encounter [facility] 01-02-2025 Progress note Formatting of t his note might be different from the original. Patient at 37w3d w/o complaint Denies TABOR, vision changes, swelling Consistent movement Discussed L&D, epidural +GBS discussed doing well, rto 1 week Ovidio Joseph MD [facility] Work Phone: 01-02-2025 Miscellaneous Notes Formattin g of this note might be different from the original. Patient at 37w3d w/o complaint Denies TABOR, vision changes, swelling Consistent movement Discussed L&D, epidural +GBS discussed doing well, rto 1 week Ovidio Joseph MD documented in this encounter [facility] 01-02-2025 Instructions Sumit Hamlin LPN - 01/02/2025 7:56 AM EDT SEQUENTIAL SCREENINGS [facility] offers sequential screenings for women who [...] It will require an appointment with our waste handling technician. This is not an ultrasound performed [...] the above symptoms, contact our office at [phone] and ask to speak with a nurse. After hours, you can call doctors registry at [phone] OR call [facility] at [phone] and ask to have the doctor clinical operations manager paged. If you consider this an emergency, dial 03-25- or go to your nearest emergency department. NEED HELP? Are you dealing with a violent or abusive relationship? Are you a victim of rape or sexual assult? Call [facility] ([place]) 24 hour Crisis Hotline: 875.869.7294 or 753-611-2216. MANUAL Your Guide to a Healthy manual is now on-line. Visit [email or web address] to download your free copy documented in this encounter [facility] 12-28-2024 Telephone encount er Note Received [place] paperwork. Awaiting patients response regarding length of leave. Charles Nava MA [facility] 12-24-2024 Progress note Formatting of t [...] Supervision of high risk in third trimester ([facility]) - ICD9: V23.9, ICD10: O09.93 (primary diagnosis) - URINE OB DIP B/O - ROUTINE, GROUP B STREPTOCOCCUS BY PCR 2. Low lying placenta nos or without hemorrhage, third trimester ([facility]) - ICD9: 641.03, ICD10: O44.43 resolved - URINE OB DIP B/O - ROUTINE, GROUP B STREPTOCOCCUS BY PCR 3. 36 weeks gestation of ([facility]) - ICD9: V22.2, ICD10: Z3A.36 - URINE OB DIP B/O - ROUTINE, GROUP B STREPTOCOCCUS BY PCR 4. 16 weeks gestation of ([facility]) - ICD9: V22.2, ICD10: Z3A.16 - ONDANSETRON HCL 4 MG TABLET 5. Nausea and vomiting in ([facility]) - ICD9: 643.90, ICD10: O21.9 - ONDANSETRON HCL 4 MG TABLET Sangeeta Edwards MD [facility] 12-24-2024 Miscellaneous Notes Formattin g of [...] Supervision of high risk in third trimester ([facility]) - ICD9: V23.9, ICD10: O09.93 (primary diagnosis) - URINE OB DIP B/O - ROUTINE, GROUP B STREPTOCOCCUS BY PCR 2. Low lying placenta nos or without hemorrhage, third trimester ([facility]) - ICD9: 641.03, ICD10: O44.43 resolved - URINE OB DIP B/O - ROUTINE, GROUP B STREPTOCOCCUS BY PCR 3. 36 weeks gestation of ([facility]) - ICD9: V22.2, ICD10: Z3A.36 - URINE OB DIP B/O - ROUTINE, GROUP B STREPTOCOCCUS BY PCR 4. 16 weeks gestation of ([facility]) - ICD9: V22.2, ICD10: Z3A.16 - ONDANSETRON HCL 4 MG TABLET 5. Nausea and vomiting in ([facility]) - ICD9: 643.90, ICD10: O21.9 - ONDANSETRON HCL 4 MG TABLET Sangeeta Edwards MD documented in this encounter [facility] 12-24-2024 Instructions Celena Bach MA - 12/24/2024 2:40 PM EDT SEQUENTIAL SCREENINGS [facility] offers sequential screenings for women who [...] It will require an appointment with our waste handling technician. This is not an ultrasound performed [...] the above symptoms, contact our office at [phone] and ask to speak with a nurse. After hours, you can call doctors registry at [phone] OR call [facility] at [phone] and ask to have the doctor clinical operations manager paged. If you consider this an emergency, dial 9--1 or go to your nearest emergency department. NEED HELP? Are you dealing with a violent or abusive relationship? Are you a victim of rape or sexual assult? Call [facility] ([place]) 24 hour Crisis Hotline: 901.148.7499 or 442-906-2595. MANUAL Your Guide to a Healthy manual is now on-line. Visit [email or web address] to download your free copy documented in this encounter [facility] 12-18-2024 Telephone encount er Note 35w2d [...] 09/14/24, 10/16/24, & 11/17/24. Sowmya Gonzales RN [facility] 12-18-2024 Miscellaneous Notes Formattin g of [...] i can take? documented in this encounter [facility] 12-18-2024 Telephone encount er Note Can you please schedule patient appointment to discuss. Wanting to make sure nothing else is going on. Roz Reilly APRN.CNM [facility] 12-18-2024 Telephone encount er Note 35w2d Patient Comment: My puking has picked up recently, is there a larger dose of zofran that i can take? [facility] 12-05-2024 Note Indication Follow-up evaluation for [...] 13 oz EFW by: Hadlock (HC-AC-FL) Extended Liner Roll Changer 4.4 mm Extremities / Bony Struc FL [...] - RTO 2 wks Alcon Martinez DO [facility] Work Phone: 11-29-2024 Miscellaneous Notes Formattin [...] Alcon Martinez DO documented in this encounter [facility] 11-29-2024 Instructions Vesna Kim MA - 11/29/2024 2:43 PM EDT SEQUENTIAL SCREENINGS [facility] offers sequential screenings for women who [...] It will require an appointment with our waste handling technician. This is not an ultrasound performed [...] the above symptoms, contact our office at [phone] and ask to speak with a nurse. After hours, you can call doctors registry at [phone] OR call [facility] at [phone] and ask to have the doctor clinical operations manager paged. If you consider this an emergency, dial 9--3 or go to your nearest emergency department. NEED HELP? Are you dealing with a violent or abusive relationship? Are you a victim of rape or sexual assult? Call [facility] ([place]) 24 hour Crisis Hotline: 520.633.1792 or 990-870-6115. MANUAL Your Guide to a Healthy manual is now on-line. Visit [email or web address] to download your free copy documented in this encounter [facility] 11-01-2024 Progress note Formatting of t his note might be different from the original. Anatomy ultrasound reviewed. No abnormalities identified. Follow up as clinically indicated. Please place copy in ob chart. Shelli Allison MD [facility] Work Phone: 11-01-2024 Miscellaneous Notes Formattin g of this note might be different from the original. Anatomy ultrasound reviewed. No abnormalities identified. Follow up as clinically indicated. Please place copy in ob chart. Shelli Allison MD documented in this encounter [facility] 10-31-2024 Note Indication Follow-up evaluation for [...] Placenta: Placental site: posterior, low lying. Placental ddgs-ku-wncmwyrl os distance 11 mm Umbilical cord: Cord [...] 15 oz EFW by: Hadlock (HC-AC-FL) Extended Liner Roll Changer 6.1 mm Extremities / Bony Struc FL [...] M.D. [facility] 10-31-2024 Note HNO ID: [id number] Author: CELENA BACH MA Service: ? Author Type: Ship Boat Or Barge Mate Type: Progress Notes Filed: 10/31/2024 10:21 Note [...] severely ill: Yes Patient denies history of Guillain-Monroe Syndrome (a severe paralytic illness): Yes Tdap Adacel injection was given without incident. See immunizations for details of immunizations administered today. VIS sheet provided: Yes Provider Deandre was present in office at time of injection. Celena Bach MA [facility] 10-31-2024 History of Presen t illness Narrative [...] severely ill: Yes Patient denies history of Guillain-Monroe Syndrome (a severe paralytic illness): Yes Tdap [...] Amanda Wall MD documented in this encounter [facility] 10-31-2024 Note HNO ID: [id number] Author: AMANDA TAVERA MD Service: ? Author [...] 7+ YR (ADACEL, BOOSTRIX) Amanda Wall MD [facility] 10-05-2024 Progress note Formatting of t his [...] gestation of RTO 4weeks Amanda Wall MD [facility] 10-05-2024 Miscellaneous Notes Formattin g of [...] Amanda Wall MD documented in this encounter [facility] 10-05-2024 Instructions Celena Bach MA - 10/05/2024 11:30 AM EDT SEQUENTIAL SCREENINGS [facility] offers sequential screenings for women who [...] It will require an appointment with our waste handling technician. This is not an ultrasound performed [...] the above symptoms, contact our office at [phone] and ask to speak with a nurse. After hours, you can call doctors registry at [phone] OR call [facility] at [phone] and ask to have the doctor clinical operations manager paged. If you consider this an emergency, dial 9--1 or go to your nearest emergency department. NEED HELP? Are you dealing with a violent or abusive relationship? Are you a victim of rape or sexual assult? Call [facility] ([place]) 24 hour Crisis Hotline: 640.492.4078 or 114-304-8060. MANUAL Your Guide to a Healthy manual is now on-line. Visit [email or web address] to download your free copy documented in this encounter [facility] 09-14-2024 Note HNO ID: [id number] Author: ROZ REILLY APRN.CNM Service: ? Author Type: Cargo Vessel Stewardess Type: Progress Notes Filed: 09/14/2024 17:21 Note Text: Prescription sent for zofran refill. Roz Reilly APRN.CNM [facility] 09-14-2024 History of Presen t illness Narrative Prescription sent for zofran refill. Roz Reilly APRN.CNM documented in this encounter [facility] 09-10-2024 Telephone encount er Note US scheduled as advised at 28 weeks-on 10/31/24. Sowmya Gonzales, RN [facility] 09-10-2024 Miscellaneous Notes Formattin g of this note might be different from the original. US scheduled as advised at 28 weeks-on 10/31/24. Sowmya Gonzales, RN documented in this encounter [facility] 09-07-2024 Progress note Formatting of t [...] OBSTETRIC ULTRASOUND WHI; Future Amanda Wall MD [facility] 09-07-2024 Miscellaneous Notes Formattin g of [...] 09/07/2024 8:41 AM EST SEQUENTIAL SCREENINGS [facility] offers sequential screenings for women who [...] It will require an appointment with our waste handling technician. This is not an ultrasound performed [...] the above symptoms, contact our office at [phone] and ask to speak with a nurse. After hours, you can call doctors registry at [phone] OR call [facility] at [phone] and ask to have the doctor clinical operations manager paged. If you consider this an emergency, dial 9-1-1 or go to your nearest emergency department. NEED HELP? Are you dealing with a violent or abusive relationship? Are you a victim of rape or sexual assult? Call [facility] ([place]) 24 hour Crisis Hotline: 684.861.1730 or 038-370-8617. MANUAL Your Guide to a Healthy manual is now on-line. Visit [email or web address] to download your free copy documented in this encounter [facility] 08-10-2024 Progress note Formatting of t [...] unisom reviewed. Restart pepcid. Amanda Wall MD [facility] 08-10-2024 Miscellaneous Notes Formattin g of [...] Amanda Wall MD documented in this encounter [facility] 08-10-2024 Instructions Celena Bach MA - 08/10/2024 8:30 AM EST SEQUENTIAL SCREENINGS [facility] offers sequential screenings for women who [...] It will require an appointment with our waste handling technician. This is not an ultrasound performed [...] the above symptoms, contact our office at [phone] and ask to speak with a nurse. After hours, you can call doctors registry at [phone] OR call [facility] at [phone] and ask to have the doctor clinical operations manager paged. If you consider this an emergency, dial 9-1-3 or go to your nearest emergency department. NEED HELP? Are you dealing with a violent or abusive relationship? Are you a victim of rape or sexual assult? Call [facility] ([place]) 24 hour Crisis Hotline: 306.607.3964 or 932-825-4791. MANUAL Your Guide to a Healthy manual is now on-line. Visit [email or web address] to download your free copy documented in this encounter [facility] 08-06-2024 Telephone encount er Note Refill request received via MyChart. Patient 16w1d, last seen 07/12. Next appointment on 08/10. Eliza Billy RN [facility] 08-06-2024 Miscellaneous Notes Formattin g of this note might be different from the original. Refill request received via MyChart. Patient 16w1d, last seen 07/12. Next appointment on 08/10. Eliza Billy RN documented in this encounter [facility] 08-03-2024 Telephone encount er Note Last OV 06/08/2025. Pharmacy comment: REQUEST FOR 90 DAYS PRESCRIPTION. Requested Prescriptions Pending Prescriptions Disp Refills famotidine (PEPCID) 20 mg tablet [Pharmacy Med Name: FAMOTIDINE 20 MG TABLET] 180 tablet 1 Sig: TAKE 1 TABLET BY MOUTH TWICE A DAY Sowmya Gonzales RN [facility] 08-03-2024 Miscellaneous Notes Formattin g of this note is different from the original. Last OV 06/08/2025. Pharmacy comment: REQUEST FOR 90 DAYS PRESCRIPTION. Requested Prescriptions Pending Prescriptions Disp Refills famotidine (PEPCID) 20 mg tablet [Pharmacy Med Name: FAMOTIDINE 20 MG TABLET] 180 tablet 1 Sig: TAKE 1 TABLET BY MOUTH TWICE A DAY Sowmya Gonzales RN documented in this encounter [facility] 07-12-2024 Progress note Formatting of t [...] or sooner if needed Kelly Gregg APRN.CNM [facility] 07-12-2024 Miscellaneous Notes Formattin g of this [...] Kelly Gregg APRN.CNM documented in this encounter [facility] 07-12-2024 Instructions Sumit Hamlin LPN - 07/12/2024 3:36 PM EST SEQUENTIAL SCREENINGS The [facility] offers sequential screenings for women who [...] It will require an appointment with our waste handling technician. This is not an ultrasound performed [...] the above symptoms, contact our office at [phone] and ask to speak with a nurse. After hours, you can call doctors registry at [phone] OR call [facility] at [phone] and ask to have the doctor clinical operations manager paged. If you consider this an emergency, dial 9-1-7 or go to your nearest emergency department. NEED HELP? Are you dealing with a violent or abusive relationship? Are you a victim of rape or sexual assult? Call [facility] ([place]) 24 hour Crisis Hotline: 194.120.5490 or 889-444-0408. MANUAL Your Guide to a Healthy manual is now on-line. Visit [email or web address] to download your free copy documented in this encounter [facility] 06-08-2024 Progress note Formatting of t his note might be different from the original. Patient seen for NOB. See progress note Kelly Gregg APRN.CNM [facility] 06-08-2024 Miscellaneous Notes Formattin g of this note might be different from the original. Patient seen for NOB. See progress note Kelly Gregg APRN.CNM documented in this encounter [facility] 06-08-2024 Instructions Sumit Hamlin LPN - 06/08/2024 8:34 AM EST Please select the following link to access the [facility] Your Guide to a Healthy . [email or web address] documented in this encounter [facility] 06-06-2024 Note HNO ID: [id number] Author: KELLY GREGG APRN.CNM Service: ? Author Type: Cargo Vessel Stewardess Type: Progress Notes Filed: 06/08/2024 09:59 Note Text: Patient declined senior pharmacy technician. *History of ectopic -quants have been done *Patient is complaining of nausea and occasional vomiting in . Dietary considerations discussed . Vitamin B6 recommended. Advised patient to call/come in if she is unable to keep any food or fluids down in a 24-hour period. *Patient considering genetic carrier screening testing and aneuploidy screening. 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 No current facility-administered medications for this visit. Allergies As of Date: 06/08/2024 (No Known Allergies) Fully Assessed 06/08/2024 Does patient have penicillin allergy: No REVIEW OF SYSTEMS: (more content not included)... [facility] 06-06-2024 History of Presen t illness Narrative Patient declined senior pharmacy technician. *History of ectopic -quants have been done *Patient is complaining of nausea and occasional vomiting in . Dietary considerations discussed . Vitamin B6 recommended. Advised patient to call/come in if she is unable to keep any food or fluids down in a 24-hour period. *Patient considering genetic carrier screening testing and aneuploidy screening. 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 No current facility-administered [...] discussed with the Patient or Patient's Authorized Ferry Hand. As applicable, any other physician, advance practice provider, medical student, or other health professional student that will be observing or involved in the sensitive examination for educational or training purposes was discussed with the Patient or Authorized Ferry Hand. The Patient or Authorized Ferry Hand has agreed to proceed with the sensitive [...] Your guide to a health and the Calender Machine Operator. Reviewed midwifery and helper/driver services that are available. 2) Screening: Hemoglobin [...] OSEAS Gregg APRN.CNM documented in this encounter [facility] 05-14-2024 Telephone encount er Note Pt notified and will get HCG levels drawn middle of next week and 1st OB appt has been rescheduled with CP 06/08/24 at 0845. Sowmya Gonzales RN [facility] 05-14-2024 Miscellaneous Notes Formattin g of [...] bleeding at this time. Wants DM's advice. Janene Contreras RN documented in this encounter [facility] 05-14-2024 Telephone encount er Note She [...] earliest next week (at least 5+ weeks) [facility] Work Phone: 05-14-2024 Telephone encount er [...] time. Wants DM's advice. Janeen Contreras RN [facility] 05-07-2023 Note HNO ID: [id number] Author: Note, Interface Service: ? Author Type: ? Type: Progress Notes Filed: 05/07/2023 5:13 AM Note Text: Epic Scheduled Downtime: 05/07/2023 1:00:00 AM to 05/07/2023 1:28:00 AM [facility] 04-06-2023 History of Presen t illness Narrative [...] Amanda Wall MD documented in this encounter [facility] 03-28-2023 Discharge summary Note Date/Time March 28, 2023 4:09pm [facility] Medical Records Department [address] [place] [id number] Instructions for Home/Discharge Instructions 03/28/23 1609 MR#: [id number] Acct: [id number] Name: CHARLINE KIRKPATRICK Rep #:[id number] : 1995 27 From: Amanda Jenkins MD PCP: Care Physician,No [place] [facility] [place] Instructions Diet Discharge Diet: No restrictions [...] if you need an appointment please call [phone] Test Results: Test results from this visit [...] CC: No Primary Care Physician ~ Signed [facility] Work Phone: 1(219) 562-398309-04-2023 History and physical note Author Yovanny kingsley [facility] March 28, 2023 2:44pm Note Date/Time March 28, 2023 2:44pm [facility] Medical Records Department [address] [place] [address] H&P Exam - HANDS ASSEMBLER 03/28/23 1437 MR#: [id number] Acct: [id number] Name: CHARLINE KIRKPATRICK Rep #:[id number] : 1995 27 From: Amanda Jenkins MD PCP: Care Physician,No [place] [facility] [place] [facility] [place] History and Physical Date of Admission: 03/28/23 with known ectopic presents c/o increased pain and vaginal bleeding- reports pain got more severe yesterday and today. pt receive 2 previous doses ofMTX with [facility] with appropriate decline in HCG levels. pt [...] Amanda Wall; No Primary Care Physician~ Signed [facility] Work Phone: 1(781) 692-320809-04-2023 Procedure [facility] 03-18-2023 Miscellaneous Notes* Telephone Encounter - Esther Rivero LPN - 03/18/2023 10:38 AM EDT Linked order to visit. Esther Rivero LPN * Telephone Encounter - Janeen Contreras RN - 03/18/2023 9:23 AM EDT Patient received 2nd methotrexate injection last night at [facility]. All previous hcg quant orders were cancelled. Please file again. 1st lab appointment scheduled for 03/21 - will need to link order once filed. Janeen Contreras RN [facility] NoteHNO ID: [id number] Author: Shelli Peralta DO Service: Obstetrics Author [...] the procedure. PRIMARY PROCEDURALIST: Shelli Peralta DO HAND TIER(S): Padmini Shay DO Informed Consent: Informed Consent obtained and on the chart [place] Protocol/Safety Checklist: Sign in Communication: Completed Time [...] Pharmacist Dose calculation confirmed by: [facility] AND Dr. Shelli Peralta DO RH: Positive Lot #: [id number] Expiration Date: 07/17 Methotrexate dose: 50mg/m2 Administration [...] March 17, 2023 TIME: 8:53 PM PAGER/CONTACT #:[facility]08-24-2023 NoteHNO ID: [id number] Author: Shelli Peralta DO Service: Obstetrics Author [...] and benefits reviewed. Pt reports traveling to [place] tomorrow morning and not returning until Tuesday [...] her OB. She sees Dr. Martinez, her HANDS ASSEMBLER and follows at the lab at [facility]. She had an initial episode of vaginal [...] March 17, 2023 TIME: 9:10 PM PAGER/CONTACT #:[facility]08-21-2023 Miscellaneous Notes* Telephone Encounter - Alcon Martinez MD - 03/14/2023 12:22 PM EDT Can be normal. 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 I also think reasonable to have additional [...] Her bleeding is still bright red, but ingot supervisor than her menstrual flow. Had her first HCG level drawn today. In process. Asking if this is what she should expect since [facility] did not review this with her she said. Off work today. Ok to return tomorrow? 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 Sangeeta Levi RN * Telephone Encounter - Amanda Tavera MD - 03/12/2023 8:42 AM EDT HCG levels were ordered for 03/14 and 03/17 . Please make sure they get followed. She may need seconddose of MTX . She got first dose of MTX at [facility] on 03/11/23 documented in this encounterDoctors Hospital08-18-2023 NoteHNO ID: [id number] Author: Alcon Bowie MD Service: Gynecology Author [...] (03/17/23). Communicated with Dr. Jenkins, who is clinical operations manager for [facility]. Plan of care made for patient to follow up for repeat bHCG quants in [place] and chart sent to herself and Dr. Martinez, her HANDS ASSEMBLER provider. Alcon Bowie, [facility]08-18-2023 NoteHNO ID: [id number] Author: Alcon Bowie MD Service: Obstetrics Author [...] the procedure. PRIMARY PROCEDURALIST: Alcon Bowie MD HAND TIER(S): Dr. Marii Lebron, attending. Informed Consent: Informed Consent obtained and on the chart [facility] Protocol/Safety Checklist: Sign in Communication: Completed Time [...] Pharmacist Dose calculation confirmed by: Salome Hernández [facility] and Alcon Bowie MD RH: Positive Lot #: [id number] Expiration Date: 06/2024 Methotrexate dose: 50mg/m2 Administration [...] March 11, 2023 TIME: 5:55 PM PAGER/CONTACT #:[facility]08-18-2023 NoteHNO ID: [id number] Author: Alcon Bowie MD Service: Obstetrics Author [...] additions: Reviewed all labs and images from [place] and discussed plan. Patient in agreement to proceed. Will likely follow upshe has already has her set up for HCG draws. Signature: Dmei Fowler MD Date: 03/13/2023 Time: 11:18 AM OBSTETRICS OB ED PROGRESS NOTE SERVICE DATE: March 11, 2023 SERVICE TIME: 5:22 PM Subjective Patient's stated reason for arrival: CHIEF COMPLAINT: Methotrexate for PUL Management; sent from [place] HISTORY OF THE PRESENT ILLNESS: The patient is a 27 year old female, , who is at Unknown early GA. Patient is sent here from [place] for administration of Methotrexate. She learned she [...] location 03/11/2023 Overview Note: - evaluated by HANDS ASSEMBLER at [place] - bHCG 1623 (03/08) > 1768 (03/10) - She had a TVUS today that demonstrated no intrauterine , endometrial stripe 10.6mm, complex left adnexal structure, 4cm. No evidence of pole. - abdominal exam benign - pelvic exam performed by her HANDS ASSEMBLER today, normal per report. - CBC, CMP collected at [place], within normal limits - bHCG quant, TANDS [...] 11, 2023 TIME: 5:22 PM [id number] History of Present illness Narrative* Alcon Martinez MD - 03/11/2023 1:13 PM EDT Charline Kirkpatrick is a 27 year old female who presents for early . HPI: The patient was seen by ADMINISTRATIVE ASSISTANT DATA ENTRY in the office for early . LMP [...] L0 SAB0 IAB0 Ectopic0 Multiple0 Live Births0 Telemarketing Agent History LMP: 02/24/2023, Having periods Age at Menarche: Age at First : Age at Menopause: Telemarketing Agent History Comments: Sexual Activity: Yes; Male Contraception: [...] images were reviewed by Dr. Jenkins provider clinical operations manager who agrees with likely ectopic based on findings. The patient elects for Methotrexate injection. Discussed she will have to go to [facility] for this given inability for her to have it with hematol ogy based on timing, and inability to receive it in our local ER. Called and spoke with [facility] resident regarding case given attending operating at the time. Alcon Martinez DO Medical Decision Making: Problems: Low: Acute, uncomplicated illness or injury Data: Unique test(s) ordered: 3+ Medical Decision Making Level: 3 - Low documented in this encounterDoctors Hospital08-18-2023 Miscellaneous Notes* Addendum Note - Alcon Martinez MD - 03/11/2023 10:38 AM EDTAddended by: [...] seen by one of the doctors or invasive manager JEFF. Edelmira Ward APRN.CNP documented in this encounterDoctors Hospital08-18-2023 Miscellaneous Notes* Telephone Encounter - Edelmira [...] here? Esther Rivero LPN documented in this encounterDoctors Hospital10-28-2022 History of Present illness Narrative* Edelmira [...] L0 SAB0 IAB0 Ectopic0 Multiple0 Live Births0 Telemarketing Agent History LMP: 05/11/2022, Having periods Age at Menarche: Age at First : Age at Menopause: Telemarketing Agent History Comments: Sexual Activity: Yes; Male Contraception: [...] external genitalia normal, normal Bartholin's glands, urethra, Birdseye's glands, no vulvar lesions, no cervical lesions, [...] Zoloft. Edelmira Ward APRN.CNP documented in this encounterDoctors Hospital08-28-2022 History of Present illness Narrative* Manny [...] TOPICAL CREAM Agrees to plan Manny Ren APRN.ADMINISTRATIVE ASSISTANT DATA ENTRY documented in this encounterDoctors Hospital04-04-2022 Miscellaneous Notes* Telephone Encounter - Janeen Contreras RN - 10/26/2021 10:35 AM EDT Requesting 90 day supply. Last annual with 01/13/21. Pending Prescriptions Disp Refills SRONYX 0.1 MG-20 MCG TABLET 84 tablet 1 Sig: TAKE 1 TABLET BY MOUTH EVERY DAY RAHEEL: Yes RX INSTRUCTIONS: Pharmacy initiated this request. No need to notify patient. Janeen Contreras RN [facility]* Diagnosis Rhus dermatitis- Primary Contact dermatitis and other eczema due to plants (except food) documented in this encounter [facility]* Diagnosis Encounter for gynecological examination (general) (routine) without abnormal findings- Primary Encounter for surveillance of contraceptive pills Surveillance of previously prescribed contraceptive pill documented in this encounter [facility]* Diagnosis with uncertain viability, single or unspecified fetus- Primary documented in this encounter [facility] note* Diagnosis Bleeding in early - Primary Unspecified hemorrhage in early , unspecified as to episode of care documented in this encounter [facility] note* Diagnosis Ectopic without intrauterine , unspecified location- Primary Early stage of state, incidental Vaginal bleeding in Unspecified antepartum hemorrhage, unspecified as to episode of care Pelvic cramping Unspecified symptom associated with female genital organs documented in this encounter [facility] note* Diagnosis Left tubal without intrauterine - Primary documented in this encounter [facility] note* Diagnosis Ectopic without intrauterine , unspecified location- Primary documented in this encounter [facility] note* Diagnosis Onset Date Resolution Status Hemoperitoneum due to ruptur e of left tubal ectopic acute Sinus tachycardia [facility] Work Phone: Evaluation note* Diagnosis with uncertain viability, single or unspecified fetus documented in this encounter [facility] note* Diagnosis Post-operative state- Primary Other postprocedural status documented in this encounter [facility] note* Diagnosis affected by previous ectopic - Primary Positive urine test examination or test, positive result documented in this encounter [facility] note* Diagnosis with uncertain dates in first trimester- Primary 7 weeks gestation of state, incidental Encounter for supervision of low-risk first in first trimester Nausea/vomiting in Unspecified vomiting of , unspecified as to episode of care History of ectopic Personal history of other genital system and obstetric disorders documented in this encounter [facility] note* Diagnosis Encounter for screening for malformation using ultrasound- Primary 12 weeks gestation of state, incidental Encounter for (NT) nuchal translucency scan Other specified screening documented in this encounter [facility]* Diagnosis 12 weeks gestation of - Primary state, incidental Encounter for supervision of other normal in first trimester Nausea/vomiting in Unspecified vomiting of , unspecified as to episode of care Heartburn during in second trimester documented in this encounter [facility]* Diagnosis Encounter for supervision of other normal in second trimester- Primary Nausea and vomiting in Unspecified vomiting of , unspecified as to episode of care 16 weeks gestation of state, incidental documented in this encounter [facility] note* Diagnosis 16 weeks gestation of state, incidental Nausea and vomiting in Unspecified vomiting of , unspecified as to episode of care documented in this encounter [facility] note* Diagnosis Encounter for supervision of other [...] ULTRASOUND WHI; Future documented in this encounter [facility] note* Diagnosis Encounter for anatomic survey- Primary [...] episode of care documented in this encounter [facility] note* Diagnosis Encounter for supervision of other normal in second trimester- Primary Heartburn during in second trimester 20 weeks gestation of state, incidental Marginal placenta previa Hemorrhage from placenta previa, unspecified as to episode of care 16 weeks gestation of state, incidental Nausea and vomiting in Unspecified vomiting of , unspecified as to episode of care documented in this encounter [facility] note* Diagnosis Encounter for supervision of other [...] of state, incidental documented in this encounter [facility] note* Diagnosis Encounter for supervision of other normal in second trimester ([facility])- Primary Heartburn during in second trimester ([facility]) 20 weeks gestation of ([facility]) state, incidental Marginal placenta previa (HCC) Hemorrhage from placenta previa, unspecified as to episode of care Marginal placenta previa (HCC)- Primary Hemorrhage from placenta previa, unspecified as to episode of care Low lying placenta nos or without hemorrhage, third trimester ([facility]) 28 weeks gestation of ([facility]) state, incidental Need for vaccination Need for prophylactic vaccination and inoculation against unspecified single disease * Assessment & Plan Note - Amanda Tavera MD - 10/31/2024 9:30 AM EDT Associated Problem(s): Marginal placenta previa (HCC) Resolved- now low lying documented in this encounter [facility] note* Diagnosis Encounter for supervision of other normal in second trimester ([facility])- Primary Heartburn during in second trimester ([facility]) 20 weeks gestation of ([facility]) state, incidental Marginal placenta previa (HCC) Hemorrhage from placenta previa, unspecified as to episode of care Encounter for ultrasound to check growth ([facility])- Primary Encounter for routine screening for malformation using ultrasonics Low lying placenta nos or without hemorrhage, third trimester ([facility]) 28 weeks gestation of ([facility]) state, incidental Marginal placenta previa (HCC)- Primary Hemorrhage from placenta previa, unspecified as to episode of care Low lying placenta nos or without hemorrhage, third trimester ([facility]) 28 weeks gestation of ([facility]) state, incidental Need for vaccination Need for prophylactic vaccination and inoculation against unspecified single disease documented in this encounter [facility]* Diagnosis Encounter for supervision of other normal in second trimester ([facility])- Primary Heartburn during in second trimester ([facility]) 20 weeks gestation of ([facility]) state, incidental Marginal placenta previa ([facility]) Hemorrhage from placenta previa, unspecified as to episode of care Marginal placenta previa ([facility])- Primary Hemorrhage from placenta previa, unspecified as to episode of care Low lying placenta nos or without hemorrhage, third trimester ([facility]) 28 weeks gestation of ([facility]) state, incidental Need for vaccination Need for prophylactic vaccination and inoculation against unspecified single disease Supervision of high risk in third trimester ([facility])- Primary Unspecified high-risk Low lying placenta nos or without hemorrhage, third trimester ([facility]) 30 weeks gestation of ([facility]) state, incidental 32 weeks gestation of ([facility])- Primary state, incidental Supervision of high risk in third trimester ([facility]) Unspecified high-risk documented in this encounter [facility] note* Diagnosis Encounter for supervision of other normal in second trimester ([facility])- Primary Heartburn during in second trimester ([facility]) 20 weeks gestation of ([facility]) state, incidental Marginal placenta previa ([facility]) Hemorrhage from placenta previa, unspecified as to episode of care Suspected placental problem not found- Primary Encounter for ultrasound to check growth ([facility]) Encounter for routine screening for malformation using ultrasonics 33 weeks gestation of ([facility]) state, incidental documented in this encounter [facility]* Diagnosis Encounter for supervision of other normal in second trimester ([facility])- Primary Heartburn during in second trimester ([facility]) 20 weeks gestation of ([facility]) state, incidental Marginal placenta previa ([facility]) Hemorrhage from placenta previa, unspecified as to episode of care 16 weeks gestation of ([facility]) state, incidental Nausea and vomiting in ([facility]) Unspecified vomiting of , unspecified as to episode of care documented in this encounter [facility] note* Diagnosis Encounter for supervision of other normal in second trimester ([facility])- Primary Heartburn during in second trimester ([facility]) 20 weeks gestation of ([facility]) state, incidental Marginal placenta previa ([facility]) Hemorrhage from placenta previa, unspecified as to episode of care 16 weeks gestation of ([facility]) state, incidental Nausea and vomiting in ([facility]) Unspecified vomiting of , unspecified as to episode of care documented in this encounter [facility]* Diagnosis Encounter for supervision of other normal in second trimester ([facility])- Primary Heartburn during in second trimester ([facility]) 20 weeks gestation of ([facility]) state, incidental Marginal placenta previa ([facility]) Hemorrhage from placenta previa, unspecified as to episode of care Supervision of high risk in third trimester ([facility])- Primary Unspecified high-risk Low lying placenta nos or without hemorrhage, third trimester ([facility]) 36 weeks gestation of ([facility]) state, incidental 16 weeks gestation of ([facility]) state, incidental Nausea and vomiting in ([facility]) Unspecified vomiting of , unspecified as to episode of care documented in this encounter [facility]* Diagnosis Encounter for supervision of other normal in second trimester ([facility])- Primary Heartburn during in second trimester ([facility]) 20 weeks gestation of ([facility]) state, incidental Marginal placenta previa ([facility]) Hemorrhage from placenta previa, unspecified as to episode of care 37 weeks gestation of ([facility])- Primary state, incidental Supervision of high risk in third trimester ([facility]) Unspecified high-risk Low lying placenta nos or without hemorrhage, third trimester ([facility]) documented in this encounter [facility]* Diagnosis Encounter for supervision of other normal in second trimester ([facility])- Primary Heartburn during in second trimester ([facility]) 20 weeks gestation of ([facility]) state, incidental Marginal placenta previa ([facility]) Hemorrhage from placenta previa, unspecified as to episode of care Positive GBS test- Primary Supervision of high risk in third trimester ([facility]) Unspecified high-risk 38 weeks gestation of ([facility]) state, incidental documented in this encounter [facility]* Diagnosis Encounter for supervision of other normal in second trimester ([facility])- Primary Heartburn during in second trimester ([facility]) 20 weeks gestation of ([facility]) state, incidental Marginal placenta previa ([facility]) Hemorrhage from placenta previa, unspecified as to episode of care Supervision of high risk in third trimester ([facility])- Primary Unspecified high-risk Positive GBS test 39 weeks gestation of ([facility]) state, incidental Heartburn during in second trimester (HCC) documented in this encounter [facility]* Diagnosis Encounter for supervision of other normal in second trimester (HCC)- Primary Heartburn during in second trimester ([facility]) 20 weeks gestation of ([facility]) state, incidental Marginal placenta previa ([facility]) Hemorrhage from placenta previa, unspecified as to episode of care 40 weeks gestation of ([facility])- Primary state, incidental Supervision of high risk in third trimester ([facility]) Unspecified high-risk Positive GBS test documented in this encounter [facility] HospitalHistory and physical note Author Amanda Armijo [facility] March 28, 2023 2:44pm Note Date/Time March 28, 2023 2:44pm [facility] Medical Records Department [address] [place] [address] 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 pt receive 2 previous doses ofMTX with [facility] with appropriate decline in HCG levels. [...] Wall MD> Cosigner Signature (if applicable): CC: Yovnany Wall; No Primary Care Physician~ Signed [facility] Work Phone: Hospital Discharge instructions Additional Instructions Implant Used?: [facility] Work Phone: Reason for referral (narrative)* Diagnostic Procedure Only (Routine) - Pending Review Specialty Diagnoses / Procedures Referred By Contac t Referred To Contact [facility] Diagnoses with uncertain viability, single or unspecified fetus Procedures OBSTETRIC ULTRASOUND WHI US PREG UTERUS AFTER 1ST TRIMEST GESTATION Alcon Martinez MD [address] [place] [address] [facility] [place] [address] [place] [address] Referral ID Status Reason Start Date Expiration Date Visits Requested Visits Authorized [id number] Pending Review Auto-Generat ed Referral 03/11/2023 03/10/2024 1 1 [facility] for referral (narrative)* Diagnostic Procedure Only (Routine) - Authorized Specialty Diagnoses / Procedures Referred By Contac t Referred To Contact [facility] Diagnoses with uncertain dates in first trimester Procedures NUCHAL TRANSLUCENCY WHI US NUCHAL TRANSLUCENCY 1ST GESTATION Kelly Gregg APRN.CNM [address] [place] [address] [facility] [place] [facility] [place] [address] [place] [address] Referral ID Status Reason Start Date Expiration Date Visits Requested Visits Authorized [id number] Authorized Auto-Generat ed Referral 06/08/2025 1 1 [facility] for referral (narrative)* Diagnostic Procedure Only (Routine) - New Request Specialty Diagnoses / Procedures Referred By Contac t Referred To Contact [facility] Diagnoses 12 weeks gestation of Encounter for supervision of other normal in first trimester Procedures OBSTETRIC ULTRASOUND WHI US PREG UTERUS AFTER 1ST TRIMEST GESTATION Kelly Gregg APRN.CNM [address] [place] [address] [address] Referral ID Status Reason Start Date Expiration Date Visits Requested Visits Authorized [id number] New Request Auto-Generat ed Referral 07/12/2025 1 1 [facility] for visit Narrative* Diagnostic Procedure Only (Routine) - Authorized Specialty Diagnoses / Procedures Referred By Contac t Referred To Contact [facility] Diagnoses with uncertain viability, single or unspecified fetus Procedures OBSTETRIC ULTRASOUND WHI US PREG UTERUS AFTER 1ST TRIMEST GESTATION Alcon Martinez MD [address] [place] [address] [facility] [place] [facility] [place] [address] [place] [address] Referral ID Status Reason Start Date Expiration Date Visits Requested Visits Authorized [id number] Authorized Auto-Generat ed Referral 03/11/2023 07/24/2023 20 20 [facility] for visit Narrative* Diagnostic Procedure Only (Routine) - Closed Specialty Diagnoses / Procedures Referred By Contac t Referred To Contact [facility] Diagnoses Low lying placenta nos or without hemorrhage, third trimester (HCC) Procedures OBSTETRIC ULTRASOUND WHI US PREG UTERUS AFTER 1ST TRIMEST GESTATION Amanda Tavera MD [address] [place] [address] Phone: tel: fax: [facility] [address] [place] [address] Referral ID Status Reason Start Date Expiration Date V isits Requested Visits Authorized [id number] Closed Auto-Generate d Referral 10/31/2024 10/31/2025 1 1 [facility] Chief Complaint and Reason for Visit Chief Complaint ECTOPIC Reason for Visit Hemoperitoneum due t o rupture of left tubal ectopic Sinus tachycardia Advance Directives No Advanced Directives Records Found Advance Directive Response Recorded Date/ Time Living Will No March 28 023 2:14pm Power of General Surgery Physician Assistant No March 28, 2023 2:14pm Summary Purpose [...] or prosecute any alcohol or drug abuse patient.Doctors HospitalIn the event this information is protected by the Federal Confidentiality of Alcohol and Drug Abuse Patient Records regulations: The Federal rules restrict any use of the information to criminally investigate or prosecute any alcohol or drug abuse patient.Do[facility] HospitalIn the event this information is protected by the Federal Confidentiality of Alcohol and Drug Abuse Patient Records regulations: The Federal rules restrict any use of the information to criminally investigate or prosecute any alcohol or drug abuse patient.[facility] HospitalIn the event this information is protected by the Federal Confidentiality of Alcohol and Drug Abuse Patient Records regulations: The Federal rules restrict any use of the information to criminally investigate or prosecute any alcohol or drug abuse patient.[facility] HospitalIn the event this information is protected by the Federal Confidentiality of Alcohol and Drug Abuse Patient Records regulations: The Federal rules restrict any use of the information to criminally investigate or prosecute any alcohol or drug abuse patient.[facility] HospitalIn the event this information is protected by the Federal Confidentiality of Alcohol and Drug Abuse Patient Records regulations: The Federal rules restrict any use of the information to criminally investigate or prosecute any alcohol or drug abuse patient.[facility] HospitalIn the event this information is protected by the Federal Confidentiality of Alcohol and Drug Abuse Patient Records regulations: The Federal rules restrict any use of the information to criminally investigate or prosecute any alcohol or drug abuse patient.[facility] HospitalIn the event this information is protected by the Federal Confidentiality of Alcohol and Drug Abuse Patient Records regulations: The Federal rules restrict any use of the information to criminally investigate or prosecute any alcohol or drug abuse patient.[facility] HospitalIn the event this information is protected by the Federal Confidentiality of Alcohol and Drug Abuse Patient Records regulations: The Federal rules restrict any use of the information to criminally investigate or prosecute any alcohol or drug abuse patient.[facility] HospitalIn the event this information is protected by the Federal Confidentiality of Alcohol and Drug Abuse Patient Records regulations: The Federal rules restrict any use of the information to criminally investigate or prosecute any alcohol or drug abuse patient.[facility] HospitalIn the event this information is protected by the Federal Confidentiality of Alcohol and Drug Abuse Patient Records regulations: The Federal rules restrict any use of the information to criminally investigate or prosecute any alcohol or drug abuse patient.[facility] HospitalIn the event this information is protected by the Federal Confidentiality of Alcohol and Drug Abuse Patient Records regulations: The Federal rules restrict any use of the information to criminally investigate or prosecute any alcohol or drug abuse patient.[facility] HospitalIn the event this information is protected by the Federal Confidentiality of Alcohol and Drug Abuse Patient Records regulations: The Federal rules restrict any use of the information to criminally investigate or prosecute any alcohol or drug abuse patient.[facility] HospitalIn the event this information is protected by the Federal Confidentiality of Alcohol and Drug Abuse Patient Records regulations: The Federal rules restrict any use of the information to criminally investigate or prosecute any alcohol or drug abuse patient.[facility] HospitalIn the event this information is protected by the Federal Confidentiality of Alcohol and Drug Abuse Patient Records regulations: The Federal rules restrict any use of the information to criminally investigate or prosecute any alcohol or drug abuse patient.[facility] HospitalIn the event this information is protected by the Federal Confidentiality of Alcohol and Drug Abuse Patient Records regulations: The Federal rules restrict any use of the information to criminally investigate or prosecute any alcohol or drug abuse patient.[facility] HospitalIn the event this information is protected by the Federal Confidentiality of Alcohol and Drug Abuse Patient Records regulations: The Federal rules restrict any use of the information to criminally investigate or prosecute any alcohol or drug abuse patient.[facility] HospitalIn the event this information is protected by the Federal Confidentiality of Alcohol and Drug Abuse Patient Records regulations: The Federal rules restrict any use of the information to criminally investigate or prosecute any alcohol or drug abuse patient.[facility] HospitalIn the event this information is protected by the Federal Confidentiality of Alcohol and Drug Abuse Patient Records regulations: The Federal rules restrict any use of the information to criminally investigate or prosecute any alcohol or drug abuse patient.[facility] HospitalIn the event this information is protected by the Federal Confidentiality of Alcohol and Drug Abuse Patient Records regulations: The Federal rules restrict any use of the information to criminally investigate or prosecute any alcohol or drug abuse patient.[facility] HospitalIn the event this information is protected by the Federal Confidentiality of Alcohol and Drug Abuse Patient Records regulations: The Federal rules restrict any use of the information to criminally investigate or prosecute any alcohol or drug abuse patient.[facility] HospitalIn the event this information is protected by the Federal Confidentiality of Alcohol and Drug Abuse Patient Records regulations: The Federal rules restrict any use of the information to criminally investigate or prosecute any alcohol or drug abuse patient.[facility] HospitalIn the event this information is protected by the Federal Confidentiality of Alcohol and Drug Abuse Patient Records regulations: The Federal rules restrict any use of the information to criminally investigate or prosecute any alcohol or drug abuse patient.[facility] HospitalIn the event this information is protected by the Federal Confidentiality of Alcohol and Drug Abuse Patient Records regulations: The Federal rules restrict any use of the information to criminally investigate or prosecute any alcohol or drug abuse patient.[facility] HospitalIn the event this information is protected by the Federal Confidentiality of Alcohol and Drug Abuse Patient Records regulations: The Federal rules restrict any use of the information to criminally investigate or prosecute any alcohol or drug abuse patient.[facility] HospitalIn the event this information is protected by the Federal Confidentiality of Alcohol and Drug Abuse Patient Records regulations: The Federal rules restrict any use of the information to criminally investigate or prosecute any alcohol or drug abuse patient.[facility] HospitalIn the event this information is protected by the Federal Confidentiality of Alcohol and Drug Abuse Patient Records regulations: The Federal rules restrict any use of the information to criminally investigate or prosecute any alcohol or drug abuse patient.[facility] HospitalIn the event this information is protected by the Federal Confidentiality of Alcohol and Drug Abuse Patient Records regulations: The Federal rules restrict any use of the information to criminally investigate or prosecute any alcohol or drug abuse patient.[facility] HospitalIn the event this information is protected by the Federal Confidentiality of Alcohol and Drug Abuse Patient Records regulations: The Federal rules restrict any use of the information to criminally investigate or prosecute any alcohol or drug abuse patient.[facility] HospitalIn the event this information is protected by the Federal Confidentiality of Alcohol and Drug Abuse Patient Records regulations: The Federal rules restrict any use of the information to criminally investigate or prosecute any alcohol or drug abuse patient.[facility] HospitalIn the event this information is protected by the Federal Confidentiality of Alcohol and Drug Abuse Patient Records regulations: The Federal rules restrict any use of the information to criminally investigate or prosecute any alcohol or drug abuse patient.[facility] HospitalIn the event this information is protected by the Federal Confidentiality of Alcohol and Drug Abuse Patient Records regulations: The Federal rules restrict any use of the information to criminally investigate or prosecute any alcohol or drug abuse patient.[facility] HospitalIn the event this information is protected by the Federal Confidentiality of Alcohol and Drug Abuse Patient Records regulations: The Federal rules restrict any use of the information to criminally investigate or prosecute any alcohol or drug abuse patient.[facility] HospitalIn the event this information is protected by the Federal Confidentiality of Alcohol and Drug Abuse Patient Records regulations: The Federal rules restrict any use of the information to criminally investigate or prosecute any alcohol or drug abuse patient.[facility] HospitalIn the event this information is protected by the Federal Confidentiality of Alcohol and Drug Abuse Patient Records regulations: The Federal rules restrict any use of the information to criminally investigate or prosecute any alcohol or drug abuse patient.[facility] HospitalIn the event this information is protected by the Federal Confidentiality of Alcohol and Drug Abuse Patient Records regulations: The Federal rules restrict any use of the information to criminally investigate or prosecute any alcohol or drug abuse patient.[facility] HospitalIn the event this information is protected by the Federal Confidentiality of Alcohol and Drug Abuse Patient Records regulations: The Federal rules restrict any use of the information to criminally investigate or prosecute any alcohol or drug abuse patient.[facility] HospitalIn the event this information is protected by the Federal Confidentiality of Alcohol and Drug Abuse Patient Records regulations: The Federal rules restrict any use of the information to criminally investigate or prosecute any alcohol or drug abuse patient.[facility] HospitalIn the event this information is protected by the Federal Confidentiality of Alcohol and Drug Abuse Patient Records regulations: The Federal rules restrict any use of the information to criminally investigate or prosecute any alcohol or drug abuse patient.[facility] HospitalIn the event this information is protected by the Federal Confidentiality of Alcohol and Drug Abuse Patient Records regulations: The Federal rules restrict any use of the information to criminally investigate or prosecute any alcohol or drug abuse patient.[facility] HospitalIn the event this information is protected by the Federal Confidentiality of Alcohol and Drug Abuse Patient Records regulations: The Federal rules restrict any use of the information to criminally investigate or prosecute any alcohol or drug abuse patient.[facility] HospitalIn the event this information is protected by the Federal Confidentiality of Alcohol and Drug Abuse Patient Records regulations: The Federal rules restrict any use of the information to criminally investigate or prosecute any alcohol or drug abuse patient.[facility] HospitalIn the event this information is protected by the Federal Confidentiality of Alcohol and Drug Abuse Patient Records regulations: The Federal rules restrict any use of the information to criminally investigate or prosecute any alcohol or drug abuse patient.[facility] Reason for Visit (unrecogniz ed section [...] Referred By Sanchez broderick Referred To Contact [facility] Diagnoses with uncertain dates in first trimester Procedures NUCHAL TRANSLUCENCY WHI US NUCHAL TRANSLUCENCY 1ST GESTATION Kelly Gregg APRN.[facility] [address] [place] [address] [facility] [place] [facility] [place] [address] [place] [address] Referral ID Status Reason Start Date Expiration Date V isits Requested Visits Authorized [id number] Closed Auto-Generate d Referral 06/08/2024 06/08/2025 1 1 Reason Onset Date Comments Care 07/12/2024 Reason Comments Med Change Request Reason Onset Date Comments Refill Request 08/06/2024 Reason Onset Date Comments Care 08/10/2024 Reason Onset Date Comments Refill Request 08/24/2024 Reason Onset Date Comments Care 09/07/2024 Specialty Diagnoses / Procedures Referred By Contac t Referred To Contact [facility] Diagnoses 12 weeks gestation of Encounter for supervision of other normal in first trimester Procedures OBSTETRIC ULTRASOUND WHI US PREG UTERUS AFTER 1ST TRIMEST GESTATION Kelly Gregg APRN.[facility] [address] [place] [address] Phone: tel: fax:[phone] [address] Referral ID Status Reason Start Date Expiration Date V isits Requested Visits Authorized [id number] Closed Auto-Generate d Referral 07/12/2024 07/12/2025 1 1 Reason Onset Date Comments Care 10/05/2024 Specialty Diagnoses / Procedures Referred By Contac t Referred To Contact [facility] Diagnoses Marginal placenta previa (HCC) Procedures OBSTETRIC ULTRASOUND WHI US PREG UTERUS AFTER 1ST TRIMEST GESTATION Amanda Tavera MD [address] [place] [address] Phone: tel: fax:[phone] [address] Referral ID Status Reason Start Date Expiration Date V isits Requested Visits Authorized [id number] Closed Auto-Generate d Referral 09/07/2024 09/07/2025 1 [...] section and content) DATE CREATED AUTHOR 05/08/2023 [facility] DATE CREATED AUTHOR AUTHOR'S ORGANIZ ATION 06/18/2023 [facility] ([place]) DATE CREATED AUTHOR AUTHOR'S ORGANIZ ATION 01/26/2025 [facility] FOR RECORDS PERTAINING TO PATIENTS WHO ARE [...] BE BASED ON THE PRIMARY CLINICAL RECORDS. [facility] [employer] provides no warranty or guarantee of the accuracy or completeness of information in this document.
[2025-01-27 12:06] VITALS: PULSE 90; PULSE 92; RESP 16; TEMP 37.2; O2SAT 98
[2025-01-27 12:07] VITALS: BP 114/72; PULSE 90
--- NOTE | 2025-02-05 17:25 | OB.TRI.HP_ITS ---
HPI - General General Date of Admission: 01/27/25 Date of Service: 01/27/25 Chief Complaint: NST HPI Narrative CHARLINE KIRKPATRICK, is a 29 F who presents for scheduled NST. [facility] Medical History (Updated 02/05/25 @ 00:01 by Background Jose) Placental abnormality Home Medications ?Medication ?Instructions ?Recorded ?Last Taken ?Type aspirin 81 mg tablet,delayed 81 mg PO DAILY 01/27/25 01/29/25 06:15 History release (Adult Aspirin Regimen) ondansetron HCl 8 mg tablet 8 mg PO Q8H PRN nausea 01/1601/29/25 06:15 History vitamin no.45-iron-FA 28 1 tab PO DAILY pregn ekaterina 01/27/25 01/29/25 06:15 History mg iron-1 mg chewable tablet acetaminophen 500 mg tablet 1,000 mg (2 x 500 mg) PO Q 6H #0 02/02/25 Unknown Rx tabs ferrous sulfate 325 mg (65 mg 325 mg PO QODAY 60 days #30 tabs 02/02/25 Unknown Rx iron) tablet ibuprofen 600 mg tablet 600 mg PO Q6H #60 tabs 02/02 Unknown Rx oxycodone 5 mg tablet 5 mg PO Q6H 7 days #7 tabs 0 02/02/25 Unknown Rx sennosides 8.6 mg-docusate sodium 1 - 2 tab PO DAILY # 60 tabs 02/02/25 Unknown Rx 50 mg tablet (Stimulant Laxative Plus) Allergy/AdvReac Type Severity Reaction Status Date / Time No Known Allergies Allergy Verified 01/29/25 07:21 Surgical History (Updated 02/05/25 @ 00:01 by Background Jose) History of surgery Social History Smoking Status: Never smoker History Elective abortions Hx Para 0 Spontaneous abortions Hx # Term Pregnancies Ectopic pregnancies Hx # Pregnancies Multiple births # of living children NST FHR Rate Baby A Baseline: 130 Variability:: Moderate Accelerations:: 15 x 15 Decelerations:: None FHR Category:: Category I Assessment & Plan (1) 41 weeks gestation of : PLAN: NST reactive Patient not interested in IOL at this time
== END 2025-01-28 01:00 | disposition home or self-care (01) ==
LOC: WPOUT 11:56 → WP 11:58
PROVIDERS: Visit Provider Obstetrics & Gynecology
DX: O48.0 Post-term pregnancy (principal); Z3A.41 41 weeks gestation of pregnancy
CPT/HCPCS: 59025; 99221; G0378

== ENCOUNTER 2025-01-28 20:01 | Outpatient (CLI) | payer OTHER, SELFPAY ==
[2025-01-28 20:08] VITALS: PULSE 81; O2SAT 98
[2025-01-28 20:10] VITALS: RESP 16; TEMP 36.8
[2025-01-28 20:11] VITALS: BP 121/76; PULSE 83
[2025-01-28 20:16] VITALS: BMI 30.3
== END 2025-01-28 20:42 | disposition home or self-care (01) ==
LOC: WPOUT 20:03 → WP 20:04
PROVIDERS: Visit Provider Obstetrics & Gynecology
DX: O48.0 Post-term pregnancy (principal); Z3A.41 41 weeks gestation of pregnancy
CPT/HCPCS: 59050; 99221; G0378

== ENCOUNTER 2025-01-29 07:22 | Inpatient (IN) | payer OTHER, SELFPAY ==
[2025-01-29] VITALS (46 sets, daily range): BP systolic 97–132; BP diastolic 57–83; PULSE 69–104; RESP 14–18; TEMP 37–38.4; O2SAT 83–100; BMI 30.4
[2025-01-29] MEDS: Lactated Ringers 1,000 ML 50 ML IV (07:40)
[2025-01-29 08:10] LABS: Hematocrit 37.8 % (37-47); Hemoglobin 12.9 g/dL (12.0-15.0); Immature Granulocytes Count 0.040 X10^3/uL (0.0-0.0); Mean Corp Hgb Conc 34.1 g/dL (32-36); Mean Corpuscular Volume 90.4 fL (81-99); Mean Platelet Vol. 10.8 fl (6.2-12.0); NRBC Flagged by Analyzer 0 % (0-5); Platelet Count 301 K/mm3 (150-450); RBC Distribution Width CV 13.1 % (11.6-14.6); RBC Distribution Width SD 43.1 fl (35.1-43.9); Red Blood Count 4.18 M/mm3 (4.2-5.4); White Blood Count 10.3 K/mm3 (4.4-11.0)
--- NOTE | 2025-01-29 08:26 | HP.PCM.OB_ITS ---
HPI - General General Date of Admission: 01/29/25 Date of Service: 01/29/25 Chief Complaint: induction HPI Narrative 29-year-old 2 para 0 who presents at 40-2/7 weeks with a BENSON of 01/20/2025 presents for induction of labor. She denies any vaginal bleeding or leaking of fluid. She has had good movement. Patient's was complicated to date by nausea vomiting and heartburn. Past medical history significant for ectopic Social history she denies any tobacco alcohol or drug use during the Allergies no known drug allergies Maternal Data Information Final BENSON: 01/20/25 [facility] Medical History (Updated 01/29/25 @ 08:[address] Malia Lopes MD) Placental abnormality Home Medications ?Medication ?Instructions ?Recorded ?Last Taken ?Type aspirin 81 mg tablet,delayed 81 mg PO DAILY 01/27/25 01/29/25 06:15 History release (Adult Aspirin Regimen) ondansetron HCl 8 mg tablet 8 mg PO Q8H PRN nausea 01/1601/29/25 06:15 History pantoprazole 40 mg granules 40 mg PO DAILY heartburn 0 01/27/25 01/29/25 06:15 History delayed-release for susp in packet (Protonix) vitamin no.45-iron-FA 28 1 tab PO DAILY pregn ekaterina 01/27/25 01/29/25 06:15 History mg iron-1 mg chewable tablet Allergy/AdvReac Type Severity Reaction Status Date / Time No Known Allergies Allergy Verified 01/29/25 07:21 Surgical History (Updated 01/29/25 @ 08:12 by Marisol Alonso) History of surgery Social History Smoking Status: Never smoker History Elective abortions Hx Para 0 Spontaneous abortions Hx # Term Pregnancies Ectopic pregnancies Hx # Pregnancies Multiple births # of living children ROS Constitutional Constitutional: Denies fatigue, fever(s) or malaise Eyes Eyes: Denies change in vision ENT HEENT: Denies dizziness or headache(s) Cardiovascular Cardiovascular: Denies chest pain, dyspnea or lightheadedness Respiratory/Chest Respiratory/Chest: Denies cough or dyspnea Gastrointestinal Gastrointestinal: Denies change in bowel habits Genitourinary Genitourinary: Denies burning urination or genital lesions Integumentary Integumentary: Denies rash Neurologic Neurologic: Denies confusion, dizziness, headache(s), numbness or weakness Vital Signs Vital Signs Vital Signs: 01/29/25 07:40 01/29/25 07:40 01/29/25 07:40 Temperature Temperature Source Pulse Rate 88 Respiratory Rate Blood Pressure 122/78 H BP Systolic 122 BP Diastolic 78 Pulse Ox 98 01/29/25 07:41 01/29/25 07:41 01/29/25 07:41 Temperature Temperature Source Temporal Pulse Rate Respiratory Rate 16 Blood Pressure BP Systolic BP Diastolic Pulse Ox 99 01/29/25 07:41 Temperature 99.1 F Temperature Source Pulse Rate Respiratory Rate Blood Pressure BP Systolic BP Diastolic Pulse Ox Weight Weight: 85.729 kg Body Mass Index (BMI) 30.4 Physical Exam Const alert and no apparent distress General Appearance: cooperative HEENT normocephalic Resp normal respiratory effort Cardio regular rate GI soft to palpation GI Narrative: gravid, nontender, appropriate for gestational age Extremity no calf tenderness General Extremity: edema Skin no wounds Rashes: No rashes noted Psych activity/motor behavior normal Labs Labs Labs: Blood Type A POSITIVE Antibody Screen NEGATIVE Hct 37.8 % (37-47) Hgb 12.9 g/dL (12.0-15.0) Obstetrics Ultrasound Syphilis Total Ab Pending Assessment & Plan (1) Post term : QUALIFIERS: Post-term type: 40-42 weeks gestation Qualified Code(s): O48.0 - Post-term PLAN: Response alternatives to induction labor were discussed with the patient her questions were answered her satisfaction she desires to proceed. Will proceed with Reno, Cytotec and Pitocin with artificial rupture membranes as needed. May have routine pain control measures during labor. Estimated weight is less than 5000 g and pelvis is clinically adequate to expect vaginal delivery. Procedure note: Consent was obtained. Reno was placed over stylette through the internal cervical os in the usual sterile fashion and balloon inflated with 30 cc of normal saline. Placement over internal cervical os confirmed. Patient and fetus tolerated the procedure well. heart tones are currently normal baseline with moderate variability and reactive. Tocometer shows rare contractions the patient does not appreciate (2) 41 weeks gestation of : (3) GBS (group B Streptococcus carrier), +RV culture, currently : PLAN: Prophylaxis will be started with rupture of membranes or active labor.
[2025-01-29] MEDS: 0.9% Normal Saline Single 100 ML IV.SOLN. INTRA-UTER (08:36)
[2025-01-29 09:17] LABS: Syphilis Antibodies Nonreactive (Nonreactive)
[2025-01-29] MEDS: Oxytocin 15 Units/NS 250ml 15 UNITS/250 ML IV.SOLN 2 UNITS IV (12:35)
[2025-01-29] MEDS: 0.9% Saline Lock 10 ML Syringe IV ×3 (12:41→19:12)
[2025-01-29] MEDS: Penicillin G Pot 5,000,000 UNITS in 0.9% Normal Saline (100mL MB+) 100 ML 150 UNITS IV (13:14)
[2025-01-29] MEDS: Lactated Ringers 1,000 ML 999 ML IV (14:24)
[2025-01-29] MEDS: fentaNYL-bupivacaine (epidural) 100 ML BAG EPIDURAL ×2 (15:22→20:01)
[2025-01-29] MEDS: Penicillin G 3,000,000 Units 50 ML 100 UNITS IV ×2 (17:53→21:11)
[2025-01-29] MEDS: LACTATED RINGERS 500 ML 999 ML IV ×2 (19:11→22:24)
[2025-01-29] MEDS: Lactated Ringers 1,000 ML 200 ML IV (21:01)
[2025-01-30] VITALS (43 sets, daily range): BP systolic 78–141; BP diastolic 55–89; PULSE 75–129; RESP 14–18; TEMP 36.2–38.5; O2SAT 92–100
[2025-01-30] MEDS: fentaNYL-bupivacaine (epidural) 100 ML BAG EPIDURAL ×2 (00:20→05:11)
[2025-01-30] MEDS: DiphenhydrAMINE 50 MG/ML Syringe 25 MG IV (00:40)
[2025-01-30] MEDS: Penicillin G 3,000,000 Units 50 ML 100 UNITS IV ×2 (01:43→05:13)
[2025-01-30] MEDS: Amnioinfusion- 0.9% NS 1,000 ML IV.SOLN. 1 ML INTRA-UTER (02:07)
[2025-01-30] MEDS: 0.9% Saline Lock 10 ML Syringe IV ×3 (03:06→21:48)
[2025-01-30] MEDS: Lactated Ringers 1,000 ML 200 ML IV ×2 (04:08→07:38)
--- NOTE | 2025-01-30 07:45 | PCM.PN.OB ---
Subjective Subjective Strong pushing efforts, at bedside. Objective Data Objective Data Vital Signs: Vital Signs Temp Pulse Resp BP Pulse Ox 99.9 F H 75 18 124/65 H 99 01/30/25 07:22 01/30/25 07:17 01/30/25 07:16 01/30/25 07:17 01/30/25 06:06 Weight: 189 lb Body Mass Index (BMI) 30.4 Intake & Output: Intake and Output for Last 24 Hours 01/28/25 01/29/25 01/30/25 23:59 23:59 23:59 Intake Total 3228.63 / 3228.63 1793.33 / 1793.33 Output Total 1000 / 1000 150 / 150 Balance 2228.63 / 2228.63 1643.33 / 1643.33 Lab / Micro Data 01/29/25 07:40 Labs: Laboratory Results - last 24 hr 01/29/25 07:40: WBC 10.3, RBC 4.18 L, Hgb 12.9, Hct 37.8, MCV 90.4, MCH 30.9, MCHC 34.1, RDW Std Deviation 43.1, RDW Coeff of Ruben 13.1, Plt Count 301, MPV 10.8, Immature Gran % (Auto) 0.400, Neut % (Auto) 61.9, Lymph % (Auto) 26.5, Gates % (Auto) 10.2 H, Eos % (Auto) 0.8, Baso % (Auto) 0.2, Absolute Neuts (auto) 6.4, Absolute Lymphs (auto) 2.72, Nucleated RBC % 0, Syphilis Total Ab Nonreactive, Blood Type A POSITIVE, Antibody Screen NEGATIVE Physical Exam Manual OB Exam: presentation cephalic, dilated 10, effaced 100%, station +2 and other +3 with pushing and caput NST FHR Rate Baby A Baseline: 135 Variability:: Moderate Accelerations:: 15 x 15 Decelerations:: Variable and Prolonged FHR Category:: Category II Uterine Activity:: Every 3-5 minutes Assessment & Plan (1) Post term : QUALIFIERS: Post-term type: 40-42 weeks gestation Qualified Code(s): O48.0 - Post-term (2) 41 weeks gestation of : (3) heart deceleration: (4) Failure of descent in labor, delivered, current hospitalization: PLAN: Plan 1) at bedside to evaluate and then on unit. Made progress with pushing efforts but caput present and minimal descent after 4.5 hours of pushing and delivery not imminent. heart rate decelerations with each contraction. Decision for section.
[2025-01-30] MEDS: Lactated Ringers 1,000 ML 1000 ML IV (08:33)
[2025-01-30] MEDS: Cefazolin 1 GM/5 ML Vial 2 GM IV (08:33)
[2025-01-30] MEDS: Lidocaine 2% (5ml sdv) 5 ML VIAL.MPF 15 ML EPIDURAL (08:36)
[2025-01-30] MEDS: TRANEXAMIC ACID 1,000 MG in 0.9% Normal Saline (100mL Bag) 100 ML 440 MG IV (08:42)
[2025-01-30] MEDS: TRANEXAMIC ACID 1,000 MG/10 ML ML 1000 MG IV (08:42)
[2025-01-30] MEDS: fentaNYL 250mcg vial 100 ML 100 MCG IV (09:12)
[2025-01-30] MEDS: morphine PF 10 MG/10 ML Ampul 6 MG EPIDURAL (09:17)
--- NOTE | 2025-01-30 09:19 | EX.PCM.OBRPT ---
Operative Report (OB) Details Procedure Type: low transverse Date of Procedure: 01/30/25 Procedure Start Time: 08:47 Procedure Stop Time: :19 Time of Delivery: 08:49 Pre-Operative Diagnosis: Failure to Progress and Nonreassuring Status Post-Operative Diagnosis: Same as Pre-operative diagnosis Classification: JEFF Type of Anesthesia: Epidural Antibiotic Given: Ancef 2 grams IV x1 and Zithromax 500 mg/5 mL X1 Drain: Reno to straight drain Estimated Blood Loss: 650 Fluids Replaced: 1000cc Findings Description of surgery: Patient pushing for 4.5 hours with caput and head at +2 with pushing. discussed primary cs with patient who agreed to proceed. pillow placed prior to start of procedure. After informed consent was obtained the patient was taken the operating room.. She was then placed in the supine position. She was prepped and draped in the normal sterile fashion. Epidural Anesthesia was found to be adequate. At this time a Pfannenstiel skin incision was made with a knife was carried down to the underlying layer of the fascia. The fascial incision was then extended laterally using traction. Rectus muscles were then in the midline bluntly and peritoneum was entered bluntly. Gentle opposing traction was placed. At this time the vesicouterine peritoneum was identified. Scalpel was used to make a uterine incision in a low transverse fashion. The uterus was then entered bluntly gentle opposing traction was placed to extend this incision. Meconium noted. Infant's head was brought to the uterine incision was delivered atraumatically. was vigorous at delivery. . Cord was clamped and cut infant was handed to the waiting nursery team. The Placenta was removed from the uterus. The uterus was then removed from the abdominal cavity. The uterus was cleared of all clots and debris using a lap. At this time the uterine incision was reapproximated using #1 Vicryl in a running locked fashion. small extension down left side- repaired with 1-0 vicryl. Hemostasis was appreciated. Posterior cul-de-sac was then cleared of all clots and debris. Uterus was placed back in the abdominal cavity. Gutters were cleared of all clots and debris. Uterine incision was reevaluated and noted to be of good hemostasis hemoblast placed. At this time the peritoneum was grasped with Kellys reapproximated using #2 Vicryl suture in a running fashion. hemoblast placed over rectus muscle. Fascia was then reapproximated using #1 Vicryl in a running fashion. Subcu layer was irrigated with NS, reapproximated with #2 0 plain gut suture in an interrupted fashion. remaining hemoblast placed in subQ. Subcu layer was closed using 4-0 Monocrylin a subcu fashion. Dry sterile dressing was applied. Instrument lap needle count correct ?2. Anticipated normal postoperative course. Surgical findings: normal tubes and ovaries Presentation: Vertex Amniotic Membrane Rupture Type: Artificial Amniotic Fluid Description: Moderate meconium Placental Delivery Description: Expressed Placenta Disposition: [facility] Specimen collected: No Cord Vessel Description: 3 Vessels Cord Entanglement: None Cord Gases: ABG and VBG A gender: Male (1 minute): 8 (5 minute): 9 Delayed Cord Clamping: No Medicaid Eligibility Specialist program arranger: Yes Cloth Washer Operator: Malia Lopes Tasks completed by administrative sales assistant: Opening and Dissecting tissue Additional administrative sales assistant?: Yes Additional Plumber Maintenance #2: Gerardo Flores Tasks completed by administrative sales assistant #2: Closing and Retracting Complications Complications: No
[2025-01-30] MEDS: Oxytocin 15 Units/NS 250ml 15 UNITS/250 ML IV.SOLN 83 UNITS IV (09:53)
[2025-01-30] MEDS: Ketorolac 30 MG/ML Syringe IV ×3 (10:19→21:48)
--- NOTE | 2025-01-30 13:01 | NURSING ---
DR Carrera called to come assess pt. Pt is laying flat at this time due to low blood pressure. Pt feels light headed, dizzy, hot and sweaty. Dr. Carrera at bedside assessing pt minutes later and she is going to ultrasound pt. 500cc LR bolus running at this time and CBC being drawn
--- NOTE | 2025-01-30 13:06 | NURSING ---
Dr. Carrera doing ultrasound at bedside
[2025-01-30] MEDS: LACTATED RINGERS 500 ML 999 ML IV (13:15)
[2025-01-30 13:16] LABS: Hematocrit 31.4 % (37-47); Hemoglobin 10.7 g/dL (12.0-15.0); Immature Granulocytes Count 0.430 X10^3/uL (0.0-0.0); Mean Corp Hgb Conc 34.1 g/dL (32-36); Mean Corpuscular Volume 92.4 fL (81-99); Mean Platelet Vol. 10.7 fl (6.2-12.0); NRBC Flagged by Analyzer 0 % (0-5); POSITIVE COUNT YES; POSITIVE DIFFERENTIAL YES; Platelet Count 299 K/mm3 (150-450); RBC Distribution Width CV 13.3 % (11.6-14.6); RBC Distribution Width SD 44.6 fl (35.1-43.9); Red Blood Count 3.40 M/mm3 (4.2-5.4)
--- NOTE | 2025-01-30 13:19 | PCM.PN.BLA ---
Progress Note called and notified that patient had BP 78/58 and tachycardic. Recommended bolus 500cc. Upon my arrival- 2nd IV was being placed and labs in process. pt reports was feeling dizzy but that improved. Repeat BP 93/67 and Pulse 80s. pt reports having more pain on left side - pressure sensation. Lochia has been appropriate and uterus is right below umbilicus. Bedside ultrasound performed- endometrium appears normal. did not appreciate any large fluid collection or hematoma formation but difficult visualization. will keep NPO until labs return. continue to monitor VS.
[2025-01-30 13:25] LABS: White Blood Count 34.3 K/mm3 (4.4-11.0)
[2025-01-30 13:26] LABS: Differential Indicated SCAN CRITERIA MET
--- NOTE | 2025-01-30 13:28 | NURSING ---
Dr. Carrera on unit and notified of lab results. Antibiotic orders received to treat for Triple I due to lab results and vital sign trends. Dr. Carrera wants routine LR fluids running at 100cc/hr
[2025-01-30 13:38] LABS: Partial Thromboplast Time 30.3 Seconds (24.1-36.2); Prothrombin Time (Protime)PT. 15.2 SECONDS (11.7-14.9)
[2025-01-30] MEDS: Lactated Ringers 1,000 ML 999 ML IV (13:56)
[2025-01-30] MEDS: Ampicillin 2 GM in 0.9% Normal Saline (100mL MB+) 100 ML IV ×2 (13:59→20:34)
[2025-01-30 14:13] LABS: Fibrinogen 449 mg/dl (203-444)
[2025-01-30 14:43] LABS: AST(SGOT) 20 U/L (<=31); Alanine Aminotransfer ALT/SGPT 5 U/L (<=34); Albumin, Serum 2.6 g/dL (3.5-5.0); Alkaline Phosphatase 94 U/L (35-104); Anion Gap 11 (5-15); BUN 7 mg/dL (4-19); BUN/Creat Ratio 8.0 RATIO (10-20); Calcium,Total 8.3 mg/dL (7.6-11.0); Carbon Dioxide 19.1 mmol/L (21.0-32.0); Chloride 105 mmol/L (98-108); Estimated Creatinine Clearance 104.98 ml/min (50-250); Globulin 2.5 g/dL (2.2-4.2); Glucose 120 mg/dL (70-99); Potassium 3.7 mmol/L (3.3-5.1)
[2025-01-30] MEDS: Clindamycin 900 MG/50 ML BAG 75 MG IV ×2 (14:54→21:38)
[2025-01-30] MEDS: Gentamicin IV 300 MG in Dextrose 5%-Water (50mL Bag) 50 ML 100 MG IVPB (16:06)
[2025-01-30] MEDS: Senna/Docusate Sodium 1 Tablet PO (16:10)
--- NOTE | 2025-01-30 17:21 | NURSING ---
Call placed to Dr Carrera and updated on lactic acid results, bleeding (small amt), and reviewed vital signs. Will redraw lactic acid at 1800 and will call with those results. Vital signs are being done Q 30 minutes until lactic acid is less than 2, per policy. Order received for CBC in AM routine
[2025-01-30 18:27] LABS: Reflex Lactate? Y
--- NOTE | 2025-01-30 19:42 | NURSING ---
Dr. Carrera notified of lactic acid result of 2.2 which is unchanged from the one drawn 4 hours prior. Pt had one low BP at 1930 of 78/62 with a map of 69. Pt had just transferred to the chair for the first time but had been consistently running in the 90's/60's with her pulse WNL. No temp noted and pulse and respirations have been WNL and vaginal bleeding is small. One dose of all 3 ATB's ordered have been given. Orders received to check another lactic acid in the morning with the CBC since it could be elevated from her laboring and pushing for so long, per DR Carrera. Orders to discontinue VS Q 30 minutes since pt has been stable the last 4 hours but ok to take VS more often if any change in status is noted. manager shift nurse Letty Hernandez RN updated on orders and will notify Dr Carrera if any change in VS or status occurs.
[2025-01-30] MEDS: Lactated Ringers 1,000 ML 100 ML IV (20:35)
[2025-01-30 22:39] LABS: Reflex Lactate? Y
[2025-01-31] VITALS (8 sets, daily range): BP systolic 88–119; BP diastolic 58–78; PULSE 77–114; RESP 16–18; TEMP 36.4–36.7; O2SAT 97–100
[2025-01-31] MEDS: Ampicillin 2 GM in 0.9% Normal Saline (100mL MB+) 100 ML IV ×3 (02:31→14:21)
--- OUTSIDE RECORDS SUMMARY | 2025-01-31 03:02 | XMS RPT_ITS | CCD ---
Author Organization [facility] Care Team Providers Care Manager Integrated Name Role Phone Unavailable Primary Care Provider UnavailALCON Gilliam Attending Unavailable ALCON MARTINEZ Admitting Unavailable DEMI FOWLER Attending Unavailable DEMI FOWLER Admitting Unavailable MAST INSTRUCTOR PROGRAMMABLE CONTROLLERS-DISTRICT SERVICE MANAGEROMAR Attending Unavailabl e MAST INSTRUCTOR PROGRAMMABLE CONTROLLERS-DISTRICT SERVICE MANAGER, OMAR Primary Care Unavailabl e Unavailable Primary [...] Referring Unavail able SHELLI ALLISON Attending Unavailable PLOTTS, KELLY Attending Unavailable OVIDIO JOSEPH Attending Unavailable NEYHART JENKINS, AMANDA Referring Unavail able PLOTTS, KELLY Referring Unavailable PLOTTS, KELLY Attending Unavailable PLOTTS, KELLY Referring Unavailable PLOTTS, KELLY Referring Unavailable NEYHART JENKINS, AMANDA Attending Unavail able SANGEETA EDWARDS Attending Unavailable NEYHART JENKINS, AMANDA Attending Unavail able PLOTTS, KELLY Referring Unavailable NEYHART JENKINS, AMANDA Attending Unavail able NEYHART JENKINS, AMANDA Referring Unavail able Care Physician, No Primary Primary Care Provider Unavailable Dr. Alcon Martinez DO Attending Provider Alcon Martinez Attending Unavailable Care Physician, No Primary Primary Care Unava ilable Care Physician, No Primary Primary Care Unava ilable Sangeeta Edwards Attending Unavailable Amanda Wall Attending Unavail able Care Physician, No Primary Primary Care Unava Roz Prince Admitting Unavailable Roz Reilly Referring Unavailable Jerry BLEVINS, Dr. Rutherford Attending Provider Medications Current Medications Medication Drug Class(es) Dates Sig (Normalized) Sig (Original) aspirin 81 mg delayed release oral tablet (20 sources) Platelet Aggregation Inhibitor, Nonsteroidal Anti-inflammatory Drug Start: 01-27-2025 take 1 tablet by mouth once daily Aspirin (Adult Aspirin Regimen) 81 mg tablet,delayed release (DR/EC) Active 81 mg PO DAILY January 27, 2025 12:00am Start: 06-08-2024 take 1 tablet by domenica th once daily aspirin, enteric coated (ECOTRIN LOW [...] needed. 45 tablet 08/07/2024 08/10/2024 Discontinued ondansetron 8 mg oral tablet (20 sources) Serotonin-3 Receptor Antagonist Start: 01-27-2025 take 1 tablet by mouth every eight hours as needed for nausea Ondansetron Hcl 8 mg tablet Active 8 mg PO Q8H as needed for nausea January 27, 2025 12:00am 1st dose 1-2 hr before radiation Start: 08-10-2024 End: 01-23-2025 take 1 tablet by mouth every eight hours as needed for nausea ondansetron (ZOFRAN) 4 mg tablet Indications: 16 weeks gestation of (HCC) , Nausea and vomiting in (HCC) Take 1 tablet by mouth every 8 hours as needed for nausea/vomiting. 60 tablet 12/24/2024 01/23/2025 Active pantoprazole 40 mg oral granules (5 sources) Proton Pump Inhibitor Start: 07-06-2025 take 40 mg by mouth once daily Pantoprazole (Protonix) [address] for susp in packet Active 40 mg PO DAILY January 27, 2025 12:00am Start: 01-18-2025 take 1 tablet by domenica th once daily pantoprazole DR (PROTONIX) 40 mg [...] daily for 3 days with food. 25-IRON [id number] ORAL (20 sources) 25-IRON [id number] ORAL Take by mouth. Active Vitamin #45-Iron-Fa 28 mg iron- 1 mg tablet,chewable (2 sources) Start: 01-27-2025 Vitam in #45-Iron-Fa 28 mg iron- 1 mg tablet,chewable Active 1 {tbl} PO DAILY January 27, 2025 12:00am triamcinolone acetonide 1 mg/ml topical cream (1 [...] / oxyCODONE hydrochloride 5 mg oral tablet (3 sources) Opioid Agonist Start: 03-28-2023 End: 01-27-2025 Oxycodone-Acetaminoph en 5-325 mg Tablet Discontinued 1 - 2 {tbl} PO EVERY 6 HOURS NEEDED as needed for Moderate-Severe Pain (4-10) 5 2 0 March 28, 2023 January 27, 2025 12:03pm Postoperative pain Other acute postprocedural pain Start: 03-28-2023 take 1 tablet by domenica th every six hours as needed Oxycodone-Acetaminophen Active 1 - 2 TABLET PO EVERY 6 HOURS NEEDED 5 2 March 28, 2023 Desogestrel / Ethinyl Estradiol (5 sources) Progestin, [...] (PEPC ID ORAL) Take by mouth. Active oxyCODONE hydrochloride 5 mg oral capsule (3 sources) Opioid Agonist Start: 03-28-2023 End: 01-27-2025 take 1 capsule by mouth twice daily as needed for pain Oxycodone 5 mg capsule Discontinued 5 mg PO TWICE A DAY as needed for pain 10 5 0 March 28, 2023 January 27, 2025 12:03pm Postoperative pain Other acute postprocedural pain Problems Active Problems Problem Classification Problem Date [...] elsewhere] Onset: 01-11-2025 01-11-2025 Episodic Cardiac dysrhythmias (6 sources) Sinus tachycardia; Translations: [Tachycardia, unspecified] 03-28-2023 Episodic Contraceptive and procreative management (1 source) Oral contraception; Translations: [Encounter for surveillance of contraceptive pills] Episodic Ectopic (10 sources) Ectopic ; Translations: [Unspecified ectopic without intrauterine ] Onset: 03-11-2023 03-11-2023 Episodic distress and abnormal forces of labor (1 source) Other uterine inertia; Translations: [Other uterine inertia] Onset: 01-30-2025 Episodic Hemorrhage during ; abruptio placenta; placenta [...] third trimester (HCC)] Onset: 12-14-2024 Episodic Other complications of (1 source) Streptococcus B carrier state complicating ; Translations: [Streptococcus B carrier state complicating ] Onset: 01-30-2025 Episodic Other nervous system disorders (3 sources) Postoperative pain ; Translations: [Other acute postprocedural [...] [Nonscarring hair loss, unspecified] Onset: 06-10-2023 Episodic Prolonged (4 sources) Post-term ; Translations: [Post-term ] Onset: 01-30-2025 01-28-2025 Episodic Residual codes; unclassified (1 source) Postoperative [...] weeks gestation of (HCC)] Onset: 11-16-2024 Episodic Residual codes; unclassified (1 source) 41 weeks gestation of ; Translations: [41 weeks gestation of ] Onset: 01-30-2025 Episodic Unclassified (20 sources) [facility] Education [...] Test Name Value Interpretation Reference Range Facil ity CBC W/Diff, Automatedon 07-0 PATH REV May foll Normal [facility] Comment on above: Performed By: #### L 100.0100 #### [facility] [address] [place], [address] Comprehensive Metabolic Prof ilon 01-30-2025 Albumin [Mass/Vol] 2.6 g/dL Low 3.5-5.0 [facility] Comment on above: Performed By: #### L 500.4050 #### [facility] [address] [place], [address] Albumin/Globulin [Mass ratio] 1.0 {ratio} Normal 0.9-2.4 [facility] Comment on above: Performed By: #### L 500.4050 #### [facility] [address] [place], [address] ALK PHOS 94 U/L Normal 35-104 [facility] Comment on above: Performed By: #### L 500.4050 #### [facility] [address] [place], [address] ALT [Catalytic activity/Vol] 5 U/L Normal <=34 [facility] Comment on above: Performed By: #### L 500.4050 #### [facility] [address] [place], [address] AST [Catalytic activity/Vol] 20 U/L Normal <=31 [facility] Comment on above: Performed By: #### L 500.4050 #### [facility] [address] [place], [address] Bilirubin [Mass/Vol] 0.59 mg/dL Normal 0.00-1.30 [facility] Comment on above: Performed By: #### L 500.4050 #### [facility] [address] [place], [address] BUN/CRE 8.0 RATIO Low 10-20 [facility] Comment on above: Performed By: #### L 500.4050 #### [facility] [address] [place], [address] Calcium [Mass/Vol] 8.3 mg/dL Normal 7.6-11.0 [facility] Comment on above: Performed By: #### L 500.4050 #### [facility] [address] [place], [address] Chloride [Moles/Vol] 105 mmol/L Normal 98-108 [facility] Comment on above: Performed By: #### L 500.4050 #### [facility] [address] [place], [address] CO2 [Moles/Vol] 19.1 mmol/L Low 21.0-32.0 [facility] Comment on above: Performed By: #### L 500.4050 #### [facility] [address] [place], [address] Creatinine [Mass/Vol] 0.88 mg/dL Normal 0.70-1.20 [facility] Comment on above: Performed By: #### L 500.4050 #### [facility] [address] [place], [address] ECRCL 104.98 ml/min Normal 50-250 [facility] Comment on above: Performed By: #### L 500.4050 #### [facility] [address] [place], [address] GAP 11 Normal 5-15 [facility] Comment on above: Performed By: #### L 500.4050 #### [facility] [address] [place], [address] GFR/1.73 sq M.predicted among non-blacks MDRD (S/P/Bld) [Vol rate/Area] 92 mL/min/{1.73_m2} Normal >60 [facility] Comment on above: Result Comment: mL/m in/1.73m2 CKD-EPI Creatinine Equation (2020) Performed By: #### L 500.4050 #### [facility] [address] [place], [address] Globulin (S) [Mass/Vol] 2.5 g/dL Normal 2.2-4.2 [facility] Comment on above: Performed By: #### L 500.4050 #### [facility] [address] [place], [address] Glucose [Mass/Vol] 120 mg/dL High 70-99 [facility] Comment on above: Performed By: #### L 500.4050 #### [facility] [address] [place], [address] Potassium [Moles/Vol] 3.7 mmol/L Normal 3.3-5.1 [facility] Comment on above: Performed By: #### L 500.4050 #### [facility] [address] [place], [address] Sodium [Moles/Vol] 135 mmol/L Normal 133-145 [facility] Comment on above: Performed By: #### L 500.4050 #### [facility] [address] [place], [address] T PROT 5.2 g/dL Low 5.9-8.4 [facility] Comment on above: Performed By: #### L 500.4050 #### [facility] [address] [place], [address] Urea nitrogen [Mass/Vol] 7 mg/dL Normal 4-19 [facility] Comment on above: Performed By: #### L 500.4050 #### [facility] [address] [place], [address] Fibrinogenon 01-30-2025 FIBRINOGEN 449 mg/dl High 203-444 [facility] Comment on above: Performed By: #### L 300.4310, L300.3900, L300.4700 #### [facility] [address] [place], [address] Lactic Acidon 01-30-2025 Lactate [Moles/Vol] 2.2 mmol/L Invalid Interpretation Code 0.0-2.0 [facility] Comment on above: Order Comment: Y Result Comment: Crit ical Result(s) Called at: 1915 by:??CHARLINE MARIEE TO JALEEL HO Results read back by same. Performed By: #### L 503.6005 ####[facility] [address] [place], [place], [address] Lactate [Moles/Vol] 2.2 mmol/L Invalid Interpretation Code 0.0-2.0 [facility] Comment on above: Order Comment: PROCE SSING. CHEMISTRY HAD TO RETRIEVE SPECIMEN.Y Result Comment: Crit ical Result(s) Called at: 1555 by:??CHARLINE MARIEE TO JALEEL HO Results read back by same. Performed By: #### L 503.6005 ####[facility] [address] [facility]. [place], [place], [address] Operative Reporton 5 Operative Report [facility] Medical Records Department [address] [place] [address] Operative Report 01/30/25 0919 MR#: [id number] Acct: [id number] Name: CHARLINE KIRKPATRICK Rep #: [id number] : 1995 29 From: Amanda Wall MD PCP: Care Physician,No Primary Status:ADM IN Location: [place] [address] Operative Report (OB) Details Procedure Type: low transverse Date of Procedure: 01/30/25 Procedure Start Time: 08:47 Procedure Stop Time: 09:19 Time of Delivery: 08:49 Pre-Operative Diagnosis: Failure to Progress and Nonreassuring Status Post-Operative Diagnosis: Same as Pre-operative diagnosis Classification: JEFF Type of Anesthesia: Epidural Antibiotic Given: Ancef 2 grams IV x1 and Zithromax 500 mg/5 mL X1 Drain: [place] to straight drain Estimated Blood Loss: 650 Fluids Replaced: 1000cc Findings Description of surgery: Patient pushing for 4.5 hours with caput and head at +2 with pushing. discussed primary cs with patient who agreed to proceed. pillow placed prior to start of procedure. After informed consent was obtained the patient was taken the operating room.. She was then placed in the supine position. She was prepped and draped in the normal sterile fashion. Epidural Anesthesia was found to be adequate. At this time a Pfannenstiel skin incision was made with a knife was carried down to the underlying layer of the fascia. The fascial incision was then extended laterally using traction. Rectus muscles were then in the midline bluntly and peritoneum was entered bluntly. Gentle opposing traction was placed. At this time the vesicouterine peritoneum was identified. Scalpel was used to make a uterine incision in a low transverse fashion. The uterus was then entered bluntly gentle opposing traction was placed to extend this incision. Meconium noted. Infant's head was brought to the uterine incision was delivered atraumatically. Infant was vigorous at delivery. . Cord was clamped and cut infant was handed to the waiting nursery team. The Placenta was removed from the uterus. The uterus was then removed from the abdominal cavity. The uterus was cleared of all clots and debris using a lap. At this time the uterine incision was reapproximated using #1 Vicryl in a running locked fashion. small extension down left side- repaired with 1-0 vicryl. Hemostasis was appreciated. Posterior cul-de-sac was then cleared of all clots and debris. Uterus was placed back in the abdominal cavity. Gutters were cleared of all clots and debris. Uterine incision was reevaluated and noted to be of good hemostasis hemoblast placed. At this time the peritoneum was grasped with Kellys reapproximated using #2 Vicryl suture in a running fashion. hemoblast placed over rectus muscle. Fascia was then reapproximated using #1 Vicryl in a running fashion. Subcu layer was irrigated with NS, reapproximated with #2 0 plain gut suture in an interrupted fashion. remaining hemoblast placed in subQ. Subcu layer was closed using 4-0 Monocrylin a subcu fashion. Dry sterile dressing was applied. Instrument lap needle count correct ???2. Anticipated normal postoperative course. Surgical findings: normal tubes and ovaries Presentation: Vertex Amniotic Membrane Rupture Type: Artificial Amniotic Fluid Description: Moderate meconium Placental Delivery Description: Expressed Placenta Disposition: [facility] Specimen collected: No Cord Vessel Description: 3 Vessels Cord Entanglement: None Cord Gases: ABG and VBG A gender: Male (1 minute): 8 (5 minute): 9 Delayed Cord Clamping: No Tempering Machine Operator director of product design: Yes Computer Education Professor: Shelli Allison Tasks completed by airline pilot/first officer: Opening and Dissecting tissue Additional dietary assistant?: Yes Additional Claims Collector #2: Gerardo Flores Tasks completed by dietary assistant #2: Closing and Retracting Complications Complications: No 01/30/25924 Cosigner Signature (if applicable): CC: CLAUDIA Reilly; Dr Amanda Wall MD; No Primary Care Physician Signed Normal [facility] Partial Thromboplast Timeon 01-30-2025 aPTT Coag (Bld) [Time] 30.3 s Normal 24.1-36.2 [facility] Comment on above: Performed By: #### L 300.4310, L300.3900, L300.4700 #### [facility] [address] [place], [address] Prothrombin Time w/INRon INR Coag (PPP) [Relative time] 1.2 {INR} Normal [facility] Comment on above: Performed By: #### L 300.4310, L300.3900, L300.4700 #### [facility] [address] [place], [address] PT Coag (PPP) [Time] 15.2 s High 11.7-14.9 [facility] Comment on above: Performed By: #### L 300.4310, L300.3900, L300.4700 #### [facility] [address] [place], [address] INR Normal [facility] Comment on above: Result Comment: Kelsie elliott via OM: Duplicate Order Performed By: #### L 300.3900 #### [facility] [address] [place], [address] PROTIME Normal 11.7-14.9 [facility] Comment on above: Result Comment: Canc elled via OM: Duplicate Order Performed By: #### L 300.3900 #### [facility] [address] [place], [address] CBC W/Diff, Automatedon 07-0 8-2024 Absolute Lymph 2.72 X10 3/uL Normal 0.83-4.51 [facility] Comment on above: Performed By: #### Flower PARRA, L100.0100 ####[facility] [address] [place], [address] Absolute Neut 6.4 X10 3/uL Normal 2.0-7.7 [facility] Comment on above: Performed By: #### Flower PARRA, L100.0100 ####[facility] [address] [place], [address] Basophils/100 WBC (Bld) 0.2 % Normal 0-1 [facility] Comment on above: Performed By: #### Flower PARRA, L100.0100 ####[facility] [address] [place], [address] Eosinophils/100 WBC (Bld) 0.8 % Normal 0-5 [facility] Comment on above: Performed By: #### Flower PARRA, L100.0100 ####[facility] [address] [place], [address] Erythrocyte distribution width (RBC) [Ratio] 13.1 % Normal 11.6-14.6 [facility] Comment on above: Performed By: #### B TS, L100.0100 ####[facility] [address] [place], [address] Hematocrit (Bld) [Volume fraction] 37.8 % Normal 37-47 [facility] Comment on above: Performed By: #### B TS, L100.0100 ####[facility] [address] [place], [address] Hemoglobin (Bld) [Mass/Vol] 12.9 g/dL Normal 12.0-15.0 [facility] Comment on above: Performed By: #### Flower PARRA, L100.0100 ####[facility] [address] [place], [address] IG% 0.400 Normal 0.0-0.9 [facility] Comment on above: Result Comment: IG% - Immature Granulocytes (promyelocytes, myelocytes and metamyelocytes) > 1% indicates that a LEFT SHIFT is Present. Performed By: #### Flower PARRA, L100.0100 ####[facility] [address] [place], [address] Lymphocytes/100 WBC (Bld) 26.5 % Normal 19-41 [facility] Comment on above: Performed By: #### Flower PARRA, L100.0100 ####[facility] [address] [place], [address] MCH (RBC) [Entitic mass] 30.9 pg Normal 27.0-32.0 [facility] Comment on above: Performed By: #### Flower PARRA, L100.0100 ####[facility] [address] [place], [address] MCHC (RBC) [Mass/Vol] 34.1 g/dL Normal 32-36 [facility] Comment on above: Performed By: #### Flower PARRA, L100.0100 ####[facility] [address] [place], [address] MCV (RBC) [Entitic vol] 90.4 fL Normal 81-99 [facility] Comment on above: Performed By: #### Flower PARRA, L100.0100 ####[facility] [address] [place], [address] Monocytes/100 WBC (Bld) 10.2 % High 0-10 [facility] Comment on above: Performed By: #### Flower PARRA, L100.0100 ####[facility] [address] [place], [address] Neutrophils/100 WBC (Bld) 61.9 % Normal 47-70 [facility] Comment on above: Performed By: #### Flower PARRA, L100.0100 ####[facility] [address] [place], [address] Nucleated RBC (Bld) [#/Vol] 0 10*3/uL Normal 0-5 [facility] Comment on above: Performed By: #### Flower PARRA, L100.0100 ####[facility] [address] [place], [address] Platelet mean volume (Bld) [Entitic vol] 10.8 fL Normal 6.2-12.0 [facility] Comment on above: Performed By: #### Flower PARRA, L100.0100 ####[facility] [address] [place], [address] Platelets (Bld) [#/Vol] 301 10*3/uL Normal 150-450 [facility] Comment on above: Performed By: #### Flower PARRA, L100.0100 ####[facility] [address] [place], [address] RBC (Bld) [#/Vol] 4.18 10*6/uL Low 4.2-5.4 [facility] Comment on above: Performed By: #### Flower PARRA, L100.0100 ####[facility] [address] [place], [address] RDW SD 43.1 fl Normal 35.1-43.9 [facility] Comment on above: Performed By: #### Flower PARRA, L100.0100 ####[facility] [address] [place], [address] WBC (Bld) [#/Vol] 10.3 10*3/uL Normal 4.4-11.0 [facility] Comment on above: Performed By: #### B , L100.0100 ####[facility] [address] [place], [address] H AND P Exam - OB/GYNon 07-0 H&P Exam - DISPLAY ASSOCIATE [facility] Medical Records Department [address] [place] [address] H P Exam - DISPLAY ASSOCIATE 01/29/25 08 MR#: [id number] Acct: [id number] Name: CHARLINE KIRKPATRICK Rep #: [id number] : 1995 29 From: Shelli Allison MD PCP: Care Physician,No Primary Status:ADM [facility] - General General Date of Admission: 01/29/25 Date of Service: 01/29/25 Chief Complaint: induction HPI Narrative 29-year-old 2 para 0 who presents at 40-2/7 weeks with a BENSON of 01/20/2025 presents for induction of labor. She denies any vaginal bleeding or leaking of fluid. She has had good movement. Patient's was complicated to date by nausea vomiting and heartburn. Past medical history significant for ectopic Social history she denies any tobacco alcohol or drug use during the Allergies no known drug allergies Maternal Data Information Final BENSON: 01/20/25 [facility] Medical History (Updated 01/29/25 @ 08:[address] Shelli Allison MD) Placental abnormality Home Medications ???Medication ???Instructions ???Recorded ???Last Taken ???Type aspirin 81 mg tablet,delayed 81 mg PO DAILY 01/27/25 01/29/25 06:15 History release (Adult Aspirin Regimen) ondansetron HCl 8 mg tablet 8 mg PO Q8H PRN nausea 01/27/25 06:15 History pantoprazole 40 mg granules 40 mg PO DAILY heartburn 01/27/25 01/29/25 06:15 History delayed-release for susp in packet (Protonix) vitamin no.45-iron-FA 28 1 tab PO DAILY 01/27/25 01/29/25 06:15 History mg iron-1 mg chewable tablet Allergy/AdvReac Type Severity Reaction Status Date / Time No Known Allergies Allergy Verified 01/29/25 07:21 Surgical History (Updated 01/29/25 @ 08:12 by Marisol Alonso) History of surgery Social History Smoking Status: Never smoker History Elective abortions Hx Para 0 Spontaneous abortions Hx # Term Pregnancies Ectopic pregnancies Hx # Pregnancies Multiple births # of living children ROS Constitutional Constitutional: Denies fatigue, fever(s) or malaise Eyes Eyes: Denies change in vision ENT HEENT: Denies dizziness or headache(s) Cardiovascular Cardiovascular: Denies chest pain, dyspnea or lightheadedness Respiratory/Chest Respiratory/Chest: Denies cough or dyspnea Gastrointestinal Gastrointestinal: Denies change in bowel habits Genitourinary Genitourinary: Denies burning urination or genital lesions Integumentary Integumentary: Denies rash Neurologic Neurologic: Denies confusion, dizziness, headache(s), numbness or weakness Vital Signs Vital Signs Vital Signs: 01/29/25 07:40 01/29/25 07:40 01/29/25 07:40 Temperature Temperature Source Pulse Rate 88 Respiratory Rate Blood Pressure 122/78 H BP Systolic 122 BP Diastolic 78 Pulse Ox 98 01/29/25 07:41 01/29/25 07:41 01/29/25 07:41 Temperature Temperature Source Temporal Pulse Rate Respiratory Rate 16 Blood Pressure BP Systolic BP Diastolic Pulse Ox 99 01/29/25 07:41 Temperature 99.1 F Temperature Source Pulse Rate Respiratory Rate Blood Pressure BP Systolic BP Diastolic Pulse Ox Weight Weight: 85.729 kg Body Mass Index (BMI) 30.4 Physical Exam Const alert and no apparent distress General Appearance: cooperative HEENT normocephalic Resp normal respiratory effort Cardio regular rate GI soft to palpation GI Narrative: gravid, nontender, appropriate for gestational age Extremity no calf tenderness General Extremity: edema Skin no wounds Rashes: No rashes noted Psych activity/motor behavior normal Labs Labs Labs: Blood Type A POSITIVE Antibody Screen NEGATIVE Hct 37.8 % (37-47) Hgb 12.9 g/dL (12.0-15.0) Obstetrics Ultrasound Syphilis Total Ab Pending Assessment Plan (1) Post term : QUALIFIERS: Post-term type: 40-42 weeks gestation Qualified Code(s): O48.0 - Post-term PLAN: Response alternatives to induction labor were discussed with the patient her questions were answered her satisfaction she desires to proceed. Will proceed with [place], Cytotec and Pitocin with artificial rupture membranes as needed. May have routine pain control measures during labor. Estimated weight is less than 5000 g and pelvis is clinically adequate to expect vaginal delivery. Procedure note: Consent was obtained. Reno was placed over stylette through the internal cervical os in the usual sterile fashion and balloon inflated with 30 cc of normal saline. Placement over in (more content not included)... Normal [facility] Syphilis Antibodieson 2024 Syphilis Abs Non-Reactive Normal Nonreactive [facility] Comment on above: Performed By: #### L 509.8002 #### [facility] [address] [place], [place], [address] Type AND Screenon 01-29-2025 Ab SCREEN GEL Negative Normal [facility] Comment on above: Order Comment: Labor Performed By: #### B TS, L100.0100 ####[facility] [address] [place], [place], [address] OB Triage Physician Noteon 0 01-28-2025 OB Triage Physician Note [facility] Medical Records Department [address] [place] [address] OB Triage Physician Note 01/28/250 MR#: [id number] Acct: [id number] Name: CHARLINE KIRKPATRICK Rep #: [id number] : 1995 29 From: Sangeeta Edwards MD PCP: Care Physician,No Primary Status:REG CLI Y Location: [id number] HPI - General General Date of Admission: 01/28/25 Date of Service: 01/28/25 Chief Complaint: NST HPI Narrative CHARLINE KIRKPATRICK, is a 29 F who presents NST at 41 weeks. Induction delayed to unit patient volume. planned admission tomorrow. Maternal Data Information Final BENSON: 01/20/25 Gestational age: 41+1 PFSH PFS Home Medications ???Medication ???Instructions ???Recorded ???Last Taken ???Type aspirin 81 mg tablet,delayed 81 mg PO DAILY 01/27/25 Unknown Hi story release (Adult Aspirin Regimen) ondansetron HCl 8 mg tablet 8 mg PO Q8H PRN nausea 01/27/25 Un known History pantoprazole 40 mg granules 40 mg PO DAILY 01/27/25 Unknown Hi story delayed-release for susp in packet (Protonix) vitamin no.45-iron-FA 28 1 tab PO DAILY 01/27/25 Unknown History mg iron-1 mg chewable tablet Allergy/AdvReac Type Severity Reaction Status Date / Time No Known Allergies Allergy Verified 01/28/25 20:16 Social History Smoking Status: Never smoker NST FHR Rate Baby A Baseline: 145 Variability:: Moderate Accelerations:: 15 x 15 Decelerations:: None NST Reactive:: Yes Uterine Activity:: occasional Assessment Plan (1) Post term : QUALIFIERS: Post-term type: 40-42 weeks gestation Qualified Code(s): O48.0 - Post-term PLAN: Plan Induction in AM. 01/28/252042 Date Sangeeta Edwards MD Cosigner Signature (if applicable): Date __ CC: Dr. Sangeeta Edwards MD; No Primary Care Physician Signed [facility] 01-24-2025 [facility] Telephone (OBGYWM) ---- CHARLINE KIRKPATRICK ([id number]) 1995 F CHT Date Time Provider Department 01/24/25 KELLY GREGG During your visit today, we recorded the following information about you: Sumit Hamlin LPN 01/24/2025 3:18 PM Signed Phone call placed patient identified by name and date of , reviewed non stress test at [facility] 1:00 on Tuesday01/27/2025, induction scheduled on 01/28/2025 at 7:00 PM. Patient offered to move induction to 7:00 PM on Tuesday, patient declined. Sumit Hamlin LPN Allergies As of Date: 01/24/2025 (No Known Allergies) Date Reviewed: 01/24/2025 Reviewed by: Sumit Hamlin LPN - Fully Assessed Reason for Visit: Patient Question [8617] Prescriptions as of 01/24/2025 - pantoprazole DR (PROTONIX) 40 mg tablet Take 1 tablet by mouth once daily. - aspirin, enteric coated (ECOTRIN LOW STRENGTH) 81 mg EC tablet Take 1 tablet by mouth once daily. - 25-IRON LUG-RUXGG-GSO ORAL Take by mouth. Problem List As [...] Status:Closed by SUMIT HAMLIN on 01/24/25 Normal [facility] URINE OB DIP B/Oon 5 Glucose Ql (U) Negative Neg mg/dL [facility] Interpretation and review of laboratory results Normal [facility] Protein.monoclonal (U) [Mass/Vol] Negative Neg mg/dL [facility] URINE OB DIP B/Oon 5 Glucose Ql (U) Negative Neg mg/dL [facility] Interpretation and review of laboratory results Normal [facility] Protein.monoclonal (U) [Mass/Vol] Negative Neg mg/dL [facility] URINE OB DIP B/Oon 5 Glucose Ql (U) Negative Neg mg/dL [facility] Interpretation and review of laboratory results Normal [facility] Protein.monoclonal (U) [Mass/Vol] Negative Neg mg/dL [facility] CNPNon 12-28-2024 CNPN Telephone (OBGYWM) ---- CHARLINE KIRKPATRICK ([id number]) 1995 F [facility] Date Time Provider Department 12/28/24 SANGEETA EDWARDS During your visit today, we recorded the following information about you: Charles Nava MA 12/28/2024 11:33 AM Signed Received [facility] paperwork. Awaiting patients response regarding length of leave. SHANTAL Ogden [place], MA 01/03/2025 9:06 AM Signed [facility] paperwork completed and faxed back to number provided on forms. Patient notified. Charles Nava MA Allergies As of Date: 12/28/2024 (No Known Allergies) Date Reviewed: 12/24/2024 Reviewed by: Sangeeta Edwards MD - Fully Assessed Reason for Visit: [facility] Paperwork [418] Prescriptions as of 01/03/2025 - ondansetron (ZOFRAN) 4 mg tablet Take 1 tablet by mouth every 8 hours as needed for nausea/vomiting. - famotidine (PEPCID ORAL) Take by mouth. - aspirin, enteric coated (ECOTRIN LOW STRENGTH) 81 mg EC tablet Take 1 tablet by mouth once daily. - 25-IRON TED-BNNEC-HGF ORAL Take by mouth. Problem List As [...] Status:Closed by CHARLES NAVA on 01/03/25 Normal [facility] ROUTINE, GROUP B ST REPTOCOCCUS BY PCRon 12-24-2024 ROUTINE, GROUP B STREPTOCOCCUS BY PCR Detected Abnormal [facility] Comment on above: Performed By: #### L [id number] #### [facility] CLIA [id number] [address] [place] [address] [place] URINE OB DIP B/Oon Glucose Ql (U) Negative Neg mg/dL [facility] Protein.monoclonal (U) [Mass/Vol] Negative Neg mg/dL [facility] Examination level ultrasound on 12-05-2024 [facility] Examination level ultrasound on 12-04-2024 Radiology Study observation (narrative) [facility] CBC W Auto Differential pane l (Bld)on 10-31-2024 Basophils (Bld) [#/Vol] 10*3/uL Normal <0.11 [facility] Comment on above: Order Comment: Speci men Type: BLOOD SPECIMEN [facility] Facility[facility] Address: [address] [place] [address] Performed By: #### T SPN #### [facility] CLIA [id number] [address] [place] [address] [place] Basophils/100 WBC (Bld) 0.1 % Normal [facility] Comment on above: Order Comment: Speci men Type: BLOOD SPECIMEN Ordering Facility: [facility] Address: [address] [place] [address] Performed By: #### T SPN #### [facility] CLIA [id number] [address] [place] [address] [place] Differential cell count method Nom (Bld) Auto Normal [facility] Comment on above: Order Comment: Speci men Type: BLOOD SPECIMEN Order[facility] Facility[facility] Address: [address] [place] [address] Performed By: #### T SPN #### [facility] CLIA [id number] [address] [place] [address] [place] Eosinophils (Bld) [#/Vol] 0.09 10*3/uL Normal <0.46 [facility] Comment on above: Order Comment: Speci men Type: BLOOD SPECIMEN Order[facility] Facility[facility] Address: [address] [place] [address] Performed By: #### T SPN #### [facility] CLIA [id number] [address] [place] [address] [place] Eosinophils/100 WBC (Bld) 0.8 % Normal [facility] Comment on above: Order Comment: Speci men Type: BLOOD SPECIMEN Order[facility] Facility[facility] Address: [address] [place] [address] Performed By: #### T SPN #### [facility] CLIA [id number] [address] [place] [address] [place] Erythrocyte distribution width (RBC) [Ratio] 12.9 % Normal 11.5-15.0 [facility] Comment on above: Order Comment: Speci men Type: BLOOD SPECIMEN [facility] Facility: [facility] Address: [address] [place] [address] Performed By: #### T SPN #### [facility] CLIA [id number] [address] [place] [address] [place] Hematocrit (Bld) [Volume fraction] 33.3 % Low 36.0-46.0 [facility] Comment on above: Order Comment: Speci men Type: BLOOD SPECIMEN Order[facility] Facility[facility] Address: [address] [place] [address] Performed By: #### T SPN #### [facility] CLIA [id number] [address] [place] [address] [place] Hemoglobin (Bld) [Mass/Vol] 11.6 g/dL Normal 11.5-15.5 [facility] Comment on above: Order Comment: Speci men Type: BLOOD SPECIMEN [facility] Address: [address] [place] [address] Performed By: #### T SPN #### [facility] CLIA [id number] [address] [place] [address] [place] Immature granulocytes (Bld) [#/Vol] 0.05 10*3/uL Normal <0.10 [facility] Comment on above: Order Comment: Speci men Type: BLOOD SPECIMEN Order[facility] Address: [address] [place] [address] Performed By: #### T SPN #### [facility] CLIA [id number] [address] [place] [address] [place] Immature granulocytes/100 WBC (Bld) 0.4 % Normal [facility] Comment on above: Order Comment: Speci men Type: BLOOD SPECIMEN [facility] Address: [address] [place] [address] Performed By: #### T SPN #### [facility] CLIA [id number] [address] [place] [address] [place] Lymphocytes (Bld) [#/Vol] 2.15 10*3/uL Normal 1.00-4.00 [facility] Comment on above: Order Comment: Speci men Type: BLOOD SPECIMEN Order[facility] Address: [address] [place] [address] Performed By: #### T SPN #### [facility] CLIA [id number] [address] [place] [address] [place] Lymphocytes/100 WBC (Bld) 18.5 % Normal [facility] Comment on above: Order Comment: Speci men Type: BLOOD SPECIMEN [facility] Address: [address] [place] [address] Performed By: #### T SPN #### [facility] CLIA [id number] [address] [place] [address] [place] MCH (RBC) [Entitic mass] 31.3 pg Normal 26.0-34.0 [facility] Comment on above: Order Comment: Speci men Type: BLOOD SPECIMEN [facility] Address: [address] [place] [address] Performed By: #### T SPN #### [facility] CLIA [id number] [address] [place] [address] [place] MCHC (RBC) [Mass/Vol] 34.8 g/dL Normal 30.5-36.0 [facility] Comment on above: Order Comment: Speci men Type: BLOOD SPECIMEN [facility] Address: [address] [place] [address] Performed By: #### T SPN #### [facility] CLIA [id number] [address] [place] [address] [place] MCV (RBC) [Entitic vol] 89.8 fL Normal 80.0-100.0 [facility] Comment on above: Order Comment: Speci men Type: BLOOD SPECIMEN [facility] Address: [address] [place] [address] Performed By: #### T SPN #### [facility] CLIA [id number] [address] [place] [address] [place] Monocytes (Bld) [#/Vol] 0.92 10*3/uL High <0.87 [facility] Comment on above: Order Comment: Speci men Type: BLOOD SPECIMEN [facility] Address: [address] [place] [address] Performed By: #### T SPN #### [facility] CLIA [id number] [address] [place] [address] [place] Monocytes/100 WBC (Bld) 7.9 % Normal [facility] Comment on above: Order Comment: Speci men Type: BLOOD SPECIMEN Order[facility] Address: [address] [place] [address] Performed By: #### T SPN #### [facility] CLIA [id number] [address] [place] [address] [place] Neutrophils (Bld) [#/Vol] 8.38 10*3/uL High 1.45-7.50 [facility] Comment on above: Order Comment: Speci men Type: BLOOD SPECIMEN [facility] Address: [address] [place] [address] Performed By: #### T SPN #### [facility] CLIA [id number] [address] [place] [address] [place] Neutrophils/100 WBC (Bld) 72.3 % Normal [facility] Comment on above: Order Comment: Speci men Type: BLOOD SPECIMEN [facility] Address: [address] [place] [address] Performed By: #### T SPN #### [facility] CLIA [id number] [address] [place] [address] [place] Nucleated RBC (Bld) [#/Vol] 10*3/uL Normal <0.01 [facility] Comment on above: Order Comment: Speci men Type: BLOOD SPECIMEN Order[facility] Address: [address] [place] [address] Performed By: #### T SPN #### [facility] CLIA [id number] [address] [place] [address] [place] Nucleated RBC/100 WBC (Bld) [Ratio] 0.0 /100 WBC Normal [facility] Comment on above: Order Comment: Speci men Type: BLOOD SPECIMEN Order[facility] Address: [address] [place] [address] Performed By: #### T SPN #### [facility] CLIA [id number] [address] [place] [address] [place] Platelet mean volume (Bld) [Entitic vol] 9.3 fL Normal 9.0-12.7 [facility] Comment on above: Order Comment: Speci men Type: BLOOD SPECIMEN [facility] Address: [address] [place] [address] Performed By: #### T SPN #### [facility] CLIA [id number] [address] [place] [address] [place] Platelets (Bld) [#/Vol] 260 10*3/uL Normal 150-400 [facility] Comment on above: Order Comment: Speci men Type: BLOOD SPECIMEN Order[facility] Address: [address] [place] [address] Performed By: #### T SPN #### [facility] CLIA [id number] [address] [place] [address] [place] RBC (Bld) [#/Vol] 3.71 10*6/uL Low 3.90-5.20 [facility] Comment on above: Order Comment: Speci men Type: BLOOD SPECIMEN [facility] Address: [address] [place] [address] Performed By: #### T SPN #### [facility] CLIA [id number] [address] [place] [address] [place] WBC (Bld) [#/Vol] 11.60 10*3/uL High 3.70-11.00 [facility] Comment on above: Order Comment: Speci men Type: BLOOD SPECIMEN Order[facility] Address: [address] [place] [address] Performed By: #### T SPN #### [facility] CLIA [id number] [address] [place] [address] [place] Examination level ultrasound on 10-31-2024 [facility] Radiology Study observation (narrative) [facility] GESTATIONAL GLUCOSE SCREEN, 1-HOUR, 50 GRAM, NON-FASTINGon 10-31-2024 Glucose [Mass/Vol] 93 mg/dL Normal 74-134 [facility] Comment on above: Order Comment: Speci men Type: BLOOD SPECIMEN [facility] Address: [address] [place] [address] Result Comment: [facility] Congress of Obstetricians and Gynecologists (Christel/Amber) guidelines state a gestational diabetes mellitus positive screen is made, in women not previously diagnosed with overt diabetes, when the 1 hr plasma glucose level is equal to or above 140 mg/dL. The [facility] [employer] [facility] recommends a 135 mg/dL cutoff. Performed By: #### T SPN #### [facility] CLIA [id number] [address] [place] [address] [place] Reagin and Treponema pallidu m IgG and IgM [Interp]on 10-31-2024 T. pallidum IgG+IgM IA Ql (S) Non-Reactive Normal Nonreactive [facility] Comment on above: Order Comment: Speci men Type: FLUID SPECIMEN [facility] Address: [address] [place] [address] Performed By: #### L [id number] #### [facility] CLIA [id number] [address] [place] [address] [place] Reagin+T pallidum IgG+IgM Se rPl-Impon 10-31-2024 Reagin and Treponema pallidum IgG and IgM [Interp] Cannot exclude recent Treponemal infection if specimen collected within 7-10 days after appearance of suspect lesions or 2-3 weeks after an exposure. Clinical correlation is required. Normal [facility] Comment on above: Order Comment: Speci men Type: FLUID SPECIMEN [facility] Address: [address] [place] [address] Performed By: #### L [id number] #### [facility] CLIA [id number] [address] [place] [address] [place] Examination level ultrasound [...] 14 oz EFW by: Hadlock (HC-AC-FL) Extended [employer] St[employer] Machine Operator 6.4 mm CM 3.9 mm 13% Nicolaides [...] normal LVOT view: normal 3-vessel view: normal 4-iwxazk-sgwekbb view: normal Heart / Thorax Situs: situs [...] Read By: Shakila Cr M.D. MATERNAL MEDICINE [facility] Radiology Study observation (narrative) [facility] CBC W Auto Differential pane l (Bld)on 07-12-2024 Basophils (Bld) [#/Vol] 10*3/uL Normal <0.11 [facility] Comment on above: Order Comment: Speci men Type: FLUID SPECIMEN [facility] Address: [address] [place] [address] Performed By: #### L [id number] #### [facility] CLIA [id number] [address] [place], [place] [address] [place] [address] [place] Basophils/100 WBC (Bld) 0.1 % Normal [facility] Comment on above: Order Comment: Speci men Type: FLUID SPECIMEN [facility] Address: [address] [place] [address] Performed By: #### L [id number] #### [facility] CLIA [id number] [address] [place] [address] [place] Differential cell count method Nom (Bld) Auto Normal [facility] Comment on above: Order Comment: Speci men Type: FLUID SPECIMEN [facility] Address: [address] [place] [address] Performed By: #### L [id number] #### [facility] CLIA [id number] [address] [place] [address] [place] Eosinophils (Bld) [#/Vol] 0.08 10*3/uL Normal <0.46 [facility] Comment on above: Order Comment: Speci men Type: FLUID SPECIMEN [facility] Address: [address] [place] [address] Performed By: #### L [id number] #### [facility] CLIA [id number] [address] [place] [address] [place] Eosinophils/100 WBC (Bld) 0.5 % Normal [facility] Comment on above: Order Comment: Speci men Type: FLUID SPECIMEN [facility] Address: [address] [place] [address] Performed By: #### L [id number] #### [facility] CLIA [id number] [address] [place] [address] [place] Erythrocyte distribution width (RBC) [Ratio] 12.5 % Normal 11.5-15.0 [facility] Comment on above: Order Comment: Speci men Type: FLUID SPECIMEN [facility] Address: [address] [place] [address] Performed By: #### L [id number] #### [facility] CLIA [id number] [address] [place] [address] [place] Hematocrit (Bld) [Volume fraction] 38.2 % Normal 36.0-46.0 [facility] Comment on above: Order Comment: Speci men Type: FLUID SPECIMEN [facility] Address: [address] [place] [address] Performed By: #### L [id number] #### [facility] CLIA [id number] [address] [place] [address] [place] Hemoglobin (Bld) [Mass/Vol] 13.1 g/dL Normal 11.5-15.5 [facility] Comment on above: Order Comment: Speci men Type: FLUID SPECIMEN [facility] Address: [address] [place] [address] Performed By: #### L [id number] #### [facility] CLIA [id number] [address] [place] [address] [place] Immature granulocytes (Bld) [#/Vol] 0.08 10*3/uL Normal <0.10 [facility] Comment on above: Order Comment: Speci men Type: FLUID SPECIMEN [facility] Address: [address] [place] [address] Performed By: #### L [id number] #### [facility] CLIA [id number] [address] [place] [address] [place] Immature granulocytes/100 WBC (Bld) 0.5 % Normal [facility] Comment on above: Order Comment: Speci men Type: FLUID SPECIMEN [facility] Address: [address] [place] [address] Performed By: #### L [id number] #### [facility] CLIA [id number] [address] [place] [address] [place] Lymphocytes (Bld) [#/Vol] 3.13 10*3/uL Normal 1.00-4.00 [facility] Comment on above: Order Comment: Speci men Type: FLUID SPECIMEN [facility] Address: [address] [place] [address] Performed By: #### L [id number] #### [facility] CLIA [id number] [address] [place] [address] [place] Lymphocytes/100 WBC (Bld) 21.3 % Normal [facility] Comment on above: Order Comment: Speci men Type: FLUID SPECIMEN [facility] Address: [address] [place] [address] Performed By: #### L [id number] #### [facility] CLIA [id number] [address] [place] [place] [address] [place] MCH (RBC) [Entitic mass] 30.7 pg Normal 26.0-34.0 [facility] Comment on above: Order Comment: Speci men Type: FLUID SPECIMEN [facility] Address: [address] [place] [address] Performed By: #### L [id number] #### [facility] CLIA [id number] [address] [place] [address] [place] MCHC (RBC) [Mass/Vol] 34.3 g/dL Normal 30.5-36.0 [facility] Comment on above: Order Comment: Speci men Type: FLUID SPECIMEN [facility] Address: [address] [place] [address] Performed By: #### L [id number] #### [facility] CLIA [id number] [address] [place] [address] [place] MCV (RBC) [Entitic vol] 89.5 fL Normal 80.0-100.0 [facility] Comment on above: Order Comment: Speci men Type: FLUID SPECIMEN [facility] Address: [address] [place] [address] Performed By: #### L [id number] #### [facility] CLIA [id number] [address] [place] [address] [place] Monocytes (Bld) [#/Vol] 0.84 10*3/uL Normal <0.87 [facility] Comment on above: Order Comment: Speci men Type: FLUID SPECIMEN [facility] Address: [address] [place] [address] Performed By: #### L [id number] #### [facility] CLIA [id number] [address] [place] [address] [place] Monocytes/100 WBC (Bld) 5.7 % Normal [facility] Comment on above: Order Comment: Speci men Type: FLUID SPECIMEN [facility] Address: [address] [place] [address] Performed By: #### L [id number] #### [facility] CLIA [id number] [address] [place] [address] [place] Neutrophils (Bld) [#/Vol] 10.56 10*3/uL High 1.45-7.50 [facility] Comment on above: Order Comment: Speci men Type: FLUID SPECIMEN [facility] Address: [address] [place] [address] Performed By: #### L [id number] #### [facility] CLIA [id number] [address] [place] [address] [place] Neutrophils/100 WBC (Bld) 71.9 % Normal [facility] Comment on above: Order Comment: Speci men Type: FLUID SPECIMEN [facility] Address: [address] [place] [address] Performed By: #### L [id number] #### [facility] CLIA [id number] [address] [place] [address] [place] Nucleated RBC (Bld) [#/Vol] 10*3/uL Normal <0.01 [facility] Comment on above: Order Comment: Speci men Type: FLUID SPECIMEN [facility] Address: [address] [place] [address] Performed By: #### L [id number] #### [facility] CLIA [id number] [address] [place] [address] [place] Nucleated RBC/100 WBC (Bld) [Ratio] 0.0 /100 WBC Normal [facility] Comment on above: Order Comment: Speci men Type: FLUID SPECIMEN [facility] Address: [address] [place] [address] Performed By: #### L [id number] #### [facility] CLIA [id number] [address] [place] [address] [place] Platelet mean volume (Bld) [Entitic vol] 9.2 fL Normal 9.0-12.7 [facility] Comment on above: Order Comment: Speci men Type: FLUID SPECIMEN [facility] Address: [address] [place] [address] Performed By: #### L [id number] #### [facility] CLIA [id number] [address] [place] [address] [place] Platelets (Bld) [#/Vol] 374 10*3/uL Normal 150-400 [facility] Comment on above: Order Comment: Speci men Type: FLUID SPECIMEN [facility] Address: [address] [place] [address] Performed By: #### L [id number] #### [facility] CLIA [id number] [address] [place] [address] [place] RBC (Bld) [#/Vol] 4.27 10*6/uL Normal 3.90-5.20 [facility] Comment on above: Order Comment: Speci men Type: FLUID SPECIMEN [facility] Address: [address] [place] [address] Performed By: #### L [id number] #### [facility] CLIA [id number] [address] [place] [address] [place] WBC (Bld) [#/Vol] 14.71 10*3/uL High 3.70-11.00 [facility] Comment on above: Order Comment: Speci men Type: FLUID SPECIMEN [facility] Address: [address] [place] [address] Performed By: #### L [id number] #### [facility] CLIA [id number] [address] [place] [address] [place] HBV surface Ag Ser Qlon 06-24 HBV surface Ag Ql (S) Negative Normal Negative [facility] Comment on above: Order Comment: Speci men Type: BLOOD SPECIMEN [facility] Address: [address] [place] [address] Performed By: #### T SPN #### [facility] CLIA [id number] [address] [place] [address] [place] HCV Ab Ser Qlon 07-12-2024 HCV Ab Ql (S) Negative Normal Negative [facility] Comment on above: Order Comment: Speci men Type: FLUID SPECIMEN [facility] Address: [address] [place] [address] Result Comment: The result suggests no evidence of active infection with Hepatitis C virus. Should recent infection be suspected, repeat testing may be considered 4-6 weeks after this draw. Performed By: #### L [id number] #### [facility] CLIA [id number] [address] [place] [address] [place] HIV 1+2 Ab IA Qlon 4 HIV 1 and 2 Ab IA.rapid Nom (S/P/Bld) Normal [facility] Comment on above: Order Comment: Speci men Type: BLOOD SPECIMEN [facility] Address: [address] [place] [address] Result Comment: Test not indicated. Performed By: #### T SPN #### [facility] CLIA [id number] [address] [place] [address] [place] HIV 1+2 Ab+HIV1 p24 Ag IA Ql Non-Reactive Normal Nonreactive [facility] Comment on above: Order Comment: Speci men Type: BLOOD SPECIMEN [facility] Address: [address] [place] [address] Performed By: #### T SPN #### [facility] CLIA [id number] [address] [place] [address] [place] HIV immunoassay testing algorithm interpretation (S/P/Bld) [Interp] Normal [facility] Comment on above: Order Comment: Speci men Type: BLOOD SPECIMEN [facility] Address: [address] [place] [address] Result Comment: No e vidence of HIV-1 or HIV-2 infection. Should recent infection be suspected, repeat testing may be considered 2-3 weeks after this draw. [place] Rev. Code 3701.243(E): This information has been [...] SPN #### [facility] CLIA [id number] [address] [place] [address] [place] HbA1c (Bld)on 07-12-2024 Average glucose Estimated from glycated hemoglobin (Bld) [Mass/Vol] 94 mg/dL Normal [facility] Comment on above: Order Comment: Speci men Type: BLOOD SPECIMEN [facility] Address: [address] [place] [address] Result Comment: eAG: (Estimated average glucose) is a calculated value from HgbA1c and is sales representative rural power of the average blood glucose level in the last 2-3 month period. Performed By: #### T SPN #### [facility] CLIA [id number] [address] [place] [address] [place] HbA1c (Bld) [Mass fraction] 4.9 % Normal 4.3-5.6 [facility] Comment on above: Order Comment: Speci men Type: BLOOD SPECIMEN [facility] Address: [address] [place] [address] Result Comment: Freddy [place] Diabetes Association guidelines indicate that patients with HgbA1c in the range 5.7-6.4% are at increased risk for development of diabetes, and intervention by lifestyle modification may be beneficial. HgbA1c greater or equal to 6.5% is considered diagnostic of diabetes. Performed By: #### T SPN #### [facility] CLIA [id number] [address] [place] [address] [place] [id number] PLUSon 07-12-2024 Cell-free DNA./Cell-free DNA.total Dosage of chromosome-specific cfDNA (cfDNA) [Molar fraction] 17% Normal [facility] Comment on above: Order Comment: Guadalupei men Type: FLUID SPECIMEN [facility] Address: [address] [place] [address] Performed By: #### L [id number] #### [facility] CLIA [id number] [address] [place] [address] [place] Chr 13+18+21+X+Y aneuploidy Dosage of chromosome-specific cfDNA Ql (cfDNA) Negative Normal [facility] Comment on above: Order Comment: Speci men Type: FLUID SPECIMEN [facility] Address: [address] [place] [address] Performed By: #### L [id number] #### [facility] CLIA [id number] [address] [place] [address] [place] Chr 21 trisomy Dosage of chromosome-specific cfDNA Ql (cfDNA) Negative Normal [facility] Comment on above: Order Comment: Guadalupei men Type: FLUID SPECIMEN [facility] Address: [address] [place] [address] Performed By: #### L [id number] #### [facility] CLIA [id number] [address] [place] Chr X and Y aneuploidy risk Sequencing Ql (cfDNA) [Interp] Not detected Normal [facility] Comment on above: Order Comment: Speci men Type: FLUID SPECIMEN [facility] Address: [address] [place] [address] Result Comment: Not Detected Not Detected Performed By: #### L [id number] #### [facility] CLIA [id number] [address] [place] [address] [place] Citation Conrado (Reference lab test) Comment Normal [facility] Comment on above: Order Comment: Speci men Type: FLUID SPECIMEN [facility] Address: [address] [place] [address] Result Comment: 1. P chet BOWLES et al. Gloria Med. 2012;14(3):296-305. 2. Raquel BRIZUELA et al. Prenat Diag. 2013;33(6):591-597. 3. Shahab C, et al. Clin Chem. 2015 Apr;61(4):608-616. 4. Yasmin BOWLES, et al. Gloria Med. 2011;13(11):913-920. 5. ACOG/SMFM Practice Bulletin No. 226, Apr 2020. Performed By: #### L [id number] #### [facility] CLIA [id number] [address] [place] [address] [place] Gestational age Estimated from conception date Borges Normal [facility] Comment on above: Order Comment: Speci men Type: FLUID SPECIMEN [facility] Address: [address] [place] [address] Performed By: #### L [id number] #### [facility] CLIA [id number] [address] [place] [address] [place] GESTATIONALAGE AGE > OR = 9W Yes Normal [facility] Comment on above: Order Comment: Speci men Type: FLUID SPECIMEN [facility] Address: [address] [place] [address] Performed By: #### L [id number] #### [facility] CLIA [id number] [address] [place] [address] [place] Laboratory comment Conrado (Report) Comment Normal [facility] Comment on above: Order Comment: Manfred jefferson Type: FLUID SPECIMEN [facility] Address: [address] [place] [address] Result Comment: The MaterniT(R) 21 PLUS laboratory-developed test (LDT) analyzes circulating cell-free DNA from a maternal blood sample. This test is used for screening purposes and not diagnostic. Clinical correlation is recommended. Validation data on twin pregnancies is limited and the ability of this test to detect aneuploidy in higher multiple gestations has not yet been validated. Performed By: #### L [id number] #### [facility] CLIA [id number] [address] [place] [address] director medical affairs name Nom (Provider) Comment Normal [facility] Comment on above: Order Comment: Manfred jefferson Type: FLUID SPECIMEN [facility] Address: [address] [place] [address] Result Comment: This specimen showed an expected representation of chromosome 21, 18 and 13 material. Clinical correlation is suggested. Comment Antwan Hester MD, PhD, Director, [employer] Performed By: #### L [id number] #### [facility] CLIA [id number] [address] [place] [address] LIMITATIONS OF THE TEST Comment Normal [facility] Comment on above: Order Comment: Manfred jefferson Type: FLUID SPECIMEN [facility] Address: [address] [place] [address] Result Comment: Pamela teague the results of [...] Clexane(R) and Fragmin(R)). Performed By: #### L [id number] #### [facility] CLIA [id number] [address] [place] [address] [place] Monosomy X risk Dosage of chromosome-specific cfDNA Ql (Plasma cell-free+WBC DNA) [Interp] Not detected Normal [facility] Comment on above: Order Comment: Speci men Type: FLUID SPECIMEN [facility] Address: [address] [place] [address] Performed By: #### L [id number] #### [facility] CLIA [id number] [address] [place] [address] [place] NEGATIVE PREDICTIVE VALUE Note Normal [facility] Comment on above: Order Comment: Speci men Type: FLUID SPECIMEN [facility] Address: [address] [place] [address] Result Comment: The Negative Predictive Value (NPV) for trisomy 21, 18, and 13 is greater than 99%. The NPV for SCA and ESS cannot be calculated as SCA and ESS are only reported when an abnormality is detected. Performed By: #### L [id number] #### [facility] CLIA [id number] [address] [place] [address] [place] NOTE Comment Normal [facility] Comment on above: Order Comment: Speci men Type: FLUID SPECIMEN [facility] Address: [address] [place] [address] Result Comment: See Notes [employer]. is a subsidiary of [employer], using the brand [employer]. This test was developed and its performance characteristics determined by [employer]. It has not been cleared or approved by the Food and Drug Administration. This laboratory is certified under the Clinical Laboratory Improvement Amendments (CLIA) as qualified to perform high complexity clinical laboratory testing and accredited by the [employer] (CAP). If there is future clinical need for adding MaterniT GENOME testing, this specimen will be available until term. [facility] samples will not be retained beyond 60 days. [facility] patients will have to send a new sample for re-sequencing ([facility] Test Code: [id number]). Performed By: #### L [id number] #### [facility] CLIA [id number] [address] [place] [address] PERFORMANCE CHARACTERISTICS Note Normal [facility] Comment on above: Order Comment: Speci men Type: FLUID SPECIMEN [facility] Address: [address] [place] [address] Result Comment: ! Sex ! Accuracy: 99.4% [...] ! ! ! * As reported in [employer] database nstd37 [https://www.ncbi.nlm.nih.gov/dbvar/studies/nstd37/ ] # Estimated Sensitivity. [...] Borges gestation only. Performed By: #### L [id number] #### [facility] CLIA [id number] [address] [place] [address] POSITIVE PREDICTIVE VALUE N/A Normal [facility] Comment on above: Order Comment: Speci men Type: FLUID SPECIMEN [facility] Address: [address] [place] [address] Performed By: #### L [id number] #### [facility] CLIA [id number] [address] [place] [address] Reference Lab Test Method Comment Normal [facility] Comment on above: Order Comment: Speci men Type: FLUID SPECIMEN [facility] Address: [address] [place] [address] Result Comment: See Notes Circulating cell-free DNA [...] 16 and 22. Performed By: #### L [id number] #### [facility] CLIA [id number] [address] [place] [address] [place] Sex Dosage of chromosome-specific cfDNA Nom (cfDNA) Comment Normal [facility] Comment on above: Order Comment: Speci men Type: FLUID SPECIMEN [facility] Address: [address] [place] [address] Result Comment: Cons istent with Male Performed By: #### L [id number] #### [facility] CLIA [id number] [address] [place] [address] [place] Test performance information Conrado (Unsp spec) Comment Normal [facility] Comment on above: Order Comment: Speci men Type: FLUID SPECIMEN [facility] Address: [address] [place] [address] Result Comment: The performance characteristics of the MaterniT(R) 21 PLUS laboratory-developed test (LDT) have been determined in a clinical validation study with women at increased risk for chromosomal aneuploidy.[1-4] Performed By: #### L [id number] #### [facility] CLIA [id number] [address] [place] [address] [place] Trisomy 13 risk Dosage of chromosome-specific cfDNA Ql (cfDNA) [Interp] Negative Normal [facility] Comment on above: Order Comment: Speci men Type: FLUID SPECIMEN [facility] Address: [address] [place] [address] Performed By: #### L [id number] #### [facility] CLIA [id number] [address] [place] [address] [place] Trisomy 18 risk Dosage of chromosome-specific cfDNA Ql (Plasma cell-free+WBC DNA) [Interp] Negative Normal [facility] Comment on above: Order Comment: Speci men Type: FLUID SPECIMEN [facility] Address: [address] [place] [address] Performed By: #### L [id number] #### [facility] CLIA [id number] [address] [place] [address] [place] RUBELLA IGG ANTIBODYon 07-12 RUBELLA IGG AB, QUAL Positive Normal Positive [facility] Comment on above: Order Comment: Speci ronny Type: BLOOD SPECIMEN [facility] Address: [address] [place] [address] Result Comment: The result suggests recent or past exposure to Rubella virus or history of Rubella vaccination. Positive result may also be seen due to presence of passively-transferred antibodies. Please correlate with patient's history. Performed By: #### T SPN #### [facility] CLIA [id number] [address] [place] [address] [place] Reagin and Treponema pallidu m IgG and IgM [Interp]on 07-12-2024 T. pallidum IgG+IgM IA Ql (S) Non-Reactive Normal Nonreactive [facility] Comment on above: Order Comment: Guadalupei ronny Type: BLOOD SPECIMEN [facility] Address: [address] [place] [address] Performed By: #### T SPN #### [facility] CLIA [id number] [address] [place] [address] [place] Reagin+T pallidum IgG+IgM Se rPl-Impon 07-12-2024 Reagin and Treponema pallidum IgG and IgM [Interp] Cannot exclude recent Treponemal infection if specimen collected within 7-10 days after appearance of suspect lesions or 2-3 weeks after an exposure. Clinical correlation is required. Normal [facility] Comment on above: Order Comment: Speci men Type: BLOOD SPECIMEN [facility] Address: [address] [place] [address] Performed By: #### T SPN #### [facility] CLIA [id number] [address] [place] [address] [place] TYPE + SCREEN PRENATALon ABO A Normal [facility] Comment on above: Order Comment: Speci men Type: BLOOD SPECIMEN [facility] Address: [address], [place] [address] Performed By: #### T SPN #### [facility] CLIA [id number] [address] [place] [address] [place] Rh Nom (Bld) Positive Normal [facility] Comment on above: Order Comment: Speci men Type: BLOOD SPECIMEN [facility] Address: [address] [place] [address] Performed By: #### T SPN #### [facility] CLIA [id number] [address] [place] [address] [place] TYPE AND SCREEN EXPIRATION 07/15/2024 23:59 Normal [facility] Comment on above: Order Comment: Speci men Type: BLOOD SPECIMEN [facility] Address: [address] [place] [address] Performed By: #### T SPN #### [facility] CLIA [id number] [address] [place] [address] [place] Bacteria Ur Culton Bacteria identified Cx Nom (U) ORGANISM ID: 1 <10,000 CFU/ml Normal urogenital jessenia Normal [facility] Comment on above: Performed By: #### L [id number] #### [facility] CLIA [id number] [address] [place] [address] [place] C. trachomatis+N. gonorrhoea e DNA MATTHEW+probe Ql (Unsp spec)on 06-08-2024 C. trachomatis rRNA MATTHEW+probe Ql (Unsp spec) Negative Normal Negative for Chlamydia trachomatis by amplificaton [facility] Comment on above: Order Comment: Speci men Type: SWAB [facility] Address: [address] [place] [address] Performed By: #### 3 [id number] #### [facility] CLIA [id number] [address] [place] [address] [place] N. gonorrhoeae rRNA MATTHEW+probe Ql (Unsp spec) Negative Normal Negative for Neisseria gonorrhoeae by amplification [facility] Comment on above: Order Comment: Speci men Type: SWAB [facility] Address: [address] [place] [address] Performed By: #### 3 [id number] #### [facility] CLIA [id number] [address] [place], [place] [address] [place] PAP TESTon 06-08-2024 ADEQUACY Satisfactory for interpretation. Normal [facility] Comment on above: Order Comment: Speci men Type: FLUID SPECIMEN [facility] Address: [address] [place] [address] Performed By: #### L [id number] #### [facility] CLIA [id number] [address] [place] [address] [place] CASE REPORT Normal [facility] Comment on above: Order Comment: Speci men Type: FLUID SPECIMEN [facility] Address: [address] [place] [address] Result Comment: Gyne cologic Cytology Report Case: [id number] Authorizing Provider: Kelly Gregg APRN.CNM Collected: 06/08/2024 10:03 AM Ordering Location: OB/Gynecology Received: 06/08/2024 11:29 AM First Screen: Jhonyak, Mariajose, CT, ASCP Specimen: Pap Test, ThinPrep, Cervix Performed By: #### L [id number] #### [facility] CLIA [id number] [address] [place], [place] [address] [place] CLINICAL HISTORY, CYTOLOGY, PLANT MACHINIST Routine Exam Normal [facility] Comment on above: Order Comment: Speci men Type: FLUID SPECIMEN [facility] Address: [address] [place] [address] Performed By: #### L [id number] #### [facility] CLIA [id number] [address] [place], [place] [id number] [place] FINAL PERFORMING LAB Normal [facility] Comment on above: Order Comment: Speci men Type: FLUID SPECIMEN [facility] Address: [address] [place] [address] Result Comment: Tech nical component, watch leader screening performed at [facility], [address] [place] [address] [place] [address] CLIA# [id number] Diagnostic interpretation performed at [facility], [address] [place] [address] [place] [address] CLIA# [id number] Corporate Recruiter: Willie Garcia M.D. Performed By: #### L [id number] #### [facility] CLIA [id number] [address] [place] [address] [place] INTERPRETATION, CYTOLOGY, PLANT MACHINIST Normal [facility] Comment on above: Order Comment: Speci men Type: FLUID SPECIMEN [facility] Address: [address] [place] [address] Result Comment: Nega tive for intraepithelial lesion or malignancy. Performed By: #### L [id number] #### [facility] CLIA [id number] [address] [place] [address] [place] LMP 04/15/2024 Normal [facility] Comment on above: Order Comment: Speci men Type: FLUID SPECIMEN [facility] Address: [address] [place] [address] Performed By: #### L [id number] #### [facility] CLIA [id number] [address] [place] [address] [place] PAP DISCLAIMER COMMENT The Pap Smear is a screening test for cervical cancer. False negative results occur with all screening tests, emphasizing the need for rescreening at recommended intervals, and clinical correlation. Normal [facility] Comment on above: Order Comment: Speci men Type: FLUID SPECIMEN [facility] Address: [address] [place] [address] Performed By: #### L [id number] #### [facility] CLIA [id number] [address] [place] [address] [place] PAP POWDER GUARD COMMENT This specimen has been analyzed by the ThinPrep Imaging System, an automated imaging and review system, which assists the laboratory in evaluating cells on ThinPrep Pap tests. Following automated imaging, selected barajas from every slide are reviewed by a watch leader. Normal [facility] Comment on above: Order Comment: Speci men Type: FLUID SPECIMEN [facility] Address: [address] [place] [address] Performed By: #### L [id number] #### [facility] CLIA [id number] [address] [place] [address] [place] B-HCG SerPl-aCn[place] 4 [place] [address].0 m[IU]/mL High <5.0 [facility] Comment on above: Order Comment: Speci men Type: FLUID SPECIMEN [facility] Address: [address] [place] [address] Result Comment: HAYDEE TITATIVE HCG NORMAL RANGES Weeks of Gestation (Weeks Since LMP) 3 Weeks (5.8-71.2 mIU/mL) 4 Weeks (9.5-750 mIU/mL) 5 Weeks (217-7138 mIU/mL) 6 Weeks (158-90389 mIU/mL) 7 Weeks (3697-526589 mIU/mL) 8 Weeks (65107-999360 mIU/mL) 9 Weeks (60720-671478 mIU/mL) 10 Weeks (43681-929737 mIU/mL) 12 Weeks (60859-926454 mIU/mL) Referenced to 4th IS of [facility] WITH [facility] Performed By: #### L [id number] #### [facility] CLIA [id number] [address] [place] [address] [place] B-HCG SerPl-aCncon 4 HCG.beta subunit Qn 7328.0 m[IU]/mL High <5.0 [facility] Comment on above: Order Comment: Speci men Type: FLUID SPECIMEN [facility] Address: [address] [place] [address] Result Comment: HAYDEE TITATIVE HCG NORMAL RANGES Weeks of Gestation (Weeks Since LMP) 3 Weeks (5.8-71.2 mIU/mL) 4 Weeks (9.5-750 mIU/mL) 5 Weeks (217-7138 mIU/mL) 6 Weeks (158-14783 mIU/mL) 7 Weeks (3697-768815 mIU/mL) 8 Weeks (88494-772614 mIU/mL) 9 Weeks (11299-059854 mIU/mL) 10 Weeks (62293-583861 mIU/mL) 12 Weeks (77264-488710 mIU/mL) Referenced to 4th IS of [facility] WITH [facility] Performed By: #### L [id number] #### [facility] CLIA [id number] [address] [place] [address] OF [facility] Selvin 05-14-2024 SREEKANTHN Telephone (OBGYWM) ---- CHARLINE KIRKPATRICK ([id number]) 1995 F CHT Date Time Provider Department 05/14/24 AMANDA TAVERA OBRENNY During your visit today, we recorded the following information about you: Janeen Contreras, ABDI 05/14/2024 12:54 PM Signed Patient calling because [...] test [Z32.01] Order(s):HCG QUANTITATIVE [SQHCGQT] Order #: [id number] STANDING Problem List As Of Date 05/14/2024 Noted Resolved of unknown anatomic location [O36.80X*03/11/2023 Encounter for monitoring of methotrexate therap*03/17/2023 Encounter Status:Closed by SOWMYA GONZALES on 05/14/24 Normal [facility] .Auto Diffon 06-10-2023 Basophil, Absolute 0.0 10 3/mcL Normal 0.0-0.2 [facility] ([place]) Comment on above: Performed By: #### T SH, VIDH, ADIFF, CBC, ANEU #### [facility] [address] [address] Basophils/100 WBC (Bld) 0.4 % Normal 0.0-2.5 [facility] ([place]) Comment on above: Performed By: #### T SH, VIDH, ADIFF, CBC, ANEU #### [address] [address] Eosinophil, Absolute 0.1 10 3/mcL Normal 0.0-0.4 [facility] ([place]) Comment on above: Performed By: #### T SH, VIDH, ADIFF, CBC, ANEU #### [address] [address] Eosinophils/100 WBC (Bld) 2.0 % Normal 0.0-7.0 [facility] ([place]) Comment on above: Performed By: #### T SH, VIDH, ADIFF, CBC, ANEU #### [address] [address] Lymphocyte, Absolute 2.5 10 3/mcL Normal 0.8-3.9 [facility] ([place]) Comment on above: Performed By: #### T SH, VIDH, ADIFF, CBC, ANEU #### [address] [address] Lymphocytes/100 WBC (Bld) 41.8 % Normal 10.0-50.0 [facility] ([place]) Comment on above: Performed By: #### T SH, VIDH, ADIFF, CBC, ANEU #### [address] [address] Monocyte, Absolute 0.5 10 3/mcL Normal 0.2-1.0 [facility] ([place]) Comment on above: Performed By: #### T SH, VIDH, ADIFF, CBC, ANEU #### [address] [address] Monocytes/100 WBC (Bld) 8.6 % Normal 1.7-13.0 [facility] ([place]) Comment on above: Performed By: #### T SH, VIDH, ADIFF, CBC, ANEU #### [address] [address] Neutrophils/100 WBC (Bld) 47.2 % Normal 37.0-80.0 [facility] ([place]) Comment on above: Performed By: #### T SH, VIDH, ADIFF, CBC, ANEU #### [address] [address] .NEUABSon 06-10-2023 Neutrophil, Absolute 2.9 10 3/mcL Normal 2.9-6.2 [facility] ([place]) Comment on above: Performed By: #### T SH, VIDH, ADIFF, CBC, ANEU #### [place] [address] CBCon 06-10-2023 Erythrocyte distribution width (RBC) [Ratio] 13.4 % Normal 11.5-14.5 [facility] ([place]) Comment on above: Performed By: #### T SH, VIDH, ADIFF, CBC, ANEU #### [place] [address] Hematocrit (Bld) [Volume fraction] 40.4 % Normal 37.0-47.0 [facility] ([place]) Comment on above: Performed By: #### T SH, VIDH, ADIFF, CBC, ANEU #### [place] [id number] Hgb 13.6 G/dL Normal 12.0-16.0 [facility] ([place] Comment on above: Performed By: #### T SH, VIDH, ADIFF, CBC, ANEU #### [place] [address] MCH (RBC) [Entitic mass] 30.3 pg Normal 27.0-31.2 [facility] ([place] Comment on above: Performed By: #### T SH, VIDH, ADIFF, CBC, ANEU #### [place] [id number] MCHC 33.5 G/dL Normal 33.0-37.0 [facility] ([place] Comment on above: Performed By: #### T SH, VIDH, ADIFF, CBC, ANEU #### [address] [address] MCV (RBC) [Entitic vol] 90.3 fL Normal 80.0-94.0 [facility] ([place]) Comment on above: Performed By: #### T SH, VIDH, ADIFF, CBC, ANEU #### [address] [address] Platelet 347 10 3/mcL Normal 130-400 [facility] ([place]) Comment on above: Performed By: #### T SH, VIDH, ADIFF, CBC, ANEU #### [address] [address] Platelet mean volume (Bld) [Entitic vol] 7.6 fL Normal 7.4-10.4 [facility] ([place]) Comment on above: Performed By: #### T SH, VIDH, ADIFF, CBC, ANEU #### [place] [id number] RBC 4.48 10 6/mcL Normal 4.20-5.40 [facility] ([place]) Comment on above: Performed By: #### T SH, VIDH, ADIFF, CBC, ANEU #### [place] [id number] WBC 6.1 10 3/mcL Normal 4.6-10.8 [facility] ([place]) Comment on above: Performed By: #### T SH, VIDH, ADIFF, CBC, ANEU #### [address] [address] TSHon 06-10-2023 TSH Qn 1.28 m[IU]/L Normal 0.36-3.74 [facility] ([place]) Comment on above: Performed By: #### T SH, VIDH, ADIFF, CBC, ANEU #### [place] [address] VIDHon 06-10-2023 Vit. D 25-Hydroxy 34.6 ng/mL Normal [facility] ([place]) Comment on above: Result Comment: Inte rpretive Values Based on Total 25(OH) Vitamin D: Deficient <20 ng/mL Insufficient 20 - <30 ng/mL Sufficient 30-100 ng/mL Performed By: #### T SARAY, CAN, OKSANA, CBC, ANEU #### [facility] [address] [address] Absolute lymphocyte countOrd ered By: Amanda Bean on 03-28-2023 Lymphocytes Auto (Unsp spec) [#/Vol] 1.76 10*3/uL 0.83-4.51 [facility] Basophil percentageOrdered B y: Amanda Bean on 03-28-2023 Basophils/100 WBC (Bld) 0.1 % 0-1 [facility] Chloride [Moles/Vol] 107 mmol/L 98-107 [facility] Eosinophils/100 WBC (Bld) 2.1 % 0-5 [facility] Glucose [Mass/Vol] 100 mg/dL 74-106 [facility] Comment on above: Fasting Glucose resu lt from 100 to 125 mg/dL suggests IMPAIRED HOMEOSTASIS per A.D.A. criteria. Neutrophils (Bld) [#/Vol] 4.7 10*3/uL 2.0-7.7 [facility] Neutrophils/100 WBC (Bld) 64.4 % 47-70 [facility] Potassium [Moles/Vol] 3.4 mmol/L 3.5-5.1 [facility] Sodium [Moles/Vol] 138 mmol/L 136-145 [facility] WBC (Bld) [#/Vol] 7.3 10*3/uL 4.4-11.0 [facility] Blood erythrocytes count (nu mber/volume)Ordered By: Amanda Bean on 03-28-2023 RBC (Bld) [#/Vol] 4.43 10*6/uL 4.2-5.4 [facility] Blood hemoglobin measurement (mass/volume)Ordered By: Amanda Bean on 03-28-2023 Hemoglobin (Bld) [Mass/Vol] 13.6 g/dL 12.0-15.0 [facility] Blood lymphocytes/100 leukoc ytesOrdered By: Amanda Bean on 03-28-2023 Lymphocytes/100 WBC (Bld) 24.1 % 19-41 [facility] Blood monocytes/100 leukocyt esOrdered By: Amanda Bean on 03-28-2023 Monocytes/100 WBC (Bld) 8.9 % 0-10 [facility] Blood platelet mean volumeOr dered By: Amanda Bean on 03-28-2023 Platelet mean volume (Bld) [Entitic vol] 9.1 fL 6.2-12.0 [facility] Determination of erythrocyte mean corpuscular volume (MCV)Ordered By: Amanda Bean on 03-28-2023 MCV (RBC) [Entitic vol] 93.7 fL 81-99 [facility] Hematocrit Auto (Bld) [Volum e fraction]Ordered By: Amanda Bean on 03-28-2023 Hematocrit (Bld) [Volume fraction] 41.5 % 37-47 [facility] Laboratory - Chemistry and C hemistry - challengeOrdered By: Amanda Bean on 03-28-2023 CO2 [Moles/Vol] 28.0 mmol/L 21.0-32.0 [facility] Urea nitrogen/Creatinine [Mass ratio] 10.2 mg/mg 10-20 [facility] Laboratory - Hematology and Cell countsOrdered By: Amanda Bean on 03-28-2023 Erythrocyte distribution width (RBC) [Entitic vol] 44.4 fL 35.1-43.9 [facility] Erythrocyte distribution width (RBC) [Ratio] 13.0 % 11.6-14.6 [facility] Immature granulocytes/100 WBC (Bld) 0.400 % 0.0-0.9 [facility] Comment on above: IG% - Immature Granu locytes (promyelocytes, myelocytes and metamyelocytes) > 1% indicates that a LEFT SHIFT is Present. MCH (RBC) [Entitic mass] 30.7 pg 27.0-32.0 [facility] Nucleated RBC/100 WBC (Bld) [Ratio] 0 % 0-5 [facility] MCHC Auto (RBC) [Mass/Vol]Or dered By: Amanda Bean on 03-28-2023 MCHC (RBC) [Mass/Vol] 32.8 g/dL 32-36 [facility] No Panel InformationOrdered By: Amanda Bean on 03-28-2023 Estimated Creatinine Clearance Calc 102.32 ml/min [facility] Estimated GFR (MDRD) Amer 114 mL/min >60 [facility] Comment on above: GFR Calc Estimated GFR (MDRD) Non-Af Amer 94 mL/min >60 [facility] Comment on above: Non- GFR Calc Platelets bldOrdered By: Oral Bean on 03-28-2023 Platelets (Bld) [#/Vol] 345 10*3/uL 150-450 [facility] Serum or plasma calcium patrick urement (mass/volume)Ordered By: Amanda Bean on 03-28-2023 Calcium [Mass/Vol] 9.2 mg/dL 8.5-10.1 [facility] Serum or plasma choriogonado tropin detectionOrdered By: Amanda Bean on 03-28-2023 HCG ( test) Ql 341 mIU/mL <4 [facility] Comment on above: hCG levels with Gest ational AgeGestational Age hCG mIU/mL (IU/L)0.2 - 1 week 5 - 501-2 weeks 50 - 5002-3 weeks 100 - 89300-3 weeks 500 - 234026-5 weeks 1000 - 727679-7 weeks [address] - 100,0006-8 weeks 15266 - 200,0002-3 months [address] - 100,000 Serum or plasma creatinine m easurement (mass/volume)Ordered By: Amanda Bean on 03-28-2023 Creatinine [Mass/Vol] 0.78 mg/dL 0.55-1.02 [facility] Comment on above: The validity of the calculated GFR & GFRAA in patients over 70 years has not been determined. Clinical correlation is essential. Serum or plasma urea nitroge n measurement (mass/volume)Ordered By: Amanda Bean on 03-28-2023 Urea nitrogen [Mass/Vol] 8 mg/dL 7-18 [facility] Thin prep Papanicolaou smear with manual screeningOrdered By: Amanda Bean on 03-28-2023 Thin prep Papanicolaou smear with manual screening 3 5-15 [facility] CBC panel Auto (Bld)on 03-17 Erythrocyte distribution width (RBC) [Ratio] 12.4 % Normal 11.5-15.0 [facility] Comment on above: Order Comment: Speci men Type: BLOOD SPECIMEN [facility] Address: [address] [place] [address] Performed By: #### 5 8410-2 #### [facility] CLIA [id number] [address] OF [facility] Hematocrit (Bld) [Volume fraction] 37.8 % Normal 36.0-46.0 [facility] Comment on above: Order Comment: Speci men Type: BLOOD SPECIMEN [facility] Address: [address] [place] [address] Performed By: #### 5 8410-2 #### [facility] CLIA [id number] [address] [place] Hemoglobin (Bld) [Mass/Vol] 12.8 g/dL Normal 11.5-15.5 [facility] Comment on above: Order Comment: Speci men Type: BLOOD SPECIMEN [facility] Address: [address] [place] [address] Performed By: #### 5 8410-2 #### [facility] CLIA [id number] [address] MCH (RBC) [Entitic mass] 30.5 pg Normal 26.0-34.0 [facility] Comment on above: Order Comment: Speci men Type: BLOOD SPECIMEN [facility] Address: [address] [place] [address] Performed By: #### 5 8410-2 #### [facility] CLIA [id number] [address] [place] MCHC (RBC) [Mass/Vol] 33.9 g/dL Normal 30.5-36.0 [facility] Comment on above: Order Comment: Speci men Type: BLOOD SPECIMEN [facility] Address: [address] [place] [address] Performed By: #### 5 8410-2 #### [facility] CLIA [id number] [address] MCV (RBC) [Entitic vol] 90.0 fL Normal 80.0-100.0 [facility] Comment on above: Order Comment: Speci men Type: BLOOD SPECIMEN [facility] Address: [address] [place] [address] Performed By: #### 5 8410-2 #### [facility] CLIA [id number] [address] Nucleated RBC (Bld) [#/Vol] 10*3/uL Normal <0.01 [facility] Comment on above: Order Comment: Speci men Type: BLOOD SPECIMEN [facility] Address: [address] [place] [address] Performed By: #### 5 8410-2 #### [facility] CLIA [id number] [address] Platelet mean volume (Bld) [Entitic vol] 8.7 fL Low 9.0-12.7 [facility] Comment on above: Order Comment: Speci men Type: BLOOD SPECIMEN [facility] Address: [address] [place] [address] Performed By: #### 5 8410-2 #### [facility] CLIA [id number] [address] Platelets (Bld) [#/Vol] 297 10*3/uL Normal 150-400 [facility] Comment on above: Order Comment: Speci men Type: BLOOD SPECIMEN [facility] Address: [address] [place] [address] Performed By: #### 5 8410-2 #### [facility] CLIA [id number] [address] RBC (Bld) [#/Vol] 4.20 10*6/uL Normal 3.90-5.20 [facility] Comment on above: Order Comment: Speci men Type: BLOOD SPECIMEN [facility] Address: [address] [place] [address] Performed By: #### 5 8410-2 #### [facility] CLIA [id number] [address] WBC (Bld) [#/Vol] 6.93 10*3/uL Normal 3.70-11.00 [facility] Comment on above: Order Comment: Speci men Type: BLOOD SPECIMEN [facility] Address: [address] [place] [address] Performed By: #### 5 8410-2 #### [facility] CLIA [id number] [address] Comprehensive metabolic 2000 panelon 03-17-2023 Albumin [Mass/Vol] 4.7 g/dL Normal 3.9-4.9 [facility] Comment on above: Order Comment: Speci men Type: BLOOD SPECIMEN [facility] Address: [address] [place] [address] Performed By: #### 2 4323-8 #### [facility] CLIA [id number] [address] ALP [Catalytic activity/Vol] 22 U/L Low 34-123 [facility] Comment on above: Order Comment: Speci men Type: BLOOD SPECIMEN [facility] Address: [address] [place] [address] Performed By: #### 2 4323-8 #### [facility] CLIA [id number] [address] ALT With P-5'-P [Catalytic activity/Vol] 24 U/L Normal 7-38 [facility] Comment on above: Order Comment: Speci men Type: BLOOD SPECIMEN [facility] Address: [address] [place] [address] Performed By: #### 2 4323-8 #### [facility] CLIA [id number] [address] Anion gap [Moles/Vol] 13 mmol/L Normal 9-18 [facility] Comment on above: Order Comment: Speci men Type: BLOOD SPECIMEN [facility] Address: [address] [place] [address] Performed By: #### 2 4323-8 #### [facility] CLIA [id number] [address] STATES OF [facility] AST With P-5'-P [Catalytic activity/Vol] 21 U/L Normal 13-35 [facility] Comment on above: Order Comment: Speci men Type: BLOOD SPECIMEN [facility] Address: [address] [place] [address] Performed By: #### 2 432-8 #### [facility] CLIA [id number] [address] [place] Bilirubin [Mass/Vol] 0.3 mg/dL Normal 0.2-1.3 [facility] Comment on above: Order Comment: Speci men Type: BLOOD SPECIMEN [facility] Address: [address] [place] [address] Performed By: #### 2 4323-8 #### [facility] CLIA [id number] [address] [place] Calcium [Mass/Vol] 9.7 mg/dL Normal 8.5-10.2 [facility] Comment on above: Order Comment: Speci men Type: BLOOD SPECIMEN [facility] Address: [address] [place] [address] Performed By: #### 2 4323-8 #### [facility] CLIA [id number] [address] [place] Chloride [Moles/Vol] 102 mmol/L Normal 97-105 [facility] Comment on above: Order Comment: Speci men Type: BLOOD SPECIMEN [facility] Address: [address] [place] [address] Performed By: #### 2 4323-8 #### [facility] CLIA [id number] [address] CO2 [Moles/Vol] 25 mmol/L Normal 22-30 [facility] Comment on above: Order Comment: Speci men Type: BLOOD SPECIMEN [facility] Address: [address] [place] [address] Performed By: #### 2 4323-8 #### [facility] CLIA [id number] [address] Creatinine [Mass/Vol] 0.74 mg/dL Normal 0.58-0.96 [facility] Comment on above: Order Comment: Speci men Type: BLOOD SPECIMEN [facility] Address: [address] [place] [address] Performed By: #### 2 4323-8 #### [facility] CLIA [id number] [address] Creatinine and Glomerular filtration rate.predicted panel (S/P/Bld) 115 mL/min/1.73m??? Normal >=60 [facility] Comment on above: Order Comment: Speci men Type: BLOOD SPECIMEN [facility] Address: [address] [place] [address] Result Comment: Vidya mated Glomerular Filtration Rate [...] 2 4323-8 #### [facility] CLIA [id number] [address] OF [facility] Glucose [Mass/Vol] 105 mg/dL High 74-99 [facility] Comment on above: Order Comment: Speci men Type: BLOOD SPECIMEN [facility] Address: [address] [place] [address] Result Comment: The [employer] (ADA) provides guidance for cutoff [...] Standards of Medical Care in Diabetes 2016, [employer]. Diabetes Care. 2016.39(Suppl 1). Performed By: #### 2 4323-8 #### [facility] CLIA [id number] [address] [place] [address] [place] Potassium [Moles/Vol] 3.6 mmol/L Low 3.7-5.1 [facility] Comment on above: Order Comment: Manfred jefferson Type: BLOOD SPECIMEN [facility] Address: [address] [address] Performed By: #### 2 4323-8 #### [facility] CLIA [id number] 1 [place] [address] [place] Protein [Mass/Vol] 7.5 g/dL Normal 6.3-8.0 [facility] Comment on above: Order Comment: Manfred jefferson Type: BLOOD SPECIMEN [facility] Address: [address] [place] [address] Performed By: #### 2 4323-8 #### [facility] CLIA [id number] 1 [place] [address] [place] Sodium [Moles/Vol] 140 mmol/L Normal 136-144 [facility] Comment on above: Order Comment: Manfred jefferson Type: BLOOD SPECIMEN [facility] Address: [address] [address] Performed By: #### 2 4323-8 #### [facility] CLIA [id number] 1 [place] [address] [place] Urea nitrogen [Mass/Vol] 12 mg/dL Normal 7-21 [facility] Comment on above: Order Comment: Speci men Type: BLOOD SPECIMEN [facility] Address: [address] [id number] Performed By: #### 2 4323-8 #### [facility] CLIA [id number] [address] [place] [address] [place] HCG QUANTITATIVEon 3 HCG.beta subunit Qn 1849.0 m[IU]/mL High <5.0 mIU/mL [facility] B-HCG SerPl-aCncon 3 HCG.beta subunit Qn 2005.0 m[IU]/mL High <5.0 [facility] Comment on above: Order Comment: Speci men Type: BLOOD SPECIMEN [facility] Address: [address] [phone] Result Comment: HAYDEE TITATIVE HCG NORMAL RANGES Weeks of Gestation (Weeks Since LMP) 3 Weeks (5.8-71.2 mIU/mL) 4 Weeks (9.5-750 mIU/mL) 5 Weeks (217-7138 mIU/mL) 6 Weeks (158-15430 mIU/mL) 7 Weeks (3697-708618 mIU/mL) 8 Weeks (95543-644493 mIU/mL) 9 Weeks (52692-015673 mIU/mL) 10 Weeks (86013-633781 mIU/mL) 12 Weeks (02121-531417 mIU/mL) Referenced to 4th IS of [facility] WITH [facility] Performed By: #### 2 [id number] #### [facility] CLIA [id number] 1 [place] [address] [place] CBC panel Auto (Bld)on 03-11 Erythrocyte distribution width (RBC) [Ratio] 12.4 % 11.5 - 15.0 % [facility] Hematocrit (Bld) [Volume fraction] 40.8 % 36.0 - 46.0 % [facility] Hemoglobin (Bld) [Mass/Vol] 13.8 g/dL 11.5 - 15.5 g/dL [facility] MCH (RBC) [Entitic mass] 30.4 pg 26.0 - 34.0 pg [facility] MCHC (RBC) [Mass/Vol] 33.8 g/dL 30.5 - 36.0 g/ dL [facility] MCV (RBC) [Entitic vol] 89.9 fL 80.0 - 100.0 fL [facility] Nucleated RBC (Bld) [#/Vol] <0.01 k/uL [facility] Platelet mean volume (Bld) [Entitic vol] 8.9 fL Low 9.0 - 12.7 fL [facility] Platelets (Bld) [#/Vol] 326 10*3/uL 150 - 400 k/uL [facility] RBC (Bld) [#/Vol] 4.54 10*6/uL 3.90 - 5.20 m/uL [facility] WBC (Bld) [#/Vol] 9.52 10*3/uL 3.70 - 11. 00 k/uL [facility] Comprehensive metabolic 2000 panelon 03-11-2023 Albumin [Mass/Vol] 4.6 g/dL 3.9 - 4.9 g/dL Cl [facility] ALP [Catalytic activity/Vol] 24 U/L Low 34 - 123 U/L [facility] ALT [Catalytic activity/Vol] 12 U/L 7 - 38 U/L [facility] Anion gap [Moles/Vol] 10 mmol/L 9 - 18 mmol/L [facility] AST [Catalytic activity/Vol] 14 U/L 13 - 35 U/L [facility] Bilirubin [Mass/Vol] 0.5 mg/dL 0.2 - 1.3 mg/dL [facility] Calcium [Mass/Vol] 10.2 mg/dL 8.5 - 10.2 mg/dL [facility] Chloride [Moles/Vol] 102 mmol/L 97 - 105 mmol/L [facility] CO2 [Moles/Vol] 24 mmol/L 22 - 30 mmol/L [facility] Creatinine [Mass/Vol] 0.80 mg/dL 0.58 - 0.96 mg/dL [facility] Estimated Glomerular Filtration Rate 104 mL/min/1.73m >=60 mL/min/1.73m [facility] Glucose [Mass/Vol] 94 mg/dL 74 - 99 mg/dL [facility] Potassium [Moles/Vol] 4.0 mmol/L 3.7 - 5.1 mmol /L [facility] Protein [Mass/Vol] 7.7 g/dL 6.3 - 8.0 g/dL [facility] Sodium [Moles/Vol] 136 mmol/L 136 - 144 mmol/L [facility] Urea nitrogen [Mass/Vol] 9 mg/dL 7 - 21 mg/dL [facility] ED Triage Noteon 03-11-2023 ED Triage Note HNO ID: [id number] Author: Jewell Machuca APRN.SREEKANTH Service: Emergency Medicine Author Type: Nurse Practitioner [...] staff in stable condition. SIGNATURE: Jewell Machuca APRN.DISTRICT SERVICE MANAGER Normal [facility] HCG QUANTITATIVEon 3 HCG.beta subunit Qn 1768.0 m[IU]/mL High <5.0 mIU/mL [facility] OBSTETRIC ULTRASOUND WHIon 0 03-11-2023 [facility] TYPE + SCREEN PRENATALon ABO A Normal [facility] Comment on above: Order Comment: Speci men Type: BLOOD SPECIMEN Ordering Facility: [facility] Address: [address] [place] [address] Performed By: #### T SPN #### [facility] CLIA [id number] [address] HISTORICAL AB SCR STATUS Negative Normal [facility] Comment on above: Order Comment: Speci men Type: BLOOD SPECIMEN Ordering Facility: [facility] Address: [address] [address] Performed By: #### T SPN #### [facility] CLIA [id number] [address] Rh Nom (Bld) Positive Normal [facility] Comment on above: Order Comment: Speci men Type: BLOOD SPECIMEN Ordering Facility: [facility] Address: [address] [address] Performed By: #### T SPN #### [facility] CLIA [id number] [address] TYPE AND SCREEN EXPIRATION 03/14/2023 23:59 Normal [facility] Comment on above: Order Comment: Speci men Type: BLOOD SPECIMEN Ordering Facility: [facility] Address: [address] [address] Performed By: #### T SPN #### [facility] CLIA [id number] [address] HCG QUANTITATIVEon HCG.beta subunit Qn 1623.0 m[IU]/mL High <5.0 mIU/mL [facility] Vital Signs Date Time Vital Sign Value Performing Clinician Faci lity 01-28-2025 20:16-0400 Body height 167.64 cm No Primary Care Physician [facility] 01-28-2025 20:16-0400 Body mass index (BMI) [Ratio] 30.3 kg/m2 No Primary Care Physician [facility] 01-28-2025 20:16-0400 Body weight 85.27 kg No Primary Care Physician [facility] 01-28-2025 20:11-0400 Diastolic blood pressure 76 mm[Hg] No Primary Care Physician [facility] 01-28-2025 20:11-0400 Heart rate 83 /min No Primary Care Physician [facility] 01-28-2025 20:11-0400 Systolic blood pressure 121 mm[Hg] No Primary Care Physician [facility] 01-28-2025 20:10-0400 Body temperature 98.3 [degF] No Primary Care Physician [facility] 01-28-2025 20:10-0400 Respiratory rate 16 /min No Primary Care Physician [facility] 01-28-2025 20:08-0400 SaO2% (BldA) [Mass fraction] 98 % No Primary Care Physician [facility] 01-27-2025 12:07-0400 Diastolic blood pressure 72 mm[Hg] No Primary Care Physician [facility] 01-27-2025 12:07-0400 Heart rate 90 /min No Primary Care Physician [facility] 01-27-2025 12:07-0400 Systolic blood pressure 114 mm[Hg] No Primary Care Physician [facility] 01-27-2025 12:06-0400 Body temperature 98.9 [degF] No Primary Care Physician [facility] 01-27-2025 12:06-0400 Respiratory rate 16 /min No Primary Care Physician [facility] 01-27-2025 12:06-0400 SaO2% (BldA) [Mass fraction] 98 % No Primary Care Physician [facility] 01-27-2025 11:58-0400 Body height 167.64 cm No Primary Care Physician [facility] 01-27-2025 11:58-0400 Body mass index (BMI) [Ratio] 30.9 kg/m2 No Primary Care Physician [facility] 01-27-2025 11:58-0400 Body weight 86.8 kg No Primary Care Physician [facility] 01-24-2025 08:02-0400 Body mass index (BMI) [Ratio] 30.38 kg/m2 Kelyl Gregg APRN.CNM Work Phone: [facility] 01-24-2025 08:02-0400 Body weight 85.37 kg Kelly Gregg APRN.CNM Work Phone: [facility] 01-24-2025 08:02-0400 Diastolic blood pressure 64 mm[Hg] Kelly Gregg APRNEduardCNM Work Phone: [facility] 01-24-2025 08:02-0400 Systolic blood pressure 118 mm[Hg] Kelly Gregg APRNEduardCNM Work Phone: [facility] 01-18-2025 08:08-0400 Body mass index (BMI) [Ratio] 30.18 kg/m2 Kelly Gregg APRNEduardCNM Work Phone: [facility] 01-18-2025 08:08-0400 Body weight 84.82 kg Kelly Plotts INSTRUCTOR [employer]GRAM[employer].CNM Work Phone: [facility] 01-18-2025 08:08-0400 Diastolic blood pressure 68 mm[Hg] Kelly Plotts INSTRUCTOR [employer].CNM Work Phone: [facility] 01-18-2025 08:08-0400 Systolic blood pressure 110 mm[Hg] Kelly Plotts IN[employer].CNM Work Phone: [facility] 01-11-2025 08:05-0400 Body mass index (BMI) [Ratio] 30.18 kg/m2 Kelly Plotts IN[employer].CNM Work Phone: [facility] 01-11-2025 08:05-0400 Body weight 84.82 kg Kelly Plotts INSTRUCTOR [employer].CNM Work Phone: [facility] 01-11-2025 08:05-0400 Diastolic blood pressure 68 mm[Hg] Kelly Plotts INSTRUCTOR [employer].CNM Work Phone: [facility] 01-11-2025 08:05-0400 Systolic blood pressure 102 mm[Hg] Kelly Plotts [employer].CNM Work Phone: [facility] 01-02-2025 08:01-0400 Body mass index (BMI) [Ratio] 30.15 kg/m2 Ovidio Joseph MD Work Phone: [facility] 01-02-2025 08:01-0400 Body weight 84.73 kg Ovidio Joseph MD Work Phone: [facility] 01-02-2025 08:01-0400 Diastolic blood pressure 66 mm[Hg] Ovidio Joseph MD Work Phone: [facility] 01-02-2025 08:01-0400 Systolic blood pressure 118 mm[Hg] Ovidio Joseph MD Work Phone: [facility] 12-24-2024 14:43-0400 Body mass index (BMI) [Ratio] 29.86 kg/m2 Sangeeta Edwards MD Work Phone: [facility] 12-24-2024 14:43-0400 Body weight 83.92 kg Sangeeta Edwards MD Work Phone: [facility] 12-24-2024 14:43-0400 Diastolic blood pressure 70 mm[Hg] Sangeeta Edwards MD Work Phone: [facility] 12-24-2024 14:43-0400 Systolic blood pressure 120 mm[Hg] Sangeeta Edwards MD Work Phone: [facility] 12-04-2024 16:19-0400 Diastolic blood pressure 64 mm[Hg] [facility] 12-04-2024 16:19-0400 Systolic blood pressure 114 mm[Hg] [facility] 11-29-2024 14:43-0400 Body mass index (BMI) [Ratio] 29.05 kg/m2 Alcon Martinez MD Work Phone: [facility] 11-29-2024 14:43-0400 Body weight 81.65 kg Alcon Martinez MD Work Phone: [facility] 11-29-2024 14:43-0400 Diastolic blood pressure 74 mm[Hg] Alcon Martinez MD Work Phone: [facility] 11-29-2024 14:43-0400 Systolic blood pressure 120 mm[Hg] Alcon Martinez MD Work Phone: [facility] 10-31-2024 09:06-0400 Body mass index (BMI) [Ratio] 28.25 kg/m2 Amanda Jenkins MD Work Phone: [facility] 10-31-2024 09:06-0400 Body weight 79.38 kg Amanda Jenkins MD Work Phone: [facility] 10-31-2024 09:06-0400 Diastolic blood pressure 62 mm[Hg] Amanda Jenkins MD Work Phone: [facility] 10-31-2024 09:06-0400 Systolic blood pressure 102 mm[Hg] Amanda Jenkins MD Work Phone: [facility] 10-05-2024 11:33-0400 Body mass index (BMI) [Ratio] 27.76 kg/m2 Amanda Jenkins MD Work Phone: [facility] 10-05-2024 11:33-0400 Body weight 78.02 kg Amanda Jenkins MD Work Phone: [facility] 10-05-2024 11:33-0400 Diastolic blood pressure 64 mm[Hg] Amanda Jenkins MD Work Phone: [facility] 10-05-2024 11:33-0400 Systolic blood pressure 110 mm[Hg] Amanda Jenkins MD Work Phone: [facility] 09-07-2024 09:01-0500 Body mass index (BMI) [Ratio] 27.44 kg/m2 Amandasara Jenkins MD Work Phone: [facility] 09-07-2024 09:01-0500 Body weight 77.11 kg Amanda Jenkins MD Work Phone: [facility] 09-07-2024 09:01-0500 Diastolic blood pressure 66 mm[Hg] Amanda Jenkins MD Work Phone: [facility] 09-07-2024 09:01-0500 Systolic blood pressure 116 mm[Hg] Amanda Jenkins MD Work Phone: [facility] 08-10-2024 08:32-0500 Body mass index (BMI) [Ratio] 26.63 kg/m2 Amanda Jenkins MD Work Phone: [facility] 08-10-2024 08:32-0500 Body weight 74.84 kg Amanda Jenkins MD Work Phone: [facility] 08-10-2024 08:32-0500 Diastolic blood pressure 64 mm[Hg] Amanda Jenkins MD Work Phone: [facility] 08-10-2024 08:32-0500 Systolic blood pressure 104 mm[Hg] Amanda Jenkins MD Work Phone: [facility] 07-12-2024 16:16-0500 Body mass index (BMI) [Ratio] 26.63 kg/m2 Kelly Plotts IN[employer].CNM Work Phone: [facility] 07-12-2024 16:16-0500 Body weight 74.84 kg Kelly Plotts [employer].CNM Work Phone: [facility] 07-12-2024 16:16-0500 Diastolic blood pressure 68 mm[Hg] Kelly Plotts INSTRU[employer].CNM Work Phone: [facility] 07-12-2024 16:16-0500 Systolic blood pressure 112 mm[Hg] Kelly Plotts [employer].CNM Work Phone: [facility] 06-08-2024 08:44-0500 Body mass index (BMI) [Ratio] 26.95 kg/m2 Kelly Plotts [employer].CNM Work Phone: [facility] 06-08-2024 08:44-0500 Body weight 75.75 kg Kelly Plotts IN[employer].CNM Work Phone: [facility] 06-08-2024 08:44-0500 Diastolic blood pressure 64 mm[Hg] Kelly Plotts INSTRUCTOR [employer].CNM Work Phone: [facility] 06-08-2024 08:44-0500 Systolic blood pressure 106 mm[Hg] Kelly Plotts INSTRUCTOR [employer].CNM Work Phone: [facility] 04-06-2023 11:55-0400 Body weight 73.03 kg Amanda Jenkins MD Work Phone: [facility] 04-06-2023 11:55-0400 Diastolic blood pressure 66 mm[Hg] Amanda Jenkins MD Work Phone: [facility] 04-06-2023 11:55-0400 Systolic blood pressure 116 mm[Hg] Amanda Jenkins MD Work Phone: [facility] 03-28-2023 17:45-0400 Body temperature 99.6 [degF] [facility] 03-28-2023 17:45-0400 Diastolic blood pressure 68 mm[Hg] [facility] 03-28-2023 17:45-0400 Heart rate 78 /min [facility] 03-28-2023 17:45-0400 Respiratory rate 16 /min [facility] 03-28-2023 17:45-0400 SaO2% (BldA) [Mass fraction] 97 % [facility] 03-28-2023 17:45-0400 Systolic blood pressure 104 mm[Hg] [facility] 03-28-2023 15:26-0400 Body temperature 97.2 [degF] [facility] 03-28-2023 15:26-0400 Diastolic blood pressure 76 mm[Hg] [facility] 03-28-2023 15:26-0400 Heart rate 132 /min [facility] 03-28-2023 15:26-0400 Respiratory rate 18 /min [facility] 03-28-2023 15:26-0400 SaO2% (BldA) [Mass fraction] 100 % [facility] 03-28-2023 15:26-0400 Systolic blood pressure 120 mm[Hg] [facility] 03-28-2023 14:57-0400 Body height 167.64 cm [facility] 03-28-2023 14:57-0400 Body mass index (BMI) [Ratio] 26.2 kg/m2 [facility] 03-28-2023 14:57-0400 Body weight 73.89 kg [facility] 03-11-2023 13:39-0400 Diastolic blood pressure 60 mm[Hg] Alcon Martinez MD Work Phone: [facility] 03-11-2023 13:39-0400 Systolic blood pressure 100 mm[Hg] Alcon Martinez MD Work Phone: [facility] 05-21-2022 12:57-0400 Body height 170.2 cm Edelmira Patterson IN[employer]CTOR [employer].DISTRICT SERVICE MANAGER Work Phone: [facility] 05-21-2022 12:57-0400 Body weight 71.22 kg Edelmira Patterson INSTRUCTOR [employer].DISTRICT SERVICE MANAGER Work Phone: [facility] 05-21-2022 12:57-0400 Diastolic blood pressure 60 mm[Hg] Edelmira Ed [employer].DISTRICT SERVICE MANAGER Work Phone: [facility] 05-21-2022 12:57-0400 Systolic blood pressure 100 mm[Hg] Edelmira Ed [employer].DISTRICT SERVICE MANAGER Work Phone: [facility] 03-21-2022 08:48-0400 Body temperature 98.1 [degF] Manny Ren INSTRUCTOR [employer].DISTRICT SERVICE MANAGER Work Phone: [facility] 03-21-2022 08:48-0400 Body weight 68.95 kg Manny Ren INSTRUCTOR [employer]GRAMM[employer].DISTRICT SERVICE MANAGER Work Phone: [facility] 03-21-2022 08:48-0400 Diastolic blood pressure 62 mm[Hg] Manny Ren INSTRUCTOR [employer].DISTRICT SERVICE MANAGER Work Phone: [facility] 03-21-2022 08:48-0400 Heart rate 78 /min Manny Ren IN[employer].DISTRICT SERVICE MANAGER Work Phone: [facility] 03-21-2022 08:48-0400 Respiratory rate 16 /min Manny Ren IN[employer].DISTRICT SERVICE MANAGER Work Phone: [facility] 03-21-2022 08:48-0400 SaO2% (BldA) [Mass fraction] 99 % Manny Ren [employer].DISTRICT SERVICE MANAGER Work Phone: [facility] 03-21-2022 08:48-0400 Systolic blood pressure 108 mm[Hg] Manny Ren IN[employer].DISTRICT SERVICE MANAGER Work Phone: [facility] Encounters Encounter Date Encounter Type Care Provider Facility Start: 01-29-2025 Evaluation and manag ement of inpatient Amanda Wall Facility:[facility] Start: 01-28-2025 End: 01-28-2025 ambulatory No Primary Care Physician Facility:[facility] Start: 01-28-2025 End: 01-28-[address] Sangeeta Edwards MD -[facility] Work Phone: Start: 01-27-2025 End: 01-28-2025 ambulatory No Primary Care Physician -[facility] Start: 01-27-2025 End: 01-28-[address] Alcon Martinez DO -[facility] Work Phone: Start: 01-24-2025 End: 01-24-2025 Telephone encounter Kelly Gregg APRN.CNM Work Phone: OB/Gynecology Comment on above: Patient Question Start: 01-24-2025 End: 01-24-2025 Patient encounter procedure Kelly Gregg [employer].CNM Work Phone: OB/Gynecology Comment on above: 40 weeks gestation o f (HCC) (Primary Dx); Supervision of high risk in third trimester (HCC); Positive GBS test Start: 01-24-2025 End: 01-24-2025 [facility] Facility:[facility] Start: 01-18-2025 End: 01-18-2025 [facility] Facility:[facility] Start: 01-18-2025 End: 01-18-2025 Patient encounter procedure Kelly Gregg [employer]STRU[employer].CNM Work Phone: OB/Gynecology Comment on above: Supervision of high risk in third trimester (HCC) (Primary Dx); Positive GBS test; 39 weeks gestation of (HCC); Heartburn during in second trimester (HCC) Start: 01-11-2025 End: 01-11-2025 Patient encounter procedure Kelly Gregg [employer]STRU[employer].CNM Work Phone: OB/Gynecology Comment on above: Positive GBS test (P rimary Dx); Supervision of high risk in third trimester (HCC); 38 weeks gestation of (HCC) Start: 01-11-2025 End: 01-11-2025 ambulatory KELLY GREGG Facility:[facility] Start: 01-07-2025 End: 01-07-2025 ambulatory Chris Henderson [facility] Start: 01-07-2025 End: 01-07-2025 [facility]: Population Health Na vigation Outreach ( to PCP/OB/) Start: 01-02-2025 End: 01-02-2025 Patient encounter procedure Ovidio Joseph MD Work Phone: OB/Gynecology Comment on above: 37 weeks gestation o f (HCC) (Primary Dx); Supervision of high risk in third trimester (HCC); Low lying placenta nos or without hemorrhage, third trimester (HCC) Start: 01-02-2025 End: 01-02-2025 ambulatory OVIDIO JOSEPH Facility:[facility] Start: 12-28-2024 End: 01-03-2025 Telephone encounter Sangeeta [...] Start: 12-24-2024 End: 12-24-2024 ambulatory SANGEETA EDWARDS Facility:[facility] Start: 12-18-2024 End: 12-18-2024 Refill Roz Reilly APRN.CNM Work Phone: OB/Gynecology Comment on above: Refill Request Start: 12-15-2024 End: 12-18-2024 Refill Kelly Gregg APRN.CNM Work Phone: OB/Gynecology Comment on above: Refill Request Start: 12-14-2024 End: 12-14-2024 ambulatory SHELLI ALLISON Facility:[facility] Start: 12-04-2024 End: 12-04-2024 ambulatory AMANDA JENKINS Facility:[facility] Start: 12-04-2024 End: 12-04-2024 Patient encounter procedure [employer] 1 [employer] [facility] Comment on above: Suspected placental problem not found (Primary Dx); Encounter for ultrasound to check growth ([facility]); 33 weeks gestation of ([facility]) Start: 11-29-2024 End: 11-29-2024 Patient encounter procedure Alcon Martinez MD Work Phone: OB/Gynecology Comment on above: 32 weeks gestation o f ([facility]) (Primary Dx); Supervision of high risk in third trimester ([facility]) Start: 11-29-2024 End: 11-29-2024 ambulatory ALCON MARTINEZ Facility:[facility] Start: 11-16-2024 End: 11-16-2024 ambulatory SHELLI ALLISON Facility:[facility] Start: 11-04-2024 End: 01-04-2025 Follow-up encounter Amanda [...] Start: 10-31-2024 End: 10-31-2024 ambulatory AMANDA JENKINS Facility:[facility] Start: 10-05-2024 End: 10-05-2024 ambulatory AMANDA JENKINS Facility:[facility] Start: 10-05-2024 End: 10-05-2024 Patient encounter procedure [...] Start: 09-07-2024 End: 09-07-2024 ambulatory KELLY GREGG Facility:[facility] Start: 09-07-2024 End: 09-07-2024 Patient encounter procedure [...] Start: 08-10-2024 End: 08-10-2024 ambulatory AMANDA JENKINS Facility:[facility] Start: 08-10-2024 End: 08-10-2024 Patient encounter procedure Amanda Jenkins MD Work Phone: OB/Gynecology Comment on above: Encounter for superv ision of other normal in second trimester (Primary Dx); Nausea and vomiting in ; 16 weeks gestation of Start: 08-06-2024 End: 08-07-2024 Refill Roz Tommie [employer].CNM Work Phone: OB/Gynecology Comment on above: Refill Request Start: 08-03-2024 End: 08-03-2024 Refill Kelly Gregg [employer].CNM Work Phone: OB/Gynecology Comment on above: Med Change Request Start: 07-19-2024 End: 07-19-2024 ambulatory Kelly Gregg [employer].CNM Work Phone: OB/Gynecology Comment on above: Maternal 21 Results Start: 07-12-2024 End: 07-12-2024 ambulatory KELLY GREGG Facility:[facility] Start: 07-12-2024 End: 07-12-2024 Patient encounter procedure [employer] Information Technology Architect [employer] [facility] Comment on above: Encounter for antena petr screening for malformation using ultrasound (Primary Dx); 12 weeks gestation of ; Encounter for (NT) nuchal translucency scan 12 weeks gestation o f (Primary Dx); Encounter for supervision of other normal in first trimester; Nausea/vomiting in ; Heartburn during in second trimester Start: 07-12-2024 End: 07-12-2024 ambulatory KELLY GREGG Facility:[facility] Start: 06-08-2024 End: 06-08-2024 ambulatory KELLY GREGG Facility:[facility] Start: 06-08-2024 End: 06-08-2024 Patient encounter procedure Kelly Gregg [employer].CNM Work Phone: OB/Gynecology Comment on above: with uncer tain dates in first trimester (Primary Dx); 7 weeks gestation of ; Encounter for supervision of low-risk first in first trimester; Nausea/vomiting in ; History of ectopic Start: 05-28-2024 End: 05-28-2024 ambulatory Amanda Jenkins MD Work Phone: OB/Gynecology Comment on above: Nausea Start: 05-25-2024 End: 05-25-2024 ambulatory MAANDA JENKINS Facility:[facility] Start: 05-23-2024 End: 05-23-2024 ambulatory AMANDA JENKINS Facility:[facility] Start: 05-14-2024 End: 05-14-2024 Telephone encounter Amanda Jenkins MD Work Phone: OB/Gynecology Comment on above: Early OB Question Start: 06-10-2023 End: 06-15-2023 ambulatory OMAR ROTHMAN [employer]-DISTRICT SERVICE MANAGER Facility:[facility] Start: 04-06-2023 End: 04-06-2023 Patient encounter procedure Amanda Jenkins MD Work Phone: OB/Gynecology Comment on above: Post-operative state (Primary Dx) Start: 03-28-2023 End: 03-28-2023 Admission to same day surgery center [facility] Start: 03-28-2023 End: 03-28-2023 ambulatory [facility] Work Phone: Start: 03-18-2023 Telephone encounter Alcon king MD Work Phone: OB/Gynecology Comment on above: Orders Start: 03-17-2023 End: 03-17-2023 ambulatory ALCON MARTINEZ Facility:[facility] Start: 03-12-2023 Telephone encounter Amanda Jenkins MD Work Phone: OB/Gynecology Start: 03-11-2023 End: 03-11-2023 Emergency department patient visit DEMI FOWLER Facility:[facility] Start: 03-11-2023 Telephone encounter Edelmira don INSTRUCTOR [employer].DISTRICT SERVICE MANAGER Work Phone: OB/Gynecology Comment on above: Results Start: 03-11-2023 End: 03-11-2023 Patient encounter procedure Alcon Martinez MD Work Phone: OB/Gynecology Comment on above: Ectopic wi thout intrauterine , unspecified location (Primary Dx); Early stage of ; Vaginal bleeding in ; Pelvic cramping with uncer tain viability, single or unspecified fetus Start: 03-08-2023 Telephone encounter Edelmira don [employer].DISTRICT SERVICE MANAGER Work Phone: OB/Gynecology Comment on above: Patient Question Start: 05-21-2022 End: 05-21-2022 Patient encounter procedure Edelmira Ward [employer].DISTRICT SERVICE MANAGER Work Phone: OB/Gynecology Comment on above: Encounter for gyneco logical examination (general) (routine) without abnormal findings (Primary Dx); Encounter for surveillance of contraceptive pills Start: 05-21-2022 End: 05-21-2022 Patient encounter status Edelmira Ward [employer]STRU[employer].DISTRICT SERVICE MANAGER Work Phone: OB/Gynecology Start: 03-21-2022 End: 03-21-2022 Patient encounter procedure Manny Ren [employer].DISTRICT SERVICE MANAGER Work Phone: [facility] Comment on above: Rhus dermatitis (Alycia shawna Dx) Start: 10-24-2021 Refill Edelmira Ward [employer].DISTRICT SERVICE MANAGER Work Phone: OB/Gynecology Comment on above: Refill Request Procedures Date Procedure Procedure Detail Performing Clinician Start: 01-24-2025 Urnls dip stick/tabl et rgnt non-auto w/o micrscp Kelly Gregg [employer].CNM Work Phone: Start: 01-11-2025 Urnls dip stick/tabl et rgnt non-auto w/o micrscp Kelly Gregg [employer].CNM Work Phone: Start: 01-02-2025 Urnls dip stick/tabl et rgnt non-auto w/o micrscp Ovidio Joseph MD Work Phone: Start: 06-02-2025 Urnls dip stick/tabl et rgnt non-auto w/o micrscp Sangeeta Edwards MD Work Phone: Start: 12-04-2024 Us preg uterus after 1st trimest 1/1st gestation Amanda Jenkins MD Work Phone: Start: 10-31-2024 Us preg uterus after 1st trimest 1/1st gestation Amanda Jenkins MD Work Phone: Start: 09-07-2024 Us preg uterus after 1st trimest 1/1st gestation Kelly Gregg INSTRU[employer].CNM Work Phone: Start: 07-12-2024 Antibody screen AMANDA JENKINS Comment on above: Order Comment: Speci men Type: BLOOD SPECIMEN Ordering Facility: [facility] Address: [address] [place] [address] Performed By: #### T SPN #### [facility] CLIA [id number] [address] [place] Start: 03-28-2023 Removal of ectopic fetus Start: 03-28-2023 Transvaginal obstetr ic ultrasonography Start: 03-11-2023 Antibody screen ALCON MATOS Comment on above: Order Comment: Speci men Type: BLOOD SPECIMEN Ordering Facility: [facility] Address: [address] [place] [address] Performed By: #### T SPN #### [facility] CLIA [id number] [address] [place] Start: 03-11-2023 Us preg uterus after 1st trimest / gestation Alcon Martinez MD Work Phone: Plan of Treatment Date Care Activity Detail Author Start: 10-31-2034 Urine microalbumin profile DTaP,Tdap,Td Vaccine (8 - Td or Tdap) [facility] Start: 06-08-2027 Screening for malign ant neoplasm of cervix Cervical Cancer Screening [facility] Start: 03-25-2025 Influenza vaccination [facility] Start: 02-11-2025 End: 02-11-2025 Patient encounter procedure 02/11/2025 1:30 PM EDT Office Visit OB/Gynecology [address] [place] [address] Kelly Gregg APRN.CNM [address] [place] [address] 2 week post patrum OB/Gynecology Comment on above: 2 week post patrum Start: 02-01-2025 End: 02-01-2025 Patient encounter procedure 02/01/2025 9:00 AM EDT Routine Office Visit OB/Gynecology [address] [place] [address] Roz Reilly APRN.CNYovanny [address] [place] [address] OB Routine OB/Gynecology Comment on above: OB Routine Start: 01-24-2025 End: 01-24-2025 Patient encounter procedure 01/24/2025 8:00 AM EDT Routine Office Visit OB/Gynecology [address] [place] [address] Kelly Gregg APRN.CNYovanny [address] [place] [address] OB Routine OB/Gynecology Comment on above: OB Routine Start: 01-18-2025 End: 01-18-2025 Patient encounter procedure 01/18/2025 8:00 AM EDT Routine Office Visit OB/Gynecology [address] [place] [address] Kelly Gregg APRN.CNYovanny [address] [place] [address] OB Routine OB/Gynecology Comment on above: OB Routine Start: 01-11-2025 End: 01-11-2025 Patient encounter procedure 01/11/2025 8:00 AM EDT Routine Office Visit OB/Gynecology [address] [place] [address] CristinoKelly APRN.[facility] [address] [place] [address] OB Routine OB/Gynecology Comment on above: OB Routine Start: 01-03-2025 End: 01-03-2025 Patient encounter procedure 01/03/2025 8:40 AM EDT Routine Office Visit OB/Gynecology [address] [place] [address] Amanda Tavera MD [address] [place] [address] OB Routine OB/Gynecology Comment on above: OB Routine Start: 01-02-2025 End: 01-02-2025 Patient encounter procedure 01/02/2025 8:00 AM EDT Routine Office Visit OB/Gynecology [address] [place] [address] Ovidio Joseph MD [address] [place] [address] OB OB/Gynecology Comment on above: OB Start: 12-24-2024 End: 12-24-2024 Patient encounter procedure 12/24/2024 2:50 PM EDT Routine Office Visit OB/Gynecology [address] [place] [address] Sangeeta Edwards MD [address] [place] [address] Nausea/OB OB/Gynecology Comment on above: Nausea/OB Start: 12-14-2024 End: 12-14-2024 Patient encounter procedure 12/14/2024 8:30 AM EDT Routine Office Visit OB/Gynecology [address] [place] [address] Shelli Allison MD [address] [place] [address] OB Routine OB/Gynecology Comment on above: OB Routine Start: 12-04-2024 End: 12-04-2024 Patient encounter procedure 12/04/2024 3:30 PM EDT Routine Office Visit Maternal Medicine [address] [place] [address] Growth [facility]aternal Medicine Comment on above: Growth Start: 11-29-2024 End: 11-29-2024 Patient encounter procedure Maternal Medicine Comment on above: growth OB Start: 11-16-2024 End: 11-16-2024 Patient encounter procedure 11/16/2024 8:30 AM EDT Routine Office Visit OB/Gynecology [address] [place] [address] Shelli Allison MD [address] [place] [address] OB OB/Gynecology Comment on above: OB Start: 11-05-2024 End: 02-04-2025 ANEMIA REFLEX PANEL ANEMIA REFLEX PANEL Lab Routine Encounter for supervision of other normal in third trimester Expected: 11/05/2024, Expires: 02/04/2025 [facility] Comment on above: Expected: 11/05/2024 , Expires: 02/04/2025 Start: 11-05-2024 End: 10-05-2025 GESTATIONAL GLUCOSE SCREEN, 1-HOUR, 50 GRAM, NON-FASTING GESTATIONAL GLUCOSE SCREEN, 1-HOUR, 50 GRAM, NON-FASTING Lab Routine Screening for diabetes mellitus Expected: 11/05/2024, Expires: 10/05/2025 [facility] Work Phone: Comment on above: Expected: 11/05/2024 , Expires: 10/05/2025 Start: 11-05-2024 End: 10-05-2025 SYPHILIS TREPONEMAL W/REFLEX SYPHILIS TREPONEMAL W/REFLEX Lab Routine Encounter for supervision of other normal in third trimester Expected: 11/05/2024, Expires: 10/05/2025 [facility] Comment on above: Expected: 11/05/2024 , Expires: 10/05/2025 Start: 10-31-2024 End: 10-31-2025 OBSTETRIC ULTRASOUND WHI OBSTETRIC ULTRASOUND WHI Anc Imaging Routine Low lying placenta nos or without hemorrhage, third trimester (HCC) Expected: 10/31/2024, Expires: 10/31/2025 [facility] Work Phone: Comment on above: Expected: 10/31/2024 , Expires: 10/31/2025 Start: 10-31-2024 End: 10-31-2024 Patient encounter procedure Maternal Medicine Comment on above: Growth Growth/OB Start: 10-31-2024 End: 10-31-2024 ambulatory 10/31/2024 7:45 AM EDT Results Only [place] Cruzwn [facility] [address] [place] [address] Glucose Test and Labs [facility] Comment on above: Glucose Test and Lab s Start: 10-05-2024 End: 10-05-2024 Patient encounter procedure 10/05/2024 11:40 AM EDT Routine Office Visit OB/Gynecology [address] [place] [address] Amanda Tavera MD [address] [place] [address] OB OB/Gynecology Comment on above: OB Start: 09-07-2024 End: 09-07-2025 OBSTETRIC ULTRASOUND WHI OBSTETRIC ULTRASOUND WHI Anc Imaging Routine Marginal placenta previa Expected: 09/07/2024, Expires: 09/07/2025 [facility] Work Phone: Comment on above: Expected: 09/07/2024 , Expires: 09/07/2025 Start: 09-07-2024 End: 09-07-2024 Patient encounter procedure Maternal Medicine Comment on above: Anatomy /OB OB Start: 08-10-2024 End: 08-10-2024 Patient encounter procedure 08/10/2024 8:40 AM EST Routine Office Visit OB/Gynecology [address] [place] [address] Amanda Tavera MD [address] [place] [address] OB Routine OB/Gynecology Comment on above: OB Routine Start: 07-12-2024 End: 07-12-2024 Patient encounter procedure Maternal Medicine Comment on above: Nuchal OB Routine Start: 07-12-2024 End: 10-11-2024 Chromosome 21 trisomy [Presence] in Blood or Tissue by Cytogenetics [facility] Comment on above: Expected: 07/12/2024 , Expires: 10/11/2024 Start: 07-12-2024 End: 10-11-2024 Hemoglobin A1c in Blood [facility] Comment on above: Expected: 07/12/2024 , Expires: 10/11/2024 Start: 07-12-2024 End: 07-12-2025 OBSTETRIC ULTRASOUND WHI OBSTETRIC ULTRASOUND WHI Anc Imaging Routine 12 weeks gestation of Encounter for supervision of other normal in first trimester Expected: 07/12/2024, Expires: 07/12/2025 [facility] Work Phone: Comment on above: Expected: 07/12/2024 , Expires: 07/12/2025 Start: 06-08-2024 End: 09-07-2024 ANEMIA REFLEX PANEL ANEMIA REFLEX PANEL Lab Routine with uncertain dates in first trimester Expected: 06/08/2024, Expires: 09/07/2024 [facility] Comment on above: Expected: 06/08/2024 , Expires: 09/07/2024 Start: 06-08-2024 End: 09-07-2024 Hepatitis B virus surface Ag [Presence] in Serum HEPATITIS B SURFACE ANTIGEN Lab Routine with uncertain dates in first trimester Expected: 06/08/2024, Expires: 09/07/2024 [facility] Comment on above: Expected: 06/08/2024 , Expires: 09/07/2024 Start: 06-08-2024 End: 09-07-2024 Hepatitis C virus Ab [Presence] in Serum HEPATITIS C ANTIBODY IA WITH CONFIRMATION Lab Routine with uncertain dates in first trimester Expected: 06/08/2024, Expires: 09/07/2024 [facility] Comment on above: Expected: 06/08/2024 , Expires: 09/07/2024 Start: 06-08-2024 End: 09-07-2024 HIV 1+2 Ab [Presence] in Serum or Plasma by Immunoassay HIV 1/2 COMBO WITH REFLEX TO DIFFERENTIATION Lab Routine with uncertain dates in first trimester Expected: 06/08/2024, Expires: 09/07/2024 [facility] Comment on above: Expected: 06/08/2024 , Expires: 09/07/2024 Start: 06-08-2024 End: 06-08-2025 NUCHAL TRANSLUCENCY WHI NUCHAL TRANSLUCENCY WHI Anc Imaging Routine with uncertain dates in first trimester Expected: 06/08/2024, Expires: 06/08/2025 [facility] Comment on above: Expected: 06/08/2024 , Expires: 06/08/2025 Start: 06-08-2024 End: 09-07-2024 RUBELLA IGG ANTIBODY RUBELLA IGG ANTIBODY Lab Routine with uncertain dates in first trimester Expected: 06/08/2024, Expires: 09/07/2024 [facility] Comment on above: Expected: 06/08/2024 , Expires: 09/07/2024 Start: 06-08-2024 End: 09-07-2024 SYPHILIS TREPONEMAL W/REFLEX SYPHILIS TREPONEMAL W/REFLEX Lab Routine with uncertain dates in first trimester Expected: 06/08/2024, Expires: 09/07/2024 [facility] Comment on above: Expected: 06/08/2024 , Expires: 09/07/2024 Start: 06-08-2024 End: 09-07-2024 TYPE + SCREEN TYPE + SCREEN Blood Bank Routine with uncertain dates in first trimester Expected: 06/08/2024, Expires: 09/07/2024 [facility] Comment on above: Expected: 06/08/2024 , Expires: 09/07/2024 Start: 06-08-2024 End: 06-08-2024 Patient encounter procedure 06/08/2024 8:45 AM EST Initial Office Visit OB/Gynecology [address] [place] [address] Kelly Gregg APRN.[facility] [address] [place] [address] NEW OB OB/Gynecology Comment on above: NEW OB Start: 05-25-2024 End: 05-25-2024 ambulatory 05/25/2024 7:00 AM EDT Results Only [place] Bot[place] [facility] [address] [place] [address] Rachelematilda Cruzwn [facility] Start: 05-23-2024 End: 05-23-2024 ambulatory 05/23/2024 7:00 AM EDT Results Only [place] [facility] [address] [place] [address] [place] [address] [facility] Start: 03-25-2024 Covid-19 Vaccine ( season) Covid-19 Vaccine () [facility] Start: 03-25-2024 Influenza vaccination Influenza Vacc ine (#1) [facility] Start: 03-28-2023 Ambulation without limitation [facility] Start: 03-28-2023 Medical regimen orde rs management [facility] Start: 03-28-2023 Medication education [facility] Start: 03-28-2023 Patient discharge [facility] Start: 03-28-2023 Procedure discontinued [facility] Start: 03-28-2023 Taking patient vital signs [facility] Start: 03-28-2023 Vital signs measurements [facility] Start: 03-28-2023 [facility] Start: 03-28-2023 Removal of ectopic fetus Laparoscopic, Removal Ectopic (Not Applicable) [facility] Start: 03-25-2023 Influenza vaccination [facility] Start: 03-17-2023 End: 05-17-2023 Choriogonadotropin.beta subunit [Units/volume] in Serum or Plasma HCG QUANTITATIVE Lab Routine Left tubal without intrauterine Expected: 03/17/2023, Expires: 05/17/2023 [facility] Work Phone: Comment on above: Expected: 03/17/2023 , Expires: 05/17/2023 Start: 03-11-2023 End: 03-11-2024 OBSTETRIC ULTRASOUND WHI OBSTETRIC ULTRASOUND WHI Anc Imaging Routine with uncertain viability, single or unspecified fetus Expected: 03/11/2023, Expires: 03/11/2024 [facility] Work Phone: Comment on above: Expected: 03/11/2023 , Expires: 03/11/2024 Start: 10-02-2022 PAP TESTING PAP TESTING [facility] Start: 10-02-2022 Screening for malign ant neoplasm of cervix Cervical Cancer Screening [facility] Start: 07-25-2022 [facility] Start: 03-25-2022 Influenza vaccination [facility] Start: 07-25-2021 [facility] Start: 01-09-2018 Urine microalbumin profile [facility] Start: 11-20-2015 SHINGRIX VACCINE (1 of 2) SHINGRIX VACCINE (1 of 2) [facility] Start: 2014 Anxiety Screening Anxiety Screening [facility] Start: 2014 Depression Screening Depression Scre ening [facility] Start: 2014 HEPATITIS C SCREENING HEPATITIS C [facility] Start: 2014 Hepatitis C screening Hepatitis C [facility] Start: 2014 HIV SCREENING HIV SCREENING [facility] Start: 2014 HIV screening HIV Screening [facility] Start: 2010 PEDS TO ADULT TRANSITION ANNUAL ASSESSMENT PEDS TO ADULT TRANSITION ANNUAL ASSESSMENT [facility] Start: 2008 Adult depression screening assessment DEPRESSION SCREENING [facility] Start: 2008 PEDS TO ADULT TRANSITION INITIAL DISCUSSION PEDS TO ADULT TRANSITION INITIAL DISCUSSION [facility] Start: 2006 MENINGOCOCCAL B: Consider based on risk (1 of 2 - Risk Bexsero 2-dose series) MENINGOCOCCAL B: Consider based on risk (1 of 2 - Risk Bexsero 2-dose series) [facility] Start: 2002 PNEUMOCOCCAL (1 - PCV) PNEUMOCOCCAL (1 - PCV) [facility] Start: 2002 Pneumococcal vaccination Pneumococcal Vaccine (1 - PCV) [facility] Start: 2001 COVID-19 VACCINE (#1) COVID-19 VACCI NE (#1) [facility] Start: 2001 COVID-19 VACCINE (1) COVID-19 VACCIN E (1) [facility] Start: 05-21-1997 COVID-19 VACCINE (#1) COVID-19 VACCI NE (#1) [facility] Bacteria identified in Urine by Culture URINE CULTURE Microbiology Routine with uncertain dates in first trimester 06/08/2024 10:03 AM [facility] Chlamydia trachomatis+Neisseria gonorrhoeae DNA [Presence] in Unspecified specimen by MATTHEW with probe detection GONORRHEA/CHLAMYDIA NAAT Lab Routine with uncertain dates in first trimester 06/08/2024 10:03 AM [facility] End: 03-17-2024 Choriogonadotropin.beta subunit [Units/volume] in Serum or Plasma HCG QUANTITATIVE Lab Routine Ectopic without intrauterine , unspecified location 2x per week for 2 Occurrences starting 03/18/2023 until 03/17/2024 [facility] Work Phone: Comment on above: 2x per week for 2 Oc currences starting 03/18/2023 until 03/17/2024 End: 06-14-2024 Choriogonadotropin.beta subunit [Units/volume] in Serum or Plasma HCG QUANTITATIVE Lab Routine affected by previous ectopic Positive urine test 2x per week for 2 Occurrences starting 05/14/2024 until 06/14/2024 [facility] Work Phone: Comment on above: 2x per week for 2 Oc currences starting 05/14/2024 until 06/14/2024 PAP TEST PAP TEST Lab Rou kimberly with uncertain dates in first trimester 06/08/2024 10:03 AM [facility] Patient Education Kick Counts ED False Labor OB Triage: Return to Hospital or Notify Physician if you Experience: [facility] Work Phone: Patient referral [facility] Work Phone: POC BILL COLLECTOR ULTRASOUND POC BILL COLLECTOR ULTRASO UND Anc Imaging Routine with uncertain dates in first trimester Ordered: 06/08/2024 [facility] Work Phone: Comment on above: Ordered: 06/08/2024 ROUTINE, GR OUP B STREPTOCOCCUS BY PCR ROUTINE, GROUP B STREPTOCOCCUS BY PCR Microbiology Routine Supervision of high risk in third trimester ([facility]) Low lying placenta nos or without hemorrhage, third trimester (HCC) 36 weeks gestation of ([facility]) 12/24/2024 3:11 PM EDT [facility] Work Phone: URINE OB DIP B/O URINE OB DIP B/ O Lab Routine Supervision of high risk in third trimester ([facility]) Positive GBS test 39 weeks gestation of ([facility]) Ordered: 01/18/2025 [facility] Work Phone: Comment on above: Ordered: 01/18/2025 [facility] Immunizations Immunization Date Immunization Notes Care Provider Sade pickering 10-31-2024 tetanus toxoid, reduced diphtheria toxoid, and acellular pertussis vaccine, adsorbed Amanda Jenkins MD Work Phone: [facility] 05-21-2020 Influenza, injectabl e, Madin [place] Canine Kidney, preservative free, quadrivalent Amanda Jenkins MD Work Phone: [facility] 05-21-2020 influenza virus vaccine, unspecified formulation Ob Ultrasound Work Phone: [facility] 05-27-2016 influenza, injectabl e, quadrivalent, preservative free Amanda Jenkins MD Work Phone: [facility] 04-19-2009 influenza virus vaccine, unspecified formulation Edelmira Ed [employer].DISTRICT SERVICE MANAGER Work Phone: [facility] 07-17-2008 human papilloma viru s vaccine, quadrivalent Edelmira Ed [employer].DISTRICT SERVICE MANAGER Work Phone: [facility] Work Phone: 06-07-2008 influenza virus vaccine, unspecified formulation Edelmira Patterson [employer].DISTRICT SERVICE MANAGER Work Phone: [facility] Work Phone: 03-11-2008 human papilloma viru s vaccine, quadrivalent Edelmira Patterson [employer].DISTRICT SERVICE MANAGER Work Phone: [facility] Work Phone: 01-10-2008 human papilloma viru s vaccine, quadrivalent Edelmira Patterson INSTRUCTOR [employer]GRAMM[employer].[facility] Work Phone: [facility] 01-10-2008 Meningococcal, MCV4, unspecified conjugate formulation(groups A, C, Y and W-135) Edelmira Ed [employer].DISTRICT SERVICE MANAGER Work Phone: [facility] 01-10-2008 tetanus toxoid, reduced diphtheria toxoid, and acellular pertussis vaccine, adsorbed Edelmira Ed [employer].DISTRICT SERVICE MANAGER Work Phone: [facility] 05-30-2007 influenza virus vaccine, unspecified formulation Edelmira Ed [employer].DISTRICT SERVICE MANAGER Work Phone: [facility] Work Phone: 05-30-2006 influenza virus vaccine, unspecified formulation Edelmira Patterson [employer].[facility] Work Phone: [facility] Work Phone: 05-03-2006 diphtheria, tetanus toxoids and acellular pertussis vaccine, unspecified formulation Amanda Jenkins MD Work Phone: [facility] 05-03-2006 pneumococcal conjuga te vaccine, 7 valent Amanda Jenkins MD Work Phone: [facility] 05-03-2006 poliovirus vaccine, inactivated Amanda Jenkins MD Work Phone: [facility] 05-03-2006 rotavirus vaccine, unspecified formulation Amanda Jenkins MD Work Phone: [facility] 02-15-2006 diphtheria, tetanus toxoids and acellular pertussis vaccine, unspecified formulation Amanda Jenkins MD Work Phone: [facility] 02-15-2006 haemophilus influenz ae type b conjugate and Hepatitis B vaccine Amanda Jenkins MD Work Phone: [facility] 02-15-2006 pneumococcal conjuga te vaccine, 7 valent Amanda Jenkins MD Work Phone: [facility] 02-15-2006 poliovirus vaccine, inactivated Amanda Jenkins MD Work Phone: [facility] 02-15-2006 rotavirus vaccine, unspecified formulation Amanda Jenkins MD Work Phone: [facility] 06-03-2005 influenza virus vaccine, unspecified formulation Edelmira Patterson [employer].DISTRICT SERVICE MANAGER Work Phone: [facility] Work Phone: 06-19-2004 influenza virus vaccine, unspecified formulation Edelmira Ed [employer].[facility] Work Phone: [facility] Work Phone: 06-24-2003 influenza virus vaccine, unspecified formulation Edelmira Ed [employer]STRU[employer].[facility] Work Phone: [facility] Work Phone: 02-27-2001 diphtheria, tetanus toxoids and acellular pertussis vaccine Edelmira Patterson IN[employer].DISTRICT SERVICE MANAGER Work Phone: [facility] Work Phone: 02-27-2001 measles, mumps and rubella virus vaccine Edelmira Patterson IN[employer].[facility] Work Phone: [facility] Work Phone: 02-27-2001 poliovirus vaccine, inactivated Edelmira Patterson IN[employer].DISTRICT SERVICE MANAGER Work Phone: [facility] Work Phone: 02-27-2001 varicella virus vaccine Edelmira Patterson IN[employer].DISTRICT SERVICE MANAGER Work Phone: [facility] Work Phone: 03-17-1998 diphtheria, tetanus toxoids and acellular pertussis vaccine Edelmira Ed [employer].DISTRICT SERVICE MANAGER Work Phone: [facility] Work Phone: 03-17-1998 haemophilus influenz ae type b vaccine, HbOC conjugate Edelmira Patterson IN[employer].DISTRICT SERVICE MANAGER Work Phone: [facility] Work Phone: 03-17-1998 poliovirus vaccine, inactivated Edelmira Patterson INSTRUCTOR [employer].[facility] Work Phone: [facility] Work Phone: 11-21-1997 measles, mumps and rubella virus vaccine Edelmira Ed [employer].[facility] Work Phone: [facility] Work Phone: 07-10-1997 diphtheria, tetanus toxoids and acellular pertussis vaccine Edelmira Ed INSTRUCTOR [employer].[facility] Work Phone: [facility] Work Phone: 07-10-1997 haemophilus influenz ae type b vaccine, HbOC conjugate Edelmiar Ed INSTRU[employer].[facility] Work Phone: [facility] Work Phone: 07-10-1997 hepatitis B vaccine, pediatric or pediatric/adolescent dosage Edelmira Patterson INSTRUCTOR [employer].[facility] Work Phone: [facility] Work Phone: 04-29-1997 diphtheria, tetanus toxoids and acellular pertussis vaccine Edelmira Patterson IN[employer]CTOR [employer].[facility] Work Phone: [facility] Work Phone: 04-29-1997 haemophilus influenz ae type b vaccine, HbOC conjugate Edelmira Ed [employer]STRUCTOR [employer]GRAMMABLE [employer] Work Phone: [facility] Work Phone: 04-29-1997 poliovirus vaccine, inactivated Edelmira Ed [employer]STRU[employer]GRAMM[employer] Work Phone: [facility] Work Phone: 01-29-1997 diphtheria, tetanus toxoids and acellular pertussis vaccine Edelmira Patterson [employer]GRAMM[employer] Work Phone: [facility] Work Phone: 01-29-1997 haemophilus influenz ae type b vaccine, HbOC conjugate Edelmira Ed [employer] Work Phone: [facility] Work Phone: 01-29-1997 hepatitis B vaccine, pediatric or pediatric/adolescent dosage Edelmira Ed [employer]STRU[employer]GRAMM[employer].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 2021 Private Health Insurance [id number] 2020 Unknown [employer] PPO [id number] 2020-Present [phone] [address] [place] [address] PPO [id number] 1996 Unknown [id number] Unknown [id number] Unknown [id number] Unknown [id number] Social History Date Type Detail Facility Start: 08-01-2014 End: 03-28-2023 Tobacco smoking status NHIS Never smoked tobacco [facility] Start: 03-26-2021 End: 04-06-2023 Alcohol intake Current drinker of alcohol (finding) [facility] Start: 10-03-2019 History SDOH Alcohol Frequency 4 [facility] Start: 10-03-2019 History SDOH Alcohol Comment Weekends/social [facility] Start: 10-03-2019 History SDOH Social Connections Phone 5 [facility] Start: 10-03-2019 History SDOH Social Connections Scientologist 3 [facility] Start: 10-03-2019 History SDOH Social Connections Membership 2 [facility] Start: 10-03-2019 History SDOH Social Connections Meetings 1 [facility] Start: 10-03-2019 History SDOH Social Connections Living 7 [facility] Start: 10-03-2019 History SDOH Physica l Activity DPW 0 [facility] Start: 1995 Sex Assigned At Not on file C [facility] Start: 08-01-2014 End: 05-21-2022 Tobacco use and exposure Smokeless tobacco non-user [facility] Start: 03-11-2022 End: 05-21-2022 Exposure to SARS-CoV-2 (event) Not sure [facility] Start: 10-03-2019 End: 03-12-2023 History of Social function [facility] Start: 10-03-2019 End: 03-12-2023 Social connection and isolation panel [facility] Do you belong to any clubs or organizations such as anabaptism groups, unions, fraternal or athletic groups, or school groups? No [facility] Are you now , , , , never or living with a partner? Never [facility] How often to you hav e a drink containing alcohol? 2-3 time sa week [facility] Average Number of Drinks Not on file [facility] Do you feel stress - tense, restless, nervous, or anxious, or unable to sleep at night because your mind is troubled all the time - these days [OSQ] To some extent [facility] (I/We) worried siomara er (my/our) food would run out before (I/we) got money to buy more. Never true [facility] Start: 02-10-2023 [facility] Start: 03-28-2023 Tobacco smoking stat us NHIS Unknown if ever smoked [facility] Start: 1995 Sex Assigned At Female W [facility] Start: 06-08-2024 End: 01-18-2025 Alcoholic beverage intake Ex-drinker (finding) [facility] The thought of radu capone myself has occurred to me Never [facility] Start: 06-06-2024 Education 21 [facility] Goals Date Patient Goal Desired Activity /State Personal health goal Functional Status Date Assessment Result Facility 03-17-2023 Are you deaf, or do you have serious difficulty hearing No 03/17/2023 9:09 PM EDT Dory Chen RN No [facility] 03-17-2023 Are you blind, or do you have serious difficulty seeing, even when wearing glasses No 03/17/2023 9:09 PM EDT Dory Chen RN No [facility] 03-17-2023 Do you have serious difficulty walking or climbing stairs No 03/17/2023 9:09 PM EDT Dory Chen RN No [facility] 03-17-2023 Do you have difficul ty dressing or bathing No 03/17/2023 9:09 PM EDT Dory Chen RN No [facility] 03-17-2023 Because of a physica l, mental, or emotional condition, do you have difficulty doing errands alone such as visiting a physician's office or shopping No 03/17/2023 9:09 PM EDT Dory Chen RN No [facility] Mental Status Date Assessment Result Facility 03-28-2023 Cognitive function Voice/Name [facility] Work Phone: 03-17-2023 Because of a physica l, mental, or emotional condition, do you have serious difficulty concentrating, remembering, or making decisions No 03/17/2023 9:09 PM EDT Dory Chen RN No [facility] Clinical Notes 10-26-2021 to 01-28-2025 Telephone Encounter - Sumit Hamlin LPN - 01/24/2025 3:11 PM EDTTelephone Encounter - Sumit Hamlin LPN - 01/24/2025 3:11 PM EDTPatient InstructionsPatient InstructionsPatient Instructions Note Date & Type Note Facility 01-28-2025 History and physi dagoberto note [facility] 01-24-2025 Telephone encounter Note Phone call placed patient identified by name and date of , reviewed non stress test at [facility] 1:00 on Tuesday01/27/2025, induction scheduled on 01/28/2025 at 7:00 PM. Patient offered to move induction to 7:00 PM on Tuesday, patient declined. Sumit Hamlin LPN [facility] 01-24-2025 Miscellaneous Notes Phone call placed patient identified by name and date of , reviewed non stress test at [facility] 1:00 on Tuesday01/27/2025, induction scheduled on 01/28/2025 at 7:00 PM. Patient offered to move induction to 7:00 PM on Tuesday, patient declined. Sumit Hamlin LPN documented in this encounter [facility] 01-24-2025 Progress note Formatting of t his [...] RTO 2 weeks PP Kelly Gregg APRN.CNM [facility] 01-24-2025 Miscellaneous Notes S: Charline Kirkpatrick is a 29 year [...] Kelly Gregg APRN.CNM documented in this encounter [facility] 01-24-2025 Instructions Sumit Hamlin LPN - 01/24/2025 7:56 AM EDT SEQUENTIAL SCREENINGS The [facility] offers sequential screenings for women who are [...] It will require an appointment with our ceramics technician. This is not an ultrasound performed [...] the above symptoms, contact our office at [phone] and ask to speak with a nurse. After hours, you can call doctors registry at [phone] OR call [facility] at [phone] and ask to have the doctor radiation protection specialist paged. If you consider this an emergency, dial 91-4 or go to your nearest emergency department. NEED HELP? Are you dealing with a violent or abusive relationship? Are you a victim of rape or sexual assult? Call [facility] [place] ([facility] 24 hour Crisis Hotline: 574.761.9026 or 933-169-4452. MANUAL Your Guide to a Healthy manual is now on-line. Visit [email or web address] ancyGuide to download your free copy documented in this encounter [facility] 01-18-2025 Progress note Formatting of t his [...] or sooner if needed Kelly Gregg APRN.CNM [facility] 01-18-2025 Miscellaneous Notes S: Charline Kirkpatrick is a 29 year [...] Kelly Gregg APRN.CNM documented in this encounter [facility] 01-18-2025 Instructions Charles Nava MA - 01/18/2025 8:05 AM EDT SEQUENTIAL SCREENINGS The [facility] offers sequential screenings for women who are [...] It will require an appointment with our ceramics technician. This is not an ultrasound performed [...] the above symptoms, contact our office at [phone] and ask to speak with a nurse. After hours, you can call doctors registry at [phone] OR call [facility] at [phone] and ask to have the doctor radiation protection specialist paged. If you consider this an emergency, dial 9-9-6 or go to your nearest emergency department. NEED HELP? Are you dealing with a violent or abusive relationship? Are you a victim of rape or sexual assult? Call [facility] ([place]) 24 hour Crisis Hotline: 135.517.5548 or 661-176-3198. MANUAL Your Guide to a Healthy manual is now on-line. Visit [email or web address] ancyGuide to download your free copy documented in this encounter [facility] 01-11-2025 Instructions Kelly Gregg INSTRUCTOR PROGRAMMABLE CONTROLLERS.CNM - 01/11/2025 8:00 AM EDT Images from [...] make an easy pie crust in the food service counter clerk. Add soaked dates to homemade nut butter for a sweet treat. Add dates to deshaun homemade salad dressing. Add dates during easily with these yummy (paleo friendly) bars made from dates. What Is Red Raspberry Tasley Tea? Red raspberry leaf tea comes from [...] , and too. How Much Red Raspberry Tasley Tea to Drink? With your doctor or fireproof door maker s approval, start with 1 cup of [...] because of uterine cramping. Is Red Raspberry Tasley Tea the Same as Raspberry Tasley Tea? How About Plain Old Raspberry Tea? Sometimes. You really need to look at the ingredients to be sure. Note that there is no difference between red raspberry leaf and raspberry leaf. CeQur or Pryv Raspberry Tasley Tea are two good brands. The red [...] outlined in this article. [employer] www.[employer] I named this 'circuit' after my friend [...] sideways, 2 at a time, (have a associate professor of literature downstairs of you!), take a walk outside [...] pelvis. Charline Ramirez Wisam: Circuit Creator - www.[facility], [employer].Enervee Hortensia Sams, CD, BDT (ALINE), LCCE, FACCE: Supporting Content - www.[employer].Frontier pte Aide Hawkins: Photography - www.[employer] Joycelyn Andrea CD/CDT (ROSA): Print and Special Education Itinerant Teacher - www.[employer] [place] [employer] [place] [employer] www.[employer] SEQUENTIAL SCREENINGS The [facility] offers sequential screenings for women who are [...] It will require an appointment with our ceramics technician. This is not an ultrasound performed [...] the above symptoms, contact our office at [phone] and ask to speak with a nurse. After hours, you can call doctors registry at [phone] OR call [facility] at [phone] and ask to have the doctor radiation protection specialist paged. If you consider this an emergency, dial 9--3 or go to your nearest emergency department. NEED HELP? Are you dealing with a violent or abusive relationship? Are you a victim of rape or sexual assult? Call [facility] ([place]) 24 hour Crisis Hotline: 198.854.1562 or 236-108-9777. MANUAL Your Guide to a Healthy manual is now on-line. Visit [email or web address] ancyGuide to download your free copy documented in this encounter [facility] 01-11-2025 Progress note Formatting of t his [...] - RTO 1 week Kelly Gregg APRN.CNM [facility] 01-11-2025 Miscellaneous Notes S: Charline Kirkpatrick is a 29 year [...] Kelly Gregg APRN.CNM documented in this encounter [facility] 01-07-2025 Note HNO ID: [id number] Author: CHRIS HENDERSON, ? Service: ? Author Type: Patient Hr Advisor Type: Progress Notes Filed: 01/07/2025 08:45 Note Text: POPULATION HEALTH NAVIGATION OUTREACH Action/FYI Spoke to patient added edge burnisher to OB provider field Reason for Outreach Medicaid OB/Peds Care Gaps due: N/A Patient Contacted: Spoke to patient/parent/or legal guardian Patient identified by name and : Yes Medicaid OB/Peds actions taken: /Delivery Mgr added Navigation Signature: Chris Henderson Population Health Navigator January 07, 2025 8:44 AM [facility] 01-07-2025 History of Presen t illness Narrative POPULATION HEALTH NAVIGATION OUTREACH Action/FYI Spoke to patient added edge burnisher to OB provider field Reason for Outreach Medicaid OB/Peds Care Gaps due: N/A Patient Contacted: Spoke to patient/parent/or legal guardian Patient identified by name and : Yes Medicaid OB/Peds actions taken: [place]/Delivery Mgr added Navigation Signature: Chris Henderson Population Health Navigator January 07, 2025 8:44 AM documented in this encounter [facility] 01-07-2025 Note Patient Outreach (NE TNAV) SEANCHARLINE BRYANT ([id number]) 1995 F CHT Date Time Provider Department 01/07/25 CHRIS HENDERSON During your visit today, we recorded the following information about you: Chris Henderson 01/07/2025 8:45 AM Signed POPULATION HEALTH NAVIGATION OUTREACH Action/FYI Spoke to patient added edge burnisher to OB provider field Reason for Outreach Medicaid OB/Peds Care Gaps due: N/A Patient Contacted: Spoke to patient/parent/or legal guardian Patient identified by name and : Yes Medicaid OB/Peds actions taken: /Delivery Mgr added Navigation Signature: Chirs Henderson Population Health Navigator January 07, 2025 [...] tablet by mouth once daily. - 25-IRON BOS-OQHYX-QIP ORAL Take by mouth. Problem List As [...] Encounter Status:Closed by CHRIS HENDERSON on 01/07/25 [facility] 01-03-2025 Telephone encounter Note [place] paperwork completed and faxed back to number provided on forms. Patient notified. Charles Nava MA [facility] 01-03-2025 Miscellaneous Notes [facility] paperwork completed and faxed back to number provided on forms. Patient notified. Charles Nava MA Received [facility] paperwork. Awaiting patients response regarding length of leave. Charles Nava MA documented in this encounter [facility] 01-02-2025 Progress note Formatting of t his note might be different from the original. Patient at 37w3d w/o complaint Denies TABOR, vision changes, swelling Consistent movement Discussed L&D, epidural +GBS discussed doing well, rto 1 week Ovidio Joseph MD [facility] Work Phone: 01-02-2025 Miscellaneous Notes Patient at 37w3d w/o complaint Denies TABOR, vision changes, swelling Consistent movement Discussed L&D, epidural +GBS discussed doing well, rto 1 week Ovidio Joseph MD documented in this encounter [facility] 06-11-2025 Instructions Sumit Hamlin LPN - 01/02/2025 7:56 AM EDT SEQUENTIAL SCREENINGS The [facility] offers sequential screenings for women who are [...] It will require an appointment with our ceramics technician. This is not an ultrasound performed [...] the above symptoms, contact our office at [phone] and ask to speak with a nurse. After hours, you can call doctors registry at [phone] OR call [facility] at [phone] and ask to have the doctor radiation protection specialist paged. If you consider this an emergency, dial 9-1-1 or go to your nearest emergency department. NEED HELP? Are you dealing with a violent or abusive relationship? Are you a victim of rape or sexual assult? Call [facility] ([place]) 24 hour Crisis Hotline: 591.624.6331 or 316-031-4416. MANUAL Your Guide to a Healthy manual is now on-line. Visit [email or web address]/HealthyPregn ancyGuide to download your free copy documented in this encounter [facility] 12-28-2024 Telephone encounter Note Received [place] paperwork. Awaiting patients response regarding length of leave. Charles Nava MA [facility] 12-24-2024 Progress note Formatting of t his [...] Supervision of high risk in third trimester ([facility]) - ICD9: V23.9, ICD10: O09.93 (primary diagnosis) - URINE OB DIP B/O - ROUTINE, GROUP B STREPTOCOCCUS BY PCR 2. Low lying placenta nos or without hemorrhage, third trimester ([facility]) - ICD9: 641.03, ICD10: O44.43 resolved - URINE OB DIP B/O - ROUTINE, GROUP B STREPTOCOCCUS BY PCR 3. 36 weeks gestation of ([facility]) - ICD9: V22.2, ICD10: Z3A.36 - URINE OB DIP B/O - ROUTINE, GROUP B STREPTOCOCCUS BY PCR 4. 16 weeks gestation of ([facility]) - ICD9: V22.2, ICD10: Z3A.16 - ONDANSETRON HCL 4 MG TABLET 5. Nausea and vomiting in ([facility]) - ICD9: 643.90, ICD10: O21.9 - ONDANSETRON HCL 4 MG TABLET Sangeeta Edwards MD [facility] 12-24-2024 Miscellaneous Notes S: Charline Kirkpatrick is a 29 year [...] Supervision of high risk in third trimester ([facility]) - ICD9: V23.9, ICD10: O09.93 (primary diagnosis) - URINE OB DIP B/O - ROUTINE, GROUP B STREPTOCOCCUS BY PCR 2. Low lying placenta nos or without hemorrhage, third trimester ([facility]) - ICD9: 641.03, ICD10: O44.43 resolved - URINE OB DIP B/O - ROUTINE, GROUP B STREPTOCOCCUS BY PCR 3. 36 weeks gestation of ([facility]) - ICD9: V22.2, ICD10: Z3A.36 - URINE OB DIP B/O - ROUTINE, GROUP B STREPTOCOCCUS BY PCR 4. 16 weeks gestation of ([facility]) - ICD9: V22.2, ICD10: Z3A.16 - ONDANSETRON HCL 4 MG TABLET 5. Nausea and vomiting in ([facility]) - ICD9: 643.90, ICD10: O21.9 - ONDANSETRON HCL 4 MG TABLET Sangeeta Edwards MD documented in this encounter [facility] 12-24-2024 Instructions Celena Bach MA - 12/24/2024 2:40 PM EDT SEQUENTIAL SCREENINGS The [facility] offers sequential screenings for women who are [...] It will require an appointment with our ceramics technician. This is not an ultrasound performed [...] the above symptoms, contact our office at [phone] and ask to speak with a nurse. After hours, you can call doctors registry at [phone] OR call [facility] at [phone] and ask to have the doctor radiation protection specialist paged. If you consider this an emergency, dial 03-25-6 or go to your nearest emergency department. NEED HELP? Are you dealing with a violent or abusive relationship? Are you a victim of rape or sexual assult? Call [facility] ([place]) 24 hour Crisis Hotline: 575.862.5110 or 857-778-1961. MANUAL Your Guide to a Healthy manual is now on-line. Visit [email or web address]/HealthyPregn ancyGuide to download your free copy documented in this encounter [facility] 12-18-2024 Telephone encounter Note 35w2d Last couple of weeks nausea [...] daily in the morning. Appt scheduled with MELYSSA on 12/24/24. Pt states she currently has [...] also taking Pepcid twice a day. Called [facility]Pt filled #[phone] Zofran on 09/14/24, 10/16/24, & 11/17/24. Sowmya Ousmane, RN [facility] 12-18-2024 Miscellaneous Notes 35w2d Last couple of weeks nausea has [...] daily in the morning. Appt scheduled with J on 12/24/24. Pt states she currently has [...] i can take? documented in this encounter [facility] 12-18-2024 Telephone encounter Note Can you please schedule patient appointment to discuss. Wanting to make sure nothing else is going on. Roz Reilly APRN.CNM [facility] 12-18-2024 Telephone encounter Note 35w2d Patient Comment: My puking has picked up recently, is there a larger dose of zofran that i can take? [facility] 12-05-2024 Note Indication Follow-up evaluation for placental [...] 13 oz EFW by: Hadlock (HC-AC-FL) Extended Four Corner Stayer Machine Operator 4.4 mm Extremities / Bony Struc FL [...] - RTO 2 wks Alcon Martinez DO [facility] Work Phone: 11-29-2024 Miscellaneous Notes SW- Pt doing well. No pain, vb, lof. Good FM PE: Gen- NAD, well appearing Abd- Soft, gravid, NT See flowsheet A/p 32 wk gestation - Low lying placenta: Repeat ultrasound scheduled - Discussed upcoming expectations - RTO 2 wks Alcon Martinez DO documented in this encounter [facility] 11-29-2024 Instructions Vesna Kim MA - 11/29/2024 2:43 PM EDT SEQUENTIAL SCREENINGS The [facility] offers sequential screenings for women who are [...] It will require an appointment with our ceramics technician. This is not an ultrasound performed [...] the above symptoms, contact our office at [phone] and ask to speak with a nurse. After hours, you can call doctors registry at [phone] OR call [facility] at [phone] and ask to have the doctor radiation protection specialist paged. If you consider this an emergency, dial 9--1 or go to your nearest emergency department. NEED HELP? Are you dealing with a violent or abusive relationship? Are you a victim of rape or sexual assult? Call [facility] [place] ([place]) 24 hour Crisis Hotline: 768.951.3498 or 148-846-3856. MANUAL Your Guide to a Healthy manual is now on-line. Visit [email or web address] ancyGuide to download your free copy documented in this encounter [facility] 11-01-2024 Progress note Formatting of t his note might be different from the original. Anatomy ultrasound reviewed. No abnormalities identified. Follow up as clinically indicated. Please place copy in ob chart. Shelli Allison MD [facility] Work Phone: 11-01-2024 Miscellaneous Notes Anatomy ultrasound reviewed. No abnormalities identified. Follow up as clinically indicated. Please place copy in ob chart. Shelli Allison MD documented in this encounter [facility] 10-31-2024 Note Indication Follow-up evaluation for placental [...] Placenta: Placental site: posterior, low lying. Placental tejp-ra-faxeiwrx os distance 11 mm Umbilical cord: Cord [...] 15 oz EFW by: Hadlock (HC-AC-FL) Extended Four Corner Stayer Machine Operator 6.1 mm Extremities / Bony Struc FL [...] M.D. [facility] 10-31-2024 Note HNO ID: [id number] Author: CELENA BACH MA Service: ? Author Type: Vocational Case Manager Type: Progress Notes Filed: 10/31/2024 10:21 Note [...] severely ill: Yes Patient denies history of Guillain-[place] Syndrome (a severe paralytic illness): Yes Tdap Adacel injection was given without incident. See immunizations for details of immunizations administered today. VIS sheet provided: Yes Provider Deandre was present in office at time of injection. Celena Bach MA [facility] 10-31-2024 History of Presen t illness Narrative [...] severely ill: Yes Patient denies history of Guillain-[place] Syndrome (a severe paralytic illness): Yes Tdap [...] Amanda Wall MD documented in this encounter [facility] 10-31-2024 Note HNO ID: [id number] Author: AMANDA TAVERA MD Service: ? Author [...] 7+ YR (ADACEL, BOOSTRIX) Amanda Wall MD [facility] 10-05-2024 Progress note Formatting of t his [...] gestation of RTO 4weeks Amanda Wall MD [facility] 10-05-2024 Miscellaneous Notes DM-Pt doing well. Denies vaginal Bleeding, Leaking [...] Amanda Wall MD documented in this encounter [facility] 10-05-2024 Instructions Celena Bach MA - 10/05/2024 11:30 AM EDT SEQUENTIAL SCREENINGS The [facility] offers sequential screenings for women who are [...] It will require an appointment with our ceramics technician. This is not an ultrasound performed [...] the above symptoms, contact our office at [phone] and ask to speak with a nurse. After hours, you can call doctors registry at [phone] OR call [facility] at [phone] and ask to have the doctor radiation protection specialist paged. If you consider this an emergency, dial or go to your nearest emergency department. NEED HELP? Are you dealing with a violent or abusive relationship? Are you a victim of rape or sexual assult? Call [facility] ([place]) 24 hour Crisis Hotline: 354.409.2199 or 656-030-6962. MANUAL Your Guide to a Healthy manual is now on-line. [facility] [email or web address] to download your free copy documented in this encounter [facility] 09-14-2024 Note HNO ID: [id number] Author: ROZ REILLY APRN.CNM Service: ? Author Type: Caddy/Caddie Supervisor Type: Progress Notes Filed: 09/14/2024 17:21 Note Text: Prescription sent for zofran refill. Roz Reilly APRN.CNM [facility] 09-14-2024 History of Presen t illness Narrative Prescription sent for zofran refill. Roz Reilly APRN.CNM documented in this encounter [facility] 09-10-2024 Telephone encounter Note US scheduled as advised at 28 weeks-on 10/31/24. Sowmya Gonzales, ABDI [facility] 09-10-2024 Miscellaneous Notes US scheduled as advised at 28 weeks-on 10/31/24. Sowmya Gonzales, RN documented in this encounter [facility] 09-07-2024 Progress note Formatting of t his [...] OBSTETRIC ULTRASOUND WHI; Future Amanda Wall MD [facility] 09-07-2024 Miscellaneous Notes DM-Pt doing well. Denies vaginal Bleeding, Leaking [...] pelvic rest reviewed Orders: OBSTETRIC ULTRASOUND WHI; Jose Wall MD documented in this encounter [facility] 09-07-2024 Instructions Celena Bach MA - 09/07/2024 8:41 AM EST SEQUENTIAL SCREENINGS The [facility] offers sequential screenings for women who are [...] It will require an appointment with our ceramics technician. This is not an ultrasound performed [...] the above symptoms, contact our office at [phone] and ask to speak with a nurse. After hours, you can call doctors registry at [phone] OR call [facility] at [phone] and ask to have the doctor radiation protection specialist paged. If you consider this an emergency, dial 3-4-9 or go to your nearest emergency department. NEED HELP? Are you dealing with a violent or abusive relationship? Are you a victim of rape or sexual assult? Call [facility] ([place]) 24 hour Crisis Hotline: 882.934.7589 or 660-060-5717. MANUAL Your Guide to a Healthy manual is now on-line. Visit [email or web address] to download your free copy documented in this encounter [facility] 08-10-2024 Progress note Formatting of t his [...] unisom reviewed. Restart pepcid. Amanda Wall MD [facility] 08-10-2024 Miscellaneous Notes DM-Pt doing well. Denies vaginal Bleeding, Leaking [...] Amanda Wall MD documented in this encounter [facility] 08-10-2024 Instructions Celena Bach MA - 08/10/2024 8:30 AM EST SEQUENTIAL SCREENINGS The [facility] offers sequential screenings for women who are [...] It will require an appointment with our ceramics technician. This is not an ultrasound performed [...] the above symptoms, contact our office at [phone] and ask to speak with a nurse. After hours, you can call doctors registry at [phone] OR call [facility] at [phone] and ask to have the doctor radiation protection specialist paged. If you consider this an emergency, dial 1-3-9 or go to your nearest emergency department. NEED HELP? Are you dealing with a violent or abusive relationship? Are you a victim of rape or sexual assult? Call [facility] ([place]) 24 hour Crisis Hotline: 165.810.4142 or 534-625-0177. MANUAL Your Guide to a Healthy manual is now on-line. Visit [email or web address] to download your free copy documented in this encounter [facility] 08-06-2024 Telephone encounter Note Refill request received via [employer]. Patient 16w1d, last seen 07/12. Next appointment on 08/10. Eliza Billy RN [facility] 08-06-2024 Miscellaneous Notes Refill request received via MyChart. Patient 16w1d, last seen 07/12. Next appointment on 08/10. Eliza Billy RN documented in this encounter [facility] 08-03-2024 Telephone encounter Note Last OV 06/08/2025. Pharmacy comment: REQUEST FOR 90 DAYS PRESCRIPTION. Requested Prescriptions Pending Prescriptions Disp Refills famotidine (PEPCID) 20 mg tablet [Pharmacy Med Name: FAMOTIDINE 20 MG TABLET] 180 tablet 1 Sig: TAKE 1 TABLET BY MOUTH TWICE A DAY Sowmya Gonzales RN [facility] 08-03-2024 Miscellaneous Notes Last OV 06/08/2025. Pharmacy comment: REQUEST FOR 90 DAYS PRESCRIPTION. Requested Prescriptions Pending Prescriptions Disp Refills famotidine (PEPCID) 20 mg tablet [Pharmacy Med Name: FAMOTIDINE 20 MG TABLET] 180 tablet 1 Sig: TAKE 1 TABLET BY MOUTH TWICE A DAY Sowmya Gonzales RN documented in this encounter [facility] 07-12-2024 Progress note Formatting of t his [...] or sooner if needed Kelly Gregg APRN.CNM [facility] 07-12-2024 Miscellaneous Notes S: Charline Kirkpatrick is a 28 year [...] Kelly Gregg APRN.CNM documented in this encounter [facility] 07-12-2024 Instructions Sumit Hamlin LPN - 07/12/2024 3:36 PM EST SEQUENTIAL SCREENINGS The [facility] offers sequential screenings for women who are [...] It will require an appointment with our ceramics technician. This is not an ultrasound performed [...] the above symptoms, contact our office at [phone] and ask to speak with a nurse. After hours, you can call doctors registry at [phone] OR call [facility] at [phone] and ask to have the doctor radiation protection specialist paged. If you consider this an emergency, dial 7-9-9 or go to your nearest emergency department. NEED HELP? Are you dealing with a violent or abusive relationship? Are you a victim of rape or sexual assult? Call [facility] ([place]) 24 hour Crisis Hotline: 189.746.5437 or 895-822-9773. MANUAL Your Guide to a Healthy manual is now on-line. Visit [email or web address] to download your free copy documented in this encounter [facility] 06-08-2024 Progress note Formatting of t his note might be different from the original. Patient seen for NOB. See progress note Kelly Gregg APRN.CNM [facility] 06-08-2024 Miscellaneous Notes Patient seen for NOB. See progress note Kelly Gregg APRN.CNM documented in this encounter [facility] 06-08-2024 Instructions Sumit Hamlin LPN - 06/08/2024 8:34 AM EST Please select the following link to access the [facility] Your Guide to a Healthy . [email or web address] documented in this encounter [facility] 06-06-2024 Note HNO ID: [id number] Author: KELLY GREGG APRN.CNM Service: ? Author Type: Caddy/Caddie Supervisor Type: Progress Notes Filed: 06/08/2024 09:59 Note Text: Patient declined electrical controls assembler. *History of ectopic -quants have been done *Patient is complaining of nausea and occasional vomiting in . Dietary considerations discussed . Vitamin B6 recommended. Advised patient to call/come in if she is unable to keep any food or fluids down in a 24-hour period. *Patient considering genetic carrier screening testing and aneuploidy screening. 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 No current facility-administered medications for this visit. Allergies As of Date: 06/08/2024 (No Known Allergies) Fully Assessed 06/08/2024 Does patient have penicillin allergy: No REVIEW OF SYSTEMS: (more content not included)... [facility] 06-06-2024 History of Presen t illness Narrative Patient declined electrical controls assembler. *History of ectopic -quants have been done *Patient is complaining of nausea and occasional vomiting in . Dietary considerations discussed . Vitamin B6 recommended. Advised patient to call/come in if she is unable to keep any food or fluids down in a 24-hour period. *Patient considering genetic carrier screening testing and aneuploidy screening. 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 No current facility-administered [...] discussed with the Patient or Patient's Authorized Medical Anthropology Director. As applicable, any other physician, advance practice provider, medical student, or other health professional student that will be observing or involved in the sensitive examination for educational or training purposes was discussed with the Patient or Authorized Medical Anthropology Director. The Patient or Authorized Medical Anthropology Director has agreed to proceed with the sensitive [...] Your guide to a health and the Aircraft Avionics Technician. Reviewed midwifery and tar kettle runner services that are available. 2) Screening: Hemoglobin [...] visits. Follow up in 4 weeks for GUS NOLEN and OSEAS Gregg APRN.CNM documented in this encounter [facility] 05-14-2024 Telephone encounter Note Pt notified and will get HCG levels drawn middle of next week and 1st OB appt has been rescheduled with CP 06/08/24 at 0845. Sowmya Gonzales RN [facility] 05-14-2024 Miscellaneous Notes Pt notified and will get HCG levels drawn middle of next week and 1st OB appt has been rescheduled with CP 06/08/24 at 0845. Sowmya Gonzales RN She can be seen to assess for [...] Janeen Contreras RN documented in this encounter [facility] 05-14-2024 Telephone encounter Note She can be seen to assess [...] earliest next week (at least 5+ weeks) [facility] Work Phone: 05-14-2024 Telephone encounter Note Patient calling because she had positive [...] time. Wants DM's advice. Janeen Contreras RN [facility] 05-07-2023 Note HNO ID: [id number] Author: Note, Interface Service: ? Author Type: ? Type: Progress Notes Filed: 05/07/2023 5:13 AM Note Text: Epic Scheduled Downtime: 05/07/2023 1:00:00 AM to 05/07/2023 1:28:00 AM [facility] 04-06-2023 History of Presen t illness [...] Amanda Wall MD documented in this encounter [facility] 03-28-2023 Discharge summary Note Date/Time March 28, 2023 4:09pm [facility] Medical Records Department [address] [place] [address] Instructions for Home/Discharge Instructions 03/28/23 1609 MR#: [id number] Acct: [id number] Name: CHARLINE KIRKPATRICK Rep #:[id number] : 1995 27 From: Amanda Jenkins MD PCP: Juan Francisco Physician,No [place] [facility] [place] Instructions Diet Discharge Diet: No [...] if you need an appointment please call [phone] Test Results: Test results from this visit will be discussed in further detail at your follow-up appointment, if applicable. Discharge Plan Admission Attending Provider: Dallas Jenkins Primary Care Provider: Care Physician,No Primary Discharge Orders/Prescriptions Prescriptions: New oxycodone-acetaminophen 5-325 [...] can be placed): Home, Self Care 03/28/23 1625<Electronically signed by Amanda Wall MD>Amanda Wall MD CC: No Primary Care Physician ~ Signed [facility] Work Phone: [phone] 400-882009-04-2023 History and physical note Author M Amanda kingsley [facility] March 28, 2023 2:44pm Note Date/Time March 28, 2023 2:44pm [facility] Medical Records Department [address] [place] [id number] H&P Exam - DISPLAY ASSOCIATE 03/28/23 1437 MR#: [id number] Acct: [id number] Name: CHARLINE KIRKPATRICK Rep #:[id number] : 1995 27 From: Amanda Jenkins MD PCP: Care Physician,No [place] [facility] [place] [facility] History and Physical Date of Admission: 03/28/23 with known ectopic presents c/o increased pain and vaginal bleeding- reports pain got more severe yesterday and today. pt receive 2 previous doses ofMTX with [facility] with appropriate decline in HCG levels. [...] Yovanny Wall; No Primary Care Physician~ Signed [facility] Work Phone: 1(370) 540-676409-04-2023 Procedure [facility] 03-18-2023 Miscellaneous Notes* Telephone Encounter - Esther Rivero LPN - 03/18/2023 10:38 AM EDT Linked order to visit. Esther Rivero LPN * Telephone Encounter - Janeen Contreras RN - 03/18/2023 9:23 AM EDT Patient received 2nd methotrexate injection last night at [facility]. All previous hcg quant orders were cancelled. Please file again. 1st lab appointment scheduled for 03/21 - will need to link order once filed. Janeen Contreras RN [facility]23 NoteHNO ID: [id number] Author: Shelli Peralta DO Service: Obstetrics Author [...] the procedure. PRIMARY PROCEDURALIST: Shelli Peralta DO ELECTRICAL SIGN SERVICER(S): Padmini Shay DO Informed Consent: Informed Consent obtained and on the chart [place] Protocol/Safety Checklist: Sign in Communication: Completed Time [...] Certified Pharmacist Dose calculation confirmed by: Bk Caldwell, [facility] AND Dr. Shelli Peralta DO RH: Positive Lot #: [id number] Expiration Date: 07/17 Methotrexate dose: 50mg/m2 Administration [...] March 17, 2023 TIME: 8:53 PM PAGER/CONTACT #:[facility]08-24-2023 NoteHNO ID: [id number] Author: Shelli Peralta DO Service: Obstetrics Author [...] and benefits reviewed. Pt reports traveling to [place] tomorrow morning and not returning until Tuesday [...] her first dose of methotrexate on 03/11/23 (2004) with inappropriate decline in bHCG on day 4 (1848) and 7 (1981). Was counseled for repeat dose of methotrexate per her OB. She sees Dr. Martinez, her DISPLAY ASSOCIATE and follows at the lab at [facility]. She had an initial episode of vaginal [...] 03/11 (2004) received MTX #1 > 03/14 (1848) > 03/17 (1981) - <15% decline between [...] March 17, 2023 TIME: 9:10 PM PAGER/CONTACT #:[facility]08-21-2023 Miscellaneous Notes* Telephone Encounter - Alcon Martinez MD - 03/14/2023 12:22 PM EDT Can be normal. Sent her my chart message with pt info on MTX Can return to work tomorrow if she feels up to it since bleeding is beater tender. I also think reasonable to have additional [...] Her bleeding is still bright red, but beater tender than her menstrual flow. Had her first HCG level drawn today. In process. Asking if this is what she should expect since [facility] did not review this with her she said. Off work today. Ok to return tomorrow? 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 Sangeeta Levi RN * Telephone Encounter - Amanda Tavera MD - 03/12/2023 8:42 AM EDT HCG levels were ordered for 03/14 and 03/17 . Please make sure they get followed. She may need seconddose of MTX . She got first dose of MTX at [facility] on 03/11/23 documented in this encounter[facility]-2023 NoteHNO ID: [id number] Author: Alcon Bowie MD Service: Gynecology Author [...] (03/17/23). Communicated with Dr. Jenkins, who is radiation protection specialist for [facility]. Plan of care made for patient to follow up for repeat bHCG quants in [place] and chart sent to herself and Dr. Martinez, her DISPLAY ASSOCIATE provider. Alcon Bowie, [facility]08-18-2023 NoteHNO ID: [id number] Author: Alcon Bowie MD Service: Obstetrics Author [...] the procedure. PRIMARY PROCEDURALIST: Alcon Bowie MD ELECTRICAL SIGN SERVICER(S): Dr. Marii Lebron, attending. Informed Consent: Informed Consent obtained and on the chart [place] Protocol/Safety Checklist: Sign in Communication: Completed Time [...] Certified Pharmacist Dose calculation confirmed by: Salome Hernández, [facility] and Alcon Bowie MD RH: Positive Lot #: [id number] Expiration Date: 06/2024 Methotrexate dose: 50mg/m2 Administration [...] March 11, 2023 TIME: 5:55 PM PAGER/CONTACT #:[facility]08-18-2023 NoteHNO ID: [id number] Author: Alcon Bowie MD Service: Obstetrics Author [...] additions: Reviewed all labs and images from [place] and discussed plan. Patient in agreement to proceed. Will likely follow upshe has already has her set up for HCG draws. Signature: Demi Fowler MD Date: 03/13/2023 Time: 11:18 AM OBSTETRICS OB ED PROGRESS NOTE SERVICE DATE: March 11, 2023 SERVICE TIME: 5:22 PM Subjective Patient's stated reason for arrival: CHIEF COMPLAINT: Methotrexate for PUL Management; sent from [place] HISTORY OF THE PRESENT ILLNESS: The patient is a 27 year old female, , who is at Unknown early GA. Patient is sent here from [place] for administration of Methotrexate. She learned she [...] location 03/11/2023 Overview Note: - evaluated by DISPLAY ASSOCIATE at [place] [facility] (03/08) > 1768 (03/10) - She had a TVUS today that demonstrated no intrauterine , endometrial stripe 10.6mm, complex left adnexal structure, 4cm. No evidence of pole. - abdominal exam benign - pelvic exam performed by her DISPLAY ASSOCIATE today, normal per report. - CBC, CMP collected at [place], within normal limits - [facility], TANDS ordered in OB ED, stat [...] 11, 2023 TIME: 5:22 PM [facility] History of Present illness Narrative* Alcon Martinez MD - 03/11/2023 1:13 PM EDT Charline Kirkpatrick is a 27 year old female who presents for early . HPI: The patient was seen by DISTRICT SERVICE MANAGER in the office for early . LMP [...] L0 SAB0 IAB0 Ectopic0 Multiple0 Live Births0 Money Market Clerk History LMP: 02/24/2023, Having periods Age at Menarche: Age at First : Age at Menopause: Money Market Clerk History Comments: Sexual Activity: Yes; Male Contraception: [...] images were reviewed by Dr. Jenkins provider radiation protection specialist who agrees with likely ectopic based on findings. The patient elects for Methotrexate injection. Discussed she will have to go to [facility] for this given inability for her to have it with hematol ogy based on timing, and inability to receive it in our local ER. Called and spoke with [facility] resident regarding case given attending operating at the time. Alcon Martinez DO Medical Decision Making: Problems: Low: Acute, uncomplicated illness or injury Data: Unique test(s) ordered: 3+ Medical Decision Making Level: 3 - Low documented in this encounterA[facility]08-[facility]-2023 Miscellaneous Notes* Addendum Note - Alcon Martinez [...] seen by one of the doctors or fireproof door maker JEFF. Edelimra Ward APRN.CNP documented in this encounterAdena [facility]08-18-2023 Miscellaneous Notes* Telephone Encounter - Edelmira Ward APRN.CNP - 03/11/2023 8:36 AM EDT I sent other phone notes this morning. Edelmira Ward APRN.CNP * Telephone Encounter - Esther Rivero LPN [...] here? Esther Rivero LPN documented in this encounterAdena [facility] System10-28-2022 History of Present illness Narrative* Edelmira Ward [...] L0 SAB0 IAB0 Ectopic0 Multiple0 Live Births0 Money Market Clerk History LMP: 05/11/2022, Having periods Age at Menarche: Age at First : Age at Menopause: Money Market Clerk History Comments: Sexual Activity: Yes; Male Contraception: [...] external genitalia normal, normal Bartholin's glands, urethra, Ray's glands, no vulvar lesions, no cervical lesions, [...] look at starting low-dose Zoloft. Edelmira Ward APRN.DISTRICT SERVICE MANAGER documented in this encounterAdena [facility] System08-28-2022 History of Present illness Narrative* Manny Ren [...] TOPICAL CREAM Agrees to plan Manny Ren APRN.SREEKANTH documented in this encounterAdena [facility] System04-04-2022 Miscellaneous Notes* Telephone Encounter - Jnaeen Contreras RN - 10/26/2021 10:35 AM EDT Requesting 90 day supply. Last annual with 01/13/21. Pending Prescriptions Disp Refills SRONYX 0.1 MG-20 MCG TABLET 84 tablet 1 Sig: TAKE 1 TABLET BY MOUTH EVERY DAY RAHEEL: Yes RX INSTRUCTIONS: Pharmacy initiated this request. No need to notify patient. Janeen [facility]ras [facility] Diagnosis Rhus dermatitis- Primary Contact dermatitis and other eczema due to plants (except food) documented in this encounter [facility] note* Diagnosis Encounter for gynecological examination (general) (routine) without abnormal findings- Primary Encounter for surveillance of contraceptive pills Surveillance of previously prescribed contraceptive pill documented in this encounter [facility] note* Diagnosis with uncertain viability, single or unspecified fetus- Primary [facility] Diagnosis Bleeding in early - Primary Unspecified hemorrhage in early , unspecified as to episode of care documented in this encounter [facility] note* Diagnosis Ectopic without intrauterine , unspecified location- Primary Early stage of state, incidental Vaginal bleeding in Unspecified antepartum hemorrhage, unspecified as to episode of care Pelvic cramping Unspecified symptom associated with female genital organs documented in this encounter [facility] note* Diagnosis Left tubal without intrauterine - Primary documented in this encounter [facility] note* Diagnosis Ectopic without intrauterine , unspecified location- Primary documented in this encounter [facility] note* Diagnosis Onset Date Resolution Status Hemoperitoneum due to ruptur e of left tubal ectopic acute Sinus tachycardia acute [facility] Work Phone: [facility]* Diagnosis with uncertain viability, single or unspecified fetus documented in this encounter [facility] note* Diagnosis Post-operative state- Primary Other postprocedural status documented in this encounter [facility] note* Diagnosis affected by previous ectopic - Primary Positive urine test examination or test, positive result documented in this encounter [facility] note* Diagnosis with uncertain dates in first trimester- Primary 7 weeks gestation of state, incidental Encounter for supervision of low-risk first in first trimester Nausea/vomiting in Unspecified vomiting of , unspecified as to episode of care History of ectopic Personal history of other genital system and obstetric disorders documented in this encounter [facility] note* Diagnosis Encounter for screening for malformation using ultrasound- Primary 12 weeks gestation of state, incidental Encounter for (NT) nuchal translucency scan Other specified screening documented in this encounter [facility] note* Diagnosis 12 weeks gestation of - Primary state, incidental Encounter for supervision of other normal in first trimester Nausea/vomiting in Unspecified vomiting of , unspecified as to episode of care Heartburn during in second trimester documented in this encounter [facility] note* Diagnosis Encounter for supervision of other normal in second trimester- Primary Nausea and vomiting in Unspecified vomiting of , unspecified as to episode of care 16 weeks gestation of state, incidental documented in this encounter [facility] note* Diagnosis 16 weeks gestation of state, incidental Nausea and vomiting in Unspecified vomiting of , unspecified as to episode of care documented in this encounter [facility] note* Diagnosis Encounter for supervision of [...] ULTRASOUND WHI; Future documented in this encounter [facility] note* Diagnosis Encounter for anatomic survey- [...] episode of care documented in this encounter [facility] note* Diagnosis Encounter for supervision of other normal in second trimester- Primary Heartburn during in second trimester 20 weeks gestation of state, incidental Marginal placenta previa Hemorrhage from placenta previa, unspecified as to episode of care 16 weeks gestation of state, incidental Nausea and vomiting in Unspecified vomiting of , unspecified as to episode of care documented in this encounter [facility] note* Diagnosis Encounter for supervision of [...] of state, incidental documented in this encounter [facility] note* Diagnosis Encounter for supervision of other normal in second trimester (HCC)- Primary Heartburn during in second trimester (HCC) 20 weeks gestation of (HCC) state, incidental Marginal placenta previa (HCC) Hemorrhage from placenta previa, unspecified as to episode of care Marginal placenta previa (HCC)- Primary Hemorrhage from placenta previa, unspecified as to episode of care Low lying placenta nos or without hemorrhage, third trimester ([facility]) 28 weeks gestation of ([facility]) state, incidental Need for vaccination Need for prophylactic vaccination and inoculation against unspecified single disease * Assessment & Plan Note - Amanda Tavera MD - 10/31/2024 9:30 AM EDT Associated Problem(s): Marginal placenta previa (HCC) Resolved- now low lying [facility] Diagnosis Encounter for supervision of other normal in second trimester ([facility])- Primary Heartburn during in second trimester ([facility]) 20 weeks gestation of ([facility]) state, incidental Marginal placenta previa ([facility]) Hemorrhage from placenta previa, unspecified as to episode of care Encounter for ultrasound to check growth ([facility])- Primary Encounter for routine screening for malformation using ultrasonics Low lying placenta nos or without hemorrhage, third trimester ([facility]) 28 weeks gestation of ([facility]) state, incidental Marginal placenta previa (HCC)- Primary Hemorrhage from placenta previa, unspecified as to episode of care Low lying placenta nos or without hemorrhage, third trimester ([facility]) 28 weeks gestation of ([facility]) state, incidental Need for vaccination Need for prophylactic vaccination and inoculation against unspecified single disease documented in this encounter [facility] note* Diagnosis Encounter for supervision of other normal in second trimester ([facility])- Primary Heartburn during in second trimester ([facility]) 20 weeks gestation of ([facility]) state, incidental Marginal placenta previa (HCC) Hemorrhage from placenta previa, unspecified as to episode of care Marginal placenta previa (HCC)- Primary Hemorrhage from placenta previa, unspecified as to episode of care Low lying placenta nos or without hemorrhage, third trimester ([facility]) 28 weeks gestation of ([facility]) state, incidental Need for vaccination Need for prophylactic vaccination and inoculation against unspecified single disease Supervision of high risk in third trimester ([facility])- Primary Unspecified high-risk Low lying placenta nos or without hemorrhage, third trimester ([facility]) 30 weeks gestation of ([facility]) state, incidental 32 weeks gestation of ([facility])- Primary state, incidental Supervision of high risk in third trimester ([facility]) Unspecified high-risk documented in this encounter [facility] note* Diagnosis Encounter for supervision of other normal in second trimester ([facility])- Primary Heartburn during in second trimester ([facility]) 20 weeks gestation of ([facility]) state, incidental Marginal placenta previa ([facility]) Hemorrhage from placenta previa, unspecified as to episode of care Suspected placental problem not found- Primary Encounter for ultrasound to check growth ([facility]) Encounter for routine screening for malformation using ultrasonics 33 weeks gestation of ([facility]) state, incidental documented in this encounter [facility] note* Diagnosis Encounter for supervision of other normal in second trimester ([facility])- Primary Heartburn during in second trimester ([facility]) 20 weeks gestation of ([facility]) state, incidental Marginal placenta previa ([facility]) Hemorrhage from placenta previa, unspecified as to episode of care 16 weeks gestation of ([facility]) state, incidental Nausea and vomiting in ([facility]) Unspecified vomiting of , unspecified as to episode of care documented in this encounter [facility] note* Diagnosis Encounter for supervision of other normal in second trimester ([facility])- Primary Heartburn during in second trimester ([facility]) 20 weeks gestation of ([facility]) state, incidental Marginal placenta previa ([facility]) Hemorrhage from placenta previa, unspecified as to episode of care 16 weeks gestation of ([facility]) state, incidental Nausea and vomiting in ([facility]) Unspecified vomiting of , unspecified as to episode of care documented in this encounter [facility] note* Diagnosis Encounter for supervision of other normal in second trimester ([facility])- Primary Heartburn during in second trimester ([facility]) 20 weeks gestation of ([facility]) state, incidental Marginal placenta previa ([facility]) Hemorrhage from placenta previa, unspecified as to episode of care Supervision of high risk in third trimester ([facility])- Primary Unspecified high-risk Low lying placenta nos or without hemorrhage, third trimester ([facility]) 36 weeks gestation of ([facility]) state, incidental 16 weeks gestation of ([facility]) state, incidental Nausea and vomiting in ([facility]) Unspecified vomiting of , unspecified as to episode of care documented in this encounter [facility] note* Diagnosis Encounter for supervision of other normal in second trimester ([facility])- Primary Heartburn during in second trimester ([facility]) 20 weeks gestation of ([facility]) state, incidental Marginal placenta previa ([facility]) Hemorrhage from placenta previa, unspecified as to episode of care 37 weeks gestation of ([facility])- Primary state, incidental Supervision of high risk in third trimester ([facility]) Unspecified high-risk Low lying placenta nos or without hemorrhage, third trimester ([facility]) documented in this encounter [facility] note* Diagnosis Encounter for supervision of other normal in second trimester ([facility])- Primary Heartburn during in second trimester ([facility]) 20 weeks gestation of ([facility]) state, incidental Marginal placenta previa ([facility]) Hemorrhage from placenta previa, unspecified as to episode of care Positive GBS test- Primary Supervision of high risk in third trimester ([facility]) Unspecified high-risk 38 weeks gestation of ([facility]) state, incidental documented in this encounter [facility] note* Diagnosis Encounter for supervision of other normal in second trimester ([facility])- Primary Heartburn during in second trimester ([facility]) 20 weeks gestation of ([facility]) state, incidental Marginal placenta previa ([facility]) Hemorrhage from placenta previa, unspecified as to episode of care Supervision of high risk in third trimester ([facility])- Primary Unspecified high-risk Positive GBS test 39 weeks gestation of ([facility]) state, incidental Heartburn during in second trimester ([facility]) documented in this encounter [facility] note* Diagnosis Encounter for supervision of other normal in second trimester ([facility])- Primary Heartburn during in second trimester ([facility]) 20 weeks gestation of ([facility]) state, incidental Marginal placenta previa ([facility]) Hemorrhage from placenta previa, unspecified as to episode of care 40 weeks gestation of ([facility])- Primary state, incidental Supervision of high risk in third trimester ([facility]) Unspecified high-risk Positive GBS test [facility] noteNo assessment information availableWThe [facility] Work Phone: Evaluation note* Diagnosis Onset Date Resolution Status Admit Date Post term acute January 28, 2025 8:01pm [facility] Work Phone: History and physical note Author Amanda Armijo [facility] March 28, 2023 2:44pm Note Date/Time March 28, 2023 2:44pm [facility] Medical Records Department [address] [place] [address] H&P Exam - DISPLAY ASSOCIATE 03/28/23 1437 MR#: [id number] Acct: [id number] Name: CHARLINE KIRKPATRICK Rep #:[id number] : 1995 27 From: Amanda Jenkins MD PCP: Care Physician,No [place] [facility] [place] [facility] [place] and Physical Date of Admission: 03/28/23 with known ectopic presents c/o increased pain and vaginal bleeding- reports pain got more severe yesterday and today. pt receive 2 previous doses ofMTX with [facility] with appropriate decline in HCG levels. [...] Yovanny Wall; No Primary Care Physician~ Signed [facility] Work Phone: History and physical note Author Sangeeta Edwards [facility] Note Date/Time January 28, 2025 8:42p m [facility] Medical Records Department [address] [place] [address] OB Triage Physician Note 01/28/252039 MR#: [id number] Acct: [id number] Name: CHARLINE KIRKPATRICK Rep #:[id number] : 1995 29 From: Sangeeta Edwards MD PCP: Care Physician,No Primary Status :REG CLI Y Location: [place] [id number] HPI - General General Date of Admission: 01/28/25 Date of Service: 01/28/25 Chief Complaint: NST HPI Narrative CHARLINE KIRKPATRICK, is a 29 F who presents NST at 41 weeks. Induction delayed to unit patient volume. planned admission tomorrow. Maternal Data Information Final BENSON: 01/20/25 Gestational age: 41+1 PFSH PFSH Home Medications ?Medication ?Instructions ?Recorded ?Last Taken ?Type aspirin 81 mg tablet,delayed 81 mg PO DAILY 01/27/25 U nknown History release (Adult Aspirin Regimen) ondansetron HCl 8 mg tablet 8 mg PO Q8H PRN nausea 01/16 Unknown History pantoprazole 40 mg granules 40 mg PO DAILY 01/27/25 Un known History delayed-release for susp in packet (Protonix) vitamin no.45-iron-FA 28 1 tab PO DAILY pregn ekaterina 01/27/25 Unknown History mg iron-1 mg chewable tablet Allergy/AdvReac Type Severity Reaction Status Date / Time No Known Allergies Allergy Verified 01/28/25 20:16 Social History Smoking Status: Never smoker NST FHR Rate Baby A Baseline: 145 Variability:: Moderate Accelerations:: 15 x 15 Decelerations:: None NST Reactive:: Yes Uterine Activity:: occasional Assessment & Plan (1) Post term : QUALIFIERS: Post-term type: 40-42 weeks gestation Qualified Code(s): O48.0 - Post-term PLAN: Plan Induction in AM. 01/28/252042 <Electronically signed by Sangeeta almanza MD> Date _ Sangeeta Edwards MD Cosigner Signature (if applicable): Date CC: Dr. Sangeeta Edwards MD; No Primary Care Physician ~ Signed [facility] Work Phone: Hospital Discharge instructions Additional Instructions Implant Used?: [facility] Work Phone: Reason for referral (narrative)* Diagnostic Procedure Only (Routine) - Pending Review Specialty Diagnoses / Procedures Referred By Contac t Referred To Contact [facility] Diagnoses with uncertain viability, single or unspecified fetus Procedures OBSTETRIC ULTRASOUND WHI US PREG UTERUS AFTER 1ST TRIMEST GESTATION Alcon Martinez MD [address] [place] [address] [facility] [address] Referral ID Status Reason Start Date Expiration Date Visits Requested Visits Authorized [id number] Pending Review Auto-Generat ed Referral 03/11/2023 03/10/2024 1 1 [facility] for referral (narrative)* Diagnostic Procedure Only (Routine) - Authorized Specialty Diagnoses / Procedures Referred By Contac t Referred To Contact [facility] Diagnoses with uncertain dates in first trimester Procedures NUCHAL TRANSLUCENCY WHI US NUCHAL TRANSLUCENCY 1ST GESTATION Kelly Gregg APRN.[facility] [address] [place] [address] [facility] [address] Referral ID Status Reason Start Date Expiration Date Visits Requested Visits Authorized [id number] Authorized Auto-Generat ed Referral 4 06/08/2025 1 1 [facility] for referral (narrative)* Diagnostic Procedure Only (Routine) - New Request Specialty Diagnoses / Procedures Referred By Contac t Referred To Contact [facility] Diagnoses 12 weeks gestation of Encounter for supervision of other normal in first trimester Procedures OBSTETRIC ULTRASOUND WHI US PREG UTERUS AFTER 1ST TRIMEST GESTATION Kelly Gregg APRN.[facility] [address] [place] [address] [facility] [address] Referral ID Status Reason Start Date Expiration Date Visits Requested Visits Authorized [id number] New Request Auto-Generat ed Referral 07/12/2025 1 1 [facility] for referral (narrative)No reason for referral information availableWThe [facility] Work Phone: Reason for visit Narrative* Diagnostic Procedure Only (Routine) - Authorized Specialty Diagnoses / Procedures Referred By Contac t Referred To Contact [facility] Diagnoses with uncertain viability, single or unspecified fetus Procedures OBSTETRIC ULTRASOUND WHI US PREG UTERUS AFTER 1ST TRIMEST GESTATION Alcon Martinez MD [address] [place] [place] [address] [facility] [address] [place] [address] Referral ID Status Reason Start Date Expiration Date Visits Requested Visits Authorized [id number] Authorized Auto-Generat ed Referral 03/11/2023 07/24/2023 20 20 [facility] for visit Narrative* Diagnostic Procedure Only (Routine) - Closed Specialty Diagnoses / Procedures Referred By Contac t Referred To Contact 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 Sinus tachycardia Chief Complaint Admit Date NST January 27, 2025 11:50 am Chief Complaint Admit Date NST January 27, 2025 11:50 am NST January 28, 2025 8:01p m Reason for Visit Admit Date Post term January 28, 2025 8:01p m Advance Directives Advance Directive Response Recorded Date/ Time Living Will No March 28 023 2:14pm Power of Tonal Regulator No March 28, 2023 2:14pm Summary Purpose [...] or prosecute any alcohol or drug abuse patient.[facility] SystemIn the event this information is protected by the Federal Confidentiality of Alcohol and Drug Abuse Patient Records regulations: The Federal rules restrict any use of the information to criminally investigate or prosecute any alcohol or drug abuse patient.[facility] SystemIn the event this information is protected by the Federal Confidentiality of Alcohol and Drug Abuse Patient Records regulations: The Federal rules restrict any use of the information to criminally investigate or prosecute any alcohol or drug abuse patient.[facility] SystemIn the event this information is protected by the Federal Confidentiality of Alcohol and Drug Abuse Patient Records regulations: The Federal rules restrict any use of the information to criminally investigate or prosecute any alcohol or drug abuse patient.[facility] SystemIn the event this information is protected by the Federal Confidentiality of Alcohol and Drug Abuse Patient Records regulations: The Federal rules restrict any use of the information to criminally investigate or prosecute any alcohol or drug abuse patient.[facility] SystemIn the event this information is protected by the Federal Confidentiality of Alcohol and Drug Abuse Patient Records regulations: The Federal rules restrict any use of the information to criminally investigate or prosecute any alcohol or drug abuse patient.[facility] SystemIn the event this information is protected by the Federal Confidentiality of Alcohol and Drug Abuse Patient Records regulations: The Federal rules restrict any use of the information to criminally investigate or prosecute any alcohol or drug abuse patient.[facility] SystemIn the event this information is protected by the Federal Confidentiality of Alcohol and Drug Abuse Patient Records regulations: The Federal rules restrict any use of the information to criminally investigate or prosecute any alcohol or drug abuse patient.[facility] SystemIn the event this information is protected by the Federal Confidentiality of Alcohol and Drug Abuse Patient Records regulations: The Federal rules restrict any use of the information to criminally investigate or prosecute any alcohol or drug abuse patient.[facility] SystemIn the event this information is protected by the Federal Confidentiality of Alcohol and Drug Abuse Patient Records regulations: The Federal rules restrict any use of the information to criminally investigate or prosecute any alcohol or drug abuse patient.[facility] SystemIn the event this information is protected by the Federal Confidentiality of Alcohol and Drug Abuse Patient Records regulations: The Federal rules restrict any use of the information to criminally investigate or prosecute any alcohol or drug abuse patient.[facility] SystemIn the event this information is protected by the Federal Confidentiality of Alcohol and Drug Abuse Patient Records regulations: The Federal rules restrict any use of the information to criminally investigate or prosecute any alcohol or drug abuse patient.[facility] SystemIn the event this information is protected by the Federal Confidentiality of Alcohol and Drug Abuse Patient Records regulations: The Federal rules restrict any use of the information to criminally investigate or prosecute any alcohol or drug abuse patient.[facility] SystemIn the event this information is protected by the Federal Confidentiality of Alcohol and Drug Abuse Patient Records regulations: The Federal rules restrict any use of the information to criminally investigate or prosecute any alcohol or drug abuse patient.[facility] SystemIn the event this information is protected by the Federal Confidentiality of Alcohol and Drug Abuse Patient Records regulations: The Federal rules restrict any use of the information to criminally investigate or prosecute any alcohol or drug abuse patient.[facility] SystemIn the event this information is protected by the Federal Confidentiality of Alcohol and Drug Abuse Patient Records regulations: The Federal rules restrict any use of the information to criminally investigate or prosecute any alcohol or drug abuse patient.[facility] SystemIn the event this information is protected by the Federal Confidentiality of Alcohol and Drug Abuse Patient Records regulations: The Federal rules restrict any use of the information to criminally investigate or prosecute any alcohol or drug abuse patient.[facility] SystemIn the event this information is protected by the Federal Confidentiality of Alcohol and Drug Abuse Patient Records regulations: The Federal rules restrict any use of the information to criminally investigate or prosecute any alcohol or drug abuse patient.[facility] SystemIn the event this information is protected by the Federal Confidentiality of Alcohol and Drug Abuse Patient Records regulations: The Federal rules restrict any use of the information to criminally investigate or prosecute any alcohol or drug abuse patient.[facility] SystemIn the event this information is protected by the Federal Confidentiality of Alcohol and Drug Abuse Patient Records regulations: The Federal rules restrict any use of the information to criminally investigate or prosecute any alcohol or drug abuse patient.[facility] SystemIn the event this information is protected by the Federal Confidentiality of Alcohol and Drug Abuse Patient Records regulations: The Federal rules restrict any use of the information to criminally investigate or prosecute any alcohol or drug abuse patient.[facility] SystemIn the event this information is protected by the Federal Confidentiality of Alcohol and Drug Abuse Patient Records regulations: The Federal rules restrict any use of the information to criminally investigate or prosecute any alcohol or drug abuse patient.[facility] SystemIn the event this information is protected by the Federal Confidentiality of Alcohol and Drug Abuse Patient Records regulations: The Federal rules restrict any use of the information to criminally investigate or prosecute any alcohol or drug abuse patient.[facility] SystemIn the event this information is protected by the Federal Confidentiality of Alcohol and Drug Abuse Patient Records regulations: The Federal rules restrict any use of the information to criminally investigate or prosecute any alcohol or drug abuse patient.[facility] SystemIn the event this information is protected by the Federal Confidentiality of Alcohol and Drug Abuse Patient Records regulations: The Federal rules restrict any use of the information to criminally investigate or prosecute any alcohol or drug abuse patient.[facility] SystemIn the event this information is protected by the Federal Confidentiality of Alcohol and Drug Abuse Patient Records regulations: The Federal rules restrict any use of the information to criminally investigate or prosecute any alcohol or drug abuse patient.[facility] SystemIn the event this information is protected by the Federal Confidentiality of Alcohol and Drug Abuse Patient Records regulations: The Federal rules restrict any use of the information to criminally investigate or prosecute any alcohol or drug abuse patient.[facility] SystemIn the event this information is protected by the Federal Confidentiality of Alcohol and Drug Abuse Patient Records regulations: The Federal rules restrict any use of the information to criminally investigate or prosecute any alcohol or drug abuse patient.[facility] SystemIn the event this information is protected by the Federal Confidentiality of Alcohol and Drug Abuse Patient Records regulations: The Federal rules restrict any use of the information to criminally investigate or prosecute any alcohol or drug abuse patient.[facility] SystemIn the event this information is protected by the Federal Confidentiality of Alcohol and Drug Abuse Patient Records regulations: The Federal rules restrict any use of the information to criminally investigate or prosecute any alcohol or drug abuse patient.[facility] SystemIn the event this information is protected by the Federal Confidentiality of Alcohol and Drug Abuse Patient Records regulations: The Federal rules restrict any use of the information to criminally investigate or prosecute any alcohol or drug abuse patient.[facility] SystemIn the event this information is protected by the Federal Confidentiality of Alcohol and Drug Abuse Patient Records regulations: The Federal rules restrict any use of the information to criminally investigate or prosecute any alcohol or drug abuse patient.[facility] SystemIn the event this information is protected by the Federal Confidentiality of Alcohol and Drug Abuse Patient Records regulations: The Federal rules restrict any use of the information to criminally investigate or prosecute any alcohol or drug abuse patient.[facility] SystemIn the event this information is protected by the Federal Confidentiality of Alcohol and Drug Abuse Patient Records regulations: The Federal rules restrict any use of the information to criminally investigate or prosecute any alcohol or drug abuse patient.[facility] SystemIn the event this information is protected by the Federal Confidentiality of Alcohol and Drug Abuse Patient Records regulations: The Federal rules restrict any use of the information to criminally investigate or prosecute any alcohol or drug abuse patient.[facility] SystemIn the event this information is protected by the Federal Confidentiality of Alcohol and Drug Abuse Patient Records regulations: The Federal rules restrict any use of the information to criminally investigate or prosecute any alcohol or drug abuse patient.[facility] SystemIn the event this information is protected by the Federal Confidentiality of Alcohol and Drug Abuse Patient Records regulations: The Federal rules restrict any use of the information to criminally investigate or prosecute any alcohol or drug abuse patient.[facility] SystemIn the event this information is protected by the Federal Confidentiality of Alcohol and Drug Abuse Patient Records regulations: The Federal rules restrict any use of the information to criminally investigate or prosecute any alcohol or drug abuse patient.[facility] SystemIn the event this information is protected by the Federal Confidentiality of Alcohol and Drug Abuse Patient Records regulations: The Federal rules restrict any use of the information to criminally investigate or prosecute any alcohol or drug abuse patient.[facility] SystemIn the event this information is protected by the Federal Confidentiality of Alcohol and Drug Abuse Patient Records regulations: The Federal rules restrict any use of the information to criminally investigate or prosecute any alcohol or drug abuse patient.[facility] SystemIn the event this information is protected by the Federal Confidentiality of Alcohol and Drug Abuse Patient Records regulations: The Federal rules restrict any use of the information to criminally investigate or prosecute any alcohol or drug abuse patient.[facility] SystemIn the event this information is protected by the Federal Confidentiality of Alcohol and Drug Abuse Patient Records regulations: The Federal rules restrict any use of the information to criminally investigate or prosecute any alcohol or drug abuse patient.[facility] SystemIn the event this information is protected by the Federal Confidentiality of Alcohol and Drug Abuse Patient Records regulations: The Federal rules restrict any use of the information to criminally investigate or prosecute any alcohol or drug abuse patient.[facility] Reason for Visit (unrecogniz ed section and [...] Specialty Diagnoses / Procedures Referred By Sanchez t Referred To Contact [facility] Diagnoses with uncertain dates in first trimester Procedures NUCHAL TRANSLUCENCY WHI US NUCHAL TRANSLUCENCY 1ST GESTATION Kelly Gregg APRN.CNM [address] [place] [place] [address] [address] Referral ID Status Reason Start Date Expiration Date V isits Requested Visits Authorized [id number] Closed Auto-Generate d Referral 06/08/2024 06/08/2025 1 1 Reason Onset Date Comments Care 07/12/2024 Reason Comments Med Change Request Reason Onset Date Comments Refill Request 08/06/2024 Reason Onset Date Comments Care 08/10/2024 Reason Onset Date Comments Refill Request 08/24/2024 Reason Onset Date Comments Care 09/07/2024 Specialty Diagnoses / Procedures Referred By Contac t Referred To Contact [facility] Diagnoses 12 weeks gestation of Encounter for supervision of other normal in first trimester Procedures OBSTETRIC ULTRASOUND WHI US PREG UTERUS AFTER 1ST TRIMEST GESTATION Kelly Gregg APRN.Yovanny [address] [place] [address] Phone: tel: fax: [address] [phone] Referral ID Status Reason Start Date Expiration Date V isits Requested Visits Authorized [id number] Closed Auto-Generate d Referral 07/12/2024 07/12/2025 1 1 Reason Onset Date Comments Care 10/05/2024 Specialty Diagnoses / Procedures Referred By Contac t Referred To Contact [facility] Diagnoses Marginal placenta previa (HCC) Procedures OBSTETRIC ULTRASOUND WHI US PREG UTERUS AFTER 1ST TRIMEST GESTATION Amanda Tavera MD [address] [place] [address] Phone: tel: fax: [address] [phone] Referral ID Status Reason Start Date Expiration Date V isits Requested Visits Authorized [id number] Closed Auto-Generate d Referral 09/07/2024 09/07/2025 1 [...] Attending Provider Active Team Status: Active Member Role/Relationship Status Dates No Primary Care Physician Primary Care Provider Active Team Status: Inactive Member Role/Relationship Status Dates No Primary Care Physician Primary Care Provider Active Start: January 27, 2025 End: January 28, 2025 Dr. Alcon Martinez DO Attending Provider Active Start: January 27, 2025 End: January 28, 2025 Team Status: Inactive Member Role/Relationship Status Dates No Primary Care Physician Primary Care Provider Active Start: January 28, 2025 End: January 28, 2025 Dr. Sangeeta Edwards MD Attending Provider Active Start: January 28, 2025 End: January 28, 2025 Goals (unrecognized section and content) Goals may be documented in a n alternate sectionGoals may be documented in an alternate sectionGoals may be documented in an alternate sectionGoals may be documented in an alternate section INFORMATION SOURCE (unrecogn ized section and content) DATE CREATED AUTHOR 05/08/2023 [facility] DATE CREATED AUTHOR AUTHOR'S ORGANIZ ATION 06/18/2023 [facility] ([place]) DATE CREATED AUTHOR AUTHOR'S ORGANIZ ATION 01/26/2025 [facility] DATE CREATED AUTHOR AUTHOR'S ORGANIZ ATION 01/30/2025 [facility] FOR RECORDS PERTAINING TO PATIENTS WHO [...] BE BASED ON THE PRIMARY CLINICAL RECORDS. [employer] [facility]. provides no warranty or guarantee of the accuracy or completeness of information in this document.
[2025-01-31] MEDS: Clindamycin 900 MG/50 ML BAG 75 MG IV ×3 (03:36→15:08)
[2025-01-31] MEDS: Ketorolac 30 MG/ML Syringe IV (03:58)
[2025-01-31] MEDS: 0.9% Saline Lock 10 ML Syringe IV ×5 (03:58→16:20)
[2025-01-31 06:05] LABS: Hematocrit 20.6 % (37-47); Hemoglobin 7.0 g/dL (12.0-15.0); Immature Granulocytes Count 0.170 X10^3/uL (0.0-0.0); Mean Corp Hgb Conc 34.0 g/dL (32-36); Mean Corpuscular Volume 92.0 fL (81-99); Mean Platelet Vol. 10.7 fl (6.2-12.0); NRBC Flagged by Analyzer 0 % (0-5); Platelet Count 225 K/mm3 (150-450); RBC Distribution Width CV 13.6 % (11.6-14.6); RBC Distribution Width SD 45.1 fl (35.1-43.9); Red Blood Count 2.24 M/mm3 (4.2-5.4); White Blood Count 22.5 K/mm3 (4.4-11.0)
[2025-01-31] MEDS: Lactated Ringers 1,000 ML 100 ML IV (06:15)
--- NOTE | 2025-01-31 08:01 | PCM.PN.CNM ---
Subjective Subjective Patient seen at bedside. Denies headache, vision changes, SOB or CP. Has only stood at bedside but became dizzy. [place] catheter still in place. Pain controlled at this time. with support. Objective Data Objective Data Vital Signs: Vital Signs Temp Pulse Resp BP Pulse Ox O2 Del Method 97.6 F L 77 17 94/74 97 Room Air 01/31/25 04:25 01/31/25 04:25 01/31/25 04:25 01/31/25 04:25 01/31/25 04:25 01/31/25 04:25 Oxygen Delivery Method Room Air Weight: 189 lb Body Mass Index (BMI) 30.4 Intake & Output: Intake and Output for Last 24 Hours 01/29/25 01/30/25 01/31/25 23:59 23:59 23:59 Intake Total 3228.63 / 3228.63 4487.43 / 4487.43 1115.42 / 1115.42 Output Total 1000 / 1000 3400 / 3800 900 / 900 Balance 2228.63 / 2228.63 1087.43 / 687.43 215.42 / 215.42 Lab / Micro Data Attestation: I reviewed the patient's lab results. 01/31/25 05:40 01/30/25 13:00 Labs: Laboratory Results - last 24 hr 01/30/25 13:00: WBC 34.3 H*, RBC 3.40 L, Hgb 10.7 L, Hct 31.4 L, MCV 92.4, MCH 31.5, MCHC 34.1, RDW Std Deviation 44.6 H, RDW Coeff of Ruben 13.3, Plt Count 299, MPV 10.7, Immature Gran % (Auto) 1.300 H, Neut % (Auto) 89.3 H, Lymph % (Auto) 5.4 L, [place] % (Auto) 3.8, Eos % (Auto) 0.0, Baso % (Auto) 0.2, Absolute Neuts (auto) 30.7 H, Absolute Lymphs (auto) 1.86, Nucleated RBC % 0, Differential Comment COMMENT, Diff Path Review November, PT 15.2 H, INR 1.2, APTT 30.3, Fibrinogen 449 H, Sodium 135, Potassium 3.7, Chloride 105, Carbon Dioxide 19.1 L, Anion Gap 11, BUN 7, Creatinine 0.88, Estim Creat Clear Calc 104.98, Est GFR (MDRD) Non-Af 92, BUN/Creatinine Ratio 8.0 L, Glucose 120 H, Calcium 8.3, Total Bilirubin 0.59, AST 20, ALT 5, Alkaline Phosphatase 94, Total Protein 5.2 L, Albumin 2.6 L, Globulin 2.5, Albumin/Globulin Ratio 1.0 01/30/25 14:05: Lactic Acid 2.2 H* 01/30/25 18:25: Lactic Acid 2.2 H* 01/31/25 05:40: WBC 22.5 H, RBC 2.24 L, Hgb 7.0 L, Hct 20.6 L, MCV 92.0, MCH 31.3, MCHC 34.0, RDW Std Deviation 45.1 H, RDW Coeff of Ruben 13.6, Plt Count 225, MPV 10.7, Immature Gran % (Auto) 0.800, Neut % (Auto) 78.3 H, Lymph % (Auto) 14.5 L, [place] % (Auto) 6.2, Eos % (Auto) 0.1, Baso % (Auto) 0.1, Absolute Neuts (auto) 17.7 H, Absolute Lymphs (auto) 3.26, Nucleated RBC % 0, Lactic Acid < 1.0 ROS Eyes Eyes: Denies blurry vision, spots in vision or tunnel vision ENT HEENT: Denies dizziness or headache(s) Cardiovascular Cardiovascular: Reports systems reviewed and no addt'l complaints, except as documented, dizziness and dyspnea Respiratory/Chest Respiratory/Chest: Reports systems reviewed and no addt'l complaints, except as documented Gastrointestinal Gastrointestinal: Reports systems reviewed and no addt'l complaints, except as documented Genitourinary Genitourinary: Reports systems reviewed and no addt'l complaints, except as documented Neurologic Neurologic: Denies abnormal speech, dizziness, headache(s), syncope or vertigo Psychiatric Psychiatric: Reports systems reviewed and no addt'l complaints, except as documented Physical Exam Const alert and no apparent distress General Appearance: cooperative Orientation / Consciousness: awake, oriented to person and oriented to place Exam Limitations: no limitations HEENT normocephalic Eyes General Eye: normal appearance of both eyes Neck full ROM Chest Chest: symmetrical chest wall rise Resp normal respiratory effort, normal air movement and clear to auscultation bilaterally Auscultation: clear to auscultation bilaterally Cardio regular rate and regular rhythm GI normal to inspection, nondistended, normoactive bowel sounds Uterus Palpation: uterus fundus firm Extremity full ROM and no calf tenderness Skin no rashes or lesions noted Neuro oriented x3 Psych mental status grossly normal and activity/motor behavior normal Assessment & Plan (1) Post-op pain: (2) Status post delivery: (3) Anemia due to blood loss: (4) Care and examination of lactating mother: PLAN: Plan POD 1 Primary C/S Continue antibiotics IV as ordered IV iron x 1 Repeat CBC 12pm Pain control Increase ambulation
[2025-01-31] MEDS: Senna/Docusate Sodium 1 Tablet PO (09:52)
[2025-01-31] MEDS: Iron Sucrose Complex 200 MG in 0.9% Normal Saline (100mL Bag) 100 ML 220 MG IV (10:40)
[2025-01-31 12:20] LABS: Hematocrit 21.0 % (37-47); Hemoglobin 7.1 g/dL (12.0-15.0); Immature Granulocytes Count 0.100 X10^3/uL (0.0-0.0); Mean Corp Hgb Conc 33.8 g/dL (32-36); Mean Corpuscular Volume 92.1 fL (81-99); Mean Platelet Vol. 10.6 fl (6.2-12.0); NRBC Flagged by Analyzer 0 % (0-5); Platelet Count 230 K/mm3 (150-450); RBC Distribution Width CV 13.7 % (11.6-14.6); RBC Distribution Width SD 45.6 fl (35.1-43.9); Red Blood Count 2.28 M/mm3 (4.2-5.4); White Blood Count 19.8 K/mm3 (4.4-11.0)
--- NOTE | 2025-01-31 19:39 | PCM.PN.OB ---
Subjective Subjective Patient doing well. Afebrile. Ambulating without lightheadedness or dizziness. Pain is well controlled. She feels much better now, and feels overall improved. Pumping without complaints. She offers no complaints at this time. Objective Data Objective Data Vital Signs: Vital Signs Temp Pulse Resp BP Pulse Ox O2 Del Method 97.7 F L 105 H 18 99/58 L 98 Room Air 01/31/25 11:45 01/31/25 11:45 01/31/25 11:45 01/31/25 11:46 01/31/25 11:45 01/31/25 11:45 Oxygen Delivery Method Room Air Weight: 189 lb Body Mass Index (BMI) 30.4 Intake & Output: Intake and Output for Last 24 Hours 01/29/25 01/30/25 01/31/25 23:59 23:59 23:59 Intake Total 3228.63 / 3228.63 4487.43 / 4487.43 3327.08 / 3327.08 Output Total 1000 / 1000 3400 / 3800 3700 / 3700 Balance 2228.63 / 2228.63 1087.43 / 687.43 -372.92 / -372.92 Lab / Micro Data 01/31/25 11:50 01/30/25 13:00 Labs: Laboratory Results - last 24 hr 01/31/25 05:40: WBC 22.5 H, RBC 2.24 L, Hgb 7.0 L, Hct 20.6 L, MCV 92.0, MCH 31.3, MCHC 34.0, RDW Std Deviation 45.1 H, RDW Coeff of Ruben 13.6, Plt Count 225, MPV 10.7, Immature Gran % (Auto) 0.800, Neut % (Auto) 78.3 H, Lymph % (Auto) 14.5 L, [place] % (Auto) 6.2, Eos % (Auto) 0.1, Baso % (Auto) 0.1, Absolute Neuts (auto) 17.7 H, Absolute Lymphs (auto) 3.26, Nucleated RBC % 0, Lactic Acid < 1.0 01/31/25 11:50: WBC 19.8 H, RBC 2.28 L, Hgb 7.1 L, Hct 21.0 L, MCV 92.1, MCH 31.1, MCHC 33.8, RDW Std Deviation 45.6 H, RDW Coeff of Ruben 13.7, Plt Count 230, MPV 10.6, Immature Gran % (Auto) 0.500, Neut % (Auto) 77.8 H, Lymph % (Auto) 14.1 L, [place] % (Auto) 7.0, Eos % (Auto) 0.4, Baso % (Auto) 0.2, Absolute Neuts (auto) 15.4 H, Absolute Lymphs (auto) 2.78, Nucleated RBC % 0 Physical Exam Const alert and no apparent distress General Appearance: comfortable HEENT normocephalic Resp normal respiratory effort GI soft to palpation and non-distended GI Narrative: ATTP, non acute Assessment & Plan (1) Care and examination of lactating mother: (2) Anemia due to blood loss: PLAN: Asymptomatic. Recheck CBC in AM. S/p IV iron. (3) Status post delivery: (4) Maternal fever during labor: PLAN: Remains afebrile with improvement in WBC's. D/c antibiotics and closely monitor.
[2025-02-01] VITALS (12 sets, daily range): BP systolic 100–122; BP diastolic 63–86; PULSE 93–113; RESP 14–16; TEMP 36.3–36.8; O2SAT 96–100
[2025-02-01 04:11] LABS: Hematocrit 19.3 % (37-47); Hemoglobin 6.3 g/dL (12.0-15.0); Immature Granulocytes Count 0.110 X10^3/uL (0.0-0.0); Mean Corp Hgb Conc 32.6 g/dL (32-36); Mean Corpuscular Volume 94.6 fL (81-99); Mean Platelet Vol. 10.3 fl (6.2-12.0); NRBC Flagged by Analyzer 0 % (0-5); Platelet Count 235 K/mm3 (150-450); RBC Distribution Width CV 14.0 % (11.6-14.6); RBC Distribution Width SD 47.8 fl (35.1-43.9); Red Blood Count 2.04 M/mm3 (4.2-5.4); White Blood Count 13.1 K/mm3 (4.4-11.0)
--- NOTE | 2025-02-01 07:39 | PN.OBGYN_ITS ---
Subjective Subjective Patient sleeping sound. Pain controlled. Ambulating and voiding without difficulty. with minimum support. Denies headache, dizziness, SOB, or CP. Objective Data Objective Data Vital Signs: Vital Signs Temp Pulse Resp BP Pulse Ox O2 Del Method 98 F 108 H 16 105/67 98 Room Air 01/31/25 23:21 02/01/25 04:09 02/01/25 04:09 02/01/25 04:09 02/01/25 04:09 02/01/25 04:09 Oxygen Delivery Method Room Air Weight: 189 lb Body Mass Index (BMI) 30.4 Intake & Output: Intake and Output for Last 24 Hours 01/30/25 01/31/25 02/01/25 23:59 23:59 23:59 Intake Total 4487.43 / 4487.43 3437.08 / 3437.08 Output Total 3400 / 3800 4700 / 4700 Balance 1087.43 / 687.43 -1262.92 / -1262.92 Lab / Micro Data Attestation: I reviewed the patient's lab results. 02/01/25 04:00 01/30/25 13:00 Labs: Laboratory Results - last 24 hr 01/31/25 11:50: WBC 19.8 H, RBC 2.28 L, Hgb 7.1 L, Hct 21.0 L, MCV 92.1, MCH 31.1, MCHC 33.8, RDW Std Deviation 45.6 H, RDW Coeff of Ruben 13.7, Plt Count 230, MPV 10.6, Immature Gran % (Auto) 0.500, Neut % (Auto) 77.8 H, Lymph % (Auto) 14.1 L, [place] % (Auto) 7.0, Eos % (Auto) 0.4, Baso % (Auto) 0.2, Absolute Neuts (auto) 15.4 H, Absolute Lymphs (auto) 2.78, Nucleated RBC % 0 02/01/25 04:00: WBC 13.1 H, RBC 2.04 L, Hgb 6.3 L, Hct 19.3 L, MCV 94.6, MCH 30.9, MCHC 32.6, RDW Std Deviation 47.8 H, RDW Coeff of Ruben 14.0, Plt Count 235, MPV 10.3, Immature Gran % (Auto) 0.800, Neut % (Auto) 75.2 H, Lymph % (Auto) 16.3 L, [place] % (Auto) 6.3, Eos % (Auto) 1.2, Baso % (Auto) 0.2, Absolute Neuts (auto) 9.9 H, Absolute Lymphs (auto) 2.14, Nucleated RBC % 0 ROS Eyes Eyes: Denies blurry vision, spots in vision or tunnel vision ENT HEENT: Denies dizziness or headache(s) Cardiovascular Cardiovascular: Reports systems reviewed and no addt'l complaints, except as documented, dizziness and dyspnea Respiratory/Chest Respiratory/Chest: Reports systems reviewed and no addt'l complaints, except as documented Gastrointestinal Gastrointestinal: Reports systems reviewed and no addt'l complaints, except as documented Genitourinary Genitourinary: Reports systems reviewed and no addt'l complaints, except as documented Neurologic Neurologic: Denies abnormal speech, dizziness, headache(s), syncope or vertigo Psychiatric Psychiatric: Reports systems reviewed and no addt'l complaints, except as documented Physical Exam Const alert and no apparent distress General Appearance: cooperative Orientation / Consciousness: awake, oriented to person and oriented to place Exam Limitations: no limitations HEENT normocephalic Eyes General Eye: normal appearance of both eyes Neck full ROM Chest Chest: symmetrical chest wall rise Resp normal respiratory effort, normal air movement and clear to auscultation bilaterally Auscultation: clear to auscultation bilaterally Cardio regular rate and regular rhythm GI normal to inspection, nondistended, normoactive bowel sounds Uterus Palpation: uterus fundus firm Extremity full ROM and no calf tenderness Skin no rashes or lesions noted Neuro oriented x3 Psych mental status grossly normal and activity/motor behavior normal Assessment & Plan (1) Care and examination of lactating mother: (2) Anemia due to blood loss: (3) Status post delivery: (4) Post-op pain: PLAN: Plan POD 2 C/S HGB 6.3 down from 7.1- asymptomatic 2 units PRBC ordered per Dr. Martinez Repeat CBC Reevaluate patient later today
[2025-02-01] MEDS: 0.9% Saline Lock 10 ML Syringe IV ×2 (07:54→17:40)
[2025-02-01] MEDS: Senna/Docusate Sodium 1 Tablet PO (10:18)
[2025-02-01 10:21] LABS: Hematocrit 18.9 % (37-47); Hemoglobin 6.3 g/dL (12.0-15.0); Mean Corp Hgb Conc 33.3 g/dL (32-36); Mean Corpuscular Volume 93.6 fL (81-99); Mean Platelet Vol. 10.7 fl (6.2-12.0); Platelet Count 256 K/mm3 (150-450); RBC Distribution Width CV 14.0 % (11.6-14.6); RBC Distribution Width SD 47.4 fl (35.1-43.9); Red Blood Count 2.02 M/mm3 (4.2-5.4); White Blood Count 11.7 K/mm3 (4.4-11.0)
--- NOTE | 2025-02-01 11:46 | PN_ITS ---
Subjective Subjective patient seen at bedside, doing well. Patient reports good pain control. lochia mild. denies Dizziness or SOB. Breast feeding well. Objective Data Objective Data Vital Signs: Vital Signs Temp Pulse Resp BP Pulse Ox O2 Del Method 98.1 F 109 H 16 112/73 99 Room Air 02/01/25 11:41 02/01/25 11:41 02/01/25 11:41 02/01/25 11:41 02/01/25 11:41 02/01/25 11:41 Oxygen Delivery Method Room Air Weight: 85.729 kg Body Mass Index (BMI) 30.4 Intake & Output: Intake and Output for Last 24 Hours 01/30/25 01/31/25 02/01/25 23:59 23:59 23:59 Intake Total 4487.43 / 4487.43 3437.08 / 3437.08 0 / 0 Output Total 3400 / 3800 4700 / 4700 Balance 1087.43 / 687.43 -1262.92 / -1262.92 0 / 0 Lab / Micro Data 02/01/25 10:00 01/30/25 13:00 Labs: Laboratory Results - last 24 hr 01/31/25 11:50: WBC 19.8 H, RBC 2.28 L, Hgb 7.1 L, Hct 21.0 L, MCV 92.1, MCH 31.1, MCHC 33.8, RDW Std Deviation 45.6 H, RDW Coeff of Ruben 13.7, Plt Count 230, MPV 10.6, Immature Gran % (Auto) 0.500, Neut % (Auto) 77.8 H, Lymph % (Auto) 14.1 L, [place] % (Auto) 7.0, Eos % (Auto) 0.4, Baso % (Auto) 0.2, Absolute Neuts (auto) 15.4 H, Absolute Lymphs (auto) 2.78, Nucleated RBC % 0 02/01/25 04:00: WBC 13.1 H, RBC 2.04 L, Hgb 6.3 L, Hct 19.3 L, MCV 94.6, MCH 30.9, MCHC 32.6, RDW Std Deviation 47.8 H, RDW Coeff of Ruben 14.0, Plt Count 235, MPV 10.3, Immature Gran % (Auto) 0.800, Neut % (Auto) 75.2 H, Lymph % (Auto) 16.3 L, [place] % (Auto) 6.3, Eos % (Auto) 1.2, Baso % (Auto) 0.2, Absolute Neuts (auto) 9.9 H, Absolute Lymphs (auto) 2.14, Nucleated RBC % 0 02/01/25 10:00: WBC 11.7 H, RBC 2.02 L, Hgb 6.3 L, Hct 18.9 L, MCV 93.6, MCH 31.2, MCHC 33.3, RDW Std Deviation 47.4 H, RDW Coeff of Ruben 14.0, Plt Count 256, MPV 10.7, Blood Type A POSITIVE, Antibody Screen NEGATIVE, Crossmatch See Detail Micro: Microbiology 01/30/25 14:20 Urine Catheter - [place] Urine Culture - Final Culture exhibits no growth. Physical Exam Narrative Abd: fundus firm. Dressing dry and intact Const alert and oriented x3 General Appearance: cooperative HEENT normocephalic Neck General: normal visual inspection GI soft to palpation and non-distended GI Narrative: Fundus firm Extremity normal to inspection and no calf tenderness Skin no rashes or lesions noted Neuro oriented x3 and CN's II-XII intact bilaterally Psych mental status grossly normal Assessment & Plan Assessment/Plan (1) Anemia due to blood loss: (2) Status post delivery: (3) Care and examination of lactating mother: (4) Maternal fever during labor: (5) Sepsis after obstetrical procedure: PLAN: Plan POD#2 , Doing well today Routine care pain mgmt monitor VS ambulation cbc 4 hrs after blood transfusion and then repeat in AM
[2025-02-01] MEDS: 0.9% Normal Saline (250mL Bag) 250 ML 999 ML IV (15:07)
--- NOTE | 2025-02-01 22:35 | DS.PCM_ITS ---
Providers Date of Admission: 01/29/25 Primary Care Physician: Chyna Primary Care Phys Reason For Visit: PRIMARY Diagnosis Discharge Diagnosis (1) Anemia due to blood loss: Status: Acute Code(s): D50.0 - Iron deficiency anemia secondary to blood loss (chronic) (2) Status post delivery: Status: Acute Code(s): Z98.891 - History of uterine scar from previous surgery (3) Care and examination of lactating mother: Status: Acute Code(s): Z39.1 - Encounter for care and examination of lactating mother (4) Maternal fever during labor: Status: Acute Code(s): O75.2 - Pyrexia during labor, not elsewhere classified (5) Sepsis after obstetrical procedure: Status: Acute Code(s): O86.04 - Sepsis following an obstetrical procedure (6) Post-op pain: Status: Acute Code(s): G89.18 - Other acute postprocedural pain Plan 1) at bedside to evaluate and then on unit. Made progress with pushing efforts but caput present and minimal descent after 4.5 hours of pushing and delivery not imminent. heart rate decelerations with each contraction. Decision for section. Medications at Discharge Home Medications aspirin 81 mg tablet,delayed release (Adult Aspirin Regimen) 81 mg PO DAILY 01/27/25 ondansetron HCl 8 mg tablet 8 mg PO Q8H PRN nausea 01/27/25 vitamin no.45-iron-FA 28 mg iron-1 mg chewable tablet 1 tab PO DAILY 01/27/25 acetaminophen 500 mg tablet 1,000 mg (2 x 500 mg) PO Q6H #0 tabs 02/02/25 ferrous sulfate 325 mg (65 mg iron) tablet 325 mg PO QODAY 60 days #30 tabs 02/02/25 ibuprofen 600 mg tablet 600 mg PO Q6H #60 tabs 02/02/25 oxycodone 5 mg tablet 5 mg PO Q6H 7 days #7 tabs 02/02/25 sennosides 8.6 mg-docusate sodium 50 mg tablet (Stimulant Laxative Plus) 1 - 2 tab PO DAILY #60 tabs 02/02/25 Hospital Course Summary of Care Provided Minutes Spent on Discharge: 15 Hospital Course: Presented for induction of labor for post dates. section due to failure to descend. Maternal sepsis with acute blood loss anemia. Discharge home on postoperative day #2 Weight / BMI Weight Weight: 189 lb Body Mass Index (BMI) 30.4 ABG / Lab / Microbiology Data 02/02/25 05:50 01/30/25 13:00 Laboratory: Laboratory Results - last 24 hr 02/01/25 10:00: Blood Type A POSITIVE, Antibody Screen NEGATIVE, Crossmatch See Detail 02/02/25 05:50: WBC 9.5, RBC 2.45 L, Hgb 7.5 L, Hct 22.2 L, MCV 90.6, MCH 30.6, MCHC 33.8, RDW Std Deviation 48.6 H, RDW Coeff of Ruben 14.6, Plt Count 242, MPV 9.7, Immature Gran % (Auto) 0.800, Neut % (Auto) 63.7, Lymph % (Auto) 26.9, [place] % (Auto) 6.0, Eos % (Auto) 2.3, Baso % (Auto) 0.3, Absolute Neuts (auto) 6.0, Absolute Lymphs (auto) 2.55, Nucleated RBC % 0 Microbiology: Microbiology 01/30/25 14:20 Blood Culture (Wb) - Anticubital Left Blood Culture - Preliminary No growth in 48 hours. 01/30/25 14:05 Blood Culture (Wb) - Left Hand Blood Culture - Preliminary No growth in 48 hours. 01/30/25 14:20 Urine Catheter - [place] Urine Culture - Final Culture exhibits no growth. D/C Instructions May resume sexual activity in: 6 weeks Weight Bearing Status: Full weight bearing Lifting Restricted to (Lbs): 20 Call your doctor if your incision/area has: Continuous Slow Oozing, Sudden Increased Bleeding, Increased Pain/ Swelling, Increased Redness, Foul Smelling Discharge and Swelling at the incision site Call your doctor if you observe: Fever of 101 or Higher, Inability to urinate, Inability to have a bowel movement, Using more than 1 pad per hour, Shortness of breath, Dizziness, Fainting spells, Chest pain, Increased palpitations (irregular heartbeat), Calf discomfort and Uncontrolled pain Suture Line Care: Avoid Pulling/Pushing Remove Dressing in: 1 week Cleanse incision/area with: Keep Dressing Clean & Dry DC O2, CPAP, BIPAP Needs Home O2 Discharge instructions: No Meaningful Use Info Meaningful Use Meaningful Use Diagnoses (Choose all that apply): None applicable Discharge Plan Admission Admit Date/Time: 01/29/25 07:22 Primary Reason for Your Visit: Section Attending Provider: Amanda Wall Primary Care Provider: Care Physician,No Primary Discharge Orders/Prescriptions Prescriptions: New acetaminophen 500 mg Tablet 1,000 mg PO Q6H Qty: 0 0RF ibuprofen 600 mg Tablet 600 mg PO Q6H Qty: 60 0RF sennosides-docusate sodium [Stimulant Laxative Plus] 8.6-50 mg Tablet 1 - 2 tab PO DAILY Qty: 60 0RF oxycodone 5 mg Tablet 5 mg PO Q6H 7 Days Qty: 7 0RF ferrous sulfate 325 MG tablet 325 mg PO QODAY 60 Days Qty: 30 0RF Continued vitamin #45-iron-FA 28 mg iron- 1 mg tablet,chewable 1 tab PO DAILY Discontinued pantoprazole [Protonix] [address] for susp in packet 40 mg PO DAILY No Action aspirin [Adult Aspirin Regimen] 81 mg tablet,delayed release (DR/EC) 81 mg PO DAILY ondansetron HCl 8 mg tablet 8 mg PO Q8H PRN (Reason: nausea) Rx Instructions: 1st dose 1-2 hr before radiation Referrals / Follow Up: Care Physician,No Primary [Primary Care Provider] - Disposition Disposition (needs filled in before D/C Order can be placed): Home, Self Care
[2025-02-02 02:09] VITALS: BP 121/78; PULSE 92; RESP 16; TEMP 36.6; O2SAT 97
[2025-02-02 06:02] LABS: Hematocrit 22.2 % (37-47); Hemoglobin 7.5 g/dL (12.0-15.0); Immature Granulocytes Count 0.080 X10^3/uL (0.0-0.0); Mean Corp Hgb Conc 33.8 g/dL (32-36); Mean Corpuscular Volume 90.6 fL (81-99); Mean Platelet Vol. 9.7 fl (6.2-12.0); NRBC Flagged by Analyzer 0 % (0-5); Platelet Count 242 K/mm3 (150-450); RBC Distribution Width CV 14.6 % (11.6-14.6); RBC Distribution Width SD 48.6 fl (35.1-43.9); Red Blood Count 2.45 M/mm3 (4.2-5.4); White Blood Count 9.5 K/mm3 (4.4-11.0)
[2025-02-02 07:59] VITALS: BP 116/75; PULSE 64; RESP 16; TEMP 36.6; O2SAT 100
[2025-02-02] MEDS: Senna/Docusate Sodium 1 Tablet PO (09:59)
--- NOTE | 2025-02-02 10:46 | PCM.PN.OB ---
Subjective Subjective Doing well per patient and nursing staff. Ambulating and taking PO without difficulty. Voiding and passing flatus. Pain controlled. , services for assistance. Denies headache, visual changes, chest pain, shortness of breath, leg pain or increased bleeding. Lochia normal. Objective Data Objective Data Vital Signs: Vital Signs Temp Pulse Resp BP Pulse Ox O2 Del Method 97.9 F 64 16 116/75 100 Room Air 02/02/25 07:59 02/02/25 07:59 02/02/25 07:59 02/02/25 07:59 02/02/25 07:59 02/02/25 07:59 Oxygen Delivery Method Room Air Weight: 189 lb Body Mass Index (BMI) 30.4 Intake & Output: Intake and Output for Last 24 Hours 01/31/25 02/01/25 02/02/25 23:59 23:59 23:59 Intake Total 3437.08 / 3437.08 1050 / 1050 Output Total 4700 / 4700 Balance -1262.92 / -1262.92 1050 / 1050 Lab / Micro Data 02/02/25 05:50 01/30/25 13:00 Labs: Laboratory Results - last 24 hr 02/01/25 10:00: Blood Type A POSITIVE, Antibody Screen NEGATIVE, Crossmatch See Detail 02/02/25 05:50: WBC 9.5, RBC 2.45 L, Hgb 7.5 L, Hct 22.2 L, MCV 90.6, MCH 30.6, MCHC 33.8, RDW Std Deviation 48.6 H, RDW Coeff of Ruben 14.6, Plt Count 242, MPV 9.7, Immature Gran % (Auto) 0.800, Neut % (Auto) 63.7, Lymph % (Auto) 26.9, [place] % (Auto) 6.0, Eos % (Auto) 2.3, Baso % (Auto) 0.3, Absolute Neuts (auto) 6.0, Absolute Lymphs (auto) 2.55, Nucleated RBC % 0 Micro: Microbiology 01/30/25 14:20 Blood Culture (Wb) - Anticubital Left Blood Culture - Preliminary No growth in 48 hours. 01/30/25 14:05 Blood Culture (Wb) - Left Hand Blood Culture - Preliminary No growth in 48 hours. 01/30/25 14:20 Urine Catheter - [place] Urine Culture - Final Culture exhibits no growth. ROS Constitutional Constitutional: Reports systems reviewed and no addt'l complaints, except as documented; Denies headache(s) Eyes Eyes: Denies acute decrease in peripheral vision, blurry vision or change in vision ENT HEENT: Reports systems reviewed and no addt'l complaints, except as documented Cardiovascular Cardiovascular: Denies chest pain or dizziness Respiratory/Chest Respiratory/Chest: Denies cough, dyspnea, dyspnea on exertion, shortness of breath at rest or shortness of breath with exertion Gastrointestinal Gastrointestinal: Denies abdominal pain, diarrhea, nausea or vomiting Genitourinary Genitourinary: Denies abdominal discomfort Musculoskeletal Musculoskeletal: Denies limited range of motion Integumentary Integumentary: Reports systems reviewed and no addt'l complaints, except as documented Neurologic Neurologic: Reports systems reviewed and no addt'l complaints, except as documented Psychiatric Psychiatric: Reports systems reviewed and no addt'l complaints, except as documented Endocrine Endocrinology: Reports systems reviewed and no addt'l complaints, except as documented Hematologic/Lymphatic Hematologic/Lymphatic: Reports systems reviewed and no addt'l complaints, except as documented Allergic/Immunologic Allergic/Immunologic: Reports systems reviewed and no addt'l complaints, except as documented Physical Exam Const alert and oriented x3 General Appearance: cooperative Orientation / Consciousness: awake, oriented to person, oriented to place and oriented to time Exam Limitations: no limitations HEENT normocephalic Head and Scalp: normal to inspection, normocephalic and atraumatic Face and Sinus: normal facial exam Eyes General Eye: normal appearance of both eyes Neck full ROM Chest Chest: symmetrical chest wall rise Resp normal respiratory effort and normal air movement Auscultation: clear to auscultation bilaterally Cardio regular rate, regular rhythm, S1 normal heart sound, S2 normal heart sound, no murmurs, no rub, no gallops and no clicks GI normal to inspection, nondistended, normoactive bowel sounds and non-tender GI Narrative: Fundus firm 2 below U. Dressing dry and intact. appearance of the vagina normal Narrative: Normal lochia rubra Bladder / Kidney Exam: no CVA tenderness Back/Spine normal ROM Extremity normal to inspection and full ROM Skin no rashes or lesions noted Neuro oriented x3, CN's II-XII intact bilaterally and moves all extremities Sensorium / Orientation: awake, alert and oriented to person Motor Exam: clonus absent Deep Tendon Reflexes: Rt Patellar (L4): 2+ and Lt Patellar (L4): 2+ Assessment & Plan (1) Sepsis after obstetrical procedure: (2) Maternal fever during labor: (3) Care and examination of lactating mother: (4) Anemia due to blood loss: (5) Status post delivery: (6) heart deceleration: (7) Failure of descent in labor, delivered, current hospitalization: PLAN: Plan 1) Routine care, POD #3 2) Vitals signs stable 3) Pain controlled 4) , services PRN 5) D/C home 6) Follow up in 1 weeks and 6 weeks 7) Iron for anemia
== END 2025-02-02 12:35 | disposition home or self-care (01) | DRG 786 ==
PROVIDERS: Advanced Practice Midwife; Obstetrics & Gynecology; Admitting Provider Advanced Practice Midwife; Referring Provider Advanced Practice Midwife; Visit Provider Obstetrics & Gynecology
DX: O48.0 Post-term pregnancy (principal); O86.04 Sepsis following an obstetrical procedure; A41.9 Sepsis, unspecified organism; D62 Acute posthemorrhagic anemia; O75.2 Pyrexia during labor, not elsewhere classified; O62.0 Primary inadequate contractions; O76 Abnormality in fetal heart rate and rhythm complicating labor and delivery; O77.0 Labor and delivery complicated by meconium in amniotic fluid; Z37.0 Single live birth; O99.824 Streptococcus B carrier state complicating childbirth; O99.893 Other specified diseases and conditions complicating puerperium; R03.1 Nonspecific low blood-pressure reading; O90.81 Anemia of the puerperium; Z3A.41 41 weeks gestation of pregnancy; Z79.82 Long term (current) use of aspirin; Z87.59 Personal history of other complications of pregnancy, childbirth and the puerperium
CPT/HCPCS: 36415; 59025; 59050; 80053; 83605; 85025; 85027; 85384; 85610; 85730; 86780; 86850; 86900; 86901; 87040; 87086; 99221; J1756; P9016; A4216; G0378; J2405